=== PATIENT | female | born 1955 | race Two or more races ===

== ENCOUNTER → 2020-08-09 13:15 | Outpatient (BNVA) | payer OTHER, SELFPAY | PROVIDERS: PCP Internal Medicine; Visit Provider Urology | DX: Z76.89 Persons encountering health services in other specified circumstances (principal) | CPT/HCPCS: 99212 ==

== ENCOUNTER 2020-09-13 13:45 | Outpatient (REF) | payer OTHER, SELFPAY | END 2020-09-13 13:46 | disposition home or self-care (01) | LOC: HO.LAB 13:45 | PROVIDERS: PCP Internal Medicine; Visit Provider Internal Medicine | DX: Z20.828 Contact with and (suspected) exposure to other viral communicable diseases (principal) | CPT/HCPCS: C9803; U0003 ==

== ENCOUNTER 2020-09-14 12:38 | Outpatient (REF) | payer MEDICARE, SELFPAY ==
[2020-09-14 14:41] LABS: MANUAL DIFF FLAG NO
[2020-09-14 14:47] LABS: Basophils Percent Auto 0.2 % (0-2); Eosinophils Absolute Auto 0.2 X10*3/uL (0.0-0.4); Eosinophils Percent Auto 2.8 % (0-4); Hematocrit 44.5 % (37-47); Hemoglobin 15.4 g/dl (12.0-16.0); Imm Gran Abs Auto 0.06 X10*3/uL (0.00-0.03); Lymphocytes Absolute Auto 1.7 X10*3/uL (1.2-4.9); Lymphocytes Percent Auto 27.9 % (20-40); Mean Corpuscular HGB Conc 34.6 g/dl (31.0-35.0); Mean Corpuscular Hemoglobin 30.6 pg (27.0-33.0); Mean Corpuscular Volume 88.3 fL (80-98); Mean Platelet Volume 9.4 fL (9.4-12.3); Monocytes Absolute Auto 0.4 X10*3/uL (0.1-1.2); Monocytes Percent Auto 7.3 % (2-11); Neutrophils Absolute Auto 3.7 X10*3/uL (2.0-8.3); Neutrophils Percent Auto 60.8 % (45-73); Platelet Count 177 X10*3/uL (160-400); Red Blood Count 5.04 X10*6/uL (4.20-5.50); Red Cell Distribution Width 12.7 % (11.0-16.0); White Blood Count 6.1 X10*3/uL (4.8-10.8)
[2020-09-14 14:53] LABS: Glucose Urine UA >=1000 MG/DL (NEG); Leukocyte Esterase Urine NEG (NEG); Nitrite Urine NEG (NEG); PH 5.5 (5.0-8.0); Urine Blood TRACE (NEG); Urine Ketones NEG (NEG); Urine Protein NEG (NEG-TRACE)
[2020-09-14 14:54] LABS: Appearance Urine CLEAR; Color Urine YELLOW
[2020-09-14 15:01] LABS: RBC Urine 0-2 /HPF (0); Squamous Epithelial Cell Urine 1+ /LPF; WBC Urine 0 /HPF (0-4)
[2020-09-14 15:14] LABS: Alanine Aminotransferase 44 U/L (0-31); Albumin Level 4.5 g/dL (3.5-5.0); Alkaline Phosphatase 70 U/L (39-117); Anion Gap 13 (12-20); Aspartate Amino Transferase 29 U/L (5-31); Bilirubin Total 0.5 mg/dL (0.0-1.0); Blood Urea Nitrogen 17 mg/dL (9-16); Calcium 9.5 mg/dL (8.4-10.2); Carbon Dioxide 26 mmol/L (22-29); Chloride 105 mmol/L (96-108); Cholesterol 189 mg/dL; Estimated Glomerular Filt Rate > 60; Glucose Fasting 177 mg/dL (60-99); HDL Cholesterol 34 mg/dL; LDL Cholesterol Calculated 93 mg/dl; Potassium 4.8 mmol/l (3.3-5.1); Sodium 139 mmol/L (135-145); Total Protein 7.7 g/dL (6.5-8.0); Triglycerides 312 mg/dL
[2020-09-14 15:27] LABS: Creatinine Urine 64.24 mg/dL; Microalbum/Creatinine Ratio Ur 12.4 ug/mg cr
[2020-09-14 15:35] LABS: TSH reflex Free T4 0.58 mIU/mL (0.32-4.0)
== END 2020-09-14 12:39 | disposition home or self-care (01) ==
LOC: HO.LAB 12:38
PROVIDERS: PCP Internal Medicine; Visit Provider Internal Medicine
DX: E78.2 Mixed hyperlipidemia (principal); E11.9 Type 2 diabetes mellitus without complications; R79.89 Other specified abnormal findings of blood chemistry; I10 Essential (primary) hypertension; J30.9 Allergic rhinitis, unspecified; E66.3 Overweight
CPT/HCPCS: 36415; 80053; 80061; 81001; 82043; 84443; 85025

== ENCOUNTER 2020-09-14 14:02 | Outpatient (REF) | payer MEDICARE, SELFPAY | END 2020-09-14 14:03 | disposition home or self-care (01) | LOC: HO.LAB 14:02 | PROVIDERS: Visit Provider Internal Medicine | DX: Z20.828 Contact with and (suspected) exposure to other viral communicable diseases (principal) | CPT/HCPCS: C9803; U0003 ==

== ENCOUNTER 2020-09-15 16:30 | Outpatient (REF) | payer MEDICARE, SELFPAY ==
--- NOTE | 2020-09-15 16:45 | XR_ITS ---
EXAMINATION: XR SHOULDER, RIGHT CLINICAL INFORMATION: Pain in right shoulder COMPARISON: Chest x-ray 01/22/2020 TECHNIQUE: AP external rotation, Grashey, scapular Y, and axillary views of the right shoulder. FINDINGS: Mild right acromioclavicular joint arthrosis. The right clavicle is intact. There is mild sclerosis and osteophytosis of the right glenoid. No fracture seen. Visualized right lung and ribs are normal. XR/XR shoulder RT min 2V IMPRESSION: There are degenerative changes of the right acromioclavicular and glenohumeral joints.
== END 2020-09-15 16:31 | disposition home or self-care (01) ==
LOC: HO.XRAY 16:30
PROVIDERS: PCP Internal Medicine; Visit Provider Internal Medicine
DX: M25.511 Pain in right shoulder (principal)
CPT/HCPCS: 73030

== ENCOUNTER → 2020-11-09 13:46 | Outpatient (BNVA) | payer MEDICARE, SELFPAY | PROVIDERS: Visit Provider Orthopaedic Surgery | DX: M75.51 Bursitis of right shoulder (principal) | CPT/HCPCS: 20610; 99202; J1100 ==

== ENCOUNTER 2020-11-12 18:14 | Emergency (ER) | payer MEDICARE, SELFPAY ==
[2020-11-12 18:23] VITALS: BP 149/67; PULSE 87; RESP 16; TEMP 36.8; O2SAT 99; BMI 27.4
== END 2020-11-12 21:00 | disposition left against medical advice (07) ==
PROVIDERS: Emergency Provider Emergency Medicine; PCP Internal Medicine
DX: R07.9 Chest pain, unspecified (principal)
CPT/HCPCS: 99281; 99282

== ENCOUNTER 2020-12-28 14:00 | Outpatient (RCR) | payer MEDICARE, SELFPAY ==
--- NOTE | 2020-11-23 14:01 | MHC.PT.EP ---
[facility] [place] Office [place] Office [place] Office [address] Marquita Reid [address] [phone] F: [phone] F: [phone] F: [phone] F: [phone] Physical Therapy Plan of Care Date of Evaluation: 11/23/20 Date of Surgery: N/A Diagnosis: bursitis of right shoulder Assessment: pt presents to physical therapy with pain, decreased range of motion, decreased strength, impaired functional mobility, impaired postural awareness, and gait deviations. pt is a good candidate for skilled PT due to age, potential remediation of impairments, typical disease/condition progression and prognosis, comorbidities, and motivation. pt would benefit from tailored strengthening and stretching exercise program, functional training, gait training, postural re-training, neuromuscular re-education, modalities as needed for pain, equipment safety demonstration. Frequency and Duration: The patient will be seen 2x/wk for 5 wks Short Term Goals: pt will be I w/ HEP to promote self-management of condition. pt will improve R shoulder flexion strength by 1 MMT grade to facilitate ease in lowering arm from reaching higher shelves. Residential Goals: pt will report <1/10 R shoulder pain w/ laying on R side for >30 min to promote improved tolerance for sleeping. pt will report statistically significant improvement in self-reported outcome measure, SPADI, to facilitate return to PLOF. Treatment Plan: Modalities to reduce pain, spasms and effusion. Manual therapy to restore motion and function. Therapeutic exercise to improve strength and flexibility. Neuromuscular re-education for posture and balance. Therapeutic activities to return to functional activities of daily living. Electronically signed by: Nikki Nettles PT, DPT Please sign and return to therapist. Thank you for your referral.
--- NOTE | 2021-01-08 17:18 | MHC.PT.DC ---
[facility] [place] Office [place] Office [place] Office [address] Reid 140 [facility] [phone] F: [phone] F: [phone] F: [phone] F: [phone] Physical Therapy Discharge Report Diagnosis: bursitis of right shoulder Date of Surgery: N/A Date of Evaluation: 11/23/20 Date of Discharge: 01/08/21 Treatments to Date: 5 Cancellations to Date: 4 No Shows to Date: 3 Discharge Status: Improved Function Visit Non-compliance Discharge Summary: The patient was reporting an improvement in her pain. She was still having pain with sleeping so she was educated regarding sleeping posture and strategies to reduce and prevent pain with sleeping positions. Due to poor attendance she is being discharged from this physical therapy plan of care. Electronically signed by: Nikki Nettles PT, DPT Please sign and return to therapist. Thank you for your referral.
== END 2021-01-08 17:19 | disposition other institution (70) ==
LOC: HO.PT 14:00
PROVIDERS: PCP Internal Medicine; Visit Provider Orthopaedic Surgery
DX: M75.51 Bursitis of right shoulder (principal)
CPT/HCPCS: 97110; 97140; 97161

== ENCOUNTER 2021-01-15 09:31 | Outpatient (REF) | payer MEDICARE, SELFPAY ==
[2021-01-15 10:20] LABS: MANUAL DIFF FLAG NO
[2021-01-15 10:24] LABS: Basophils Percent Auto 0.5 % (0-2); Eosinophils Absolute Auto 0.2 X10*3/uL (0.0-0.4); Eosinophils Percent Auto 3.4 % (0-4); Hematocrit 42.5 % (37-47); Hemoglobin 14.5 g/dl (12.0-16.0); Imm Gran Abs Auto 0.06 X10*3/uL (0.00-0.03); Lymphocytes Absolute Auto 2.1 X10*3/uL (1.2-4.9); Lymphocytes Percent Auto 35.2 % (20-40); Mean Corpuscular HGB Conc 34.1 g/dl (31.0-35.0); Mean Corpuscular Hemoglobin 30.5 pg (27.0-33.0); Mean Corpuscular Volume 89.3 fL (80-98); Mean Platelet Volume 9.6 fL (9.4-12.3); Monocytes Absolute Auto 0.5 X10*3/uL (0.1-1.2); Neutrophils Percent Auto 50.9 % (45-73); Platelet Count 179 X10*3/uL (160-400); Red Blood Count 4.76 X10*6/uL (4.20-5.50); Red Cell Distribution Width 12.3 % (11.0-16.0)
[2021-01-15 10:49] LABS: Glucose Urine UA >=1000 MG/DL (NEG); Leukocyte Esterase Urine NEG (NEG); Nitrite Urine NEG (NEG); PH 5.5 (5.0-8.0); Urine Blood TRACE (NEG); Urine Ketones NEG (NEG); Urine Protein NEG (NEG-TRACE)
[2021-01-15 10:51] LABS: Alanine Aminotransferase 53 U/L (0-31); Albumin Level 4.2 g/dL (3.5-5.0); Alkaline Phosphatase 69 U/L (39-117); Anion Gap 12 (12-20); Aspartate Amino Transferase 25 U/L (5-31); Bilirubin Total 0.3 mg/dL (0.0-1.0); Blood Urea Nitrogen 19 mg/dL (9-16); Calcium 9.3 mg/dL (8.4-10.2); Carbon Dioxide 27 mmol/L (22-29); Chloride 104 mmol/L (96-108); Cholesterol 150 mg/dL; Estimated Glomerular Filt Rate > 60; Glucose Fasting 297 mg/dL (60-99); HDL Cholesterol 32 mg/dL; LDL Cholesterol Calculated 70 mg/dl; Potassium 4.5 mmol/L (3.3-5.1); Sodium 138 mmol/L (135-145); Triglycerides 242 mg/dL
[2021-01-15 10:59] LABS: Appearance Urine CLEAR; Color Urine YELLOW
[2021-01-15 11:04] LABS: Creatinine Urine 46.85 mg/dL; Microalbumin Urine < 5.0 mg/L
[2021-01-15 11:14] LABS: TSH reflex Free T4 1.35 uIU/mL (0.32-4.0)
[2021-01-15 11:18] LABS: RBC Urine 0-2 /HPF (0); Squamous Epithelial Cell Urine 1+ /LPF; WBC Urine 0-2 /HPF (0-4)
== END 2021-01-15 09:32 | disposition home or self-care (01) ==
LOC: HO.LAB 09:31
PROVIDERS: PCP Internal Medicine; Visit Provider Internal Medicine
DX: I10 Essential (primary) hypertension (principal); J30.9 Allergic rhinitis, unspecified; E78.2 Mixed hyperlipidemia; E11.9 Type 2 diabetes mellitus without complications; E66.3 Overweight
CPT/HCPCS: 36415; 80053; 80061; 81001; 82043; 84443; 85025

== ENCOUNTER → 2021-02-08 14:24 | Outpatient (BNVA) | payer MEDICARE, SELFPAY | PROVIDERS: PCP Internal Medicine; Visit Provider Physician Assistant | DX: M75.21 Bicipital tendinitis, right shoulder (principal) | CPT/HCPCS: 99212 ==

== ENCOUNTER 2021-03-02 11:28 | Outpatient (REF) | payer MEDICARE, SELFPAY ==
[2021-03-06 20:57] LABS: HPV mRNA E6/E7 rflx Not Detected (Not Detected)
== END 2021-03-02 11:29 | disposition home or self-care (01) ==
LOC: HO.LAB 11:28
PROVIDERS: Obstetrics & Gynecology; PCP Internal Medicine; Visit Provider Internal Medicine
DX: Z01.419 Encounter for gynecological examination (general) (routine) without abnormal findings (principal); M75.21 Bicipital tendinitis, right shoulder; G89.29 Other chronic pain; Z78.0 Asymptomatic menopausal state; R32 Unspecified urinary incontinence; N95.8 Other specified menopausal and perimenopausal disorders
CPT/HCPCS: 87624; 88141; 88142; 99202

== ENCOUNTER 2021-03-14 09:26 | Outpatient (REF) | payer MEDICARE, SELFPAY ==
[2021-03-14 11:38] LABS: Folate 14.8 ng/mL (> or = 4.0); Vitamin B12 517 pg/mL (200-900)
== END 2021-03-14 09:27 | disposition home or self-care (01) ==
LOC: HO.LAB 09:26
PROVIDERS: PCP Internal Medicine; Visit Provider Psychiatry & Neurology Neurology
DX: F06.8 Other specified mental disorders due to known physiological condition (principal)
CPT/HCPCS: 36415; 82607; 82746

== ENCOUNTER → 2021-06-07 13:13 | Outpatient (BNVA) | payer MEDICARE, SELFPAY | PROVIDERS: PCP Internal Medicine | DX: R39.81 Functional urinary incontinence (principal) | CPT/HCPCS: 99212 ==

== ENCOUNTER 2021-07-06 02:42 | Emergency (ER) | payer MEDICARE, SELFPAY ==
--- NOTE | ~2021-07-06 | CT_ITS ---
EXAMINATION: CT HEAD WITHOUT CONTRAST CT CERVICAL SPINE WITHOUT CONTRAST CLINICAL INFORMATION: Fall. COMPARISON: CT head 07/03/2020 TECHNIQUE: Imaging was performed from the skull base to vertex without intravenous administration of contrast. In addition, helical noncontrast CT imaging was acquired through the cervical spine and source images were reviewed along with axial reconstructions and sagittal and coronal MPRs. [This CT examination was performed using dose optimization techniques as appropriate, variously including the following: *Automated exposure control *Adjustment of mA and/or kV according to patient size (this includes techniques or standardized protocols for targeted exams where dose is matched to indication/reason for exam; i.e. extremities or head) *Use of iterative reconstruction technique] DLP: 1202 mGy-cm FINDINGS: HEAD: No intracranial mass, hemorrhage, or midline shift is visualized. The ventricles and sulci are proportional. Normal variant of cisterna magna. No extra-axial collections are identified. The paranasal sinuses and mastoid air cells are well aerated. CERVICAL SPINE: There is no evidence of acute cervical spine fracture. Vertebral bodies remain normal in height. Cervical vertebrae have normal alignment. There is mild degenerative spondylosis of the cervical spine with disc height narrowing and endplate spurs and facet joint arthrosis at C5-C6 and C6-C7. No pre- or paravertebral soft tissue abnormality is identified. Limited assessment of the lung apices is unremarkable. CT/CT cervical spine wo con IMPRESSION: 1. No acute intracranial pathology. 2. No CT evidence of acute cervical spine fracture or traumatic subluxation
--- NOTE | ~2021-07-06 | CT_ITS ---
EXAMINATION: CT HEAD WITHOUT CONTRAST CT CERVICAL SPINE WITHOUT CONTRAST CLINICAL INFORMATION: Fall. COMPARISON: CT head 07/03/2020 TECHNIQUE: Imaging was performed from the skull base to vertex without intravenous administration of contrast. In addition, helical noncontrast CT imaging was acquired through the cervical spine and source images were reviewed along with axial reconstructions and sagittal and coronal MPRs. [This CT examination was performed using dose optimization techniques as appropriate, variously including the following: *Automated exposure control *Adjustment of mA and/or kV according to patient size (this includes techniques or standardized protocols for targeted exams where dose is matched to indication/reason for exam; i.e. extremities or head) *Use of iterative reconstruction technique] DLP: 1202 mGy-cm FINDINGS: HEAD: No intracranial mass, hemorrhage, or midline shift is visualized. The ventricles and sulci are proportional. Normal variant of cisterna magna. No extra-axial collections are identified. The paranasal sinuses and mastoid air cells are well aerated. CERVICAL SPINE: There is no evidence of acute cervical spine fracture. Vertebral bodies remain normal in height. Cervical vertebrae have normal alignment. There is mild degenerative spondylosis of the cervical spine with disc height narrowing and endplate spurs and facet joint arthrosis at C5-C6 and C6-C7. No pre- or paravertebral soft tissue abnormality is identified. Limited assessment of the lung apices is unremarkable. CT/CT head/brain wo con IMPRESSION: 1. No acute intracranial pathology. 2. No CT evidence of acute cervical spine fracture or traumatic subluxation
[2021-07-06 02:53] VITALS: BP 142/93; PULSE 77; PULSE 87; RESP 16; TEMP 36.8; O2SAT 100; O2SAT 99; BMI 26.6
[2021-07-06 02:55] LABS: Glucose, Whole Blood 159 mg/dL (60-115)
--- NOTE | 2021-07-06 03:13 | PC.NURSE ---
PT'S DAUGHTER CALLED, SHEREEFREDO [phone]
--- NOTE | 2021-07-06 03:18 | ED.GENADULT ---
HPI - General Adult General Chief complaint: Fall Stated complaint: etoh Time Seen by Provider: 07/06/21 03:05 Source: patient, EMS and certified court interpreter Mode of arrival: EMS Limitations: no limitations History of Present Illness HPI narrative: Female came in by EMS for evaluation of alcohol intoxication and possible fall hitting her head. This is a 65-year-old female admitted to drinking alcohol last night family called ambulance to bring her to the hospital after becoming drunk and fell on the floor. EMS witnessed the patient on the floor face down. Patient was GCS of 15. Patient's significant other came to the emergency room also intoxicated. Related Data Home Medications Medication Instructions Recorded Confirmed clonazepam 0.5 mg tablet 0.5 mg PO BEDTIME PRN 08/09/20 06/07/21 cyclobenzaprine 10 mg tablet 10 mg PO Q8H PRN 08/09/20 06/07/21 omeprazole 20 mg capsule,delayed 20 mg PO DAILY 08/09/20 06/07/21 release ibuprofen 800 mg tablet 800 mg PO Q8H PRN tab 11/09/20 06/07/21 Previous Rx's Medication Instructions Recorded pen needle, diabetic 32 gauge x #50 ea 11/07/20 insulin glargine 100 unit/mL (3 20 unit SUBCUT BEDTIME #15 ml 11/10/20 mL) subcutaneous pen (Lantus Solostar U-100 Insulin) loratadine 10 mg tablet 10 mg PO DAILY PRN #90 tab 11/23/20 empagliflozin 10 mg tablet 10 mg PO DAILY #90 tab 12/29/20 (Jardiance) losartan 100 mg tablet 100 mg PO DAILY #90 tab 02/08/21 estradiol 10 mcg vaginal insert, See Rx Instructions VAGINAL 03/02/21 in a starter dose pack .COMPLEX #18 ea tramadol 50 mg tablet 50 mg PO BEDTIME PRN 15 Days #15 03/26/21 tab linagliptin 5 mg tablet (Tradjenta) 5 mg PO DAILY #90 tab 04/19/21 atorvastatin 80 mg tablet 80 mg PO BEDTIME #90 tab 04/27/21 citalopram 40 mg tablet 40 mg PO DAILY #90 tab 05/08/21 oxybutynin chloride 10 mg 10 mg PO DAILY 30 Days #30 tab 06/07/21 tablet,extended release 24 hr pen needle, diabetic 31 gauge x #50 ea 06/22/2101/16 lancets 28 gauge (FreeStyle #100 ea 06/29/21 Lancets) blood sugar diagnostic (FreeStyle 1 strip MISCELLANEOUS TID #300 07/01/21 Lite Strips) strip Allergies Allergy/AdvReac Type Severity Reaction Status Date / Time acetaminophen [From TYLENOL] Allergy Intermediate HIVES Verified 07/06/21 02:52 amoxicillin [AMOXICILLIN] Allergy Unknown ITCHY Verified 07/06/21 02:52 gabapentin Allergy Unknown dizziness Verified 07/06/21 02:52 glipizide Allergy Unknown unknown Verified 07/06/21 02:52 latex [LATEX] Allergy Unknown UNKNOWN Verified 07/06/21 02:52 levofloxacin Allergy Unknown Unknown Verified 07/06/21 02:52 liraglutide [From VICTOZA] Allergy Unknown UNKNOWN, Verified 07/06/21 02:52 itching metformin [METFORMIN] Allergy Unknown DIARRHEA Verified 07/06/21 02:52 morphine [MORPHINE] Allergy Unknown ITCHING, Verified 07/06/21 02:52 rash Review of Systems Review of Systems: All other systems are reviewed and are negative Constitutional: Reports as per HPI and Reports no additional constitutional complaints Eyes: Reports as per HPI and Reports no additional eye complaints Reports system reviewed and no additional complaints, except as documented Cardiovascular: Reports as per HPI and Reports no additional cardiovascular complaints Respiratory: Reports as per HPI and Reports no additional respiratory complaints Gastrointestinal: Reports as per HPI and Reports no additional gastrointestinal complaints Genitourinary: Reports no additional female genitourinary complaints Musculoskeletal: Reports no additional musculoskeletal complaints Skin/Breast: Reports system reviewed and no additional complaints, except as docu Psychiatric: Reports no additional psychiatric complaints Endocrine: Reports no additional endocrine complaints Hematologic/Lymphatic: Reports no additional hematologic/lymphatic complaints Allergic/Immunologic: Reports no additional allergic/immunologic complaints Reports system reviewed and no additional complaints, except as documented and Reports Abnormal speech present [facility] Past Medical History Medical History Allergic rhinitis Anxiety Benign essential hypertension Bursitis of left shoulder Bursitis of right shoulder Ear drainage Ear pain Elevated LFTs Lumbar degenerative disc disease Memory loss or impairment Mixed hyperlipidemia Overweight (BMI 25.0-29.9) Primary osteoarthritis of left shoulder Primary osteoarthritis, right shoulder Right shoulder pain Type 2 diabetes mellitus without complications Varicose veins of both lower extremities Surgical History History of appendectomy History of cholecystectomy History of cystoscopy History of tubal ligation Family History Family History Father Cancer Mother Diabetes Maternal Uncle Cancer Maternal Grandfather Cancer Social History Social History Alcohol intake: current Alcohol intake frequency: holidays/special occasions only Alcohol type: beer Advance Directives: No Current occupational status: unemployed Current occupation: right handed Physical Exam Vital Signs: Vital Signs: Last Vital Signs Temp 98.3 F 07/06/21 02:53 Pulse 77 07/06/21 02:53 Resp 16 07/06/21 02:53 BP 142/93 H 07/06/21 02:53 Pulse Ox 100 07/06/21 02:53 Body Mass Index 26.6 Vital signs have been reviewed as appeared to be correct. Blood pressure normal. Heart rate normal. Respiration rate normal. Temperature normal. Oxygen saturation normal. Appearance: Alert. No acute distress. Alcohol on breath, GCS of 15, patient is coherent. Head: Normal external exam. Normocephalic. Atraumatic. No Lambert signs noted. No raccoon eyes noted Eyes: PERRLA. EOMI. Conjunctiva and sclera normal. Eyelids normal. ENT: TM's Normal. Pharynx normal. Uvula midline. Moist mucous membranes. No trismus noted. No drooling noted. No muffled voice noted. Neck: Normal inspection. Neck supple. FROM. No adenopathy. Thyroid Normal. No meningeal signs. No neck mass noted. CVS: Normal heart rate and rhythm. Heart sound normal. No murmurs noted. Pulses normal throughout. Respiratory: No respiratory distress. Painless inspiration. Breath sounds normal. No wheezes/rales/rhonchi noted. Chest nontender. No accessory muscle usage noted or decreased air movement noted. Abdomen: Soft and nontender. Bowel sounds normal in all 4 quadrants. No distention noted. No organomegaly noted. No visible injury noted. Back: No CVA tenderness. Full range of motion noted. Skin: Skin warm and dry. Normal skin color. Normal skin turgor. No rashes/lesions/lacerations noted. Extremities: No lower extremity edema. Extremities exhibit normal range of motion. Extremities nontender. Neuro: Cranial nerve exam: II-XII are grossly intact No motor deficit. No sensory deficit. Reflexes normal. Course Course Course Narrative: Assessment and plan. 65-year-old female came in by ambulance after fall while intoxicated. Patient after taking a nap in the emergency department patient is more sober able to give more history. Medical Decision Making Lab Data Labs: Lab Results 07/06/21 07/06/21 Range/Units 02:48 03:28 POC Glucose 159 H (60-115) mg/dL Ethyl Alcohol 264 mg/dL Imaging Data Head/C-spine CT: Radiologist's impression: IMPRESSION: 1. No acute intracranial pathology. 2. No CT evidence of acute cervical spine fracture or traumatic subluxation ? Discharge Plan Discharge Clinical Impression: Alcohol intoxication, Closed head injury Patient Disposition: Home, Self-Care Instructions: Abuse of Alcohol (ED) Prescriptions: No Action (DME) pen needle, diabetic 32 gauge x 5/32 needle See Rx Instructions ea subcut DAILY Qty: 50 RF: 5 insulin glargine [Lantus Solostar U-100 Insulin] 100 unit/mL (3 mL) insulin pen 20 unit subcut BEDTIME Qty: 15 RF: 3 loratadine 10 mg tablet 10 mg PO DAILY PRN (Reason: allergy symptoms) Qty: 90 RF: 1 empagliflozin [Jardiance] 10 mg tablet 10 mg PO DAILY Qty: 90 RF: 2 losartan 100 mg tablet 100 mg PO DAILY Qty: 90 RF: 3 linagliptin [Tradjenta] 5 mg tablet 5 mg PO DAILY Qty: 90 RF: 3 atorvastatin 80 mg tablet 80 mg PO BEDTIME Qty: 90 RF: 1 citalopram 40 mg tablet 40 mg PO DAILY Qty: 90 RF: 1 (DME) pen needle, diabetic 31 gauge x 3/16 needle See Rx Instructions ea subcut .MEDSUPPLY Qty: 50 RF: 6 (DME) lancets [FreeStyle Lancets] 28 gauge misc See Rx Instructions .Route Qty: 100 RF: 0 FreeStyle Lite Strips Strip 1 strip miscellaneous TID Qty: 300 RF: 4 tramadol 50 mg tablet 50 mg PO BEDTIME PRN (Reason: pain) 15 Days Qty: 15 RF: 1 estradiol 10 mcg insert, dose pack See Rx Instructions vaginal .COMPLEX Qty: 18 RF: 11 ibuprofen 800 mg tablet 800 mg PO Q8H PRN (Reason: pain) RF: 0 omeprazole 20 mg capsule,delayed release(DR/EC) 20 mg PO DAILY RF: 0 clonazepam 0.5 mg tablet 0.5 mg PO BEDTIME PRNRF: 0 cyclobenzaprine 10 mg tablet 10 mg PO Q8H PRN (Reason: muscle spasm) RF: 0 oxybutynin chloride 10 mg tablet extended release 24hr 10 mg PO DAILY 30 Days Qty: 30 RF: 3 Referrals: Physician,Unknown [Primary Care Provider] - 2 days
--- NOTE | 2021-07-06 03:20 | PC.NURSE ---
C-COLLAR PLACED ON PATIENT A PRECAUTION. PT CHANGED INTO HOSPITAL CLOTHING. PT KEEPS ASKING WHAT HAPPENED TO ME PT REMOVED C-COLLAR AND THREW IT ON THE FLOOR. VERY STRONG ODOR OF ETOH. PT WILL NOT ALLOW ME TO PLACE COLLAR BACK IN PLACE.
[2021-07-06 03:50] LABS: Ethanol 264 mg/dL
--- NOTE | 2021-07-06 04:41 | PC.NURSE ---
PT COOPERATIVE, ASKING FOR HER DAUGHTER. IS IN ANOTHER ER BED. ASSISTED PT WITH BEDPAN, MISSED BEDPAN AND VOIDED ON LINED. LINEN CHANGED, PT STOOD NEXT TO BED STEADILY WHILE LINEN CHANGED.
[2021-07-06 06:26] VITALS: BP 100/61; PULSE 79; RESP 16; O2SAT 98
--- NOTE | 2021-07-06 06:28 | PC.NURSE ---
PT AMBULATORY TO BATHROOM 5-6 STEPS. ASSIST OF 1 FOR SAFETY. PT HAD SANDWICH AND SODA. DAUGHTER WILL NIGHT WAREHOUSE SELECTOR PT BY 7AM.
== END 2021-07-06 07:19 | disposition home or self-care (01) ==
PROVIDERS: Emergency Provider Emergency Medicine
DX: F10.920 Alcohol use, unspecified with intoxication, uncomplicated (principal); Y90.8 Blood alcohol level of 240 mg/100 ml or more; S09.90XA Unspecified injury of head, initial encounter; W18.30XA Fall on same level, unspecified, initial encounter; E11.9 Type 2 diabetes mellitus without complications; E78.2 Mixed hyperlipidemia; I10 Essential (primary) hypertension; Y93.9 Activity, unspecified; Y92.9 Unspecified place or not applicable; Y99.9 Unspecified external cause status; Z79.4 Long term (current) use of insulin; Z79.02 Long term (current) use of antithrombotics/antiplatelets; Z79.899 Other long term (current) drug therapy
CPT/HCPCS: 36415; 70450; 72125; 82077; 82947; 99284

== ENCOUNTER → 2021-08-10 13:16 | Outpatient (BNVA) | payer MEDICARE, SELFPAY | PROVIDERS: PCP Internal Medicine | DX: R39.81 Functional urinary incontinence (principal) | CPT/HCPCS: 51798; 99212 ==

== ENCOUNTER 2021-10-05 13:52 | Outpatient (REF) | payer MEDICARE, SELFPAY ==
[2021-10-06 11:19] LABS: BV Int Neg Control Negative (Negative); BV Int Pos Control Positive (Positive)
[2021-10-06 16:57] LABS: CT PCR NOT DETECTED (Not Detect.); NG PCR NOT DETECTED (Not Detect.)
== END 2021-10-05 13:53 | disposition home or self-care (01) ==
LOC: HO.LAB 13:52
PROVIDERS: Visit Provider Advanced Practice Midwife
DX: N89.8 Other specified noninflammatory disorders of vagina (principal); R10.2 Pelvic and perineal pain; R32 Unspecified urinary incontinence; R15.9 Full incontinence of feces; M51.36 Other intervertebral disc degeneration, lumbar region; Z20.2 Contact with and (suspected) exposure to infections with a predominantly sexual mode of transmission
CPT/HCPCS: 87480; 87491; 87510; 87591; 87660; 99212

== ENCOUNTER 2021-10-26 19:44 | Emergency (ER) | payer MEDICARE, SELFPAY ==
[2021-10-26 20:01] VITALS: BP 136/72; PULSE 89; RESP 14; TEMP 37.4; O2SAT 97; BMI 26.9
[2021-10-26 20:21] LABS: COVID-19 Test Positive (Negative); IDNOW Serial# 9DD0AD1C
--- NOTE | 2021-10-26 20:24 | ED_ITS ---
HPI - URI/Sore Throat General Chief Complaint: Dizziness Stated Complaint: coughing, dizziness Source: patient Mode of arrival: ambulatory Limitations: no limitations History of Present Illness HPI Narrative: 66-year-old female presents with upper respiratory symptoms, cough, congestion and dizziness for 2 days. Is requesting COVID-19 testing. MD elicited complaint: cough and nasal congestion Onset (ago): day(s) (2) Consistency: constant Severity: mild Description of mucous: clear and watery Able to tolerate fluids by mouth: Yes Exacerbating factors: exertion Relieving factors: rest Context: sick contacts Associated symptoms: myalgias, nasal congestion, sore throat and cough Treatments prior to arrival: none Related Data Home Medications Medication Instructions Recorded Confirmed cyclobenzaprine 10 mg tablet 10 mg PO Q8H PRN 08/09/20 08/10/21 ibuprofen 800 mg tablet 800 mg PO Q8H PRN tab 11/09/20 08/10/21 estradiol 10 mcg vaginal tablet 0 mcg VAGINAL 10/05/21 (Yuvafem) Previous Rx's Medication Instructions Recorded pen needle, diabetic 32 gauge x #50 ea 11/07/20 insulin glargine 100 unit/mL (3 20 unit (0.2 mL) SUBCUT BEDTIME 11/10/20 mL) subcutaneous pen (Lantus #15 ml Solostar U-100 Insulin) empagliflozin 10 mg tablet 10 mg PO DAILY #90 tab 12/29/20 (Jardiance) losartan 100 mg tablet 100 mg PO DAILY #90 tab 02/08/21 tramadol 50 mg tablet 50 mg PO BEDTIME PRN 15 Days #15 03/26/21 tab linagliptin 5 mg tablet (Tradjenta) 5 mg PO DAILY #90 tab 04/19/21 atorvastatin 80 mg tablet 80 mg PO BEDTIME #90 tab 04/27/21 citalopram 40 mg tablet 40 mg PO DAILY #90 tab 05/08/21 pen needle, diabetic 31 gauge x #50 ea 06/22/2101/16 lancets 28 gauge (FreeStyle #100 ea 06/29/21 Lancets) blood sugar diagnostic (FreeStyle 1 strip MISCELLANEOUS TID #300 07/01/21 Lite Strips) strip oxybutynin chloride 10 mg 10 mg PO DAILY 30 Days #30 tab 08/10/21 tablet,extended release 24 hr estradiol (Estrace) See Rx Instructions .ROUTE DAILY 09/20/21 30 Days #42.5 g oxybutynin chloride 10 mg 10 mg PO DAILY 30 Days #30 tab 09/20/21 tablet,extended release 24 hr metronidazole 500 mg tablet 500 mg PO BID 7 Days #14 tab 10/09/21 Allergies Allergy/AdvReac Type Severity Reaction Status Date / Time acetaminophen [From TYLENOL] Allergy Intermediate HIVES Verified 10/05/21 14:11 amoxicillin [AMOXICILLIN] Allergy Unknown ITCHY Verified 10/05/21 14:11 gabapentin Allergy Unknown dizziness Verified 10/05/21 14:11 glipizide Allergy Unknown unknown Verified 10/05/21 14:11 latex [LATEX] Allergy Unknown UNKNOWN Verified 10/05/21 14:11 levofloxacin Allergy Unknown Unknown Verified 10/05/21 14:11 liraglutide [From VICTOZA] Allergy Unknown UNKNOWN, Verified 10/05/21 14:11 itching metformin [METFORMIN] Allergy Unknown DIARRHEA Verified 10/05/21 14:11 morphine [MORPHINE] Allergy Unknown ITCHING, Verified 10/05/21 14:11 rash Review of Systems Review of Systems: Constitutional: No Fever, positive Chills, positive fatigue, positive Malaise ENT/Mouth: positive sore throat, positive runny nose Eyes: No Discharge Cardiovascular: No Chest Pain, No SOB Respiratory: Positive Cough, No Sputum, No Wheezing, No Smoke Exposure, No Dyspnea Gastrointestinal: No Nausea, No Vomiting, No Diarrhea Genitourinary: no irregular bleeding, No Dysuria, No Urinary Frequency, No Hematuria, No Urinary Incontinence, No Urgency, No Flank Pain, Musculoskeletal: positive Myalgia Skin: No rash Neuro: Positive Headache Yes all other systems are reviewed and are negative [facility] Past Medical History Attestation statement: The following information was validated with the patient. Source: old records reviewed Medical History Allergic rhinitis Anxiety Benign essential hypertension Bursitis of left shoulder Bursitis of right shoulder Ear drainage Ear pain Elevated LFTs Lumbar degenerative disc disease Memory loss or impairment Mixed hyperlipidemia Overweight (BMI 25.0-29.9) Primary osteoarthritis of left shoulder Primary osteoarthritis, right shoulder Right shoulder pain Type 2 diabetes mellitus without complications Varicose veins of both lower extremities Surgical History History of appendectomy History of cholecystectomy History of cystoscopy History of tubal ligation Family History Family History Father Cancer Mother Diabetes Maternal Uncle Cancer Maternal Grandfather Cancer Social History Social History Alcohol intake: current Alcohol intake frequency: holidays/special occasions only Alcohol type: beer Patient Tobacco Use Status: Never used Tobacco Advance Directives: No Advance Directives Information Provided: Yes Current occupational status: unemployed Current occupation: right handed Physical Exam Vital Signs: Vital Signs: Last Vital Signs Temp 99.3 F 10/26/21 20:01 Pulse 89 10/26/21 20:01 Resp 14 10/26/21 20:01 BP 136/72 10/26/21 20:01 Pulse Ox 97 10/26/21 20:01 BMI result Body Mass Index 26.9 Appearance: Alert. Oriented X3. No acute distress. Eyes: Pupils equal, round and reactive to light. Sclera nonicteric. ENT: Pharynx normal. Moist mucous membranes. Neck: Normal inspection. Neck supple. CVS: Normal heart rate and rhythm. Pulses normal. Respiratory: No respiratory distress. Breath sounds normal. Abdomen: Soft and nontender. Skin: Skin warm and dry. Normal skin color. Normal skin turgor. Extremities: No lower extremity edema. Gait well-balanced well coordinated. Neuro: No motor deficit. No sensory deficit. Cranial nerves 2-12 intact. Course Course Course Narrative: 66-year-old female presents with upper respiratory symptoms and dizziness. Has been exposed to COVID 19 positive contacts. Patient is afebrile, vital signs are stable and within normal limits. Speaking in complete sentences. Even unlabored respirations. Patient is COVID positive. Will refer for monoclonal antibodies. Patient verbalized understanding of and agrees plan of care discharge home. MDM - URI/Sore Throat Differential Diagnosis Differential diagnosis: Likely upper respiratory infection, sinusitis, viral infection, bronchitis and influenza Medical Records Attestation: I reviewed the patient's medical records. Lab Data Attestation: I reviewed the patient's lab results. Labs: Lab Results 10/26/21 Range/Units 20:08 COVID-19 ([facility]) Positive A (Negative) COVID-19 Clin Com See Note Discharge Plan Discharge Clinical Impression: COVID-19 Patient Disposition: Home, Self-Care Instructions: Covid-19 Viral Syndrome and Novel Coronavirus (ED) Hey/Ath, COVID-19 (Coronavirus Disease 2019) (ED) Additional Instructions: You were evaluated for upper respiratory symptoms. Please follow-up monoclonal antibody treatment. Your COVID 19 test was positive. Please maintain social isolation per State Federal guidelines. Thank you for choosing this emergency department for evaluation. Please follow-up with primary care physician as needed. Return to the emergency department for any new, concerning, or worsening symptoms. Prescriptions: No Action (DME) pen needle, diabetic 32 gauge x 5/32 needle See Rx Instructions ea subcut DAILY Qty: 50 RF: 5 insulin glargine [Lantus Solostar U-100 Insulin] 100 unit/mL (3 mL) insulin pen 20 unit subcut BEDTIME Qty: 15 RF: 3 empagliflozin [Jardiance] 10 mg tablet 10 mg PO DAILY Qty: 90 RF: 2 losartan 100 mg tablet 100 mg PO DAILY Qty: 90 RF: 3 linagliptin [Tradjenta] 5 mg tablet 5 mg PO DAILY Qty: 90 RF: 3 atorvastatin 80 mg tablet 80 mg PO BEDTIME Qty: 90 RF: 1 citalopram 40 mg tablet 40 mg PO DAILY Qty: 90 RF: 1 (DME) pen needle, diabetic 31 gauge x 3/16 needle See Rx Instructions ea subcut .MEDSUPPLY Qty: 50 RF: 6 (DME) lancets [FreeStyle Lancets] 28 gauge misc See Rx Instructions .Route Qty: 100 RF: 0 FreeStyle Lite Strips Strip 1 strip miscellaneous TID Qty: 300 RF: 4 oxybutynin chloride 10 mg tablet extended release 24hr 10 mg PO DAILY 30 Days Qty: 30 RF: 1 estradiol [Estrace] 0.01 % (0.1 mg/gram) cream See Rx Instructions .Route DAILY 30 Days Qty: 42.5 RF: 1 metronidazole 500 mg tablet 500 mg PO BID 7 Days Qty: 14 RF: 0 tramadol 50 mg tablet 50 mg PO BEDTIME PRN (Reason: pain) 15 Days Qty: 15 RF: 1 ibuprofen 800 mg tablet 800 mg PO Q8H PRN (Reason: pain) RF: 0 cyclobenzaprine 10 mg tablet 10 mg PO Q8H PRN (Reason: muscle spasm) RF: 0 oxybutynin chloride 10 mg tablet extended release 24hr 10 mg PO DAILY 30 Days Qty: 30 RF: 0 estradiol [Yuvafem] 10 mcg tablet 0 mcg vaginal RF: 0 Interventions: ED Discharge Assessment Last Done: 10/26/21 21:01 Discharge Date/Time: 10/26/21 21:02
== END 2021-10-26 21:02 | disposition home or self-care (01) ==
PROVIDERS: Emergency Provider Emergency Medicine; PCP Internal Medicine
DX: U07.1 COVID-19 (principal); R42 Dizziness and giddiness; I10 Essential (primary) hypertension; E78.2 Mixed hyperlipidemia; E11.9 Type 2 diabetes mellitus without complications; Z79.4 Long term (current) use of insulin; Z79.02 Long term (current) use of antithrombotics/antiplatelets; Z79.899 Other long term (current) drug therapy
CPT/HCPCS: 36415; 87635; 99283

== ENCOUNTER → 2021-11-09 15:24 | Outpatient (BNVA) | payer MEDICARE, SELFPAY | PROVIDERS: PCP Internal Medicine | DX: R39.81 Functional urinary incontinence (principal) | CPT/HCPCS: Q3014 ==

== ENCOUNTER 2021-11-19 14:37 | Outpatient (REF) | payer MEDICARE, SELFPAY ==
--- NOTE | ~2021-11-19 | US_ITS ---
EXAMINATION: US PELVIS CLINICAL INFORMATION: R10.2 - Pelvic and perineal pain. Age 66. COMPARISON: Pelvic ultrasound 02/15/2019 TECHNIQUE: Ultrasound of the pelvis is performed using both transabdominal and transvaginal transducers along with Doppler. Transvaginal imaging is performed due to inadequate visualization transabdominally. FINDINGS: Uterus: The uterus is anteverted and measures 7.7 x 3.6 x 5.4 cm. Volume 78 mL. Prior measurements 8.7 x 4.2 x 5.0 cm. The double wall endometrial thickness is 4 mm. There is subtle intramural fibroid posterior uterine body measuring 2.2 x 1.5 x 1.8 cm. Prior measurements 3.0 x 2.4 x 2.7 cm. There are some incidental punctate echogenic foci in the cervical canal likely benign microcalcification. No mass. Adnexa: Both ovaries are visualized. There is normal color flow to the adnexa. There is no ovarian torsion. There is no pelvic ascites or fluid collection. Right ovary measures 1.5 x 0.9 x 1.3 cm. Left ovary measures 1.2 x 0.8 x 1.2 cm. US/US pelvic and transvaginal IMPRESSION: 1. Intramural posterior uterine fibroid slightly decreased, 2.2 cm. 2. No adnexal mass or pelvic ascites.
== END 2021-11-19 14:38 | disposition home or self-care (01) ==
LOC: HO.US 14:37
PROVIDERS: Visit Provider Advanced Practice Midwife
DX: R10.2 Pelvic and perineal pain (principal)
CPT/HCPCS: 76830; 76856

== ENCOUNTER → 2021-11-27 10:33 | Outpatient (BNVA) | payer MEDICARE, SELFPAY | PROVIDERS: Visit Provider Advanced Practice Midwife | DX: Z71.2 Person consulting for explanation of examination or test findings (principal) | CPT/HCPCS: Q3014 ==

== ENCOUNTER 2021-12-03 10:39 | Outpatient (REF) | payer MEDICARE, SELFPAY ==
--- NOTE | ~2021-12-03 | MM_ITS ---
EXAMINATION: MM SCREENING DIGITAL BREAST TOMOSYNTHESIS, BILATERAL CLINICAL INFORMATION: Screening. Asymptomatic. The lifetime risk of breast cancer based on the Tyrer-Cuzick Model is 5%. COMPARISON: Mammography: 06/27/2020, 02/02/2019, 01/22/2018 TECHNIQUE: Digital breast tomosynthesis is performed in both the craniocaudal and mediolateral oblique views along with computer-aided detection (CAD). Synthesized 2D images are generated from the tomosynthesis. FINDINGS: There are scattered areas of fibroglandular density (ACR BI-RADS breast composition Category b). There are no significant masses, abnormal calcifications, or other abnormalities. Numerous random scattered bilateral ductal secretory calcifications and some punctate and rim calcifications are again seen, slightly greater in number on the right. The axilla and skin contours are unremarkable. There are no significant changes from prior studies. MM/MM tomosynthesis screening BI IMPRESSION: No mammographic evidence of malignancy. ASSESSMENT: BI-RADS 2: Benign RECOMMENDATION: Routine annual mammography screening. This patient's information was entered into a reminder system with a target due date for their next mammogram.
== END 2021-12-03 10:40 | disposition home or self-care (01) ==
LOC: HO.MAMMO 10:39
PROVIDERS: Visit Provider Internal Medicine
DX: Z12.31 Encounter for screening mammogram for malignant neoplasm of breast (principal)
CPT/HCPCS: 77063; 77067

== ENCOUNTER 2021-12-19 17:24 | Emergency (ER) | payer MEDICARE, SELFPAY ==
--- NOTE | ~2021-12-19 | CT_ITS ---
EXAMINATION: CT HEAD WITHOUT CONTRAST CLINICAL INFORMATION: Memory difficulty COMPARISON: 07.06.2021 TECHNIQUE: Contiguous axial imaging was performed from the skull base to vertex without intravenous administration of contrast. This CT examination was performed using dose optimization techniques as appropriate, variously including the following: *Automated exposure control *Adjustment of mA and/or kV according to patient size (this includes techniques or standardized protocols for targeted exams where dose is matched to indication/reason for exam; i.e. extremities or head) *Use of iterative reconstruction technique DLP: 620 mGy-cm FINDINGS: There is no evidence of acute intracranial hemorrhage or territorial infarction. No abnormal mass effect or midline shift is seen. Jean to white matter differentiation is well preserved. No extra-axial fluid collections are identified. The ventricles are normal in size. Stable appearance of a megacisterna magna, a normal variant. Stable mild patchy subcortical and periventricular white matter low-attenuation changes, nonspecific but statistically reflective of chronic white matter small vessel ischemic disease. The osseous structures and soft tissues are normal. Mild mucosal thickening within the right ethmoid air cells and left maxillary sinus. Mastoid air cells are clear. CT/CT head/brain wo con IMPRESSION: No acute intracranial pathology.
[2021-12-19 17:47] VITALS: BP 128/64; PULSE 88; RESP 20; TEMP 36.7; O2SAT 99; BMI 25.9
--- NOTE | 2021-12-19 21:35 | ED.GENADULT ---
HPI - General Adult General Chief complaint: General Medical Stated complaint: memory loss Time Seen by Provider: 12/19/21 21:11 Source: patient, family (Sister) and coroner Mode of arrival: ambulatory History of Present Illness HPI narrative: 66-year-old female with history of depression, diabetes who presents with complaints of persistent difficulties with memory that have been ongoing since 2019. Patient states that at that time she felt like it was clonazepam and she stop the medication and states her symptoms at that time improved. However, patient notes that last month she was started on a medication by Urology,Catherinebetriq, to control her urinary frequency and says that she began experiencing the symptoms again, and stopped the medication. Patient states that although she drinks on the weekend she denies any recent alcohol use. She states that last night she was at her brother's and then called her boyfriend asking him ?where do I live?. Patient then is noted to begin crying. Otherwise, she denies any fever, chills, GI or symptoms, abdominal pain and states she is continue to take her medications as prescribed other than the medications for bladder control. Related Data Home Medications Medication Instructions Recorded Confirmed cyclobenzaprine 10 mg tablet 10 mg PO Q8H PRN 08/09/20 11/09/21 ibuprofen 800 mg tablet 800 mg PO Q8H PRN tab 11/09/20 11/09/21 estradiol 10 mcg vaginal tablet 0 mcg VAGINAL 10/05/21 11/09/21 (Yuvafem) Previous Rx's Medication Instructions Recorded pen needle, diabetic 32 gauge x #50 ea 11/07/20 insulin glargine 100 unit/mL (3 20 unit (0.2 mL) SUBCUT BEDTIME 11/10/20 mL) subcutaneous pen (Lantus #15 ml Solostar U-100 Insulin) empagliflozin 10 mg tablet 10 mg PO DAILY #90 tab 12/29/20 (Jardiance) losartan 100 mg tablet 100 mg PO DAILY #90 tab 02/08/21 linagliptin 5 mg tablet (Tradjenta) 5 mg PO DAILY #90 tab 04/19/21 pen needle, diabetic 31 gauge x #50 ea 06/22/2101/16 lancets 28 gauge (FreeStyle #100 ea 06/29/21 Lancets) blood sugar diagnostic (FreeStyle 1 strip MISCELLANEOUS TID #300 08/29/21 Lite Strips) strip oxybutynin chloride 10 mg 10 mg PO DAILY 30 Days #30 tab 08/10/21 tablet,extended release 24 hr estradiol (Estrace) See Rx Instructions .ROUTE DAILY 09/20/21 30 Days #42.5 g metronidazole 500 mg tablet 500 mg PO BID 7 Days #14 tab 10/09/21 atorvastatin 80 mg tablet 80 mg PO BEDTIME #90 tab 11/02/21 citalopram 40 mg tablet 40 mg PO DAILY #90 tab 11/04/21 mirabegron 25 mg tablet,extended 25 mg PO DAILY 30 Days #30 tab 11/09/21 release 24 hr (Myrbetriq) Allergies Allergy/AdvReac Type Severity Reaction Status Date / Time acetaminophen [From TYLENOL] Allergy Intermediate HIVES Verified 12/19/21 17:47 amoxicillin [AMOXICILLIN] Allergy Unknown ITCHY Verified 11/09/21 15:27 gabapentin Allergy Unknown dizziness Verified 11/27/21 10:34 glipizide Allergy Unknown unknown Verified 11/27/21 10:34 latex [LATEX] Allergy Unknown UNKNOWN Verified 11/27/21 10:34 levofloxacin Allergy Unknown Unknown Verified 11/27/21 10:34 liraglutide [From VICTOZA] Allergy Unknown UNKNOWN, Verified 11/27/21 10:34 itching metformin [METFORMIN] Allergy Unknown DIARRHEA Verified 11/27/21 10:34 morphine [MORPHINE] Allergy Unknown ITCHING, Verified 11/27/21 10:34 rash Review of Systems Review of Systems: Pertinent positives and negatives as stated in HPI 10 point review of systems is otherwise negative. [facility] Past Medical History Source: nursing notes reviewed Medical History Allergic rhinitis Anxiety Benign essential hypertension Bursitis of left shoulder Bursitis of right shoulder Ear drainage Ear pain Elevated LFTs Lumbar degenerative disc disease Memory loss or impairment Mixed hyperlipidemia Overweight (BMI 25.0-29.9) Primary osteoarthritis of left shoulder Primary osteoarthritis, right shoulder Right shoulder pain Type 2 diabetes mellitus without complications Varicose veins of both lower extremities Surgical History History of appendectomy History of cholecystectomy History of cystoscopy History of tubal ligation Family History Family History Father Cancer Mother Diabetes Maternal Uncle Cancer Maternal Grandfather Cancer Social History Social History Alcohol intake: current Alcohol intake frequency: holidays/special occasions only Alcohol type: beer Patient Tobacco Use Status: Never used Tobacco Advance Directives: No Current occupational status: unemployed Current occupation: right handed Physical Exam ED Vital Signs: Vital Signs - 24 hr 12/19/21 17:47 12/19/21 23:06 Temperature 98.0 F 98.9 F Pulse Rate 88 80 Respiratory Rate 20 18 Blood Pressure 128/64 170/84 H Pulse Oximetry 99 97 BMI result Body Mass Index 25.9 VITAL SIGNS: Reviewed. GENERAL: Well developed, well nourished, in no acute distress. HEAD: Normocephalic/atraumatic EYES: PERRLA, EOMI OROPHARYNX: no oral lesions noted, posterior pharynx clear LUNGS: Normal breath sounds. No adventitious sounds or accessory muscle use. SpO2<99> CARDIOVASCULAR: Regular rate and rhythm without noted murmurs, no JVD or lower extremity edema. ABDOMEN: Soft, non-tender, non-distended with bowel sounds. MUSCULOSKELETAL: No tenderness, deformities, or effusions noted on gross inspection. EXTREMITIES: No cyanosis, clubbing or edema. SKIN: Inspection of the skin reveals no rashes NEUROLOGIC: Alert and oriented x 4. Strength and sensation to light touch were grossly intact x 4, cranial nerves 2-12 are grossly intact. PSYCH: Tearful, depressed affect Course Course Course Narrative: 66-year-old female with history and clinical presentation most consistent with symptoms secondary to depression with increased sleeping, tearful during interview, stating that she feels like she has a lot going on. Will evaluate for metabolic etiologies, however feel this is less likely. Patient denies being suicidal homicidal at this time. Review of all investigations without acute findings, and patient otherwise becoming tearful once again as well as anxious and when asked about being evaluated by a behavioral therapist she states that she would like to be seen. She is otherwise medically cleared for further evaluation by the behavioral team and is not suicidal/homicidal. Reevaluation(s) Reevaluation #1: Patient placed in physician observation because the patient needed more time for evaluation by the behavioral team. At the time observation was started the patient's vital signs were stable, patient is alert and oriented but slightly anxious, neuro: Nonfocal, CV RRR, lungs clear Time: 23:00 Medical Decision Making Lab Data Result diagrams: 12/19/21 21:42 12/19/21 21:42 Labs: Lab Results 12/19/21 12/19/21 12/19/21 Range/Units 21:42 21:42 21:42 WBC 6.0 (4.8-10.8) X10*3/uL RBC 4.82 (4.20-5.50) X10*6/uL Hgb 14.8 (12.0-16.0) g/dl Hct 42.2 (37.0-47.0) % MCV 87.6 (80.0-98.0) fL MCH 30.7 (27.0-33.0) pg MCHC 35.1 H (31.0-35.0) g/dl RDW 12.2 (11.0-16.0) % Plt Count 177 (160-400) X10*3/uL MPV 9.0 L (9.4-12.3) fL Immature Gran % (Auto) 1.0 H (0.0-0.4) % Neut % (Auto) 57.0 (45-73) % Lymph % (Auto) 31.4 (20-40) % [place] % (Auto) 9.6 (2-11) % Eos % (Auto) 0.8 (0-4) % Baso % (Auto) 0.2 (0-2) % Lymph # (Auto) 1.9 (1.2-4.9) X10*3/uL [place] # (Auto) 0.6 (0.1-1.2) X10*3/uL Eos # (Auto) 0.1 (0.0-0.4) X10*3/uL Baso # (Auto) 0.0 (0.0-0.2) X10*3/uL Abs Immat Gran (auto) 0.06 H (0.00-0.03) X10*3/uL Absolute Neuts (auto) 3.4 (2.0-8.3) x10*3/uL Absolute Nucleated RBC 0.000 (0.0-0.012) X10*3/uL Nucleated RBC % (auto) 0.0 (0.0-0.2) /100WBC Sodium 136 (135-145) mmol/L Potassium 4.1 (3.3-5.1) mmol/L Chloride 100 (96-108) mmol/L Carbon Dioxide 27 (22-29) mmol/L Anion Gap 13 (12-20) BUN 16 (9-16) mg/dL Creatinine 0.91 (0.5-1.4) mg/dL Estim Creat Clear Calc 52.8 Estimated GFR > 60 Random Glucose 207 H (60-115) mg/dL Calcium 10.1 D (8.4-10.2) mg/dL Magnesium 2.0 (1.6-2.6) mg/dL Total Bilirubin 0.4 (0.0-1.0) mg/dL AST 47 H D (5-31) U/L ALT 96 H (0-31) U/L Alkaline Phosphatase 71 (39-117) U/L Total Protein 8.1 H (6.5-8.0) g/dL Albumin 4.4 (3.5-5.0) g/dL Lipase 65 (8-78) U/L TSH 1.51 (0.32-4.0) uIU/mL Urine Color Urine Appearance Urine pH (5.0-8.0) Ur Specific [place] (1.005-1.025) Urine Protein (NEG-TRACE) MG/DL Urine Glucose (UA) (NEG) MG/DL Urine Ketones (NEG) MG/DL Urine Blood (NEG) Urine Nitrite (NEG) Ur Leukocyte Esterase (NEG) Urine RBC (0) /HPF Urine WBC (0-4) /HPF Ur Squamous Epith Cells /LPF Urine Bacteria /LPF Urine Mucus /LPF Urine Opiates Screen (Not Detect) Urine Fentanyl Screen (Not Detect) Ur Barbiturates Screen (Not Detect) Ur Phencyclidine Scrn (Not Detect) Ur Amphetamines Screen (Not Detect) U Benzodiazepines Scrn (Not Detect) Urine Cocaine Screen (Not Detect) U Marijuana (THC) Screen (Not Detect) Ethyl Alcohol < 10 mg/dL 12/19/21 12/19/21 Range/Units 21:47 21:47 WBC (4.8-10.8) X10*3/uL RBC (4.20-5.50) X10*6/uL Hgb (12.0-16.0) g/dl Hct (37.0-47.0) % MCV (80.0-98.0) fL MCH (27.0-33.0) pg MCHC (31.0-35.0) g/dl RDW (11.0-16.0) % Plt Count (160-400) X10*3/uL MPV (9.4-12.3) fL Immature Gran % (Auto) (0.0-0.4) % Neut % (Auto) (45-73) % Lymph % (Auto) (20-40) % [place] % (Auto) (2-11) % Eos % (Auto) (0-4) % Baso % (Auto) (0-2) % Lymph # (Auto) (1.2-4.9) X10*3/uL [place] # (Auto) (0.1-1.2) X10*3/uL Eos # (Auto) (0.0-0.4) X10*3/uL Baso # (Auto) (0.0-0.2) X10*3/uL Abs Immat Gran (auto) (0.00-0.03) X10*3/uL Absolute Neuts (auto) (2.0-8.3) x10*3/uL Absolute Nucleated RBC (0.0-0.012) X10*3/uL Nucleated RBC % (auto) (0.0-0.2) /100WBC Sodium (135-145) mmol/L Potassium (3.3-5.1) mmol/L Chloride (96-108) mmol/L Carbon Dioxide (22-29) mmol/L Anion Gap (12-20) BUN (9-16) mg/dL Creatinine (0.5-1.4) mg/dL Estim Creat Clear Calc Estimated GFR Random Glucose (60-115) mg/dL Calcium (8.4-10.2) mg/dL Magnesium (1.6-2.6) mg/dL Total Bilirubin (0.0-1.0) mg/dL AST (5-31) U/L ALT (0-31) U/L Alkaline Phosphatase (39-117) U/L Total Protein (6.5-8.0) g/dL Albumin (3.5-5.0) g/dL Lipase (8-78) U/L TSH (0.32-4.0) uIU/mL Urine Color YELLOW Urine Appearance CLEAR Urine pH 5.5 (5.0-8.0) Ur Specific [place] 1.010 (1.005-1.025) Urine Protein NEG (NEG-TRACE) MG/DL Urine Glucose (UA) >=1000 H (NEG) MG/DL Urine Ketones NEG (NEG) MG/DL Urine Blood TRACE (NEG) Urine Nitrite NEG (NEG) Ur Leukocyte Esterase NEG (NEG) Urine RBC 0-2 (0) /HPF Urine WBC 0 (0-4) /HPF Ur Squamous Epith Cells TRACE /LPF Urine Bacteria NONE /LPF Urine Mucus TRACE /LPF Urine Opiates Screen Not Detected (Not Detect) Urine Fentanyl Screen Not Detected (Not Detect) Ur Barbiturates Screen Not Detected (Not Detect) Ur Phencyclidine Scrn Not Detected (Not Detect) Ur Amphetamines Screen Not Detected (Not Detect) U Benzodiazepines Scrn Not Detected (Not Detect) Urine Cocaine Screen Not Detected (Not Detect) U Marijuana (THC) Screen Not Detected (Not Detect) Ethyl Alcohol mg/dL Discharge Plan Discharge Clinical Impression: Anxiety, Depression, Diabetes Patient Disposition: Still a Patient Prescriptions: No Action (DME) pen needle, diabetic 32 gauge x needle See Rx Instructions ea subcut DAILY Qty: 50 5RF Rx Instructions: As directed insulin glargine [Lantus Solostar U-100 Insulin] 100 unit/mL (3 mL) insulin pen 20 unit subcut BEDTIME Qty: 15 3RF empagliflozin [Jardiance] 10 mg tablet 10 mg PO DAILY Qty: 90 2RF losartan 100 mg tablet 100 mg PO DAILY Qty: 90 3RF linagliptin [Tradjenta] 5 mg tablet 5 mg PO DAILY Qty: 90 3RF (DME) pen needle, diabetic 31 gauge x 3/16 needle See Rx Instructions ea subcut .MEDSUPPLY Qty: 50 6RF Rx Instructions: As directed daily (DME) lancets [FreeStyle Lancets] 28 gauge misc See Rx Instructions .Route Qty: 100 0RF Rx Instructions: As directed-to test sugars Three times a day FreeStyle Lite Strips Strip 1 strip miscellaneous TID Qty: 300 4RF estradiol [Estrace] 0.01 % (0.1 mg/gram) cream See Rx Instructions .Route DAILY 30 Days Qty: 42.5 1RF Rx Instructions: pea sized amount per urethra daily; metronidazole 500 mg tablet 500 mg PO BID 7 Days Qty: 14 0RF Rx Instructions: Take with food, Avoid alcohol and vinegar products atorvastatin 80 mg tablet 80 mg PO BEDTIME Qty: 90 1RF citalopram 40 mg tablet 40 mg PO DAILY Qty: 90 1RF ibuprofen 800 mg tablet 800 mg PO Q8H PRN (Reason: pain) 0RF cyclobenzaprine 10 mg tablet 10 mg PO Q8H PRN (Reason: muscle spasm) 0RF oxybutynin chloride 10 mg tablet extended release 24hr 10 mg PO DAILY 30 Days Qty: 30 0RF Myrbetriq 25 mg tablet extended release 24 hr 25 mg PO DAILY 30 Days Qty: 30 1RF estradiol [Yuvafem] 10 mcg tablet 0 mcg vaginal 0RF
[2021-12-19 21:46] LABS: MANUAL DIFF FLAG NO
[2021-12-19 21:52] LABS: Basophils Percent Auto 0.2 % (0-2); Eosinophils Absolute Auto 0.1 X10*3/uL (0.0-0.4); Eosinophils Percent Auto 0.8 % (0-4); Hematocrit 42.2 % (37.0-47.0); Hemoglobin 14.8 g/dl (12.0-16.0); Imm Gran Abs Auto 0.06 X10*3/uL (0.00-0.03); Lymphocytes Absolute Auto 1.9 X10*3/uL (1.2-4.9); Lymphocytes Percent Auto 31.4 % (20-40); Mean Corpuscular HGB Conc 35.1 g/dl (31.0-35.0); Mean Corpuscular Hemoglobin 30.7 pg (27.0-33.0); Mean Corpuscular Volume 87.6 fL (80.0-98.0); Monocytes Absolute Auto 0.6 X10*3/uL (0.1-1.2); Monocytes Percent Auto 9.6 % (2-11); Neutrophils Absolute Auto 3.4 x10*3/uL (2.0-8.3); Platelet Count 177 X10*3/uL (160-400); Red Blood Count 4.82 X10*6/uL (4.20-5.50); Red Cell Distribution Width 12.2 % (11.0-16.0)
[2021-12-19 21:56] LABS: Appearance Urine CLEAR; Color Urine YELLOW; Glucose Urine UA >=1000 MG/DL (NEG); Leukocyte Esterase Urine NEG (NEG); Nitrite Urine NEG (NEG); PH 5.5 (5.0-8.0); UACC Culture Trigger NO; Urine Blood TRACE (NEG); Urine Ketones NEG (NEG); Urine Protein NEG (NEG-TRACE)
[2021-12-19 22:07] LABS: Amphetamine Screen Urine Not Detected (Not Detect); Barbiturates, Urine Not Detected (Not Detect); Benzodiazepines Screen Urine Not Detected (Not Detect); Cannabinoid Screen Urine Not Detected (Not Detect); Cocaine Screen Urine Not Detected (Not Detect); Fentanyl, urine Not Detected (Not Detect); Opiate Screen Urine Not Detected (Not Detect); Phencyclidine Screen Urine Not Detected (Not Detect)
[2021-12-19 22:09] LABS: Alanine Aminotransferase 96 U/L (0-31); Albumin Level 4.4 g/dL (3.5-5.0); Alkaline Phosphatase 71 U/L (39-117); Anion Gap 13 (12-20); Aspartate Amino Transferase 47 U/L (5-31); Bilirubin Total 0.4 mg/dL (0.0-1.0); Blood Urea Nitrogen 16 mg/dL (9-16); Calcium 10.1 mg/dL (8.4-10.2); Carbon Dioxide 27 mmol/L (22-29); Chloride 100 mmol/L (96-108); Creatinine Clr Calc Pharmacy 52.8; Estimated Glomerular Filt Rate > 60; Glucose Random 207 mg/dL (60-115); Lipase 65 U/L (8-78); Potassium 4.1 mmol/L (3.3-5.1); Sodium 136 mmol/L (135-145); Total Protein 8.1 g/dL (6.5-8.0)
[2021-12-19 22:17] LABS: Mucus Urine TRACE /LPF; RBC Urine 0-2 /HPF (0); Squamous Epithelial Cell Urine TRACE /LPF; WBC Urine 0 /HPF (0-4)
[2021-12-19 22:33] LABS: TSH reflex Free T4 1.51 uIU/mL (0.32-4.0)
[2021-12-19 22:53] LABS: Ethanol < 10 mg/dL
[2021-12-19 23:06] VITALS: BP 170/84; PULSE 80; RESP 18; TEMP 37.2; O2SAT 97
[2021-12-19 23:26] LABS: COVID-19 Test Negative (Negative)
--- NOTE | 2021-12-19 23:31 | PC.NURSE ---
Family contacts, [place], or [phone].
[2021-12-20 02:12] LABS: Glucose, Whole Blood 165 mg/dL (60-115)
[2021-12-20 02:14] VITALS: BP 144/81; PULSE 72; RESP 16; TEMP 37.1; O2SAT 97
[2021-12-20] MEDS: Ibuprofen 400 MG TABLET PO (02:28)
[2021-12-20 02:46] VITALS: BP 168/93; PULSE 79; RESP 20; TEMP 36.8; O2SAT 98
[2021-12-20 06:20] LABS: Glucose, Whole Blood 183 mg/dL (60-115)
--- NOTE | 2021-12-20 06:28 | PC.NURSE ---
Patient slept though the night, no distress observed/reported, behavior calm and quiet, non concerning, medication compliant, POC at 0611 was 183, [facility] referral completed/confirmed, pending ETA, VSS, will continue to monitor
--- NOTE | 2021-12-20 08:21 | PC.NURSE ---
Pt has been awake, ate full breakfast. Self reports periods of confusion. States she feels ok . Denies SI, Is coherent, axox3
--- NOTE | 2021-12-20 10:18 | PC.NURSE ---
TATIANA levin at this time
[2021-12-20] MEDS: Escitalopram Oxalate 20 MG TABLET PO (10:24)
[2021-12-20] MEDS: Mirabegron 25 MG TAB.ER.24H PO (10:24)
[2021-12-20] MEDS: Losartan Potassium 50 MG TABLET 100 MG PO (10:24)
== END 2021-12-20 11:27 | disposition home or self-care (01) ==
PROVIDERS: Emergency Provider Student in an Organized Health Care Education/Training Program
DX: F32.A Depression, unspecified (principal); F41.9 Anxiety disorder, unspecified; E11.9 Type 2 diabetes mellitus without complications; Z20.822 Contact with and (suspected) exposure to COVID-19; Z79.4 Long term (current) use of insulin
CPT/HCPCS: 36415; 70450; 80053; 80307; 81001; 81003; 82077; 82947; 83690; 83735; 84443; 85025; 87635; 99285

== ENCOUNTER 2022-02-18 09:19 | Outpatient (REF) | payer OTHER, SELFPAY ==
[2022-02-18 09:34] LABS: MANUAL DIFF FLAG NO
[2022-02-18 10:06] LABS: Appearance Urine HAZY; Color Urine YELLOW; Glucose Urine UA >=1000 MG/DL (NEG); Leukocyte Esterase Urine NEG (NEG); Nitrite Urine NEG (NEG); Urine Blood NEG (NEG); Urine Ketones NEG (NEG); Urine Protein NEG (NEG-TRACE)
[2022-02-18 10:11] LABS: Basophils Percent Auto 0.5 % (0-2); Eosinophils Absolute Auto 0.3 X10*3/uL (0.0-0.4); Hematocrit 42.1 % (37.0-47.0); Hemoglobin 14.4 g/dl (12.0-16.0); Imm Gran Abs Auto 0.09 X10*3/uL (0.00-0.03); Imm Gran Pct Auto 1.4 % (0.0-0.4); Lymphocytes Absolute Auto 2.9 X10*3/uL (1.2-4.9); Lymphocytes Percent Auto 45.2 % (20-40); Mean Corpuscular HGB Conc 34.2 g/dl (31.0-35.0); Mean Corpuscular Hemoglobin 30.5 pg (27.0-33.0); Mean Corpuscular Volume 89.2 fL (80.0-98.0); Mean Platelet Volume 9.3 fL (9.4-12.3); Monocytes Absolute Auto 0.5 X10*3/uL (0.1-1.2); Monocytes Percent Auto 8.2 % (2-11); Neutrophils Absolute Auto 2.6 x10*3/uL (2.0-8.3); Neutrophils Percent Auto 40.7 % (45-73); Platelet Count 176 X10*3/uL (160-400); Red Blood Count 4.72 X10*6/uL (4.20-5.50); White Blood Count 6.5 X10*3/uL (4.8-10.8)
[2022-02-18 10:15] LABS: Squamous Epithelial Cell Urine 2+ /LPF
[2022-02-18 10:16] LABS: RBC Urine 0-2 /HPF (0); Urine Talc Crystals 1+ /LPF; WBC Urine 0 /HPF (0-4)
[2022-02-18 10:27] LABS: Estimated Average Glucose 194 mg/dL; Hemoglobin A1c % 8.4 %
[2022-02-18 10:31] LABS: Creatinine Urine 64.18 mg/dL; Microalbumin Urine < 5.0 mg/L
[2022-02-18 10:37] LABS: Alanine Aminotransferase 56 U/L (0-31); Albumin Level 4.3 g/dL (3.5-5.0); Alkaline Phosphatase 58 U/L (39-117); Anion Gap 12 (12-20); Aspartate Amino Transferase 32 U/L (5-31); Bilirubin Total 0.6 mg/dL (0.0-1.0); Blood Urea Nitrogen 14 mg/dL (9-16); Calcium 9.9 mg/dL (8.4-10.2); Carbon Dioxide 26 mmol/L (22-29); Chloride 104 mmol/L (96-108); Cholesterol 185 mg/dL; Estimated Glomerular Filt Rate > 60; Glucose Fasting 201 mg/dL (60-99); HDL Cholesterol 38 mg/dL; LDL Cholesterol Calculated 90 mg/dl; Potassium 4.6 mmol/L (3.3-5.1); Sodium 137 mmol/L (135-145); Total Protein 7.9 g/dL (6.5-8.0); Triglycerides 289 mg/dL
[2022-02-18 10:59] LABS: TSH reflex Free T4 1.36 uIU/mL (0.32-4.0); Vitamin D 25-OH Total 17.4 ng/mL (>30)
[2022-02-18 11:06] LABS: Vitamin B12 518 pg/mL (200-900)
== END 2022-02-18 09:20 | disposition home or self-care (01) ==
LOC: HO.LAB 09:19
PROVIDERS: PCP Internal Medicine; Visit Provider Internal Medicine
DX: E78.00 Pure hypercholesterolemia, unspecified (principal); R41.3 Other amnesia; E55.9 Vitamin D deficiency, unspecified; I10 Essential (primary) hypertension; E11.9 Type 2 diabetes mellitus without complications
CPT/HCPCS: 36415; 80053; 80061; 81001; 82043; 82306; 82607; 82746; 83036; 84443; 85025

== ENCOUNTER → 2022-03-21 15:00 | Outpatient (BNVA) | payer OTHER, SELFPAY | PROVIDERS: PCP Internal Medicine | DX: R32 Unspecified urinary incontinence (principal) | CPT/HCPCS: Q3014 ==

== ENCOUNTER 2022-04-26 20:15 | Emergency (ER) | payer OTHER, SELFPAY ==
--- NOTE | ~2022-04-26 | CT_ITS ---
EXAMINATION: CT HEAD WITHOUT CONTRAST CLINICAL INFORMATION: Dizziness COMPARISON: CT head 12/19/2021. TECHNIQUE: Contiguous axial imaging was performed from the skull base to vertex without intravenous administration of contrast. This CT examination was performed using dose optimization techniques as appropriate, variously including the following: *Automated exposure control *Adjustment of mA and/or kV according to patient size (this includes techniques or standardized protocols for targeted exams where dose is matched to indication/reason for exam; i.e. extremities or head) *Use of iterative reconstruction technique DLP: 620 mGy-cm FINDINGS: A negative cisterna magna is noted. Elsewhere, the ventricles and sulci are normal in size and configuration. No intrarenal hemorrhage, tumors or acute infarcts are visualized. The orbits and globes are normal in appearance. Hyperostosis frontalis interna noted. No significant opacification of the visualized paranasal sinuses, mastoid air cells and middle ear cavities. Incidental bilateral basal ganglia senescent calcifications. CT/CT head/brain wo con IMPRESSION: *No acute intracranial abnormalities.
[2022-04-26 21:27] VITALS: BP 146/69; PULSE 78; RESP 18; TEMP 37.6; O2SAT 99; BMI 25.4
[2022-04-26 21:43] LABS: MANUAL DIFF FLAG NO
[2022-04-26 21:46] LABS: Basophils Percent Auto 0.2 % (0-2); Eosinophils Absolute Auto 0.1 X10*3/uL (0.0-0.4); Eosinophils Percent Auto 1.7 % (0-4); Hematocrit 43.6 % (37.0-47.0); Hemoglobin 15.2 g/dl (12.0-16.0); Imm Gran Abs Auto 0.06 X10*3/uL (0.00-0.03); Lymphocytes Absolute Auto 1.4 X10*3/uL (1.2-4.9); Mean Corpuscular HGB Conc 34.9 g/dl (31.0-35.0); Mean Corpuscular Hemoglobin 30.2 pg (27.0-33.0); Mean Corpuscular Volume 86.5 fL (80.0-98.0); Mean Platelet Volume 8.9 fL (9.4-12.3); Monocytes Absolute Auto 0.6 X10*3/uL (0.1-1.2); Monocytes Percent Auto 9.7 % (2-11); Neutrophils Absolute Auto 3.8 x10*3/uL (2.0-8.3); Neutrophils Percent Auto 64.4 % (45-73); Platelet Count 165 X10*3/uL (160-400); Red Blood Count 5.04 X10*6/uL (4.20-5.50); Red Cell Distribution Width 12.2 % (11.0-16.0)
[2022-04-26 22:00] LABS: COVID-19 Test Negative (Negative); IDNOW Serial# 16C4AD1C; Influenza A Negative (Negative); Influenza B2 Negative (Negative)
[2022-04-26 22:04] LABS: Alanine Aminotransferase 75 U/L (0-31); Albumin Level 4.5 g/dL (3.5-5.0); Alkaline Phosphatase 82 U/L (39-117); Anion Gap 13 (12-20); Aspartate Amino Transferase 51 U/L (5-31); Bilirubin Total 0.9 mg/dL (0.0-1.0); Blood Urea Nitrogen 16 mg/dL (9-16); Calcium 10.1 mg/dL (8.4-10.2); Carbon Dioxide 26 mmol/L (22-29); Chloride 101 mmol/L (96-108); Estimated Glomerular Filt Rate 51; Glucose Random 254 mg/dL (60-115); Sodium 136 mmol/L (135-145); Total Protein 8.3 g/dL (6.5-8.0)
[2022-04-26 23:36] VITALS: BP 148/82; PULSE 75; RESP 18; O2SAT 99
--- NOTE | 2022-04-26 23:39 | ED.DIZZY ---
HPI - Dizziness General Chief Complaint: General Medical Stated Complaint: Dizziness Time Seen by Provider: 04/26/22 23:20 Source: patient Mode of arrival: ambulatory Limitations: no limitations History of Present Illness MD elicited complaint: dizziness (ear fullness, sinus congestion) Onset (ago): week(s) (2) Timing: gradual onset and intermittent Severity: mild Description: lightheadedness Context: change in body position and anxiety History of similar symptoms: Yes Exacerbating factors: movement/ambulation and change in body position Relieving factors: remaining still Associated symptoms: ear discomfort and ear fullness Related Data Home Medications Medication Instructions Recorded Confirmed ibuprofen 800 mg tablet 800 mg PO Q8H PRN pain 11/09/20 02/20/22 estradiol 10 mcg vaginal tablet 10 mcg vaginal USEASDIRECTD 10/05/21 02/20/22 (Yuvafem) fluticasone propionate 50 2 spray intranasal DAILY 12/19/21 02/20/22 mcg/actuation nasal spray,suspension Previous Rx's Medication Instructions Recorded linagliptin 5 mg tablet (Tradjenta) 5 mg PO DAILY #90 tabs 04/19/21 pen needle, diabetic 31 gauge x #50 ea 06/22/2101/16 lancets 28 gauge (FreeStyle #100 ea 06/29/21 Lancets) blood sugar diagnostic (FreeStyle 1 strip miscellaneous TID #300 07/01/21 Lite Strips) strips atorvastatin 80 mg tablet 80 mg PO BEDTIME #90 tabs 11/02/21 estradiol (Estrace) See Rx Instructions vaginal DAILY 01/02/22 complicated uti 30 days #42.5 grams empagliflozin 10 mg tablet 10 mg PO DAILY #90 tabs 01/03/22 (Jardiance) insulin glargine 100 unit/mL (3 20 unit (0.2 mL) subcut QPM #15 mL 01/03/22 mL) subcutaneous pen (Lantus Solostar U-100 Insulin) losartan 100 mg tablet 100 mg PO DAILY #90 tabs 02/06/22 pen needle, diabetic 32 gauge x #50 ea 02/14/22 hydroxyzine HCl 10 mg tablet 10 mg PO TID PRN anxiety 30 days 02/21/22 #90 tabs solifenacin 10 mg tablet (Vesicare) 10 mg PO DAILY #30 tabs 03/21/22 citalopram 40 mg tablet 40 mg PO DAILY #90 tabs 04/15/22 cetirizine 10 mg tablet 10 mg PO DAILY PRN allergy 04/27/22 symptoms #30 tabs meclizine 25 mg tablet 25 mg PO TID PRN dizziness #30 tabs 04/27/22 Allergies Allergy/AdvReac Type Severity Reaction Status Date / Time acetaminophen [From TYLENOL] Allergy Intermediate HIVES Verified 03/21/22 15:02 amoxicillin [AMOXICILLIN] Allergy Unknown ITCHY Verified 03/21/22 15:02 gabapentin Allergy Unknown dizziness Verified 03/21/22 15:02 glipizide Allergy Unknown unknown Verified 03/21/22 15:02 latex [LATEX] Allergy Unknown UNKNOWN Verified 03/21/22 15:02 levofloxacin Allergy Unknown Unknown Verified 03/21/22 15:02 liraglutide [From VICTOZA] Allergy Unknown UNKNOWN, Verified 03/21/22 15:02 itching metformin [METFORMIN] Allergy Unknown DIARRHEA Verified 03/21/22 15:02 morphine [MORPHINE] Allergy Unknown ITCHING, Verified 03/21/22 15:02 rash Review of Systems Review of Systems: Constitutional : No Fever, No Chills, No Fatigue ENT/Mouth : No sore throat, No Rhinorrhea Eyes: No Eye Pain, No Swelling, No Redness, pos ear pain, pos sinus congestion Cardiovascular : No Chest Pain, No SOB, No Dyspnea on Exertion Respiratory : No Cough, No Sputum Gastrointestinal : No Nausea, No Vomiting, No Diarrhea, No abdominal Pain Genitourinary : No Dysuria, No Urinary Frequency, No Hematuria, Musculoskeletal : No joint pain, No Myalgias, No Joint Swelling Skin : No Skin Lesions, No rash Neuro : No Weakness, No Numbness, pos Dizziness, positive Headache Psych : No Anxiety/Panic, No Depression Heme/Lymph: No Bruising, No Bleeding,No Lymphadenopathy Endocrine : No Polyuria, No Polydipsia All other systems reviewed and are negative PMFSH Past Medical History Attestation statement: The following information was validated with the patient. Medical History Anxiety Benign essential hypertension Elevated LFTs Mixed hyperlipidemia Primary osteoarthritis of shoulder Type 2 diabetes mellitus without complications Surgical History History of appendectomy History of cholecystectomy History of cystoscopy History of tubal ligation Family History Family History Father Cancer Mother Diabetes Maternal Uncle Cancer Maternal Grandfather Cancer Social History Social History Housing: Apartment Alcohol intake: former Patient Tobacco Use Status: Never used Tobacco Second Hand Smoke Exposure: Yes Use of substances other than those prescribed or required for medical reasons: No Advance Directives: No Current occupational status: unemployed Cognitive needs: No Hearing needs: No Vision needs: No Physical Exam Vital Signs: Vital Signs: Last Vital Signs Temp 99.7 F 04/26/22 21:27 Pulse 75 04/26/22 23:36 Resp 18 04/26/22 23:36 BP 148/82 H 04/26/22 23:36 Pulse Ox 99 04/26/22 23:36 O2 Del Method 04/26/22 23:36 BMI result Body Mass Index 25.4 Appearance: Alert. Oriented X3. No acute distress. Eyes: Pupils equal, round and reactive to light. ENT: Pharynx normal. Bilateral clear effusions in both ears no purulence no perforation Neck: Normal inspection. Neck supple. CVS: Normal heart rate and rhythm. Pulses normal. Respiratory: No respiratory distress. Breath sounds normal. Abdomen: Soft and nontender. Skin: Skin warm and dry. Normal skin color. Normal skin turgor. Extremities: No lower extremity edema. No calf ttp Neuro: Oriented X 3. No motor deficit. No sensory deficit. Course Course Course Narrative: will start on antivert and cetirizine refer to [facility] MDM - Dizziness MDM Narrative Medical decision making narrative: 66 yo female with hx of HTN, HLD, anxiety here with 2 weeks of feeling sinus issues and ear fullness along with dizziness - at this time will need labs, CT head for mass - PO antivert suspect sinus issues as cause of her dizziness Lab Data Result diagrams: 04/26/22 21:33 04/26/22 21:33 Labs: Lab Results 04/26/22 04/26/22 04/26/22 Range/Units 21:33 21:33 21:33 WBC 6.0 (4.8-10.8) X10*3/uL RBC 5.04 (4.20-5.50) X10*6/uL Hgb 15.2 (12.0-16.0) g/dl Hct 43.6 (37.0-47.0) % MCV 86.5 (80.0-98.0) fL MCH 30.2 (27.0-33.0) pg MCHC 34.9 (31.0-35.0) g/dl RDW 12.2 (11.0-16.0) % Plt Count 165 (160-400) X10*3/uL MPV 8.9 L (9.4-12.3) fL Immature Gran % (Auto) 1.0 H (0.0-0.4) % Neut % (Auto) 64.4 (45-73) % Lymph % (Auto) 23.0 (20-40) % [place] % (Auto) 9.7 (2-11) % Eos % (Auto) 1.7 (0-4) % Baso % (Auto) 0.2 (0-2) % Lymph # (Auto) 1.4 (1.2-4.9) X10*3/uL [place] # (Auto) 0.6 (0.1-1.2) X10*3/uL Eos # (Auto) 0.1 (0.0-0.4) X10*3/uL Baso # (Auto) 0.0 (0.0-0.2) X10*3/uL Abs Immat Gran (auto) 0.06 H (0.00-0.03) X10*3/uL Absolute Neuts (auto) 3.8 (2.0-8.3) x10*3/uL Absolute Nucleated RBC 0.000 (0.0-0.012) X10*3/uL Nucleated RBC % (auto) 0.0 (0.0-0.2) /100WBC Sodium 136 (135-145) mmol/L Potassium 4.0 (3.3-5.1) mmol/L Chloride 101 (96-108) mmol/L Carbon Dioxide 26 (22-29) mmol/L Anion Gap 13 (12-20) BUN 16 (9-16) mg/dL Creatinine 1.08 (0.5-1.4) mg/dL Estim Creat Clear Calc 44.0 Estimated GFR 51 Random Glucose 254 H (60-115) mg/dL Calcium 10.1 (8.4-10.2) mg/dL Total Bilirubin 0.9 (0.0-1.0) mg/dL AST 51 H (5-31) U/L ALT 75 H (0-31) U/L Alkaline Phosphatase 82 D (39-117) U/L Total Protein 8.3 H (6.5-8.0) g/dL Albumin 4.5 (3.5-5.0) g/dL COVID-19 (KARMEN) (Negative) COVID-19 Clin Com Influenza Type A (JAS) Negative (Negative) Influenza Type B (JAS) Negative (Negative) Influenza A & B Note See Note 04/26/22 Range/Units 21:33 WBC (4.8-10.8) X10*3/uL RBC (4.20-5.50) X10*6/uL Hgb (12.0-16.0) g/dl Hct (37.0-47.0) % MCV (80.0-98.0) fL MCH (27.0-33.0) pg MCHC (31.0-35.0) g/dl RDW (11.0-16.0) % Plt Count (160-400) X10*3/uL MPV (9.4-12.3) fL Immature Gran % (Auto) (0.0-0.4) % Neut % (Auto) (45-73) % Lymph % (Auto) (20-40) % [place] % (Auto) (2-11) % Eos % (Auto) (0-4) % Baso % (Auto) (0-2) % Lymph # (Auto) (1.2-4.9) X10*3/uL [place] # (Auto) (0.1-1.2) X10*3/uL Eos # (Auto) (0.0-0.4) X10*3/uL Baso # (Auto) (0.0-0.2) X10*3/uL Abs Immat Gran (auto) (0.00-0.03) X10*3/uL Absolute Neuts (auto) (2.0-8.3) x10*3/uL Absolute Nucleated RBC (0.0-0.012) X10*3/uL Nucleated RBC % (auto) (0.0-0.2) /100WBC Sodium (135-145) mmol/L Potassium (3.3-5.1) mmol/L Chloride (96-108) mmol/L Carbon Dioxide (22-29) mmol/L Anion Gap (12-20) BUN (9-16) mg/dL Creatinine (0.5-1.4) mg/dL Estim Creat Clear Calc Estimated GFR Random Glucose (60-115) mg/dL Calcium (8.4-10.2) mg/dL Total Bilirubin (0.0-1.0) mg/dL AST (5-31) U/L ALT (0-31) U/L Alkaline Phosphatase (39-117) U/L Total Protein (6.5-8.0) g/dL Albumin (3.5-5.0) g/dL COVID-19 (KARMEN) Negative (Negative) COVID-19 Clin Com See Note Influenza Type A (JAS) (Negative) Influenza Type B (JAS) (Negative) Influenza A & B Note Discharge Plan Discharge Clinical Impression: Dizziness, Allergic rhinitis Patient Disposition: Home, Self-Care Instructions: Allergic Rhinitis (ED), Dizziness (ED) Additional Instructions: return to ED for any worsening symptoms or concerns CT scan normal please follow up with [facility] [address] [place] [phone] Prescriptions: New meclizine 25 mg tablet 25 mg PO TID PRN (Reason: dizziness) Qty: 30 0RF cetirizine 10 mg tablet 10 mg PO DAILY PRN (Reason: allergy symptoms) Qty: 30 1RF No Action linagliptin [Tradjenta] 5 mg tablet 5 mg PO DAILY Qty: 90 3RF (DME) pen needle, diabetic 31 gauge x 3/16 needle See Rx Instructions subcut .MEDSUPPLY Qty: 50 6RF Rx Instructions: As directed daily (DME) lancets [FreeStyle Lancets] 28 gauge misc See Rx Instructions .Route Qty: 100 0RF Rx Instructions: As directed-to test sugars Three times a day FreeStyle Lite Strips Strip 1 strip miscellaneous TID Qty: 300 4RF atorvastatin 80 mg tablet 80 mg PO BEDTIME Qty: 90 1RF estradiol [Estrace] 0.01 % (0.1 mg/gram) cream See Rx Instructions vaginal DAILY 30 Days Qty: 42.5 1RF Rx Instructions: pea sized amount per urethra vaginal daily; Jardiance 10 mg tablet 10 mg PO DAILY Qty: 90 1RF Lantus Solostar U-100 Insulin 100 unit/mL (3 mL) insulin pen 20 unit subcut QPM Qty: 15 3RF losartan 100 mg tablet 100 mg PO DAILY Qty: 90 3RF (DME) pen needle, diabetic 32 gauge x 5/32 needle See Rx Instructions subcut DAILY Qty: 50 5RF Rx Instructions: As directed hydroxyzine HCl 10 mg tablet 10 mg PO TID PRN (Reason: anxiety) 30 Days Qty: 90 1RF citalopram 40 mg tablet 40 mg PO DAILY Qty: 90 1RF fluticasone propionate 50 mcg/actuation spray,suspension 2 spray intranasal DAILY ibuprofen 800 mg tablet 800 mg PO Q8H PRN (Reason: pain) estradiol [Yuvafem] 10 mcg tablet 10 mcg vaginal USEASDIRECTD solifenacin [Vesicare] 10 mg tablet 10 mg PO DAILY Qty: 30 3RF Referrals: George Jha MD [Primary Care Provider] - 5 days (if not better)
[2022-04-26] MEDS: Meclizine HCl 25 MG TABLET PO (23:43)
[2022-04-27 01:00] VITALS: BP 145/88; PULSE 77; RESP 14; TEMP 36.8; O2SAT 99
== END 2022-04-27 01:12 | disposition home or self-care (01) ==
PROVIDERS: Emergency Provider Emergency Medicine; PCP Internal Medicine
DX: R42 Dizziness and giddiness (principal); J30.9 Allergic rhinitis, unspecified; Z20.822 Contact with and (suspected) exposure to COVID-19; Z79.899 Other long term (current) drug therapy
CPT/HCPCS: 70450; 80053; 85025; 87502; 87635; 99284

== ENCOUNTER → 2022-05-03 14:41 | Outpatient (BNVA) | payer OTHER, SELFPAY | PROVIDERS: PCP Internal Medicine | DX: R32 Unspecified urinary incontinence (principal) | CPT/HCPCS: 99212 ==

== ENCOUNTER 2022-05-16 21:29 | Emergency (ER) | payer OTHER, SELFPAY ==
--- NOTE | 2022-05-16 | ECG_ITS ---
Test Reason : dizziness Blood Pressure : / mmHG Vent. Rate : 080 BPM Atrial Rate : 080 BPM P-R Int : 154 ms QRS Dur : 084 ms QT Int : 368 ms P-R-T Axes : 060 010 038 degrees QTc Int : 424 ms Normal sinus rhythm Normal ECG When compared to the previous EKG of No significant changes seen Referred By: Generic ED Physician Electronically Signed By:GUME BHATTI MD
[2022-05-16 21:49] VITALS: BP 131/74; PULSE 83; RESP 15; TEMP 36.7; O2SAT 98; BMI 25.9
[2022-05-16 22:05] LABS: MANUAL DIFF FLAG NO
[2022-05-16 22:08] LABS: Basophils Percent Auto 0.3 % (0-2); Eosinophils Absolute Auto 0.2 X10*3/uL (0.0-0.4); Hematocrit 39.7 % (37.0-47.0); Hemoglobin 14.1 g/dl (12.0-16.0); Imm Gran Abs Auto 0.06 X10*3/uL (0.00-0.03); Imm Gran Pct Auto 0.9 % (0.0-0.4); Lymphocytes Absolute Auto 2.1 X10*3/uL (1.2-4.9); Lymphocytes Percent Auto 31.6 % (20-40); Mean Corpuscular HGB Conc 35.5 g/dl (31.0-35.0); Mean Corpuscular Volume 87.3 fL (80.0-98.0); Mean Platelet Volume 8.7 fL (9.4-12.3); Monocytes Absolute Auto 0.6 X10*3/uL (0.1-1.2); Monocytes Percent Auto 9.5 % (2-11); Neutrophils Absolute Auto 3.6 x10*3/uL (2.0-8.3); Neutrophils Percent Auto 54.7 % (45-73); Platelet Count 189 X10*3/uL (160-400); Red Blood Count 4.55 X10*6/uL (4.20-5.50); Red Cell Distribution Width 12.5 % (11.0-16.0); White Blood Count 6.6 X10*3/uL (4.8-10.8)
[2022-05-16 22:28] LABS: Troponin-I High Sensitivity < 3.5 ng/L (<3.5-17.0)
[2022-05-16 22:30] LABS: Alanine Aminotransferase 105 U/L (0-31); Albumin Level 4.4 g/dL (3.5-5.0); Alkaline Phosphatase 89 U/L (39-117); Anion Gap 14 (12-20); Aspartate Amino Transferase 55 U/L (5-31); Bilirubin Total 0.6 mg/dL (0.0-1.0); Blood Urea Nitrogen 20 mg/dL (9-16); Calcium 9.5 mg/dL (8.4-10.2); Carbon Dioxide 25 mmol/L (22-29); Chloride 100 mmol/L (96-108); Creatinine Clr Calc Pharmacy 46.2; Estimated Glomerular Filt Rate 53; Glucose Random 193 mg/dL (60-115); Potassium 4.8 mmol/L (3.3-5.1); Sodium 134 mmol/L (135-145); Total Protein 8.1 g/dL (6.5-8.0)
--- NOTE | 2022-05-17 02:44 | ED_ITS ---
HPI - Dizziness General Chief Complaint: Dizziness Stated Complaint: dizziness Time Seen by Provider: 05/17/22 02:44 Source: patient Mode of arrival: ambulatory Limitations: no limitations History of Present Illness HPI Narrative: Patient dizziness started about 2 weeks ago was seen here on 04/26 CT scan of the head was negative prescribed meclizine comes here for persistent dizziness patient also diabetic taking Lantus insulin in the evening complaining of blood sugar fluctuating all day from 100-300 very anxious Related Data Home Medications Medication Instructions Recorded Confirmed ibuprofen 800 mg tablet 800 mg PO Q8H PRN pain 11/09/20 02/20/22 estradiol 10 mcg vaginal tablet 10 mcg vaginal USEASDIRECTD 10/05/21 02/20/22 (Yuvafem) fluticasone propionate 50 2 spray intranasal DAILY 12/19/21 02/20/22 mcg/actuation nasal spray,suspension Previous Rx's Medication Instructions Recorded linagliptin 5 mg tablet (Tradjenta) 5 mg PO DAILY #90 tabs 04/19/21 pen needle, diabetic 31 gauge x #50 ea 06/22/2101/16 lancets 28 gauge (FreeStyle #100 ea 06/29/21 Lancets) blood sugar diagnostic (FreeStyle 1 strip miscellaneous TID #300 07/01/21 Lite Strips) strips estradiol (Estrace) See Rx Instructions vaginal DAILY 01/02/22 complicated uti 30 days #42.5 grams empagliflozin 10 mg tablet 10 mg PO DAILY #90 tabs 01/03/22 (Jardiance) insulin glargine 100 unit/mL (3 20 unit (0.2 mL) subcut QPM #15 mL 01/03/22 mL) subcutaneous pen (Lantus Solostar U-100 Insulin) losartan 100 mg tablet 100 mg PO DAILY #90 tabs 02/06/22 pen needle, diabetic 32 gauge x #50 ea 02/14/22 hydroxyzine HCl 10 mg tablet 10 mg PO TID PRN anxiety 30 days 02/21/22 #90 tabs solifenacin 10 mg tablet (Vesicare) 10 mg PO DAILY #30 tabs 03/21/22 citalopram 40 mg tablet 40 mg PO DAILY #90 tabs 04/15/22 cetirizine 10 mg tablet 10 mg PO DAILY PRN allergy 06/25/22 symptoms #30 tabs meclizine 25 mg tablet 25 mg PO TID PRN dizziness #30 tabs 04/27/22 atorvastatin 80 mg tablet 80 mg PO BEDTIME #90 tabs 05/07/22 Allergies Allergy/AdvReac Type Severity Reaction Status Date / Time acetaminophen [From TYLENOL] Allergy Intermediate HIVES Verified 05/03/22 14:44 amoxicillin [AMOXICILLIN] Allergy Unknown ITCHY Verified 05/03/22 14:44 gabapentin Allergy Unknown dizziness Verified 05/03/22 14:44 glipizide Allergy Unknown unknown Verified 05/03/22 14:44 latex [LATEX] Allergy Unknown UNKNOWN Verified 05/03/22 14:44 levofloxacin Allergy Unknown Unknown Verified 05/03/22 14:44 liraglutide [From VICTOZA] Allergy Unknown UNKNOWN, Verified 05/03/22 14:44 itching metformin [METFORMIN] Allergy Unknown DIARRHEA Verified 05/03/22 14:44 morphine [MORPHINE] Allergy Unknown ITCHING, Verified 05/03/22 14:44 rash PMFSH Past Medical History Medical History (Updated 05/17/22 @ 03:00 by Brad Willis MD) Allergic rhinitis Anxiety Benign essential hypertension Bursitis of left shoulder Bursitis of right shoulder Diabetes Ear drainage Ear pain Elevated LFTs Lumbar degenerative disc disease Memory loss or impairment Mixed hyperlipidemia Overweight (BMI 25.0-29.9) Primary osteoarthritis of left shoulder Primary osteoarthritis of shoulder Primary osteoarthritis, right shoulder Right shoulder pain Type 2 diabetes mellitus without complications Varicose veins of both lower extremities Surgical History History of appendectomy History of cholecystectomy History of cystoscopy History of tubal ligation Family History Family History Father Cancer Mother Diabetes Maternal Uncle Cancer Maternal Grandfather Cancer Social History Social History Housing: Apartment Alcohol intake: former Patient Tobacco Use Status: Never used Tobacco Second Hand Smoke Exposure: Yes Advance Directives: No Current occupational status: unemployed Cognitive needs: No Hearing needs: No Vision needs: No Physical Exam Vital Signs: Vital Signs: Last Vital Signs Temp 98.1 F 05/16/22 21:49 Pulse 83 05/16/22 21:49 Resp 15 05/16/22 21:49 BP 131/74 05/16/22 21:49 Pulse Ox 98 05/16/22 21:49 O2 Del Method 05/16/22 21:49 BMI result Body Mass Index 25.9 Appearance: Alert. Oriented X3. No acute distress. Anxious no dizziness at this time Eyes: PERRLA, No Nystagmus ENT: Pharynx normal. Oral Mucosa moist Neck: Normal inspection. Neck supple. CVS: Normal heart rate and rhythm. Pulses normal. Respiratory: No respiratory distress. Equal air entry bilateral, no wheezing/rales/rhonchi Abdomen: Soft and nontender. Bowel sounds are present, no mass palpable, no CVA tenderness Skin: Skin warm and dry. Normal skin color. Normal skin turgor. Extremities: No lower extremity edema. No calf tenderness Neuro: Oriented X 3. No motor deficit. No sensory deficit.No cerebellar signs , cranial nerves II-XII intact MDM - Dizziness MDM Narrative Medical decision making narrative: Patient advised to increase the dose of Lantus insulin to 30 units in the nighttime and check a blood sugar twice daily and follow with PCP advised to continue her meclizine in the ER patient was ambulatory without significant dizziness walking a straight line without balance problem Lab Data Attestation: I reviewed the patient's lab results. Result diagrams: 05/16/22 21:59 05/16/22 21:59 Labs: Lab Results 05/16/22 05/16/22 05/16/22 Range/Units 21:59 21:59 21:59 WBC 6.6 (4.8-10.8) X10*3/uL RBC 4.55 (4.20-5.50) X10*6/uL Hgb 14.1 (12.0-16.0) g/dl Hct 39.7 (37.0-47.0) % MCV 87.3 (80.0-98.0) fL MCH 31.0 (27.0-33.0) pg MCHC 35.5 H (31.0-35.0) g/dl RDW 12.5 (11.0-16.0) % Plt Count 189 (160-400) X10*3/uL MPV 8.7 L (9.4-12.3) fL Immature Gran % (Auto) 0.9 H (0.0-0.4) % Neut % (Auto) 54.7 (45-73) % Lymph % (Auto) 31.6 (20-40) % [place] % (Auto) 9.5 (2-11) % Eos % (Auto) 3.0 (0-4) % Baso % (Auto) 0.3 (0-2) % Lymph # (Auto) 2.1 (1.2-4.9) X10*3/uL [place] # (Auto) 0.6 (0.1-1.2) X10*3/uL Eos # (Auto) 0.2 (0.0-0.4) X10*3/uL Baso # (Auto) 0.0 (0.0-0.2) X10*3/uL Abs Immat Gran (auto) 0.06 H (0.00-0.03) X10*3/uL Absolute Neuts (auto) 3.6 (2.0-8.3) x10*3/uL Absolute Nucleated RBC 0.000 (0.0-0.012) X10*3/uL Nucleated RBC % (auto) 0.0 (0.0-0.2) /100WBC Sodium 134 L (135-145) mmol/L Potassium 4.8 (3.3-5.1) mmol/L Chloride 100 (96-108) mmol/L Carbon Dioxide 25 (22-29) mmol/L Anion Gap 14 (12-20) BUN 20 H (9-16) mg/dL Creatinine 1.04 (0.5-1.4) mg/dL Estim Creat Clear Calc 46.2 Estimated GFR 53 POC Glucose (60-115) mg/dL Random Glucose 193 H (60-115) mg/dL Calcium 9.5 (8.4-10.2) mg/dL Total Bilirubin 0.6 (0.0-1.0) mg/dL AST 55 H (5-31) U/L ALT 105 H (0-31) U/L Alkaline Phosphatase 89 (39-117) U/L Troponin I High Sens < 3.5 (<3.5-17.0) ng/L Total Protein 8.1 H (6.5-8.0) g/dL Albumin 4.4 (3.5-5.0) g/dL 05/17/22 Range/Units 02:57 WBC (4.8-10.8) X10*3/uL RBC (4.20-5.50) X10*6/uL Hgb (12.0-16.0) g/dl Hct (37.0-47.0) % MCV (80.0-98.0) fL MCH (27.0-33.0) pg MCHC (31.0-35.0) g/dl RDW (11.0-16.0) % Plt Count (160-400) X10*3/uL MPV (9.4-12.3) fL Immature Gran % (Auto) (0.0-0.4) % Neut % (Auto) (45-73) % Lymph % (Auto) (20-40) % [place] % (Auto) (2-11) % Eos % (Auto) (0-4) % Baso % (Auto) (0-2) % Lymph # (Auto) (1.2-4.9) X10*3/uL [place] # (Auto) (0.1-1.2) X10*3/uL Eos # (Auto) (0.0-0.4) X10*3/uL Baso # (Auto) (0.0-0.2) X10*3/uL Abs Immat Gran (auto) (0.00-0.03) X10*3/uL Absolute Neuts (auto) (2.0-8.3) x10*3/uL Absolute Nucleated RBC (0.0-0.012) X10*3/uL Nucleated RBC % (auto) (0.0-0.2) /100WBC Sodium (135-145) mmol/L Potassium (3.3-5.1) mmol/L Chloride (96-108) mmol/L Carbon Dioxide (22-29) mmol/L Anion Gap (12-20) BUN (9-16) mg/dL Creatinine (0.5-1.4) mg/dL Estim Creat Clear Calc Estimated GFR POC Glucose 121 H (60-115) mg/dL Random Glucose (60-115) mg/dL Calcium (8.4-10.2) mg/dL Total Bilirubin (0.0-1.0) mg/dL AST (5-31) U/L ALT (0-31) U/L Alkaline Phosphatase (39-117) U/L Troponin I High Sens (<3.5-17.0) ng/L Total Protein (6.5-8.0) g/dL Albumin (3.5-5.0) g/dL Discharge Plan Discharge Clinical Impression: Benign paroxysmal positional vertigo, Diabetes mellitus Patient Disposition: Home, Self-Care Instructions: Benign Paroxysmal Positional Vertigo (ED), Type 2 Diabetes in the Older Adult (ED) Additional Instructions: Drink plenty of fluids Increase the dose of Lantus to 30 units every night Check blood sugar at least 2 times a day Follow-up with your PCP Continue meclizine Prescriptions: No Action linagliptin [Tradjenta] 5 mg tablet 5 mg PO DAILY Qty: 90 3RF (DME) pen needle, diabetic 31 gauge x 3/16 needle See Rx Instructions subcut .MEDSUPPLY Qty: 50 6RF Rx Instructions: As directed daily (DME) lancets [FreeStyle Lancets] 28 gauge misc See Rx Instructions .Route Qty: 100 0RF Rx Instructions: As directed-to test sugars Three times a day FreeStyle Lite Strips Strip 1 strip miscellaneous TID Qty: 300 4RF estradiol [Estrace] 0.01 % (0.1 mg/gram) cream See Rx Instructions vaginal DAILY 30 Days Qty: 42.5 1RF Rx Instructions: pea sized amount per urethra vaginal daily; Jardiance 10 mg tablet 10 mg PO DAILY Qty: 90 1RF Lantus Solostar U-100 Insulin 100 unit/mL (3 mL) insulin pen 20 unit subcut QPM Qty: 15 3RF losartan 100 mg tablet 100 mg PO DAILY Qty: 90 3RF (DME) pen needle, diabetic 32 gauge x 5/32 needle See Rx Instructions subcut DAILY Qty: 50 5RF Rx Instructions: As directed hydroxyzine HCl 10 mg tablet 10 mg PO TID PRN (Reason: anxiety) 30 Days Qty: 90 1RF citalopram 40 mg tablet 40 mg PO DAILY Qty: 90 1RF atorvastatin 80 mg tablet 80 mg PO BEDTIME Qty: 90 1RF fluticasone propionate 50 mcg/actuation spray,suspension 2 spray intranasal DAILY meclizine 25 mg tablet 25 mg PO TID PRN (Reason: dizziness) Qty: 30 0RF cetirizine 10 mg tablet 10 mg PO DAILY PRN (Reason: allergy symptoms) Qty: 30 1RF ibuprofen 800 mg tablet 800 mg PO Q8H PRN (Reason: pain) estradiol [Yuvafem] 10 mcg tablet 10 mcg vaginal USEASDIRECTD solifenacin [Vesicare] 10 mg tablet 10 mg PO DAILY Qty: 30 3RF Interventions: ED Discharge Assessment Last Done: 05/17/22 03:33 Discharge Date/Time: 05/17/22 03:34
[2022-05-17 03:00] LABS: Glucose, Whole Blood 121 mg/dL (60-115)
[2022-05-17] MEDS: Insulin Glargine,Hum.rec.anlog 100 UNIT/ML 10 ML VIAL 20 UNIT SUBCUT (03:19)
--- NOTE | 2022-05-17 03:35 | PC.NURSE ---
I assumed nursing care of Cara upon her arrival to [facility] from waiting room. She states she presented for dizziness, on and off x 2 weeks . Pt was able to ambulate from waiting room into main ED to 13[facility] independently and with steady gait. Family at bedside. No nausea. No vomiting. Speech clear and appropriate.
== END 2022-05-17 03:34 | disposition home or self-care (01) ==
PROVIDERS: Emergency Provider Internal Medicine; PCP Internal Medicine
DX: H81.10 Benign paroxysmal vertigo, unspecified ear (principal); E11.9 Type 2 diabetes mellitus without complications; I10 Essential (primary) hypertension; F41.9 Anxiety disorder, unspecified; E78.2 Mixed hyperlipidemia; E66.3 Overweight; Z68.25 Body mass index [BMI] 25.0-25.9, adult; Z79.4 Long term (current) use of insulin; Z79.02 Long term (current) use of antithrombotics/antiplatelets; Z79.899 Other long term (current) drug therapy
CPT/HCPCS: 36415; 80053; 82947; 84484; 85025; 93005; 99283

== ENCOUNTER 2022-06-24 13:20 | Outpatient (REF) | payer OTHER, SELFPAY ==
[2022-06-24 13:36] LABS: MANUAL DIFF FLAG NO
[2022-06-24 14:00] LABS: Appearance Urine Clear; Color Urine Yellow; Glucose Urine UA >=1000 mg/dL (Negative); Leukocyte Esterase Urine Negative (Negative); Nitrite Urine Negative (Negative); PH 5.5 (5.0-8.0); Specific Gravity - Urine >= 1.030 (1.005-1.025); Urine Blood Negative (Negative); Urine Ketones Negative (Negative); Urine Protein Negative (Neg-Trace)
[2022-06-24 14:01] LABS: Basophils Percent Auto 0.3 % (0-2); Eosinophils Absolute Auto 0.2 X10*3/uL (0.0-0.4); Eosinophils Percent Auto 3.3 % (0-4); Hematocrit 45.9 % (37.0-47.0); Hemoglobin 15.6 g/dl (12.0-16.0); Imm Gran Abs Auto 0.06 X10*3/uL (0.00-0.03); Imm Gran Pct Auto 0.9 % (0.0-0.4); Lymphocytes Absolute Auto 1.8 X10*3/uL (1.2-4.9); Lymphocytes Percent Auto 26.5 % (20-40); Mean Corpuscular Hemoglobin 30.5 pg (27.0-33.0); Mean Corpuscular Volume 89.6 fL (80.0-98.0); Mean Platelet Volume 9.2 fL (9.4-12.3); Monocytes Absolute Auto 0.6 X10*3/uL (0.1-1.2); Monocytes Percent Auto 9.5 % (2-11); Neutrophils Percent Auto 59.5 % (45-73); Platelet Count 175 X10*3/uL (160-400); Red Blood Count 5.12 X10*6/uL (4.20-5.50); Red Cell Distribution Width 13.1 % (11.0-16.0); White Blood Count 6.7 X10*3/uL (4.8-10.8)
[2022-06-24 14:09] LABS: Bacteria Urine None Seen (None Seen); Hyaline Casts Urine 0-2 /LPF (0-2); RBC Urine 0-2 /HPF (0-2); Squamous Epithelial Cell Urine 0-2 /HPF (0-2); WBC Urine 0-5 /HPF (0-5)
[2022-06-24 14:12] LABS: Estimated Average Glucose 169 mg/dL; Hemoglobin A1c % 7.5 %
[2022-06-24 14:14] LABS: Creatinine Urine 85.28 mg/dL; Microalbumin Urine < 5.0 mg/L
[2022-06-24 14:46] LABS: Alanine Aminotransferase 39 U/L (0-31); Albumin Level 4.6 g/dL (3.5-5.0); Alkaline Phosphatase 75 U/L (39-117); Anion Gap 16 (12-20); Aspartate Amino Transferase 31 U/L (5-31); Bilirubin Total 0.8 mg/dL (0.0-1.0); Blood Urea Nitrogen 18 mg/dL (9-16); Carbon Dioxide 26 mmol/L (22-29); Chloride 104 mmol/L (96-108); Cholesterol 136 mg/dL; Estimated Glomerular Filt Rate 55; Glucose Fasting 200 mg/dL (60-99); HDL Cholesterol 36 mg/dL; LDL Cholesterol Calculated 57 mg/dl; Potassium 5.2 mmol/L (3.3-5.1); Sodium 141 mmol/L (135-145); Total Protein 8.5 g/dL (6.5-8.0); Triglycerides 218 mg/dL
[2022-06-24 14:56] LABS: TSH reflex Free T4 1.09 uIU/mL (0.32-4.0); Vitamin D 25-OH Total 26.6 ng/mL (>30)
== END 2022-06-24 13:21 | disposition home or self-care (01) ==
LOC: HO.LAB 13:20
PROVIDERS: PCP Internal Medicine; Visit Provider Internal Medicine
DX: E78.00 Pure hypercholesterolemia, unspecified (principal); E11.9 Type 2 diabetes mellitus without complications; E55.9 Vitamin D deficiency, unspecified; I10 Essential (primary) hypertension
CPT/HCPCS: 36415; 80053; 80061; 81001; 81003; 82043; 82306; 83036; 84443; 85025

== ENCOUNTER → 2022-07-23 10:00 | Outpatient (BNVA) | payer OTHER, SELFPAY | PROVIDERS: PCP Internal Medicine; Visit Provider Dietitian, Registered | DX: E11.65 Type 2 diabetes mellitus with hyperglycemia (principal); Z71.3 Dietary counseling and surveillance | CPT/HCPCS: 97802 ==

== ENCOUNTER 2022-11-07 09:07 | Outpatient (REF) | payer OTHER, SELFPAY ==
--- NOTE | ~2022-11-07 | US_ITS ---
EXAMINATION: US COMPLETE ABDOMEN WITH LIVER ELASTOGRAPHY CLINICAL INFORMATION: Elevated liver enzymes. Fatty liver COMPARISON: None. TECHNIQUE: Real-time imaging of the abdominal viscera. Noninvasive ultrasound liver fibrosis assessment is performed using Aaliyah ElastPQ point quantification shear wave elastography (2D-SWE) with a C5-2 MHz transducer. Multiple elastography samples are obtained. FINDINGS: PANCREAS: The visualized pancreatic head and body are normal in appearance. The tail of the pancreas is obscured from visualization by the overlying bowel gas. ABDOMINAL AORTA: The proximal aortic segments are normal in caliber. The mid and distal segment is not well visualized INFERIOR VENA CAVA: Visualized portions are normal. LIVER: The liver demonstrates normal size, contour and slight increased echogenicity. No focal lesion or intrahepatic biliary duct dilatation. The right lobe measures 15.0 cm in length. The left lobe measures 14.1 cm in length. Portal flow is hepatopedal. Shear wave liver elastography median stiffness is 1.32 m/s (reference: normal median stiffness is 1.3 m/s or less). IQR/median stiffness to assess sampling precision is 0.16 (reference: good quality data set is IQR/median stiffness of 0.15 or less). GALLBLADDER: Normal. The gallbladder is physiologically distended without evidence of stones, sludge, polyps, wall thickening or pericholecystic fluid. COMMON BILE DUCT: Normal in caliber measuring 0.5 cm in diameter. RIGHT KIDNEY: Normal. No hydronephrosis. No renal calculi or focal parenchymal lesions. The kidney measures 11.0 cm in maximum dimension. LEFT KIDNEY: Normal. No hydronephrosis. No renal calculi or focal parenchymal lesions. The kidney measures 9.6 cm in maximum dimension. SPLEEN: Normal. The spleen measures 8.9 cm in maximum dimension. FREE FLUID: None. US/US abdomen comp w elastography IMPRESSION: 1. Mild hepatic steatosis without focal lesion. 2. The rest of the abdominal ultrasound is unremarkable. 2. Liver elastography: Median liver stiffness measures 1.32 m/s corresponding to high probability normal. REFERENCE: Society of Radiologists in Ultrasound Liver Stiffness Thresholds (2019): LIVER STIFFNESS THRESHOLDS: *Liver Stiffness equal or less than 1.3 m/s: High probability of being normal. *Liver Stiffness less than 1.7 m/s: In the absence of other known clinical signs, rules out compensated advanced chronic liver disease. *Liver Stiffness 1.7-2.1 m/s: Suggestive of compensated advanced chronic liver disease but need further test for confirmation. *Liver Stiffness over 2.1 m/s: Rules in compensated advanced chronic liver disease. *Liver Stiffness over 2.4 m/s: Suggestive of clinically significant portal hypertension. QUALITY OF DATA SET: *IQR/Median value equal or less than 0.15 implies a quality data set. *IQR/Median value over 0.15 implies a poor quality data set. SIGNIFICANT CHANGE FROM PRIOR EXAM: Significant change if liver stiffness measurement is 10% or greater from prior exam. OTHER CONSIDERATIONS: The stage of liver fibrosis may be overestimated in the setting of acute hepatitis, liver inflammation, elevated liver function tests, hepatic vascular congestion, obstructive cholestasis, non-fasting state, and infiltrative diseases such as amyloidosis and lymphoma. In some patients with NAFLD, the liver stiffness thresholds for compensated advanced chronic liver disease may be lower. In causes other than viral hepatitis and NAFLD, liver stiffness thresholds are not well established.
== END 2022-11-07 09:08 | disposition home or self-care (01) ==
LOC: HO.US 09:07
PROVIDERS: PCP Internal Medicine; Visit Provider Internal Medicine
DX: R74.8 Abnormal levels of other serum enzymes (principal); K76.0 Fatty (change of) liver, not elsewhere classified
CPT/HCPCS: 76705; 76981

== ENCOUNTER 2022-11-20 14:21 | Outpatient (REF) | payer OTHER, SELFPAY ==
--- NOTE | ~2022-11-20 | XR_ITS ---
EXAMINATION: XR ABDOMEN COMPLETE CLINICAL INDICATION: Reason for Exam R10.13 - Epigastric pain COMPARISON: None TECHNIQUE: AP view of the abdomen. FINDINGS: Lines or devices: Surgical sutures in the right lower quadrant. Overall paucity of bowel gas limits evaluation. Few scattered prominent loops of small bowel with air-fluid levels in a nonspecific bowel gas pattern. Gas is present throughout the colon and rectum. No significant colonic stool burden. Calcifications overlying the left upper quadrant favored to be vascular in nature. Dextroconvex curvature of the lumbar spine. XR/XR abdomen min 2V IMPRESSION: * Overall paucity of bowel gas limits evaluation. Few scattered prominent loops of small bowel with air-fluid levels in a nonspecific bowel gas pattern, however gas is present throughout the colon and rectum. CT abdomen pelvis could be considered for further evaluation if any clinical concern for obstruction. * No significant colonic stool burden.
[2022-11-20 14:55] LABS: Basophils Percent Auto 0.3 % (0-2); Eosinophils Percent Auto 0.3 % (0-4); Hemoglobin 16.1 g/dl (12.0-16.0); Imm Gran Abs Auto 0.12 X10*3/uL (0.00-0.03); Imm Gran Pct Auto 1.1 % (0.0-0.4); Lymphocytes Absolute Auto 0.6 X10*3/uL (1.2-4.9); Lymphocytes Percent Auto 5.4 % (20-40); MANUAL DIFF FLAG SCAN; Mean Corpuscular HGB Conc 34.3 g/dl (31.0-35.0); Mean Corpuscular Hemoglobin 30.6 pg (27.0-33.0); Mean Corpuscular Volume 89.4 fL (80.0-98.0); Mean Platelet Volume 9.2 fL (9.4-12.3); Monocytes Absolute Auto 0.3 X10*3/uL (0.1-1.2); Monocytes Percent Auto 2.7 % (2-11); Neutrophils Absolute Auto 9.4 x10*3/uL (2.0-8.3); Neutrophils Percent Auto 90.2 % (45-73); Red Blood Count 5.26 X10*6/uL (4.20-5.50); Red Cell Distribution Width 13.1 % (11.0-16.0); SCAN SMEAR FLAG 1; White Blood Count 10.4 X10*3/uL (4.8-10.8)
[2022-11-20 15:23] LABS: Alanine Aminotransferase 55 U/L (0-31); Albumin Level 4.8 g/dL (3.5-5.0); Alkaline Phosphatase 94 U/L (39-117); Anion Gap 17 (12-20); Aspartate Amino Transferase 38 U/L (5-31); Blood Urea Nitrogen 26 mg/dL (9-16); Calcium 10.2 mg/dL (8.4-10.2); Carbon Dioxide 21 mmol/L (22-29); Chloride 103 mmol/L (96-108); Estimated Glomerular Filt Rate 48; Glucose Random 232 mg/dL (60-115); Potassium 4.7 mmol/L (3.3-5.1); SLIDE REVIEW VERIFIED; Sodium 136 mmol/L (135-145); Total Protein 9.1 g/dL (6.5-8.0)
== END 2022-11-20 14:22 | disposition home or self-care (01) ==
LOC: HO.XRAY 14:21
PROVIDERS: PCP Internal Medicine; Visit Provider Internal Medicine
DX: R10.13 Epigastric pain (principal); R19.7 Diarrhea, unspecified; R42 Dizziness and giddiness
CPT/HCPCS: 36415; 74019; 80053; 85025

== ENCOUNTER 2022-11-27 07:27 | Day surgery (SDC) | payer OTHER, SELFPAY ==
--- NOTE | 2022-11-26 11:41 | HO.ANESPROP2 ---
Documented by User: Lida Szymanski NP 11/26/22 11:43 HPI - Anesthesia Eval Consult details Narrative: 67yo F for Colonoscopy PMFSH Active Problems Active Problems: All Active Problems (Updated 11/25/22 @ 22:47 by George Jha MD) Upper abdominal pain (Acute) Dizziness (Acute) Vertigo (Acute) Epigastric pain (Acute) Generalized anxiety disorder (Acute) Benign essential hypertension (Acute) Mixed hyperlipidemia (Acute) Type 2 diabetes mellitus with hyperglycemia (Acute) Type 2 diabetes mellitus without complications (Acute) Diabetes (Acute) Colon cancer screening (Acute) Annual physical exam (Acute) Chest pain (Acute) Urinary incontinence (Acute) Memory loss (Acute) Encounter to discuss test results (Acute) COVID-19 (Acute) Functional urinary incontinence (Acute) Biceps tendonitis on right (Acute) Right shoulder pain (Acute) Memory loss or impairment (Acute) Bursitis of right shoulder (Acute) Bursitis of left shoulder (Acute) Ear drainage (Acute) Ear pain (Acute) Primary osteoarthritis, right shoulder (Acute) Overweight (BMI 25.0-29.9) (Acute) Varicose veins of both lower extremities (Acute) Allergic rhinitis (Acute) Primary osteoarthritis of left shoulder (Acute) Lumbar degenerative disc disease (Acute) Recurrent UTI (Acute) Past Medical History Medical History Allergic rhinitis Anxiety Benign essential hypertension Bursitis of left shoulder Bursitis of right shoulder Diabetes Ear drainage Ear pain Elevated LFTs Lumbar degenerative disc disease Memory loss or impairment Mixed hyperlipidemia Overweight (BMI 25.0-29.9) Primary osteoarthritis of left shoulder Primary osteoarthritis of shoulder Primary osteoarthritis, right shoulder Right shoulder pain Type 2 diabetes mellitus without complications Varicose veins of both lower extremities Family History Family History Father Cancer Mother Diabetes Maternal Uncle Cancer Maternal Grandfather Cancer Surgical History Surgical History History of appendectomy History of cholecystectomy History of cystoscopy History of tubal ligation Social History Social History Housing: Apartment Alcohol intake: former Patient Tobacco Use Status: Never used Tobacco Second Hand Smoke Exposure: Yes Advance Directives: No Advance Directives Information Provided: Yes Current occupational status: unemployed Cognitive needs: No Hearing needs: No Vision needs: No Meds Allergies Allergy/AdvReac Type Severity Reaction Status Date / Time acetaminophen [From TYLENOL] Allergy Intermediate HIVES Verified 11/25/22 22:03 amoxicillin [AMOXICILLIN] Allergy Unknown ITCHY Verified 11/25/22 22:03 gabapentin Allergy Unknown dizziness Verified 11/25/22 22:03 glipizide Allergy Unknown unknown Verified 11/25/22 22:03 latex [LATEX] Allergy Unknown UNKNOWN Verified 11/25/22 22:03 levofloxacin Allergy Unknown Unknown Verified 11/25/22 22:03 liraglutide [From VICTOZA] Allergy Unknown UNKNOWN, Verified 11/25/22 22:03 itching metformin [METFORMIN] Allergy Unknown DIARRHEA Verified 11/25/22 22:03 morphine [MORPHINE] Allergy Unknown ITCHING, Verified 11/25/22 22:03 rash Home Medications Medication Instructions Recorded Confirmed Last Taken Type ibuprofen 800 mg tablet 800 mg PO Q8H PRN pain 11/09/20 11/25/22 Unknown History estradiol 10 mcg vaginal tablet 10 mcg vaginal USEASDIRECTD 10/05/21 11/25/22 Unknown History (Yuvafem) fluticasone propionate 50 2 spray intranasal DAILY 12/19/21 11/25/22 Unknown History mcg/actuation nasal spray,suspension mirtazapine 15 mg tablet 15 mg PO BEDTIME 09/20/22 11/25/22 Unknown History Exam Exam Date and Time: November 26, 2022 1141 Pertinent Lab Results Pertinent Lab Results: Laboratory Tests 11/20/22 11/20/22 14:35 14:35 WBC 10.4 Hgb 16.1 H Hct 47.0 Plt Count TNP Sodium 136 Potassium 4.7 Chloride 103 Carbon Dioxide 21 L BUN 26 H Creatinine 1.13 Narrative Narrative: EKG 05/2022 Vent. Rate : 080 BPM ? ? Atrial Rate : 080 BPM ?? P-R Int : 154 ms? QRS Dur : 084 ms ? ? QT Int : 368 ms ? ? ? P-R-T Axes : 060 010 038 degrees ?? QTc Int : 424 ms ? Normal sinus rhythm Normal ECG When compared to the previous EKG of No significant changes seen Assessment and Plan Assessment Anesthesia Assessment: Chart Reviewed Documented by User: Chuckie Salinas MD 11/27/22 07:44 PMFSH Past Medical History Medical History Allergic rhinitis Anxiety Benign essential hypertension Bursitis of left shoulder Bursitis of right shoulder Diabetes Ear drainage Ear pain Elevated LFTs Lumbar degenerative disc disease Memory loss or impairment Mixed hyperlipidemia Overweight (BMI 25.0-29.9) Primary osteoarthritis of left shoulder Primary osteoarthritis of shoulder Primary osteoarthritis, right shoulder Right shoulder pain Type 2 diabetes mellitus without complications Varicose veins of both lower extremities Family History Family History Father Cancer Mother Diabetes Maternal Uncle Cancer Maternal Grandfather Cancer Family history of problems with anesthesia: No Surgical History Surgical History History of appendectomy History of cholecystectomy History of cystoscopy History of tubal ligation History of Problems with Anesthesia: No Social History Social History Housing: Apartment Alcohol intake: former Patient Tobacco Use Status: Never used Tobacco Second Hand Smoke Exposure: Yes Advance Directives: No Advance Directives Information Provided: Yes Current occupational status: unemployed Cognitive needs: No Hearing needs: No Vision needs: No Meds Allergies Allergy/AdvReac Type Severity Reaction Status Date / Time acetaminophen [From TYLENOL] Allergy Intermediate HIVES Verified 11/25/22 22:03 amoxicillin [AMOXICILLIN] Allergy Unknown ITCHY Verified 11/25/22 22:03 gabapentin Allergy Unknown dizziness Verified 11/25/22 22:03 glipizide Allergy Unknown unknown Verified 11/25/22 22:03 latex [LATEX] Allergy Unknown UNKNOWN Verified 11/25/22 22:03 levofloxacin Allergy Unknown Unknown Verified 11/25/22 22:03 liraglutide [From VICTOZA] Allergy Unknown UNKNOWN, Verified 11/25/22 22:03 itching metformin [METFORMIN] Allergy Unknown DIARRHEA Verified 11/25/22 22:03 morphine [MORPHINE] Allergy Unknown ITCHING, Verified 11/25/22 22:03 rash Home Medications Medication Instructions Recorded Confirmed Last Taken Type ibuprofen 800 mg tablet 800 mg PO Q8H PRN pain 11/09/20 11/25/22 Unknown History estradiol 10 mcg vaginal tablet 10 mcg vaginal USEASDIRECTD 10/05/21 11/25/22 Unknown History (Yuvafem) fluticasone propionate 50 2 spray intranasal DAILY 12/19/21 11/25/22 Unknown History mcg/actuation nasal spray,suspension mirtazapine 15 mg tablet 15 mg PO BEDTIME 09/20/22 11/25/22 Unknown History Exam Airway Mallampati Class: II TM Dist: >3cm Neck ROM: Full Loose/Missing/Broken Teeth: No Heart: rrr Lungs: cta Assessment and Plan Assessment Anesthesia Assessment: Anesthesia Plan Discussed Final Anesthetic Review Family History of Problems with Anesthesia: No History of Problems with Anesthesia: No NPO: Yes ASA Class: II Final Preanesthetic Review: No Changes in Pt Med Stat, Meds/Allgs Chart Reviewed, Consent Obtained/Reviewed and Anes Risks/Benef Reviewed Patient Risk: Intermediate Procedure Risk: Low Anesthetic Plan Anesthetic Plan: MAC: Disposition: Standard PACU
[2022-11-27 07:37] VITALS: BMI 25.7
[2022-11-27 08:00] VITALS: BP 133/66; PULSE 60; RESP 16; TEMP 36.2; O2SAT 100; BMI 25.7
[2022-11-27 08:16] LABS: Glucose, Whole Blood 131 mg/dL (60-115)
[2022-11-27 09:52] VITALS: BP 100/57; PULSE 57; RESP 16; TEMP 36.2; O2SAT 96
--- NOTE | 2022-11-27 09:54 | P.BOP_ITS ---
Brief Operative Note Date of Service: 11/27/22 Pre-op diagnosis: Screening Post-op diagnosis: other (Colon polyps) Procedure: Colonoscopy to the cecum with hot snare polypectomy x 2 Surgeon: Juanito Viramontes Anesthesia: MAC Was an Fund Development Manager used for this Procedure?: No Estimated blood loss (mL): 0 Pathology: other (A. Ascending colon polyp B. Distal rectal polyp) Condition: stable Disposition: PACU
[2022-11-27 10:07] VITALS: BP 129/60; PULSE 63; RESP 18; TEMP 36.3; O2SAT 99
--- NOTE | 2022-11-27 12:16 | OP_ITS ---
SURGEON: Juanito Viramontes MD INDICATIONS: The patient presents for followup of personal history of colon polyps and colorectal cancer screening. Full consent was obtained from her for this procedure, including risks of bleeding and perforation. PREOPERATIVE DIAGNOSIS: POSTOPERATIVE DIAGNOSIS: PROCEDURE PERFORMED: Colonoscopy to the cecum with hot snare polypectomy x 2. ESTIMATED BLOOD LOSS: COMPLICATIONS: ANESTHESIA: Monitored anesthesia care. ASSISTANTS: SPECIMENS: PREOPERATIVE DIAGNOSES: Colorectal cancer screening and personal history of tubular adenomas of the colon. POSTOPERATIVE DIAGNOSES: Colorectal cancer screening and personal history of tubular adenomas of the colon, colon polyps, diverticulosis and internal hemorrhoids. DESCRIPTION OF PROCEDURE: The patient was placed in the left lateral decubitus position. The digital rectal exam revealed no abnormalities. The Olympus videopediatric colonoscope was entered into the rectum and advanced easily to the cecum. Once in the cecum, I did identify normal-appearing cecal pouch with appendiceal orifice and a normal-appearing ileocecal valve. The entire cecum and ileocecal valve appeared normal. The scope was slowly withdrawn assessing all mucosal surfaces carefully. Preparation was excellent. In the proximal ascending colon was an approximately 10 mm polyp which was removed by hot snare polypectomy and recovered by suction. The polypectomy site appeared clean, without any sign of residual polyp nor bleeding. There was a mild amount of sigmoid diverticulosis. I did not visualize any sign of colitis or angiodysplasia. The only other polyp visualized within the distal rectum seen both in the retroflexed and forward viewing position. This was removed in the forward viewing position with hot snare polypectomy. It was approximately 5 to 6 mm and recovered by suction. The polypectomy site appeared clean, without any sign of residual polyp nor bleeding. Internal hemorrhoids were noted as well. Scope was removed from the patient. She tolerated the procedure well and she was returned to the recovery area in stable condition. IMPRESSION: 1. Colon polyps. 2. Diverticulosis. 3. Internal hemorrhoids. PLAN: The results of the pathology will be checked. Given today's findings and her previous history, I would recommend a repeat colonoscopy in 5 years for further screening. She will otherwise see me on a p.r.n. basis. She was advised not to use any aspirin or NSAIDs for 1 week. MD AGUEDA Rose/DENISSE / [phone] [facility]BLE HOSPITALNasra
== END 2022-11-27 10:46 | disposition home or self-care (01) ==
PROVIDERS: PCP Internal Medicine; Visit Provider Internal Medicine
PROC: 0DJD8ZZ Inspection of Lower Intestinal Tract, Via Natural or Artificial Opening Endoscopic (ICD-10-PCS; CPT 45378; principal; 2022-11-27 08:30)
DX: Z12.11 Encounter for screening for malignant neoplasm of colon (principal); Z86.010 Personal history of colon polyps; K51.40 Inflammatory polyps of colon without complications; K62.1 Rectal polyp; K57.30 Diverticulosis of large intestine without perforation or abscess without bleeding; K64.8 Other hemorrhoids; R74.8 Abnormal levels of other serum enzymes; K76.0 Fatty (change of) liver, not elsewhere classified; I10 Essential (primary) hypertension; E78.5 Hyperlipidemia, unspecified; J45.909 Unspecified asthma, uncomplicated; E66.9 Obesity, unspecified; E11.9 Type 2 diabetes mellitus without complications; Z79.4 Long term (current) use of insulin; Z79.899 Other long term (current) drug therapy; Z88.8 Allergy status to other drugs, medicaments and biological substances; Z91.040 Latex allergy status
CPT/HCPCS: 45385; 82947; 88305

== ENCOUNTER 2022-12-04 14:20 | Outpatient (REF) | payer OTHER, SELFPAY ==
--- NOTE | ~2022-12-04 | MM_ITS ---
EXAMINATION: MM SCREENING DIGITAL BREAST TOMOSYNTHESIS, BILATERAL CLINICAL INFORMATION: Screening. Asymptomatic. The lifetime risk of breast cancer based on the Tyrer-Cuzick Model is 6%. COMPARISON: Mammography: 12/03/2021, 06/27/2020, 02/02/2019 TECHNIQUE: Digital breast tomosynthesis is performed in both the craniocaudal and mediolateral oblique views along with computer-aided detection (CAD). Synthesized 2D images are generated from the tomosynthesis. Additional right MLO view is provided. FINDINGS: There are scattered areas of fibroglandular density (ACR BI-RADS breast composition Category b). There are no significant masses, abnormal calcifications, or other abnormalities. No developing density or architectural abnormality. There are again numerous bilateral ductal secretory and some round and rim calcifications. The axilla and skin contours are unremarkable. MM/MM tomosynthesis screening BI IMPRESSION: No mammographic evidence of malignancy. ASSESSMENT: BI-RADS 2: Benign RECOMMENDATION: Routine annual mammography screening. This patient's information was entered into a reminder system with a target due date for their next mammogram.
== END 2022-12-04 14:21 | disposition home or self-care (01) ==
LOC: HO.MAMMO 14:20
PROVIDERS: PCP Internal Medicine; Visit Provider Internal Medicine
DX: Z12.31 Encounter for screening mammogram for malignant neoplasm of breast (principal)
CPT/HCPCS: 77063; 77067

== ENCOUNTER 2022-12-04 16:56 | Emergency (ER) | payer OTHER, SELFPAY ==
[2022-12-04 17:09] VITALS: BP 128/79; PULSE 78; RESP 16; TEMP 36.7; O2SAT 98; BMI 21.6
--- NOTE | 2022-12-04 17:09 | ED.GENADULT ---
HPI - General Adult General Chief complaint: Anxiety Stated complaint: DIZZY,LETHARGIC,-STROKE SCALE PER EMS Source: patient and EMS Mode of arrival: EMS Limitations: no limitations History of Present Illness HPI narrative: Patient comes to the emergency room via EMS from urgent care. Patient went to urgent care complaining of intermittent dizziness and abdominal pain. Patient describes dizziness as not feeling well. Denies blacking out, no syncopal episodes. Patient denies chest pain or shortness of breath. Of note, reviewing patient's medical record, patient was seen by her primary care physician on November 20, patient had the same complaints. Patient states that she feels very anxious and requesting Related Data Home Medications Medication Instructions Recorded Confirmed ibuprofen 800 mg tablet 800 mg PO Q8H PRN pain 11/09/20 11/25/22 estradiol 10 mcg vaginal tablet 10 mcg vaginal USEASDIRECTD 10/05/21 11/25/22 (Yuvafem) fluticasone propionate 50 2 spray intranasal DAILY 12/19/21 11/25/22 mcg/actuation nasal spray,suspension mirtazapine 15 mg tablet 15 mg PO BEDTIME 09/20/22 11/25/22 Previous Rx's Medication Instructions Recorded lancets 28 gauge (FreeStyle #100 ea 06/29/21 Lancets) estradiol 0.01% (0.1 mg/gram) See Rx Instructions vaginal DAILY 01/02/22 vaginal cream (Estrace) complicated uti 30 days #42.5 grams insulin glargine 100 unit/mL (3 20 unit (0.2 mL) subcut QPM #15 mL 01/03/22 mL) subcutaneous pen (Lantus Solostar U-100 Insulin) losartan 100 mg tablet 100 mg PO DAILY #90 tabs 02/06/22 pen needle, diabetic 32 gauge x #50 ea 02/14/22 cetirizine 10 mg tablet 10 mg PO DAILY PRN allergy 04/27/22 symptoms #30 tabs hydroxyzine HCl 10 mg tablet 10 mg PO TID PRN anxiety 30 days 05/20/22 #90 tabs pen needle, diabetic 31 gauge x #4 boxes 05/28/2201/16 empagliflozin 10 mg tablet 10 mg PO DAILY #90 tabs 05/30/22 (Jardiance) linagliptin 5 mg tablet (Tradjenta) 5 mg PO DAILY #90 tabs 05/30/22 insulin lispro 100 unit/mL 5 unit (0.05 mL) subcut TID #15 mL 07/15/22 subcutaneous pen (Humalog KwikPen (U-100) Insulin) meclizine 25 mg tablet 25 mg PO TID PRN dizziness #30 tabs 07/15/22 blood-glucose meter (FreeStyle #1 ea 07/23/22 Lite Meter kit) blood sugar diagnostic (FreeStyle 1 strip miscellaneous TID #300 08/17/22 Lite Strips) strips glimepiride 2 mg tablet 2 mg PO QAM 30 days #30 tabs 09/20/22 atorvastatin 80 mg tablet 80 mg PO BEDTIME #90 tabs 11/13/22 acetazolamide 125 mg tablet 125 mg PO BID PRN vertigo 10 days 11/20/22 #20 tabs citalopram 40 mg tablet 40 mg PO DAILY #90 tabs 12/02/22 Allergies Allergy/AdvReac Type Severity Reaction Status Date / Time acetaminophen [From TYLENOL] Allergy Intermediate HIVES Verified 11/25/22 22:03 amoxicillin [AMOXICILLIN] Allergy Unknown ITCHY Verified 11/25/22 22:03 gabapentin Allergy Unknown dizziness Verified 11/25/22 22:03 glipizide Allergy Unknown unknown Verified 11/25/22 22:03 latex [LATEX] Allergy Unknown UNKNOWN Verified 11/25/22 22:03 levofloxacin Allergy Unknown Unknown Verified 11/25/22 22:03 liraglutide [From VICTOZA] Allergy Unknown UNKNOWN, Verified 11/25/22 22:03 itching metformin [METFORMIN] Allergy Unknown DIARRHEA Verified 11/25/22 22:03 morphine [MORPHINE] Allergy Unknown ITCHING, Verified 11/25/22 22:03 rash Review of Systems Review of Systems: Constitutional : No Weight loss, No Fever, No Chills, No Night Sweats, No Fatigue, No Malaise ENT/Mouth : No Hearing loss, No Ear Pain, No Nasal Congestion, No Sinus Pain, No Hoarseness, No sore throat, No Rhinorrhea, No Swallowing Difficulty Eyes: No Eye Pain, No Swelling, No Redness, No Foreign Body, No Discharge, No Vision Changes Cardiovascular : No Chest Pain, No SOB, No Dyspnea on Exertion, No Orthopnea, No Edema, No Palpitations Respiratory : No Cough, No Sputum, No Wheezing, No Smoke Exposure, No Dyspnea Gastrointestinal : No Nausea, No Vomiting, No Diarrhea, No Constipation, No abdominal Pain, No Hematochezia, No Melena Genitourinary : no irregular bleeding, No Dysuria, No Urinary Frequency, No Hematuria, No Urinary Incontinence, No Urgency, No Flank Pain, No Urinary Flow Changes, No Hesitancy Musculoskeletal : No joint pain, No Myalgias, No Joint Swelling Skin : No Skin Lesions, No rash Neuro : No Weakness, No Numbness, No Paresthesias, No Loss of Consciousness, complaining of dizziness, no headache Psych : No Anxiety/Panic, No Depression, No SI/HI/AH/VH, No Social Issues, Heme/Lymph: No Bruising, No Bleeding,No Lymphadenopathy Endocrine : No Polyuria, No Polydipsia, No Temperature Intolerance [facility] Past Medical History Medical History Allergic rhinitis Anxiety Benign essential hypertension Bursitis of left shoulder Bursitis of right shoulder Diabetes Ear drainage Ear pain Elevated LFTs Lumbar degenerative disc disease Memory loss or impairment Mixed hyperlipidemia Overweight (BMI 25.0-29.9) Primary osteoarthritis of left shoulder Primary osteoarthritis of shoulder Primary osteoarthritis, right shoulder Right shoulder pain Type 2 diabetes mellitus without complications Varicose veins of both lower extremities Surgical History History of appendectomy History of cholecystectomy History of cystoscopy History of tubal ligation Family History Family History Father Cancer Mother Diabetes Maternal Uncle Cancer Maternal Grandfather Cancer Social History Social History Housing: Apartment Alcohol intake: former Patient Tobacco Use Status: Never used Tobacco Second Hand Smoke Exposure: Yes Advance Directives: No Advance Directives Information Provided: Yes Current occupational status: unemployed Cognitive needs: No Hearing needs: No Vision needs: No Physical Exam ED Vital Signs: Vital Signs - 24 hr 12/04/22 17:09 12/04/22 19:33 12/04/22 19:50 Temperature 98.1 F 98.5 F Pulse Rate 78 72 74 Respiratory Rate 16 20 Blood Pressure 128/79 142/73 H 150/77 H Pulse Oximetry 98 95 Oxygen Delivery Method Room Air Room Air 12/04/22 19:34 12/04/22 19:35 Temperature Pulse Rate 76 77 Respiratory Rate Blood Pressure 134/74 124/65 Pulse Oximetry Oxygen Delivery Method BMI result Body Mass Index 21.6 Const Other: Appearance: Alert. Oriented X3. No acute distress. Well-appearing Eyes: Pupils equal, round and reactive to light. ENT: Pharynx normal. Neck: Normal inspection. Neck supple. No lymph nodes noted. No crepitus CVS: Normal heart rate and rhythm. Pulses normal. Normal S1 and S2 Respiratory: No respiratory distress. Breath sounds normal. No Wheezing. No rales Abdomen: Soft and nontender. No rigidity. No distention. Skin: Skin warm and dry. Normal skin color. Normal skin turgor. Extremities: No lower extremity edema. No Lacerations. No Rash Neuro: Oriented X 3. No motor deficit. No sensory deficit. Moving all extremities. No slurred speech. CN 2 through 12 grossly intact Psych: calm, cooperative, seems anxious Course Course Course Narrative: -EKG negative, troponin negative, all labs are unremarkable, orthostatics negative -I reviewed patient's medical records from her PCP, patient has had very similar complaints in the past which have been addressed by her PCP -it is likely that her symptoms are attributed greatly to anxiety Medical Decision Making Differential Diagnosis Differential Diagnoses: The differential diagnosis associated with the presentation includes (Vertigo, orthostatic hypotension, anxiety) Lab Data MDM Lab Attestation statement: I reviewed the patient's lab results. 12/04/22 19:40 12/04/22 19:40 Labs: Lab Results 12/04/22 12/04/22 12/04/22 Range/Units 19:40 19:40 19:40 WBC 7.0 (4.8-10.8) X10*3/uL RBC 4.74 (4.20-5.50) X10*6/uL Hgb 14.3 (12.0-16.0) g/dl Hct 41.6 (37.0-47.0) % MCV 87.8 (80.0-98.0) fL MCH 30.2 (27.0-33.0) pg MCHC 34.4 (31.0-35.0) g/dl RDW 12.5 (11.0-16.0) % Plt Count 186 (160-400) X10*3/uL MPV 9.3 L (9.4-12.3) fL Immature Gran % (Auto) 1.0 H (0.0-0.4) % Neut % (Auto) 74.2 H (45-73) % Lymph % (Auto) 21.0 (20-40) % [place] % (Auto) 3.4 (2-11) % Eos % (Auto) 0.3 (0-4) % Baso % (Auto) 0.1 (0-2) % Lymph # (Auto) 1.5 (1.2-4.9) X10*3/uL [place] # (Auto) 0.2 (0.1-1.2) X10*3/uL Eos # (Auto) 0.0 (0.0-0.4) X10*3/uL Baso # (Auto) 0.0 (0.0-0.2) X10*3/uL Abs Immat Gran (auto) 0.07 H (0.00-0.03) X10*3/uL Absolute Neuts (auto) 5.2 (2.0-8.3) x10*3/uL Absolute Nucleated RBC 0.000 (0.0-0.012) X10*3/uL Nucleated RBC % (auto) 0.0 (0.0-0.2) /100WBC Sodium 140 (135-145) mmol/L Potassium 4.2 (3.3-5.1) mmol/L Chloride 105 (96-108) mmol/L Carbon Dioxide 26 (22-29) mmol/L Anion Gap 13 (12-20) BUN 13 (9-16) mg/dL Creatinine 0.80 (0.5-1.4) mg/dL Estim Creat Clear Calc 60.5 Estimated GFR > 60 Random Glucose 122 H (60-115) mg/dL Calcium 9.7 (8.4-10.2) mg/dL Total Bilirubin 0.6 (0.0-1.0) mg/dL Direct Bilirubin 0.2 (0.0-0.5) mg/dL AST 30 (5-31) U/L ALT 44 H (0-31) U/L Alkaline Phosphatase 80 (39-117) U/L Troponin I High Sens < 3.5 (<3.5-17.0) ng/L Total Protein 7.9 (6.5-8.0) g/dL Albumin 4.3 (3.5-5.0) g/dL Urine Color Urine Appearance Urine pH (5.0-9.0) Ur Specific [place] (1.005-1.025) Urine Protein (Neg-Trace) mg/dL Urine Glucose (UA) (Negative) mg/dL Urine Ketones (Negative) mg/dL Urine Blood (Negative) Urine Nitrite (Negative) Ur Leukocyte Esterase (Negative) Urine RBC (0-2) /HPF Urine WBC (0-5) /HPF Ur Squamous Epith Cells (0-2) /HPF Urine Bacteria (None Seen) Hyaline Casts (0-2) /LPF Urine Opiates Screen (Not Detect) Urine Fentanyl Screen (Not Detect) Ur Barbiturates Screen (Not Detect) Ur Phencyclidine Scrn (Not Detect) Ur Amphetamines Screen (Not Detect) U Benzodiazepines Scrn (Not Detect) Urine Cocaine Screen (Not Detect) U Marijuana (THC) Screen (Not Detect) Ethyl Alcohol mg/dL COVID-19 (KARMEN) (Negative) COVID-19 Clin Com 12/04/22 12/04/22 12/04/22 Range/Units 19:40 19:40 19:40 WBC (4.8-10.8) X10*3/uL RBC (4.20-5.50) X10*6/uL Hgb (12.0-16.0) g/dl Hct (37.0-47.0) % MCV (80.0-98.0) fL MCH (27.0-33.0) pg MCHC (31.0-35.0) g/dl RDW (11.0-16.0) % Plt Count (160-400) X10*3/uL MPV (9.4-12.3) fL Immature Gran % (Auto) (0.0-0.4) % Neut % (Auto) (45-73) % Lymph % (Auto) (20-40) % [place] % (Auto) (2-11) % Eos % (Auto) (0-4) % Baso % (Auto) (0-2) % Lymph # (Auto) (1.2-4.9) X10*3/uL [place] # (Auto) (0.1-1.2) X10*3/uL Eos # (Auto) (0.0-0.4) X10*3/uL Baso # (Auto) (0.0-0.2) X10*3/uL Abs Immat Gran (auto) (0.00-0.03) X10*3/uL Absolute Neuts (auto) (2.0-8.3) x10*3/uL Absolute Nucleated RBC (0.0-0.012) X10*3/uL Nucleated RBC % (auto) (0.0-0.2) /100WBC Sodium (135-145) mmol/L Potassium (3.3-5.1) mmol/L Chloride (96-108) mmol/L Carbon Dioxide (22-29) mmol/L Anion Gap (12-20) BUN (9-16) mg/dL Creatinine (0.5-1.4) mg/dL Estim Creat Clear Calc Estimated GFR Random Glucose (60-115) mg/dL Calcium (8.4-10.2) mg/dL Total Bilirubin (0.0-1.0) mg/dL Direct Bilirubin (0.0-0.5) mg/dL AST (5-31) U/L ALT (0-31) U/L Alkaline Phosphatase (39-117) U/L Troponin I High Sens (<3.5-17.0) ng/L Total Protein (6.5-8.0) g/dL Albumin (3.5-5.0) g/dL Urine Color Yellow Urine Appearance Clear Urine pH 6.5 (5.0-9.0) Ur Specific [place] 1.015 (1.005-1.025) Urine Protein Negative (Neg-Trace) mg/dL Urine Glucose (UA) >=1000 H (Negative) mg/dL Urine Ketones Negative (Negative) mg/dL Urine Blood Negative (Negative) Urine Nitrite Negative (Negative) Ur Leukocyte Esterase Negative (Negative) Urine RBC 0-2 (0-2) /HPF Urine WBC 0-5 (0-5) /HPF Ur Squamous Epith Cells 0-2 (0-2) /HPF Urine Bacteria None Seen (None Seen) Hyaline Casts 0-2 (0-2) /LPF Urine Opiates Screen (Not Detect) Urine Fentanyl Screen (Not Detect) Ur Barbiturates Screen (Not Detect) Ur Phencyclidine Scrn (Not Detect) Ur Amphetamines Screen (Not Detect) U Benzodiazepines Scrn (Not Detect) Urine Cocaine Screen (Not Detect) U Marijuana (THC) Screen (Not Detect) Ethyl Alcohol < 10 mg/dL COVID-19 (KARMEN) Negative (Negative) COVID-19 Clin Com See Note 12/04/22 Range/Units 19:41 WBC (4.8-10.8) X10*3/uL RBC (4.20-5.50) X10*6/uL Hgb (12.0-16.0) g/dl Hct (37.0-47.0) % MCV (80.0-98.0) fL MCH (27.0-33.0) pg MCHC (31.0-35.0) g/dl RDW (11.0-16.0) % Plt Count (160-400) X10*3/uL MPV (9.4-12.3) fL Immature Gran % (Auto) (0.0-0.4) % Neut % (Auto) (45-73) % Lymph % (Auto) (20-40) % [place] % (Auto) (2-11) % Eos % (Auto) (0-4) % Baso % (Auto) (0-2) % Lymph # (Auto) (1.2-4.9) X10*3/uL [place] # (Auto) (0.1-1.2) X10*3/uL Eos # (Auto) (0.0-0.4) X10*3/uL Baso # (Auto) (0.0-0.2) X10*3/uL Abs Immat Gran (auto) (0.00-0.03) X10*3/uL Absolute Neuts (auto) (2.0-8.3) x10*3/uL Absolute Nucleated RBC (0.0-0.012) X10*3/uL Nucleated RBC % (auto) (0.0-0.2) /100WBC Sodium (135-145) mmol/L Potassium (3.3-5.1) mmol/L Chloride (96-108) mmol/L Carbon Dioxide (22-29) mmol/L Anion Gap (12-20) BUN (9-16) mg/dL Creatinine (0.5-1.4) mg/dL Estim Creat Clear Calc Estimated GFR Random Glucose (60-115) mg/dL Calcium (8.4-10.2) mg/dL Total Bilirubin (0.0-1.0) mg/dL Direct Bilirubin (0.0-0.5) mg/dL AST (5-31) U/L ALT (0-31) U/L Alkaline Phosphatase (39-117) U/L Troponin I High Sens (<3.5-17.0) ng/L Total Protein (6.5-8.0) g/dL Albumin (3.5-5.0) g/dL Urine Color Urine Appearance Urine pH (5.0-9.0) Ur Specific [place] (1.005-1.025) Urine Protein (Neg-Trace) mg/dL Urine Glucose (UA) (Negative) mg/dL Urine Ketones (Negative) mg/dL Urine Blood (Negative) Urine Nitrite (Negative) Ur Leukocyte Esterase (Negative) Urine RBC (0-2) /HPF Urine WBC (0-5) /HPF Ur Squamous Epith Cells (0-2) /HPF Urine Bacteria (None Seen) Hyaline Casts (0-2) /LPF Urine Opiates Screen Not Detected (Not Detect) Urine Fentanyl Screen Not Detected (Not Detect) Ur Barbiturates Screen Not Detected (Not Detect) Ur Phencyclidine Scrn Not Detected (Not Detect) Ur Amphetamines Screen Not Detected (Not Detect) U Benzodiazepines Scrn Not Detected (Not Detect) Urine Cocaine Screen Not Detected (Not Detect) U Marijuana (THC) Screen Not Detected (Not Detect) Ethyl Alcohol mg/dL COVID-19 (KARMEN) (Negative) COVID-19 Clin Com Independent Interpretation I performed an independent interpretation of an: EKG (My interpretation EKG: Normal sinus rhythm, heart rate 74, no ST segment depression or elevation, nonspecific T-wave inversion in lead 3, QTC 463) Discharge Plan Discharge Clinical Impression: Dizziness, Anxiety Patient Disposition: Home, Self-Care Instructions: Dizziness (ED) Additional Instructions: Please follow-up with your primary care physician tomorrow. If you have any worsening or new symptoms, please return to the emergency room or call 911 Prescriptions: No Action (DME) lancets [FreeStyle Lancets] 28 gauge misc See Rx Instructions .Route Qty: 100 0RF Rx Instructions: As directed-to test sugars Three times a day estradiol [Estrace] 0.01 % (0.1 mg/gram) cream See Rx Instructions vaginal DAILY 30 Days Qty: 42.5 1RF Rx Instructions: pea sized amount per urethra vaginal daily; Lantus Solostar U-100 Insulin 100 unit/mL (3 mL) insulin pen 20 unit subcut QPM Qty: 15 3RF losartan 100 mg tablet 100 mg PO DAILY Qty: 90 3RF (DME) pen needle, diabetic 32 gauge x / needle See Rx Instructions subcut DAILY Qty: 50 5RF Rx Instructions: As directed hydroxyzine HCl 10 mg tablet 10 mg PO TID PRN (Reason: anxiety) 30 Days Qty: 90 1RF Jardiance 10 mg tablet 10 mg PO DAILY Qty: 90 1RF Tradjenta 5 mg tablet 5 mg PO DAILY Qty: 90 3RF insulin lispro [Humalog KwikPen Insulin] 100 unit/mL insulin pen 5 unit subcut TID Qty: 15 2RF Rx Instructions: sliding scale 0-60 eat, 61-150 no insulin , 151- 230 2 units, 231- 280 4 units, 281-330 6 units 331-380 8 units 380 or higher 10 units meclizine 25 mg tablet 25 mg PO TID PRN (Reason: dizziness) Qty: 30 1RF (DME) blood-glucose meter [FreeStyle Lite Meter] Kit See Rx Instructions .ROUTE .MEDSUPPLY Qty: 1 0RF Rx Instructions: As directed FreeStyle Lite Strips Strip 1 strip miscellaneous TID Qty: 300 4RF atorvastatin 80 mg tablet 80 mg PO BEDTIME Qty: 90 1RF citalopram 40 mg tablet 40 mg PO DAILY Qty: 90 1RF fluticasone propionate 50 mcg/actuation spray,suspension 2 spray intranasal DAILY cetirizine 10 mg tablet 10 mg PO DAILY PRN (Reason: allergy symptoms) Qty: 30 1RF (DME) pen needle, diabetic 31 gauge x 3/16 needle See Rx Instructions subcut .MEDSUPPLY Qty: 4 6RF Rx Instructions: As directed daily inject 4 x a day mirtazapine 15 mg tablet 15 mg PO BEDTIME glimepiride 2 mg tablet 2 mg PO QAM 30 Days Qty: 30 3RF Rx Instructions: administer with breakfast acetazolamide 125 mg tablet 125 mg PO BID PRN (Reason: vertigo) 10 Days Qty: 20 0RF ibuprofen 800 mg tablet 800 mg PO Q8H PRN (Reason: pain) estradiol [Yuvafem] 10 mcg tablet 10 mcg vaginal USEASDIRECTD
--- NOTE | 2022-12-04 17:13 | ECG_ITS ---
Test Reason : AMS Blood Pressure : / mmHG Vent. Rate : 074 BPM Atrial Rate : 074 BPM P-R Int : 162 ms QRS Dur : 084 ms QT Int : 418 ms P-R-T Axes : 068 -02 009 degrees QTc Int : 463 ms Normal sinus rhythm Possible Inferior infarct , age undetermined Abnormal ECG When compared with ECG of 16-MAY-2022 21:37, No significant change was found Referred By: Skylar Green Electronically Signed By:Bhavin Canas
--- NOTE | 2022-12-04 17:16 | PC.NURSE ---
67 y/o F BIBA from UC with multiple complaints, however patient repeatedly mentioning anxiety. VSS, pt aox3, calm and cooperative. plan for labs
[2022-12-04 19:33] VITALS: BP 142/73; PULSE 72
[2022-12-04 19:34] VITALS: BP 134/74; PULSE 76
[2022-12-04 19:35] VITALS: BP 124/65; PULSE 77
[2022-12-04 19:50] VITALS: BP 150/77; PULSE 74; RESP 20; TEMP 36.9; O2SAT 95
[2022-12-04 19:57] LABS: MANUAL DIFF FLAG NO
[2022-12-04 19:58] LABS: Basophils Percent Auto 0.1 % (0-2); Eosinophils Percent Auto 0.3 % (0-4); Hematocrit 41.6 % (37.0-47.0); Hemoglobin 14.3 g/dl (12.0-16.0); Imm Gran Abs Auto 0.07 X10*3/uL (0.00-0.03); Lymphocytes Absolute Auto 1.5 X10*3/uL (1.2-4.9); Mean Corpuscular HGB Conc 34.4 g/dl (31.0-35.0); Mean Corpuscular Hemoglobin 30.2 pg (27.0-33.0); Mean Corpuscular Volume 87.8 fL (80.0-98.0); Mean Platelet Volume 9.3 fL (9.4-12.3); Monocytes Absolute Auto 0.2 X10*3/uL (0.1-1.2); Monocytes Percent Auto 3.4 % (2-11); Neutrophils Absolute Auto 5.2 x10*3/uL (2.0-8.3); Neutrophils Percent Auto 74.2 % (45-73); Platelet Count 186 X10*3/uL (160-400); Red Blood Count 4.74 X10*6/uL (4.20-5.50); Red Cell Distribution Width 12.5 % (11.0-16.0)
[2022-12-04 20:00] LABS: Appearance Urine Clear; Color Urine Yellow; Glucose Urine UA >=1000 mg/dL (Negative); Leukocyte Esterase Urine Negative (Negative); Nitrite Urine Negative (Negative); PH 6.5 (5.0-9.0); Specific Gravity - Urine 1.015 (1.005-1.025); UMIC TRIGGER UACC YES; Urine Blood Negative (Negative); Urine Ketones Negative (Negative); Urine Protein Negative (Neg-Trace)
[2022-12-04 20:10] LABS: Amphetamine Screen Urine Not Detected (Not Detect); Barbiturates, Urine Not Detected (Not Detect); Benzodiazepines Screen Urine Not Detected (Not Detect); Cannabinoid Screen Urine Not Detected (Not Detect); Cocaine Screen Urine Not Detected (Not Detect); Fentanyl, urine Not Detected (Not Detect); Opiate Screen Urine Not Detected (Not Detect); Phencyclidine Screen Urine Not Detected (Not Detect)
[2022-12-04 20:13] LABS: Bacteria Urine None Seen (None Seen); Hyaline Casts Urine 0-2 /LPF (0-2); RBC Urine 0-2 /HPF (0-2); Squamous Epithelial Cell Urine 0-2 /HPF (0-2); WBC Urine 0-5 /HPF (0-5)
[2022-12-04 20:14] LABS: COVID-19 Test Negative (Negative); IDNOW Serial# 55D5AD1C
[2022-12-04 20:17] LABS: Alanine Aminotransferase 44 U/L (0-31); Albumin Level 4.3 g/dL (3.5-5.0); Alkaline Phosphatase 80 U/L (39-117); Anion Gap 13 (12-20); Aspartate Amino Transferase 30 U/L (5-31); Bilirubin Direct 0.2 mg/dL (0.0-0.5); Bilirubin Total 0.6 mg/dL (0.0-1.0); Blood Urea Nitrogen 13 mg/dL (9-16); Calcium 9.7 mg/dL (8.4-10.2); Carbon Dioxide 26 mmol/L (22-29); Chloride 105 mmol/L (96-108); Creatinine Clr Calc Pharmacy 60.5; Estimated Glomerular Filt Rate > 60; Glucose Random 122 mg/dL (60-115); Potassium 4.2 mmol/L (3.3-5.1); Sodium 140 mmol/L (135-145); Total Protein 7.9 g/dL (6.5-8.0)
[2022-12-04 20:22] LABS: Ethanol < 10 mg/dL
[2022-12-04 20:28] LABS: Troponin-I High Sensitivity < 3.5 ng/L (<3.5-17.0)
== END 2022-12-04 21:00 | disposition home or self-care (01) ==
PROVIDERS: Emergency Provider Emergency Medicine
DX: R42 Dizziness and giddiness (principal); F41.1 Generalized anxiety disorder; F43.0 Acute stress reaction; R41.82 Altered mental status, unspecified; Z20.822 Contact with and (suspected) exposure to COVID-19; Z20.828 Contact with and (suspected) exposure to other viral communicable diseases; Z79.899 Other long term (current) drug therapy
CPT/HCPCS: 36415; 80048; 80076; 80307; 81001; 81003; 82077; 84484; 85025; 87635; 93005; 99283; 99284

== ENCOUNTER 2022-12-27 10:56 | Outpatient (REF) | payer OTHER, SELFPAY ==
[2022-12-27 11:17] LABS: MANUAL DIFF FLAG NO
[2022-12-27 12:30] LABS: Appearance Urine Clear; Color Urine Yellow; Glucose Urine UA >=1000 mg/dL (Negative); Leukocyte Esterase Urine Negative (Negative); Nitrite Urine Negative (Negative); PH 5.5 (5.0-9.0); Specific Gravity - Urine 1.025 (1.005-1.025); UMIC TRIGGER UACC YES; Urine Blood Negative (Negative); Urine Ketones Negative (Negative); Urine Protein Negative (Neg-Trace)
[2022-12-27 12:32] LABS: Basophils Percent Auto 0.4 % (0-2); Eosinophils Absolute Auto 0.2 X10*3/uL (0.0-0.4); Eosinophils Percent Auto 4.4 % (0-4); Hematocrit 41.2 % (37.0-47.0); Hemoglobin 14.3 g/dl (12.0-16.0); Imm Gran Abs Auto 0.04 X10*3/uL (0.00-0.03); Imm Gran Pct Auto 0.8 % (0.0-0.4); Lymphocytes Absolute Auto 1.8 X10*3/uL (1.2-4.9); Lymphocytes Percent Auto 34.2 % (20-40); Mean Corpuscular HGB Conc 34.7 g/dl (31.0-35.0); Mean Corpuscular Hemoglobin 29.6 pg (27.0-33.0); Mean Corpuscular Volume 85.3 fL (80.0-98.0); Mean Platelet Volume 9.1 fL (9.4-12.3); Monocytes Absolute Auto 0.5 X10*3/uL (0.1-1.2); Monocytes Percent Auto 10.2 % (2-11); Neutrophils Absolute Auto 2.6 x10*3/uL (2.0-8.3); Platelet Count 149 X10*3/uL (160-400); Red Blood Count 4.83 X10*6/uL (4.20-5.50); Red Cell Distribution Width 12.9 % (11.0-16.0); White Blood Count 5.3 X10*3/uL (4.8-10.8)
[2022-12-27 12:39] LABS: Bacteria Urine None Seen (None Seen); Hyaline Casts Urine 0-2 /LPF (0-2); RBC Urine 0-2 /HPF (0-2); Squamous Epithelial Cell Urine 0-2 /HPF (0-2); WBC Urine 0-5 /HPF (0-5)
[2022-12-27 12:40] LABS: Estimated Average Glucose 186 mg/dL; Hemoglobin A1c % 8.1 %
[2022-12-27 13:20] LABS: Alanine Aminotransferase 61 U/L (0-31); Albumin Level 4.2 g/dL (3.5-5.0); Alkaline Phosphatase 69 U/L (39-117); Anion Gap 13 (12-20); Aspartate Amino Transferase 48 U/L (5-31); Bilirubin Total 0.6 mg/dL (0.0-1.0); Blood Urea Nitrogen 13 mg/dL (9-16); Calcium 9.5 mg/dL (8.4-10.2); Carbon Dioxide 26 mmol/L (22-29); Chloride 108 mmol/L (96-108); Cholesterol 143 mg/dL; Estimated Glomerular Filt Rate > 60; Glucose Fasting 162 mg/dL (60-99); HDL Cholesterol 32 mg/dL; LDL Cholesterol Calculated 72 mg/dl; Potassium 4.3 mmol/L (3.3-5.1); Sodium 143 mmol/L (135-145); Total Protein 7.5 g/dL (6.5-8.0); Triglycerides 198 mg/dL
[2022-12-27 13:24] LABS: Creatinine Urine 54.44 mg/dL; Microalbumin Urine < 5.0 mg/L
[2022-12-27 13:37] LABS: TSH reflex Free T4 2.19 uIU/mL (0.32-4.0); Vitamin D 25-OH Total 14.9 ng/mL (>30)
== END 2022-12-27 10:57 | disposition home or self-care (01) ==
LOC: HO.LAB 10:56
PROVIDERS: PCP Internal Medicine; Visit Provider Internal Medicine
DX: E78.00 Pure hypercholesterolemia, unspecified (principal); E55.9 Vitamin D deficiency, unspecified; E11.9 Type 2 diabetes mellitus without complications; I10 Essential (primary) hypertension
CPT/HCPCS: 36415; 80053; 80061; 81001; 82043; 82306; 83036; 84443; 85025

== ENCOUNTER 2023-01-16 13:12 | Outpatient (REF) | payer OTHER, SELFPAY ==
[2023-01-16 13:27] LABS: MANUAL DIFF FLAG NO
[2023-01-16 14:09] LABS: Basophils Percent Auto 0.3 % (0-2); Eosinophils Absolute Auto 0.2 X10*3/uL (0.0-0.4); Eosinophils Percent Auto 2.7 % (0-4); Hematocrit 42.6 % (37.0-47.0); Hemoglobin 14.6 g/dl (12.0-16.0); Imm Gran Abs Auto 0.04 X10*3/uL (0.00-0.03); Imm Gran Pct Auto 0.7 % (0.0-0.4); Lymphocytes Absolute Auto 1.6 X10*3/uL (1.2-4.9); Mean Corpuscular HGB Conc 34.3 g/dl (31.0-35.0); Mean Corpuscular Hemoglobin 30.2 pg (27.0-33.0); Mean Platelet Volume 9.1 fL (9.4-12.3); Monocytes Absolute Auto 0.6 X10*3/uL (0.1-1.2); Monocytes Percent Auto 9.5 % (2-11); Neutrophils Absolute Auto 3.6 x10*3/uL (2.0-8.3); Neutrophils Percent Auto 60.8 % (45-73); Platelet Count 191 X10*3/uL (160-400); Red Blood Count 4.84 X10*6/uL (4.20-5.50); Red Cell Distribution Width 12.5 % (11.0-16.0)
[2023-01-16 14:20] LABS: Prothrombin Time 11.1 SEC (10.0-13.1)
[2023-01-16 14:32] LABS: Alanine Aminotransferase 225 U/L (0-31); Albumin Level 4.4 g/dL (3.5-5.0); Alkaline Phosphatase 109 U/L (39-117); Aspartate Amino Transferase 162 U/L (5-31); Bilirubin Direct 0.3 mg/dL (0.0-0.5); Bilirubin Total 0.8 mg/dL (0.0-1.0); Iron 118 mcg/dL (30-160); Percent Iron Saturation 40 % (15-50); Total Iron Binding Capacity 293 mcg/dL (228-428); Total Protein 8.3 g/dL (6.5-8.0); Unsaturated Iron Binding 175 ug/dL
[2023-01-16 14:48] LABS: Ferritin 421 ng/mL (10-250)
[2023-01-17 08:06] LABS: HBsAGNum1 0.28 S/CO (0.00-0.99); Hepatitis B Core Antibody Nonreactive (Nonreactive); Hepatitis B Surface Antigen Negative (Negative); ~HepC Num1 0.19 S/CO (0.00-0.79); ~Hepatitis B Surface Antibody REACTIVE (Nonreactive); ~Hepatitis C Antibody Nonreactive (Nonreactive)
[2023-01-21 11:32] LABS: Mitochondrial Antibodies NEGATIVE (NEGATIVE)
[2023-01-21 13:23] LABS: Smooth Muscle Antibody 101 U (<20)
[2023-01-22 14:03] LABS: Alpha 1 Anti-trypsin 177 mg/dL (83-199)
[2023-01-23 13:37] LABS: Anti Nuclear Antibody Pattern Nuclear, Homogeneous; Anti Nuclear Antibody Screen POSITIVE (NEGATIVE)
[2023-01-24 00:23] LABS: FIB-ALT 182 U/L (6-29); FIB-Alpha-2-Macroglobulin 352 mg/dL (106-279); FIB-Apolipoprotein A1 129 mg/dL (101-198); FIB-GGT 188 U/L (3-65); FIB-Haptoglobin 54 mg/dL (43-212); FIB-Total Bilirubin 0.6 mg/dL (0.2-1.2); Liver Fibrosis Score 0.85; Liver Fibrosis Stage F4; Nec Inflam Act Grade A3; Nec Inflam Act Score 0.89
== END 2023-01-16 13:13 | disposition home or self-care (01) ==
LOC: HO.LAB 13:12
PROVIDERS: PCP Internal Medicine; Visit Provider Internal Medicine
DX: R74.8 Abnormal levels of other serum enzymes (principal); K76.0 Fatty (change of) liver, not elsewhere classified
CPT/HCPCS: 36415; 80076; 81596; 82103; 82728; 83540; 85025; 85610; 86015; 86038; 86039; 86255; 86256; 86704; 86706; 86803; 87340

== ENCOUNTER 2023-02-07 11:13 | Outpatient (REF) | payer OTHER, SELFPAY ==
[2023-02-07 11:30] LABS: MANUAL DIFF FLAG NO
[2023-02-07 12:11] LABS: Basophils Percent Auto 0.4 % (0-2); Eosinophils Absolute Auto 0.2 X10*3/uL (0.0-0.4); Eosinophils Percent Auto 3.8 % (0-4); Hematocrit 42.7 % (37.0-47.0); Hemoglobin 14.6 g/dl (12.0-16.0); Imm Gran Abs Auto 0.05 X10*3/uL (0.00-0.03); Imm Gran Pct Auto 0.9 % (0.0-0.4); Lymphocytes Absolute Auto 1.8 X10*3/uL (1.2-4.9); Lymphocytes Percent Auto 34.3 % (20-40); Mean Corpuscular HGB Conc 34.2 g/dl (31.0-35.0); Mean Corpuscular Hemoglobin 29.7 pg (27.0-33.0); Mean Corpuscular Volume 86.8 fL (80.0-98.0); Mean Platelet Volume 9.2 fL (9.4-12.3); Monocytes Absolute Auto 0.5 X10*3/uL (0.1-1.2); Monocytes Percent Auto 9.2 % (2-11); Neutrophils Absolute Auto 2.7 x10*3/uL (2.0-8.3); Neutrophils Percent Auto 51.4 % (45-73); Platelet Count 166 X10*3/uL (160-400); Red Blood Count 4.92 X10*6/uL (4.20-5.50); Red Cell Distribution Width 12.5 % (11.0-16.0); White Blood Count 5.3 X10*3/uL (4.8-10.8)
[2023-02-07 12:16] LABS: Prothrombin Time 11.2 SEC (10.0-13.1)
[2023-02-07 12:19] LABS: Partial Thromboplastin Time 30.9 SEC (26.0-36.4)
[2023-02-07 12:42] LABS: Alanine Aminotransferase 126 U/L (0-31); Alkaline Phosphatase 90 U/L (39-117); Aspartate Amino Transferase 69 U/L (5-31); Bilirubin Direct 0.2 mg/dL (0.0-0.5); Bilirubin Total 0.7 mg/dL (0.0-1.0); Total Protein 7.5 g/dL (6.5-8.0)
== END 2023-02-07 11:14 | disposition home or self-care (01) ==
LOC: HO.LAB 11:13
PROVIDERS: PCP Internal Medicine; Visit Provider Internal Medicine
DX: K75.4 Autoimmune hepatitis (principal); R79.89 Other specified abnormal findings of blood chemistry
CPT/HCPCS: 36415; 80076; 85025; 85610; 85730

== ENCOUNTER → 2023-02-14 11:06 | Day surgery (SDC) | payer OTHER, SELFPAY ==
[2023-02-14 11:46] LABS: MANUAL DIFF FLAG NO
[2023-02-14 11:52] LABS: Basophils Percent Auto 0.2 % (0-2); Eosinophils Absolute Auto 0.2 X10*3/uL (0.0-0.4); Eosinophils Percent Auto 3.3 % (0-4); Hematocrit 43.4 % (37.0-47.0); Hemoglobin 15.2 g/dl (12.0-16.0); Imm Gran Abs Auto 0.04 X10*3/uL (0.00-0.03); Imm Gran Pct Auto 0.7 % (0.0-0.4); Lymphocytes Absolute Auto 1.7 X10*3/uL (1.2-4.9); Lymphocytes Percent Auto 29.6 % (20-40); Mean Corpuscular Hemoglobin 29.6 pg (27.0-33.0); Mean Corpuscular Volume 84.6 fL (80.0-98.0); Mean Platelet Volume 8.8 fL (9.4-12.3); Monocytes Absolute Auto 0.5 X10*3/uL (0.1-1.2); Monocytes Percent Auto 8.8 % (2-11); Neutrophils Absolute Auto 3.3 x10*3/uL (2.0-8.3); Neutrophils Percent Auto 57.4 % (45-73); Platelet Count 159 X10*3/uL (160-400); Red Blood Count 5.13 X10*6/uL (4.20-5.50); Red Cell Distribution Width 12.5 % (11.0-16.0); White Blood Count 5.8 X10*3/uL (4.8-10.8)
[2023-02-14 11:53] VITALS: BMI 25.6
[2023-02-14 11:57] LABS: Prothrombin Time 10.9 SEC (10.0-13.1)
[2023-02-14 12:00] LABS: Partial Thromboplastin Time 31.1 SEC (26.0-36.4)
[2023-02-14 12:07] VITALS: BP 131/74; PULSE 80; RESP 18; TEMP 36.6; O2SAT 98
[2023-02-14 12:14] LABS: Glucose, Whole Blood 171 mg/dL (60-115)
--- NOTE | 2023-02-14 12:34 | PC.NURSE ---
Patient did not stop her motrin products. Dr. Horton updated. Patient educated that she needs to be off of all aspirin and motrin products for three full days and that she needs to call the office to reschedule. Patient will leave with all of her belongings. No IV was placed. Dr. Horton made decision to cancel procedure.
== END ==
PROVIDERS: Radiology Diagnostic Radiology; PCP Internal Medicine; Visit Provider Internal Medicine
DX: K75.4 Autoimmune hepatitis (principal); R79.89 Other specified abnormal findings of blood chemistry; Z53.09 Procedure and treatment not carried out because of other contraindication; Z79.1 Long term (current) use of non-steroidal anti-inflammatories (NSAID)
CPT/HCPCS: 36415; 82947; 85025; 85610; 85730

== ENCOUNTER 2023-02-28 11:59 | Day surgery (SDC) | payer OTHER, SELFPAY ==
[2023-02-28] VITALS (8 sets, daily range): BP systolic 101–148; BP diastolic 49–71; PULSE 70–78; RESP 16–18; TEMP 36.9; O2SAT 94–97; BMI 25.6
--- NOTE | ~2023-02-28 | US_ITS ---
EXAMINATION: ULTRASOUND-GUIDED LIVER BIOPSY CLINICAL INFORMATION: Hepatitis. COMPARISON: Previous ultrasound 11/07/2022. TECHNIQUE: Procedure and risks and benefits including bleeding, and infection were discussed with the patient and informed consent was obtained. The right upper quadrant was prepped and draped in the usual sterile fashion. The skin and soft tissues were anesthetized with 1% lidocaine plain. Using ultrasound guidance and a coaxial system, access to the right lobe of the liver was obtained. Four 20-gauge core biopsies were obtained. Conscious sedation was provided by a registered nurse under my direct supervision with continuous hemodynamic monitoring. Total sedation time/[id number] contact time was 17 minutes. Patient received Versed 1 mg and fentanyl 50 mcg intravenously during the procedure. Conscious sedation was provided by registered nurse under my direct supervision with continuous hemodynamic monitoring. FINDINGS: Liver echotexture is normal. No significant hematoma or ascites seen post liver biopsy. US/US biopsy liver IMPRESSION: Ultrasound-guided liver biopsy.
[2023-02-28 12:16] LABS: MANUAL DIFF FLAG NO
[2023-02-28 12:23] LABS: Prothrombin Time 11.3 SEC (10.0-13.1)
[2023-02-28 12:25] LABS: Basophils Percent Auto 0.4 % (0-2); Eosinophils Absolute Auto 0.2 X10*3/uL (0.0-0.4); Eosinophils Percent Auto 3.1 % (0-4); Hematocrit 45.6 % (37.0-47.0); Hemoglobin 15.7 g/dl (12.0-16.0); Imm Gran Abs Auto 0.05 X10*3/uL (0.00-0.03); Imm Gran Pct Auto 0.7 % (0.0-0.4); Lymphocytes Absolute Auto 2.3 X10*3/uL (1.2-4.9); Lymphocytes Percent Auto 31.5 % (20-40); Mean Corpuscular HGB Conc 34.4 g/dl (31.0-35.0); Mean Corpuscular Hemoglobin 30.1 pg (27.0-33.0); Mean Corpuscular Volume 87.5 fL (80.0-98.0); Mean Platelet Volume 8.9 fL (9.4-12.3); Monocytes Absolute Auto 0.7 X10*3/uL (0.1-1.2); Monocytes Percent Auto 10.3 % (2-11); Neutrophils Absolute Auto 3.9 x10*3/uL (2.0-8.3); Platelet Count 199 X10*3/uL (160-400); Red Blood Count 5.21 X10*6/uL (4.20-5.50); Red Cell Distribution Width 12.7 % (11.0-16.0); White Blood Count 7.2 X10*3/uL (4.8-10.8)
[2023-02-28 12:26] LABS: Partial Thromboplastin Time 31.9 SEC (26.0-36.4)
[2023-02-28 12:37] LABS: Glucose, Whole Blood 211 mg/dL (60-115)
[2023-02-28] MEDS: Lidocaine HCl 1 % MPF 5 ML VIAL SUBCUT (13:45)
[2023-02-28] MEDS: oxyCODONE HCl Immed Release 5 MG TABLET PO (14:25)
== END 2023-02-28 15:34 | disposition home or self-care (01) ==
PROVIDERS: Radiology Diagnostic Radiology; PCP Internal Medicine; Visit Provider Internal Medicine
DX: R79.89 Other specified abnormal findings of blood chemistry (principal); K75.4 Autoimmune hepatitis
CPT/HCPCS: 36415; 47000; 76942; 82947; 85025; 85610; 85730; 88307; 88313; 88342; 99152; J2250; J3010

== ENCOUNTER 2023-03-24 10:53 | Outpatient (REF) | payer OTHER, SELFPAY ==
[2023-03-24 11:03] LABS: MANUAL DIFF FLAG NO
[2023-03-24 12:14] LABS: Basophils Percent Auto 0.5 % (0-2); Eosinophils Absolute Auto 0.3 X10*3/uL (0.0-0.4); Eosinophils Percent Auto 4.4 % (0-4); Hemoglobin 14.4 g/dl (12.0-16.0); Imm Gran Abs Auto 0.03 X10*3/uL (0.00-0.03); Imm Gran Pct Auto 0.5 % (0.0-0.4); Lymphocytes Absolute Auto 2.4 X10*3/uL (1.2-4.9); Lymphocytes Percent Auto 41.9 % (20-40); Mean Corpuscular HGB Conc 34.3 g/dl (31.0-35.0); Mean Corpuscular Hemoglobin 30.1 pg (27.0-33.0); Mean Corpuscular Volume 87.9 fL (80.0-98.0); Mean Platelet Volume 9.4 fL (9.4-12.3); Monocytes Absolute Auto 0.5 X10*3/uL (0.1-1.2); Monocytes Percent Auto 8.8 % (2-11); Neutrophils Absolute Auto 2.5 x10*3/uL (2.0-8.3); Neutrophils Percent Auto 43.9 % (45-73); Platelet Count 179 X10*3/uL (160-400); Red Blood Count 4.78 X10*6/uL (4.20-5.50); Red Cell Distribution Width 12.8 % (11.0-16.0); White Blood Count 5.7 X10*3/uL (4.8-10.8)
[2023-03-24 12:30] LABS: Estimated Average Glucose 183 mg/dL
[2023-03-24 12:43] LABS: Appearance Urine Clear; Color Urine Yellow; Glucose Urine UA >=1000 mg/dL (Negative); Leukocyte Esterase Urine Negative (Negative); Nitrite Urine Negative (Negative); PH 5.5 (5.0-9.0); Specific Gravity - Urine >= 1.030 (1.005-1.025); UMIC TRIGGER UACC YES; Urine Blood Negative (Negative); Urine Ketones Negative (Negative); Urine Protein Negative (Neg-Trace)
[2023-03-24 12:47] LABS: Bacteria Urine None Seen (None Seen); Hyaline Casts Urine 0-2 /LPF (0-2); RBC Urine 0-2 /HPF (0-2); WBC Urine 0-5 /HPF (0-5)
[2023-03-24 12:50] LABS: Creatinine Urine 57.81 mg/dL; Microalbumin Urine < 5.0 mg/L
[2023-03-24 12:50] LABS: Alanine Aminotransferase 35 U/L (0-31); Albumin Level 4.3 g/dL (3.5-5.0); Alkaline Phosphatase 82 U/L (39-117); Anion Gap 13 (12-20); Aspartate Amino Transferase 25 U/L (5-31); Bilirubin Total 0.5 mg/dL (0.0-1.0); Blood Urea Nitrogen 12 mg/dL (9-16); Calcium 9.7 mg/dL (8.4-10.2); Carbon Dioxide 26 mmol/L (22-29); Chloride 108 mmol/L (96-108); Cholesterol 162 mg/dL; Estimated Glomerular Filt Rate > 60; Glucose Fasting 216 mg/dL (60-99); HDL Cholesterol 30 mg/dL; LDL Cholesterol Calculated 86 mg/dl; Potassium 4.7 mmol/L (3.3-5.1); Sodium 142 mmol/L (135-145); Total Protein 8.2 g/dL (6.5-8.0); Triglycerides 233 mg/dL
[2023-03-24 13:09] LABS: TSH reflex Free T4 1.25 uIU/mL (0.32-4.0); Vitamin D 25-OH Total 20.4 ng/mL (>30)
== END 2023-03-24 10:54 | disposition home or self-care (01) ==
LOC: HO.LAB 10:53
PROVIDERS: PCP Internal Medicine; Visit Provider Internal Medicine
DX: I10 Essential (primary) hypertension (principal); E78.00 Pure hypercholesterolemia, unspecified; E55.9 Vitamin D deficiency, unspecified; E11.9 Type 2 diabetes mellitus without complications
CPT/HCPCS: 36415; 80053; 80061; 81001; 82043; 82306; 83036; 84443; 85025

== ENCOUNTER 2023-04-04 11:18 | Outpatient (REF) | payer OTHER, SELFPAY ==
[2023-04-04 13:34] LABS: Alanine Aminotransferase 25 U/L (0-31); Albumin Level 4.1 g/dL (3.5-5.0); Alkaline Phosphatase 69 U/L (39-117); Aspartate Amino Transferase 18 U/L (5-31); Bilirubin Direct 0.1 mg/dL (0.0-0.5); Bilirubin Total 0.5 mg/dL (0.0-1.0)
== END 2023-04-04 11:19 | disposition home or self-care (01) ==
LOC: HO.LAB 11:18
PROVIDERS: PCP Internal Medicine; Visit Provider Internal Medicine
DX: K75.4 Autoimmune hepatitis (principal); R79.89 Other specified abnormal findings of blood chemistry
CPT/HCPCS: 36415; 80076

== ENCOUNTER 2023-06-17 12:53 | Emergency (ER) | payer OTHER, SELFPAY ==
--- NOTE | ~2023-06-17 | XR_ITS ---
EXAMINATION: XR SACRUM AND COCCYX CLINICAL INFORMATION: Pain. COMPARISON: None available. TECHNIQUE: 2 views of the sacrum and 2 views of the coccyx were obtained. FINDINGS: There are no fractures. No bone, joint or soft tissue abnormality is demonstrated. XR/XR sacrum coccyx min 2V IMPRESSION: No significant abnormality identified.
--- NOTE | ~2023-06-17 | XR_ITS ---
EXAMINATION: XR LUMBOSACRAL SPINE CLINICAL INFORMATION: Pain. COMPARISON: 03/19/2017. TECHNIQUE: Three views of the lumbosacral spine. FINDINGS: There is mild curvature of the lumbar spine convex to the right. There is mild right lateral listhesis L3 over L4. There is also mild retrolisthesis L3 over L4. There is diffuse [id number] lumbar disc degenerative change with loss of disc space, endplate change and osteophyte formation. There is also mild L4-L5 and L5-S1 facet degenerative change. The vertebral body heights are maintained. XR/XR lumbar spine 2-3V IMPRESSION: Diffuse mild to moderate lumbar disc and lower lumbar facet degenerative change with mild right lateral listhesis L3 over L4, mild retrolisthesis L3 over L4 with mild curvature of the lumbar spine convex to the right. No fracture.
[2023-06-17 13:25] VITALS: BP 141/74; PULSE 78; RESP 18; TEMP 36.7; O2SAT 100; BMI 26.3
--- NOTE | 2023-06-17 13:40 | ED_ITS ---
HPI - General Adult General Chief complaint: Back Pain/Injury Stated complaint: sciatic pain Time Seen by Provider: 06/17/23 16:20 Source: patient, family and RN notes reviewed Mode of arrival: ambulatory Limitations: no limitations History of Present Illness HPI narrative: This is a [id number]-female, with a hx of diabetes, presenting to the emergency department, accompanied by daughter, with complaints of low back pain x 2 months. Pt denies any recent trauma, injury, heavy lifting or falls. She states that the pain is constant and radiates down into her right buttocks. Pain worsens with movement No fevers, chills, chest pain, shortness of breath, abdominal pain, nausea, vomiting, or diarrhea. Denies any urinary or bowel incontinence. No urinary retention. No urinary frequency, dysuria, hematuria, or urgency. No constipation. No saddle anesthesias. No other complaints or concerns at this time. MD complaint: Back pain Onset (ago): month(s) Location: back Radiation: distal Severity: moderate Quality: aching Pain Consistency: constant Relieving factors: medication Exacerbating factors: movement Associated symptoms: denies other symptoms Treatments prior to arrival: none Related Data Home Medications Medication Instructions Recorded Confirmed ibuprofen 800 mg tablet 800 mg PO Q8H PRN pain 11/09/20 04/11/23 fluticasone propionate 50 2 spray intranasal DAILY 12/19/21 04/11/23 mcg/actuation nasal spray,suspension lamotrigine 25 mg tablet 25 mg PO BID 02/28/23 04/11/23 Previous Rx's Medication Instructions Recorded lancets 28 gauge (FreeStyle #100 ea 06/29/21 Lancets) pen needle, diabetic 32 gauge x #50 ea 02/14/22 pen needle, diabetic 31 gauge x #4 boxes 05/28/2201/16 blood-glucose meter (FreeStyle #1 ea 07/23/22 Lite Meter kit) blood sugar diagnostic (FreeStyle 1 strip miscellaneous TID #300 08/17/22 Lite Strips) strips incontinence liners #150 ea 01/02/23 incontinence wipes #2 packets 01/02/23 insulin glargine 100 unit/mL (3 20 unit (0.2 mL) subcut QPM #15 mL 02/20/23 mL) subcutaneous pen (Lantus Solostar U-100 Insulin) Tresiba FlexTouch U-100 100 20 unit (0.2 mL) subcut BEDTIME 02/28/23 unit/mL (3 mL) subcutaneous pen #15 mL (insulin degludec) losartan 100 mg tablet 100 mg PO DAILY #90 tabs 03/20/23 empagliflozin 10 mg tablet 10 mg PO DAILY #90 tabs 05/21/23 (Jardiance) linagliptin 5 mg tablet (Tradjenta) 5 mg PO DAILY #90 tabs 06/13/23 cyclobenzaprine 5 mg tablet 5 mg PO BID PRN muscle spasm #10 06/17/23 tabs ibuprofen 600 mg tablet 600 mg PO Q6H PRN pain #45 tabs 06/17/23 lidocaine 5 % topical patch 1 patch topical DAILY #30 ea 06/17/23 (Lidoderm) glimepiride 2 mg tablet 2 mg PO QAM #90 tabs 06/18/23 Allergies Allergy/AdvReac Type Severity Reaction Status Date / Time amoxicillin Allergy Unknown Rash Verified 06/17/23 16:13 glipizide Allergy Unknown unknown Verified 04/11/23 12:45 latex [LATEX] Allergy Unknown UNKNOWN Verified 06/17/23 16:12 levofloxacin Allergy Unknown Unknown Verified 06/17/23 16:12 liraglutide [From VICTOZA] Allergy Unknown UNKNOWN, Verified 06/17/23 16:12 itching metformin [METFORMIN] Allergy Unknown DIARRHEA Verified 06/17/23 16:12 morphine [MORPHINE] Allergy Unknown ITCHING, Verified 06/17/23 16:12 rash Review of Systems Review of Systems: Yes all other systems are reviewed and are negative Constitutional: Constitutional: Reports as per [facility] Past Medical History Attestation statement: The following information was validated with the patient. Medical History Allergic rhinitis Anxiety Benign essential hypertension Bursitis of left shoulder Bursitis of right shoulder Diabetes Ear drainage Ear pain Elevated LFTs Lumbar degenerative disc disease Memory loss or impairment Mixed hyperlipidemia Overweight (BMI 25.0-29.9) Primary osteoarthritis of left shoulder Primary osteoarthritis of shoulder Primary osteoarthritis, right shoulder Right shoulder pain Type 2 diabetes mellitus without complications Varicose veins of both lower extremities Surgical History History of appendectomy History of cholecystectomy History of cystoscopy History of tubal ligation Family History Family History Father Cancer Mother Diabetes Maternal Uncle Cancer Maternal Grandfather Cancer Social History Social History Housing: Apartment Alcohol intake: former Patient Tobacco Use Status: Never used Tobacco e-Cigarette/Vaping Use: Never Used Second Hand Smoke Exposure: Yes Advance Directives: No Advance Directives Information Provided: Yes Current occupational status: unemployed Cognitive needs: No Hearing needs: No Vision needs: No Physical Exam ED Vital Signs: Vital Signs - 24 hr 06/17/23 13:25 Temperature 98.1 F Pulse Rate 78 Respiratory Rate 18 Blood Pressure 141/74 H Pulse Oximetry 100 Oxygen Delivery Method Room Air BMI result Body Mass Index 26.3 Const General: cooperative, comfortable and no acute distress Orientation/consciousness: patient oriented x3 Limitations: no limitations HENMT Head: Yes normal to inspection, Yes normocephalic and Yes atraumatic Ears: hearing grossly normal bilaterally General nose exam: Normal external nose present Face and sinus: Yes normal facial exam Mouth: Normal oral and palatal mucosa present, oropharynx normal and moist mucous membranes Throat: Yes posterior oropharynx normal Eyes General: appearance normal, both eyes and all related structures Eyelids: Yes eyelids normal Conjunctivae: conjunctivae normal Sclerae: sclerae normal Pupils: Equal, round and reactive pupils present EOM: EOMs intact bilaterally Neck Neck: Yes normal visual inspection, Yes full ROM and Yes no lymphadenopathy Lymphatic: no lymphadenopathy noted Chest Chest palpation & inspection: normal inspection of the chest Resp Effort & Inspection: normal respiratory effort and able to speak in complete sentences Auscultation: clear to auscultation bilaterally, no crackles, no rales, no rhonchi and no wheezes Cardio Rate: regular rate Rhythm: regular rhythm Heart sounds: S1 normal heart sound present and S2 normal heart sound present GI Other: Abdomen is soft, nontender, nondistended. Normoactive bowel sounds present. Inspection: Yes normal to inspection General: Yes no CVA tenderness Back/Spine/Pelvis Other: TTP over the lumbar paraspinous muscles with spasm. Negative straight leg raise. DTR 2+. Distal sensation circulation intact. Back: no CVA tenderness Skin General skin exam: no rashes or lesions noted Trauma: no lacerations or abrasions Wounds: no wounds Neuro General: patient oriented x3 and moves all extremities Cranial nerves: Yes Equal, round and reactive pupils present Extrem General: Yes normal to inspection Right upper extremity: normal to inspection Left upper extremity: normal to inspection Right lower extremity: normal to inspection Left lower extremity: normal to inspection Course Course Course Narrative: This is an RME: Additional HPI, ROS, PE not included below will be deferred to primary provider. Patient is a 67 year odl female presenting with pain in the R lower back and down the right leg. Pain is worse with movement. Had some relief with advil last evening. Plan: [facility] [place]evaluation(s) Reevaluation #1: Xrays revealing degenerative changes and lithesis. Discussed results with patient and daughter. Discharged on ibuprofen, lidocaine patches and muscle relaxants. Discussed with patient the importance of following up with PCP as physical therapy may help with sxs. Given strict return precautions. Pt understands and agrees with plan. She is stable for discharge. Medications Administered Discontinued Medications Generic Name Dose Route Start Last Admin Trade Name Freq PRN Reason Stop Dose Admin Ketorolac Tromethamine 30 mg 06/17/23 17:36 06/17/23 17:44 Ketorolac Tromethamine 30 Mg/Ml Vial IM 06/17/23 17:37 30 mg ONCE ONE Administration Medical Decision Making Medical Decision Making [facility] Narrative: 67 y/o F, hx of diabetes, here with back pain. On arrival, BP mildly elevated likely due to pain. This patient presents with back pain most consistent with lumbar spasm/strain. Differential diagnoses includes lumbago versus musculoskeletal spasm / strain versus sciatica.No back pain red flags on history or physical. Presentation not consistent with malignancy (lack of history of malignancy, lack of B symptoms), fracture (no trauma, no bony tenderness to palpation), cauda equina (no bowel or urinary incontinence/retention, no saddle anesthesia, no distal weakness), pyelonephritis (afebrile, no CVAT, no urinary symptoms). Plan: xrays Differential Diagnosis Differential Diagnoses: The differential diagnosis associated with the presentation includes See above Radiology Impression Discussion of test interpretation with radiology: I have reviewed the radiologist's reading. Radiologist Impression: EXAMINATION: XR LUMBOSACRAL SPINE CLINICAL INFORMATION: Pain. COMPARISON: 03/19/2017. TECHNIQUE: Three views of the lumbosacral spine. FINDINGS: There is mild curvature of the lumbar spine convex to the right. There is mild? right lateral listhesis L3 over L4. There is also mild retrolisthesis L3 over L4. There is diffuse [id number] lumbar disc degenerative change with loss of disc space, endplate change and osteophyte formation. There is also mild L4-L5 and L5-S1 facet degenerative change. The vertebral body heights are maintained. XR/XR lumbar spine 2-3V IMPRESSION: Diffuse mild to moderate lumbar disc and lower lumbar facet degenerative change with mild right lateral listhesis L3 over L4, mild retrolisthesis L3 over L4 with mild curvature of the lumbar spine convex to the right. ? No fracture. Dictated By: Juanito Brown External Record Review External record reviewed: Inpatient record, Office record, Outpatient record, Prior outpatient labs, Prior outpatient radiology, Primary care record and Outside ED record Discharge Plan Discharge Clinical Impression: Back pain Patient Disposition: Home, Self-Care Instructions: Back Pain (ED) Additional Instructions: Your x-ray today showed degenerative changes as well as some slipped discs over L3-L4. Please follow-up with your primary care physician regarding this visit. Gentle stretching, massage, heat or ice can also help with your symptoms. Take ibuprofen and muscle relaxants as directed. If any new or worsening symptoms occur, including but not limited to worsening back pain, loss of bladder or bowel control, or numbness and tingling anterior groin, please return for re-evaluation. Prescriptions: New ibuprofen 600 mg tablet 600 mg PO Q6H PRN (Reason: pain) Qty: 45 0RF cyclobenzaprine 5 mg tablet 5 mg PO BID PRN (Reason: muscle spasm) Qty: 10 0RF lidocaine [Lidoderm] 5 % adhesive patch,medicated 1 patch topical DAILY Qty: 30 0RF Rx Instructions: leave on most painful area for up to 12 hrs No Action (DME) lancets [FreeStyle Lancets] 28 gauge misc See Rx Instructions .Route Qty: 100 0RF Rx Instructions: As directed-to test sugars Three times a day (DME) pen needle, diabetic 32 gauge x /32 needle See Rx Instructions subcut DAILY Qty: 50 5RF Rx Instructions: As directed (DME) blood-glucose meter [FreeStyle Lite Meter] Kit See Rx Instructions .ROUTE .MEDSUPPLY Qty: 1 0RF Rx Instructions: As directed FreeStyle Lite Strips Strip 1 strip miscellaneous TID Qty: 300 4RF (DME) incontinence liners See Rx Instructions .Route .MEDSUPPLY Qty: 150 0RF Rx Instructions: 4 times per day (DME) incontinence wipes See Rx Instructions .Route .MEDSUPPLY Qty: 2 0RF Rx Instructions: As directed Lantus Solostar U-100 Insulin 100 unit/mL (3 mL) insulin pen 20 unit subcut QPM Qty: 15 3RF insulin degludec [Tresiba FlexTouch U-100] 100 unit/mL (3 mL) insulin pen 20 unit subcut BEDTIME Qty: 15 3RF losartan 100 mg tablet 100 mg PO DAILY Qty: 90 3RF Jardiance 10 mg tablet 10 mg PO DAILY Qty: 90 0RF Tradjenta 5 mg tablet 5 mg PO DAILY Qty: 90 3RF glimepiride 2 mg tablet 2 mg PO QAM Qty: 90 1RF fluticasone propionate 50 mcg/actuation spray,suspension 2 spray intranasal DAILY lamotrigine 25 mg tablet 25 mg PO BID (DME) pen needle, diabetic 31 gauge x 3/16 needle See Rx Instructions subcut .MEDSUPPLY Qty: 4 6RF Rx Instructions: As directed daily inject 4 x a day ibuprofen 800 mg tablet 800 mg PO Q8H PRN (Reason: pain) Interventions: ED Discharge Assessment Last Done: 06/17/23 19:15 Discharge Date/Time: 06/17/23 19:15
[2023-06-17] MEDS: Ketorolac Tromethamine 30 MG/ML VIAL IM (17:44)
== END 2023-06-17 19:15 | disposition home or self-care (01) ==
PROVIDERS: Emergency Provider Emergency Medicine; PCP Internal Medicine
DX: M54.50 Low back pain, unspecified (principal); E11.9 Type 2 diabetes mellitus without complications; I10 Essential (primary) hypertension; E78.2 Mixed hyperlipidemia; Z79.4 Long term (current) use of insulin; Z79.899 Other long term (current) drug therapy
CPT/HCPCS: 72100; 72220; 96372; 99283; 99284; J1885

== ENCOUNTER 2023-07-08 11:42 | Outpatient (REF) | payer OTHER, SELFPAY ==
[2023-07-08 11:58] LABS: MANUAL DIFF FLAG NO
[2023-07-08 12:17] LABS: Basophils Percent Auto 0.4 % (0-2); Eosinophils Absolute Auto 0.2 X10*3/uL (0.0-0.4); Eosinophils Percent Auto 2.9 % (0-4); Hematocrit 44.9 % (37.0-47.0); Hemoglobin 15.6 g/dl (12.0-16.0); Imm Gran Abs Auto 0.07 X10*3/uL (0.00-0.03); Lymphocytes Absolute Auto 2.5 X10*3/uL (1.2-4.9); Lymphocytes Percent Auto 35.6 % (20-40); Mean Corpuscular HGB Conc 34.7 g/dl (31.0-35.0); Mean Corpuscular Hemoglobin 29.5 pg (27.0-33.0); Mean Corpuscular Volume 84.9 fL (80.0-98.0); Mean Platelet Volume 8.8 fL (9.4-12.3); Monocytes Absolute Auto 0.6 X10*3/uL (0.1-1.2); Monocytes Percent Auto 8.5 % (2-11); Neutrophils Absolute Auto 3.6 x10*3/uL (2.0-8.3); Neutrophils Percent Auto 51.6 % (45-73); Platelet Count 170 X10*3/uL (160-400); Red Blood Count 5.29 X10*6/uL (4.20-5.50); Red Cell Distribution Width 12.8 % (11.0-16.0); White Blood Count 6.9 X10*3/uL (4.8-10.8)
[2023-07-08 12:40] LABS: Estimated Average Glucose 160 mg/dL; Hemoglobin A1c % 7.2 % (<6.0)
[2023-07-08 14:17] LABS: Appearance Urine Clear; Color Urine Yellow; Glucose Urine UA >=1000 mg/dL (Negative); Leukocyte Esterase Urine Moderate (2+) (Negative); Nitrite Urine Negative (Negative); PH 5.5 (5.0-9.0); Specific Gravity - Urine 1.025 (1.005-1.025); UMIC TRIGGER UACC YES; Urine Blood Negative (Negative); Urine Ketones Negative (Negative); Urine Protein Negative (Neg-Trace)
[2023-07-08 14:22] LABS: Bacteria Urine Trace (None Seen); Hyaline Casts Urine 0-2 /LPF (0-2); RBC Urine 0-2 /HPF (0-2); UACC Culture Trigger YES
[2023-07-08 14:59] LABS: Creatinine Urine 84.69 mg/dL; Microalbum/Creatinine Ratio Ur 15.3 ug/mg cr (<30)
[2023-07-08 15:04] LABS: Alanine Aminotransferase 18 U/L (0-31); Albumin Level 4.4 g/dL (3.5-5.0); Alkaline Phosphatase 63 U/L (39-117); Anion Gap 13 (12-20); Aspartate Amino Transferase 16 U/L (5-31); Bilirubin Total 0.5 mg/dL (0.0-1.0); Blood Urea Nitrogen 15 mg/dL (9-16); Calcium 10.4 mg/dL (8.4-10.2); Carbon Dioxide 24 mmol/L (22-29); Chloride 110 mmol/L (96-108); Cholesterol 232 mg/dL (<200); Estimated Glomerular Filt Rate > 60; Glucose Fasting 158 mg/dL (60-99); HDL Cholesterol 32 mg/dL (>40); LDL Cholesterol Calculated 121 mg/dL (<100); Potassium 4.6 mmol/L (3.3-5.1); Sodium 142 mmol/L (135-145); Total Protein 8.1 g/dL (6.5-8.0); Triglycerides 395 mg/dL (<150)
[2023-07-08 15:08] LABS: Vitamin D 25-OH Total 21.9 ng/mL (>30)
[2023-07-08 15:37] LABS: Folate 13.3 ng/mL (> or = 4.0); Vitamin B12 537 pg/mL (200-900)
== END 2023-07-08 11:43 | disposition home or self-care (01) ==
LOC: HO.LAB 11:42
PROVIDERS: PCP Internal Medicine; Visit Provider Internal Medicine
DX: E53.8 Deficiency of other specified B group vitamins (principal); E11.9 Type 2 diabetes mellitus without complications; I10 Essential (primary) hypertension; E55.9 Vitamin D deficiency, unspecified; E78.00 Pure hypercholesterolemia, unspecified; R30.0 Dysuria
CPT/HCPCS: 36415; 80053; 80061; 81001; 82043; 82306; 82570; 82607; 82746; 83036; 84443; 85025; 87086

== ENCOUNTER 2023-07-14 14:34 | Outpatient (AMB) | payer OTHER, SELFPAY ==
[2023-07-14 14:41] VITALS: BP 108/62; PULSE 67; O2SAT 98; BMI 25.8
--- NOTE | 2023-07-14 14:41 | A.OFFPC_ITS ---
Vital Signs 07/14/23 14:41 Height 5 ft 2 in Weight 141 lb BMI 25.8 BP 108/62 Blood Pressure Location Lt brachial Position Sitting Pulse 67 Pulse Source Pulse Oximeter Temp Source Skin Pulse Oximetry (%) 98 Oxygen Delivery Method Room Air Intake Visit Reasons: Surendra cataract surg 08/07 & 08/25 Intake Note: Patient is here for a Pre-op for Bilateral Cataract Surgery scheduled with [facility] on 08/07 and 08/25 Chief Deputy Coroner Required: No Allergies amoxicillin Allergy (Unknown, Verified 07/14/23 15:29) Rash glipizide Allergy (Unknown, Verified 07/14/23 15:29) unknown latex [LATEX] Allergy (Unknown, Verified 07/14/23 15:29) UNKNOWN levofloxacin Allergy (Unknown, Verified 07/14/23 15:29) Unknown liraglutide [From VICTOZA] Allergy (Unknown, Verified 07/14/23 15:29) UNKNOWN, itching metformin [METFORMIN] Allergy (Unknown, Verified 07/14/23 15:29) DIARRHEA morphine [MORPHINE] Allergy (Unknown, Verified 07/14/23 15:29) ITCHING, rash Medication List - Last Reconciled 07/14/23 by George Jha MD blood sugar diagnostic (FreeStyle Lite Strips) 1 strip miscellaneous TID blood-glucose meter (FreeStyle Lite Meter kit) As directed cyclobenzaprine 5 mg PO BID PRN empagliflozin (Jardiance) 10 mg PO DAILY fluticasone propionate 50 mcg/actuation 2 sprays intranasal DAILY glimepiride 2 mg PO QAM ibuprofen 600 mg PO Q6H PRN ibuprofen 800 mg PO Q8H PRN [incontinence liners 4 times per day] [incontinence wipes As directed] insulin glargine (Lantus Solostar U-100 Insulin) 20 units (0.2 mL) subcut QPM lamotrigine 25 mg PO BID lancets (FreeStyle Lancets) As directed-to test sugars Three times a day lidocaine 5% (Lidoderm) 1 patch topical DAILY linagliptin (Tradjenta) 5 mg PO DAILY losartan 100 mg PO DAILY pen needle, diabetic As directed pen needle, diabetic As directed daily inject 4 x a day Tresiba FlexTouch U-100 (insulin degludec) 20 units (0.2 mL) subcut BEDTIME NS Tobacco use date assessed: 07/14/23 Fall risk assessment: No Falls in past year Last assessed Fall Risk: 07/14/23 Dental Screening Dental Screen Date: 07/14/23 Did you have a dental visit in the last 12 months?: Yes Did you have a dental problem in the last 6 months where you did not have access to dental care?: No Was dental information given to patient?: Patient has dentist HPI Surendra cataract surg 08/07 & 08/25 HPI Details Patient comes in today for her follow up visit; is also in today at the request of Dr. Claudia Garrido for a preoperative medical examination for clearance for surgery She is scheduled for cataract extraction/phacoemusification with IOL under MAC of the left eye on 08/07/2023, followed by the same procedure on the right eye a couple of weeks later on 08/25/2023 Patient states that she feels okay She denies any headaches; still has on and off dizziness - thinks that it is her vertigo acting up Denies any chest pains, no shortness of breath No nausea / vomiting, no abdominal pain No change in bowel habits noted She had some follow-up labs done last week - to discuss her results [facility] Medical History Diabetes Primary osteoarthritis of shoulder Right shoulder pain Memory loss or impairment Bursitis of right shoulder Bursitis of left shoulder Ear drainage Ear pain Primary osteoarthritis, right shoulder Overweight (BMI 25.0-29.9) Anxiety Varicose veins of both lower extremities Allergic rhinitis Elevated LFTs Primary osteoarthritis of left shoulder Lumbar degenerative disc disease Benign essential hypertension Type 2 diabetes mellitus without complications Mixed hyperlipidemia Surgical History History of appendectomy History of cholecystectomy History of cystoscopy History of tubal ligation Family History Father Cancer Mother Diabetes Maternal Uncle Cancer Maternal Grandfather Cancer Social History Housing: Apartment Alcohol intake: former Patient Tobacco Use Status: Never used Tobacco e-Cigarette/Vaping Use: Never Used Second Hand Smoke Exposure: Yes Current occupational status: unemployed Cognitive needs: No Hearing needs: No Vision needs: No Questionnaire Thrive Questionnaire Date Thrive assessed: 04/11/23 AUDIT C Alcohol Use Questionnaire (AUDIT-C) 1. How often do you have a drink containing alcohol?: Never 3. How often do you have six or more drinks on one occasion?: Never Total Score: 0 Score Reviewed/Action Taken: Yes NIEVES-7 AMB Questionnaire NIEVES-7 Date NIEVES - 7 assessed: 04/11/23 Source: Developed by Drs. Juanito Moscoso, Shea Michel, Russell Ott and colleagues, with an educational peace from [employer]. Review of Systems Const Denies fatigue, Denies fever(s) and Denies headache(s) Eyes Reports blurry vision (increasing in both eyes) ENT Denies dysphagia, Reports dizziness (on and off), Denies otalgia, Denies headache(s), Denies odynophagia, Denies tinnitus and Denies sore throat Card Denies chest pain, Denies palpitations and Denies dyspnea Resp Denies cough and Denies dyspnea GI Denies abdominal pain, Denies constipation, Denies dysphagia, Denies heartburn, Denies diarrhea, Denies nausea, Denies odynophagia and Denies vomiting Denies difficulty voiding, Denies nocturia, Denies dysuria and Reports urinary incontinence Neuro Reports dizziness (on and off), Denies headache(s) and Reports memory loss (has tendency to do things lately and not remember them) Psych Reports anxiety (increasing), Reports depression and Reports memory loss (has tendency to do things lately and not remember them) Endo Denies fatigue and Denies palpitations Physical exam (Primary Care) Vital Signs: Last Vital Signs Pulse 67 07/14/23 14:41 BP 108/62 07/14/23 14:41 Pulse Ox 98 07/14/23 14:41 Oxygen Delivery Method Room Air 07/14/23 14:41 BMI result Body Mass Index 25.8 Tobacco/Smoking Status: Tobacco use Status Tobacco use date assessed 07/14/23 07/14/23 14:43 Patient Tobacco Use Status Never used Tobacco 07/14/23 14:43 e-Cigarette/Vaping Use Never Used 07/14/23 14:43 Thrive Assessment: Date of Thrive Assessment Date Thrive assessed 04/11/23 07/14/23 14:43 Const General: no acute distress and alert HENMT Ears: TM's normal bilaterally and EAC's normal Throat: Yes posterior oropharynx normal and Yes tonsils normal (no TP congestion) Neck Neck: Yes no lymphadenopathy and Yes supple Resp Auscultation: clear to auscultation bilaterally, no rales and no wheezes Cardio Rate: regular rate Rhythm: regular rhythm Heart sounds: no murmurs GI Palpation (GI): Soft to palpation and nontender Auscultation: normal bowel sounds Back/Spine/Pelvis Thoracic/Lumbar Spine: lumbar spinal tenderness Skin Rashes: no rashes Extrem General: Yes no clubbing, cyanosis or edema Results Reviewed Results Reviewed: Laboratory Tests 07/08/23 07/08/23 07/08/23 11:52 11:56 11:56 WBC 6.9 Hgb 15.6 Hct 44.9 Plt Count 170 Sodium 142 Potassium 4.6 Creatinine 0.87 Estimated GFR > 60 Fasting Glucose 158 H Hemoglobin A1c % 7.2 H Calcium 10.4 H D AST 16 ALT 18 Triglycerides 395 H Cholesterol 232 H LDL Cholesterol, Calc 121 H HDL Cholesterol 32 L Vitamin B12 537 25-OH Vitamin D Total 21.9 TSH 1.00 Ur Specific [place] 1.025 Urine Protein Negative Urine Glucose (UA) >=1000 H Urine Blood Negative Microalb/Creat Ratio 15.3 Assessment and Plan Assessment & Plan (1) Preoperative examination: Code(s): Z01.818 - Encounter for other preprocedural examination Plan: Patient presents with acceptable risks for planned low cardiac risk procedure Results of her labs done last week reviewed and discussed with patient (2) Cataracts, bilateral: Code(s): H26.9 - Unspecified cataract Qualifiers: Age-related cataract type: unspecified Cataract type: age-related Qualified Code(s): H25.9 - Unspecified age-related cataract Plan: She is scheduled for cataract extraction/phacoemusification with IOL under MAC with Dr. Claudia Garrido Will first have surgery of the left eye done on 08/07/2023, followed by the same procedure on the right eye a couple of weeks later on 08/25/2023 (3) Mixed hyperlipidemia: Code(s): E78.2 - Mixed hyperlipidemia Plan: Patient is advised that her cholesterol levels have increased significantly from previous as she was asked to stop taking her cholesterol Rx recently Reinforced low cholesterol diet Patient was previously on Atorvastatin 80 mg QD but was taken off the medication due to elevated LFTs Will start for now on a trial of Rosuvastatin 20 mg QD Will recheck her labs in 3 months for follow up - advised that if her cholesterol numbers go up again significantly over the next few months (now that she is off her Atorvastatin), we may need to consider starting her on one of the newer injectable PCSK9 inhibitors (4) Type 2 diabetes mellitus without complications: Code(s): E11.9 - Type 2 diabetes mellitus without complications Qualifiers: Diabetes mellitus long term care pharmacist insulin use: without long term care pharmacist use Qualified Code(s): E11.9 - Type 2 diabetes mellitus without complications Plan: HgbA1c was at 7.2% on her labs done last week (was at 8.0% a few months ago) - goal is <7.0% Reinforced diabetic diet Continue Jardiance 10 mg QD, Tradjenta 5 mg QD, Lantus 20 units Q HS and Glimepiride 2 mg QD Will again consider referring her to endocrinology for further evaluation and management if her diabetes control falters again (5) Benign essential hypertension: Code(s): I10 - Essential (primary) hypertension Plan: Reinforced low sodium diet - goal is systolic BP of at least 130 mm or less Continue Losartan 50 mg QD (6) Elevated LFTs: Code(s): R79.89 - Other specified abnormal findings of blood chemistry Plan: Patient had an abdominal ultrasound with liver elastography done a few months ago for further evaluation - ultrasound came back mostly unremarkable except for mild hepatic steatosis Will continue to monitor her LFTs regularly - LFTs were normal on her most recent labs (7) Anxiety: Code(s): F41.9 - Anxiety disorder, unspecified Plan: Continue Citalopram 40 mg QD and Hydroxyzine 10 mg TID PRN for anxiety She has been advised to try to contact her psychiatrist and speak with them about making some Rx changes for her increasing anxiety lately as she feels that they are severe enough and may be affecting or aggravating her recurrent dizziness lately (8) Overweight (BMI 25.0-29.9): Code(s): E66.3 - Overweight Plan: Reinforced diet/exercise as tolerated/lose weight Plan Patient currently appears medically optimized and has no contraindications to undergo her bilateral cataract surgeries as planned - is presently MEDICALLY CLEARED FOR SURGERY Follow up in 3 months Orders: Orders Complete Blood Count Auto Diff 3 Months I10 - Essential (primary) hypertension Comprehensive [place]. Panel Fast 3 Months E78.00 - Pure hypercholesterolemia, unspecified UA CC w/rflx Micro + Cult 3 Months R30.0 - Dysuria TSH reflex Free T4 3 Months E78.00 - Pure hypercholesterolemia, unspecified Microalbumin, Random (w Creat) 3 Months E11.9 - Type 2 diabetes mellitus without complications Lipid Panel 3 Months E78.00 - Pure hypercholesterolemia, unspecified Hemoglobin A1c 3 Months E11.9 - Type 2 diabetes mellitus without complications Vitamin D 25-OH Total 3 Months E55.9 - Vitamin D deficiency, unspecified Medications: New rosuvastatin 20 mg PO DAILY 30 tabs 3RF 30 days Coding Level of Care Code Est Pt Level 4 (26471) Diagnoses Preoperative examination Z01.818 Age-related cataract of both eyes, unspecified age-related cataract type H25.9 Age-related cataract type: unspecified Cataract type: age-related Mixed hyperlipidemia E78.2 Type 2 diabetes mellitus without complication, without long-term current use of insulin E11.9 Diabetes mellitus long term care pharmacist insulin use: without prison use Benign essential hypertension I10 Elevated LFTs R79.89 Anxiety F41.9 Overweight (BMI 25.0-29.9) E66.3
== END 2023-07-14 15:39 | disposition home or self-care (01) ==
PROVIDERS: PCP Internal Medicine; Visit Provider Internal Medicine
DX: Z01.818 Encounter for other preprocedural examination (principal); H25.9 Unspecified age-related cataract; E78.2 Mixed hyperlipidemia; E11.9 Type 2 diabetes mellitus without complications; I10 Essential (primary) hypertension; R79.89 Other specified abnormal findings of blood chemistry; F41.9 Anxiety disorder, unspecified; E66.3 Overweight
CPT/HCPCS: 99214

== ENCOUNTER 2023-08-27 00:38 | Emergency (ER) | payer OTHER, SELFPAY ==
--- NOTE | 2023-08-27 | ECG_ITS ---
Test Reason : SOB Blood Pressure : / mmHG Vent. Rate : 058 BPM Atrial Rate : 058 BPM P-R Int : 182 ms QRS Dur : 086 ms QT Int : 408 ms P-R-T Axes : 076 000 023 degrees QTc Int : 400 ms Sinus bradycardia Low voltage QRS Borderline ECG When compared with ECG of 04-DEC-2022 18:58, No significant changes seen Referred By: Generic ED Physician Electronically Signed By:MARIO SHARMA MD
--- NOTE | ~2023-08-27 | XR_ITS ---
EXAMINATION: XR CHEST CLINICAL INFORMATION: Shortness of breath, orthopnea. COMPARISON: 04/10/2020 TECHNIQUE: 2 views of the chest were obtained. FINDINGS: Lungs are well-inflated and clear. Trachea is midline in position. No evidence of interstitial disease, consolidation or mass. Multiple EKG leads overlie the chest. No pleural effusion or pneumothorax. Cardiac silhouette and pulmonary vessels are normal in size. The mediastinum and fifi have normal contour. The visualized bones and upper abdomen are unremarkable. XR/XR chest 2V IMPRESSION: No acute cardiopulmonary abnormality.
[2023-08-27 00:50] VITALS: BP 188/92; PULSE 68; RESP 18; TEMP 36.7; O2SAT 100; BMI 26.5
[2023-08-27 01:22] LABS: Hematocrit 41.6 % (37.0-47.0); Hemoglobin 14.6 g/dl (12.0-16.0); Mean Corpuscular HGB Conc 35.1 g/dl (31.0-35.0); Mean Corpuscular Volume 85.4 fL (80.0-98.0); Mean Platelet Volume 9.2 fL (9.4-12.3); Platelet Count 145 X10*3/uL (160-400); Red Blood Count 4.87 X10*6/uL (4.20-5.50); Red Cell Distribution Width 12.5 % (11.0-16.0); White Blood Count 7.8 X10*3/uL (4.8-10.8)
[2023-08-27 01:35] LABS: Alanine Aminotransferase 16 U/L (0-31); Albumin Level 4.5 g/dL (3.5-5.0); Alkaline Phosphatase 54 U/L (39-117); Anion Gap 14 (12-20); Aspartate Amino Transferase 14 U/L (5-31); Bilirubin Total 0.3 mg/dL (0.0-1.0); Blood Urea Nitrogen 19 mg/dL (9-16); Carbon Dioxide 23 mmol/L (22-29); Chloride 106 mmol/L (96-108); Creatinine Clr Calc Pharmacy 54.2; Estimated Glomerular Filt Rate > 60; Glucose Random 207 mg/dL (60-115); Potassium 4.3 mmol/L (3.3-5.1); Sodium 139 mmol/L (135-145); Total Protein 7.9 g/dL (6.5-8.0)
[2023-08-27 01:43] LABS: Troponin-I High Sensitivity < 2.7 ng/L (<3.5-17.0)
[2023-08-27 04:39] VITALS: BP 152/82; PULSE 59; RESP 10; TEMP 36.8; O2SAT 100
--- NOTE | 2023-08-27 04:48 | PC.NURSE ---
PT alert and oriented brought in from the waiting room ambulating independently with a steady gait. PT reports chest pain that has been going on for a while . PT reports she had an eye surgery yesterday and since she has been experiencing chest pain, she wanted to be careful so she came in to be seen at the ED. She notes a history of seizures and states she experienced a seizure about 30 minutes prior to being brought into her room while waiting in the waiting room. PT did not notify staff and had a difficulty explaining what she experiences when having a seizure. VSS, PT placed on monitor technician, seizure pads in place, bed locked in lowest positions
[2023-08-27 05:39] VITALS: BP 143/65; PULSE 55; RESP 13; O2SAT 100
[2023-08-27 05:46] LABS: Appearance Urine Clear; Color Urine Yellow; Glucose Urine UA >=1000 mg/dL (Negative); Leukocyte Esterase Urine Negative (Negative); Nitrite Urine Negative (Negative); PH 5.5 (5.0-9.0); Specific Gravity - Urine 1.015 (1.005-1.025); UMIC TRIGGER UACC YES; Urine Blood Negative (Negative); Urine Ketones Negative (Negative); Urine Protein Negative (Neg-Trace)
[2023-08-27 05:55] LABS: Bacteria Urine None Seen (None Seen); Hyaline Casts Urine 0-2 /LPF (0-2); RBC Urine 0-2 /HPF (0-2); Squamous Epithelial Cell Urine 0-2 /HPF (0-2); WBC Urine 0-5 /HPF (0-5)
--- NOTE | 2023-08-27 06:41 | ED.GENADULT ---
HPI - General Adult General Chief complaint: Dyspnea Stated complaint: Sob Time Seen by Provider: 08/27/23 06:21 Source: patient Mode of arrival: ambulatory Limitations: no limitations History of Present Illness HPI narrative: Patient is 68-year-old female presenting to the emergency department with 1 month of orthopnea and palpitations. Reports that she began taking lamotrigine in June for seizures and feels symptoms began around one month after that. States symptoms primarily occur at night. States when she lays down she feels as though she has to take a deep breath and swallow her saliva for symptoms to resolve. Reports sensation of chest pressure during these episodes. Denies chest pain. Denies recent fevers or cough. Denies abdominal pain, nausea, vomiting, diarrhea or constipation. Denies any lower extremity edema. Denies any calf pain or swelling. States she reported symptoms to her PCP but was told not to make any medication changes. MD complaint: orthopnea Onset (ago): month(s) Location: chest Radiation: non-radiation Severity: moderate Quality: other (pressure) Pain Consistency: intermittent Relieving factors: other (deep inspiration) Exacerbating factors: other (laying supine) Associated symptoms: other (palpitations) Treatments prior to arrival: none Related Data Home Medications Medication Instructions Recorded Confirmed ibuprofen 800 mg tablet 800 mg PO Q8H PRN pain 11/09/20 07/14/23 fluticasone propionate 50 2 spray intranasal DAILY 12/19/21 07/14/23 mcg/actuation nasal spray,suspension lamotrigine 25 mg tablet 25 mg PO BID 02/28/23 07/14/23 Previous Rx's Medication Instructions Recorded lancets 28 gauge (FreeStyle #100 ea 06/29/21 Lancets) pen needle, diabetic 32 gauge x #50 ea 02/14/22 pen needle, diabetic 31 gauge x #4 boxes 05/28/2201/16 blood-glucose meter (FreeStyle #1 ea 07/23/22 Lite Meter kit) blood sugar diagnostic (FreeStyle 1 strip miscellaneous TID #300 08/17/22 Lite Strips) strips incontinence liners #150 ea 01/02/23 incontinence wipes #2 packets 01/02/23 insulin glargine 100 unit/mL (3 20 unit (0.2 mL) subcut QPM #15 mL 04/20/23 mL) subcutaneous pen (Lantus Solostar U-100 Insulin) losartan 100 mg tablet 100 mg PO DAILY #90 tabs 03/20/23 linagliptin 5 mg tablet (Tradjenta) 5 mg PO DAILY #90 tabs 06/13/23 cyclobenzaprine 5 mg tablet 5 mg PO BID PRN muscle spasm #10 06/17/23 tabs ibuprofen 600 mg tablet 600 mg PO Q6H PRN pain #45 tabs 06/17/23 lidocaine 5 % topical patch 1 patch topical DAILY #30 ea 06/17/23 (Lidoderm) glimepiride 2 mg tablet 2 mg PO QAM #90 tabs 06/18/23 empagliflozin 10 mg tablet 10 mg PO DAILY #90 tabs 08/16/23 (Jardiance) Tresiba FlexTouch U-100 100 20 unit (0.2 mL) subcut BEDTIME 08/20/23 unit/mL (3 mL) subcutaneous pen #15 mL (insulin degludec) rosuvastatin 20 mg tablet 20 mg PO DAILY 90 days #90 tabs 08/20/23 Allergies Allergy/AdvReac Type Severity Reaction Status Date / Time amoxicillin Allergy Unknown Rash Verified 07/14/23 15:29 glipizide Allergy Unknown unknown Verified 07/14/23 15:29 latex [LATEX] Allergy Unknown UNKNOWN Verified 07/14/23 15:29 levofloxacin Allergy Unknown Unknown Verified 07/14/23 15:29 liraglutide [From VICTOZA] Allergy Unknown UNKNOWN, Verified 07/14/23 15:29 itching metformin [METFORMIN] Allergy Unknown DIARRHEA Verified 07/14/23 15:29 morphine [MORPHINE] Allergy Unknown ITCHING, Verified 07/14/23 15:29 rash Review of Systems Review of Systems: As per HPI. Yes all other systems are reviewed and are negative Constitutional: Constitutional: Reports as per HPI [facility] Past Medical History Medical History Diabetes Primary osteoarthritis of shoulder Right shoulder pain Memory loss or impairment Bursitis of right shoulder Bursitis of left shoulder Ear drainage Ear pain Primary osteoarthritis, right shoulder Overweight (BMI 25.0-29.9) Anxiety Varicose veins of both lower extremities Allergic rhinitis Elevated LFTs Primary osteoarthritis of left shoulder Lumbar degenerative disc disease Benign essential hypertension Type 2 diabetes mellitus without complications Mixed hyperlipidemia Surgical History History of appendectomy History of cholecystectomy History of cystoscopy History of tubal ligation Family History Family History Father Cancer Mother Diabetes Maternal Uncle Cancer Maternal Grandfather Cancer Social History Social History Housing: Apartment Alcohol intake: former Patient Tobacco Use Status: Never used Tobacco Smoked in Last 30 Days: No e-Cigarette/Vaping Use: Never Used Second Hand Smoke Exposure: Yes Use of substances other than those prescribed or required for medical reasons: No Advance Directives: No Advance Directives Information Provided: No Current occupational status: unemployed Cognitive needs: No Hearing needs: No Vision needs: No Physical Exam ED Vital Signs: Vital Signs - 24 hr 08/27/23 00:50 08/27/23 04:39 08/27/23 05:39 Temperature 98.0 F 98.2 F Pulse Rate 68 59 55 Respiratory Rate 18 10 L 13 Blood Pressure 188/92 H 152/82 H 143/65 H Pulse Oximetry 100 100 100 Oxygen Delivery Method Room Air Room Air Room Air 08/27/23 07:00 08/27/23 09:06 Temperature 98.2 F 98.6 F Pulse Rate 55 57 Respiratory Rate 8 L 19 Blood Pressure 133/69 133/66 Pulse Oximetry 100 99 Oxygen Delivery Method Room Air Room Air BMI result Body Mass Index 26.5 Vital signs have been reviewed and appear to be correct. Blood pressure elevated but improved while in the ED. Heart rate normal/bradycardic while asleep. Respiratory rate normal. Temperature normal. Oxygen saturation normal. Const General: cooperative, healthy appearing and no acute distress Orientation/consciousness: oriented to person, oriented to place, oriented to time and patient oriented x3 Limitations: no limitations HENMT Head: Yes normocephalic and Yes atraumatic Ears: external ears normal General nose exam: Normal external nose present Face and sinus: Yes face symmetric Mouth: oropharynx normal and moist mucous membranes Throat: Yes uvula midline Eyes Pupils: Equal, round and reactive pupils present Neck Neck: Yes normal visual inspection and Yes supple Resp Effort & Inspection: normal respiratory effort and able to speak in complete sentences Auscultation: clear to auscultation bilaterally Cardio Rate: regular rate Rhythm: regular rhythm Heart sounds: S1 normal heart sound present and S2 normal heart sound present GI Palpation (GI): Soft to palpation and nontender Auscultation: normoactive bowel sounds General: Yes no CVA tenderness Back/Spine/Pelvis Back: no CVA tenderness Skin General skin exam: elasticity normal and turgor normal Neuro General: oriented to person, oriented to place, oriented to time, patient oriented x3, moves all extremities, no focal motor deficits and CN's II-XI intact bilaterally Cranial nerves: Yes Equal, round and reactive pupils present Cognition (Neuro): normal cognition Extrem General: Yes full ROM, Yes no pedal edema and Yes no calf tenderness Psych Mental Status: mental status grossly normal Affect: normal affect Thought process: Normal thought process present Medical Decision Making Medical Decision Making MDM Narrative: Patient is 68-year-old female presenting to the emergency department with 1 month of orthopnea and palpitations. On exam patient is awake, A+Ox3, BP elevated, VS otherwise WNL, afebrile, normal neurological exam without focal deficits, physical exam findings as above. Given reported symptoms and physical exam findings, initial differential includes heart failure, medication reaction, electrolyte abnormality, anemia, anxiety. Unlikely ACS but troponin and EKG obtained in triage. Low risk Wells score, do not suspect PE. Labs notable for no leukocytosis, no anemia, no significant electrolyte abnormalities, negative troponin. X-ray chest notable for no acute abnormalities, no evidence of CHF. My interpretation is in agreement with the radiologist's interpretation. EKG shows sinus bradycardia, rate 58 bpm, normal [place] interval, no evidence of STEMI. No evidence of heart failure on physical exam. HEART score 4. Given ongoing nature of symptoms, very low concern for ACS. Results discussed with patient and all questions answered. Feel patient is stable for discharge home at this time. Instructed patient to follow-up with primary care provider to discuss symptoms. Return precautions discussed at bedside. Patient verbalized understanding of and agreement with plan. Differential Diagnosis Differential Diagnoses: The differential diagnosis associated with the presentation includes As per MDM. Lab Data [facility] Lab Attestation statement: I reviewed the patient's lab results. As per MDM. 08/27/23 01:14 08/27/23 01:14 Labs: Lab Results 08/27/23 08/27/23 Range/Units 01:14 05:39 WBC 7.8 (4.8-10.8) X10*3/uL RBC 4.87 (4.20-5.50) X10*6/uL Hgb 14.6 (12.0-16.0) g/dl Hct 41.6 (37.0-47.0) % MCV 85.4 (80.0-98.0) fL MCH 30.0 (27.0-33.0) pg MCHC 35.1 H (31.0-35.0) g/dl RDW 12.5 (11.0-16.0) % Plt Count 145 L (160-400) X10*3/uL MPV 9.2 L (9.4-12.3) fL Absolute Nucleated RBC 0.000 (0.0-0.012) X10*3/uL Nucleated RBC % (auto) 0.0 (0.0-0.2) /100WBC Sodium 139 (135-145) mmol/L Potassium 4.3 (3.3-5.1) mmol/L Chloride 106 (96-108) mmol/L Carbon Dioxide 23 (22-29) mmol/L Anion Gap 14 (12-20) BUN 19 H (9-16) mg/dL Creatinine 0.87 (0.5-1.4) mg/dL Estim Creat Clear Calc 54.2 Estimated GFR > 60 Random Glucose 207 H (60-115) mg/dL Calcium 11.0 H (8.4-10.2) mg/dL Total Bilirubin 0.3 (0.0-1.0) mg/dL AST 14 (5-31) U/L ALT 16 (0-31) U/L Alkaline Phosphatase 54 (39-117) U/L Troponin I High Sens < 2.7 (<3.5-17.0) ng/L Total Protein 7.9 (6.5-8.0) g/dL Albumin 4.5 (3.5-5.0) g/dL Urine Color Yellow Urine Appearance Clear Urine pH 5.5 (5.0-9.0) Ur Specific H[place]gins 1.015 (1.005-1.025) Urine Protein Negative (Neg-Trace) mg/dL Urine Glucose (UA) >=1000 H (Negative) mg/dL Urine Ketones Negative (Negative) mg/dL Urine Blood Negative (Negative) Urine Nitrite Negative (Negative) Ur Leukocyte Esterase Negative (Negative) Urine RBC 0-2 (0-2) /HPF Urine WBC 0-5 (0-5) /HPF Ur Squamous Epith Cells 0-2 (0-2) /HPF Urine Bacteria None Seen (None Seen) Hyaline Casts 0-2 (0-2) /LPF Independent Interpretation I performed an independent interpretation of an: EKG and Plain X-Ray Interpretation: Sinus bradycardia, 50 beats per minute, normal [place] interval, no evidence of STEMI No evidence of heart failure. Radiology Impression Discussion of test interpretation with radiology: I have reviewed the radiologist's reading. Radiologist Impression: XR/XR chest 2V IMPRESSION: No acute cardiopulmonary abnormality. External Record Review External record reviewed: Inpatient record, Office record and Outpatient record Scores Heart Score History: -0- slightly suspicious ECG: -0- normal Age: -2- > or = 65 Risk factory: -2- 3 or more risk factors or treated atherosclerosis Troponin: -0- < or = normal limit Score: 4 Risk: 16.6% Discharge Plan Discharge Clinical Impression: Mild shortness of breath Patient Disposition: Home, Self-Care Instructions: Shortness of Breath (ED) Additional Instructions: You were evaluated in the emergency department today for shortness of breath. Your evaluation did not reveal any conditions requiring emergent medical treatment at this time. Please follow-up with your primary care provider for further evaluation and management of your symptoms. Return to the emergency department if you develop chest pain, worsening shortness of breath, fever 100.4? F or greater, or any other concerning symptoms. Prescriptions: No Action (DME) lancets [FreeStyle Lancets] 28 gauge misc See Rx Instructions .Route Qty: 100 0RF Rx Instructions: As directed-to test sugars Three times a day (DME) pen needle, diabetic 32 gauge x /32 needle See Rx Instructions subcut DAILY Qty: 50 5RF Rx Instructions: As directed (DME) blood-glucose meter [FreeStyle Lite Meter] Kit See Rx Instructions .ROUTE .MEDSUPPLY Qty: 1 0RF Rx Instructions: As directed FreeStyle Lite Strips Strip 1 strip miscellaneous TID Qty: 300 4RF (DME) incontinence liners See Rx Instructions .Route .MEDSUPPLY Qty: 150 0RF Rx Instructions: 4 times per day (DME) incontinence wipes See Rx Instructions .Route .MEDSUPPLY Qty: 2 0RF Rx Instructions: As directed Lantus Solostar U-100 Insulin 100 unit/mL (3 mL) insulin pen 20 unit subcut QPM Qty: 15 3RF losartan 100 mg tablet 100 mg PO DAILY Qty: 90 3RF Tradjenta 5 mg tablet 5 mg PO DAILY Qty: 90 3RF glimepiride 2 mg tablet 2 mg PO QAM Qty: 90 1RF Jardiance 10 mg tablet 10 mg PO DAILY Qty: 90 0RF insulin degludec [Tresiba FlexTouch U-100] 100 unit/mL (3 mL) insulin pen 20 unit subcut BEDTIME Qty: 15 3RF rosuvastatin 20 mg tablet 20 mg PO DAILY 90 Days Qty: 90 1RF fluticasone propionate 50 mcg/actuation spray,suspension 2 spray intranasal DAILY lamotrigine 25 mg tablet 25 mg PO BID ibuprofen 600 mg tablet 600 mg PO Q6H PRN (Reason: pain) Qty: 45 0RF cyclobenzaprine 5 mg tablet 5 mg PO BID PRN (Reason: muscle spasm) Qty: 10 0RF lidocaine [Lidoderm] 5 % adhesive patch,medicated 1 patch topical DAILY Qty: 30 0RF Rx Instructions: leave on most painful area for up to 12 hrs (DME) pen needle, diabetic 31 gauge x 3/16 needle See Rx Instructions subcut .MEDSUPPLY Qty: 4 6RF Rx Instructions: As directed daily inject 4 x a day ibuprofen 800 mg tablet 800 mg PO Q8H PRN (Reason: pain)
[2023-08-27 07:00] VITALS: BP 133/69; PULSE 55; RESP 8; TEMP 36.8; O2SAT 100
[2023-08-27 09:06] VITALS: BP 133/66; PULSE 57; RESP 19; TEMP 37; O2SAT 99
== END 2023-08-27 10:29 | disposition home or self-care (01) ==
PROVIDERS: Student in an Organized Health Care Education/Training Program; Emergency Provider Emergency Medicine
DX: R06.02 Shortness of breath (principal); E11.9 Type 2 diabetes mellitus without complications; I10 Essential (primary) hypertension; E78.2 Mixed hyperlipidemia; Z79.4 Long term (current) use of insulin; Z79.899 Other long term (current) drug therapy
CPT/HCPCS: 36415; 71046; 80053; 81001; 84484; 85027; 93005; 99283; 99285

== ENCOUNTER 2023-10-08 10:34 | Outpatient (REF) | payer OTHER, SELFPAY ==
[2023-10-08 12:30] LABS: Alanine Aminotransferase 18 U/L (0-31); Albumin Level 4.3 g/dL (3.5-5.0); Alkaline Phosphatase 54 U/L (39-117); Aspartate Amino Transferase 17 U/L (5-31); Bilirubin Direct 0.1 mg/dL (0.0-0.5); Bilirubin Total 0.4 mg/dL (0.0-1.0); Total Protein 7.6 g/dL (6.5-8.0)
== END 2023-10-08 10:35 | disposition home or self-care (01) ==
LOC: HO.LAB 10:34
PROVIDERS: Absent Provider Internal Medicine; PCP Internal Medicine; Visit Provider Internal Medicine
DX: K75.4 Autoimmune hepatitis (principal); R74.8 Abnormal levels of other serum enzymes
CPT/HCPCS: 36415; 80076

== ENCOUNTER 2023-10-13 12:27 | Outpatient (AMB) | payer OTHER, SELFPAY ==
--- NOTE | 2023-10-13 12:31 | MHC.PC.OV ---
Vital Signs 10/13/23 12:32 Height 5 ft 2 in Weight 144 lb 2 oz BMI 26.4 BP 110/80 Blood Pressure Location Lt brachial Position Sitting Pulse 76 Pulse Source Pulse Oximeter Pulse Oximetry (%) 98 Oxygen Delivery Method Room Air Intake Visit Reasons: DM, hyperlipidemia Scalloper Required: No Accompanied by: Self / Same As Patient Allergies amoxicillin Allergy (Unknown, Verified 10/13/23 12:45) Rash glipizide Allergy (Unknown, Verified 10/13/23 12:45) unknown latex [LATEX] Allergy (Unknown, Verified 10/13/23 12:45) UNKNOWN levofloxacin Allergy (Unknown, Verified 10/13/23 12:45) Unknown liraglutide [From VICTOZA] Allergy (Unknown, Verified 10/13/23 12:45) UNKNOWN, itching metformin [METFORMIN] Allergy (Unknown, Verified 10/13/23 12:45) DIARRHEA morphine [MORPHINE] Allergy (Unknown, Verified 10/13/23 12:45) ITCHING, rash Medication List - Last Reconciled 10/13/23 by George Jha MD blood sugar diagnostic (FreeStyle Lite Strips) 1 strip miscellaneous TID blood-glucose meter (FreeStyle Lite Meter kit) As directed cyclobenzaprine 5 mg PO BID PRN empagliflozin (Jardiance) 10 mg PO DAILY fluticasone propionate 50 mcg/actuation 2 sprays intranasal DAILY glimepiride 2 mg PO QAM ibuprofen 600 mg PO Q6H PRN ibuprofen 800 mg PO Q8H PRN [incontinence liners 4 times per day] [incontinence wipes As directed] insulin glargine (Lantus Solostar U-100 Insulin) 20 units (0.2 mL) subcut QPM lamotrigine 25 mg PO BID lancets (FreeStyle Lancets) As directed-to test sugars Three times a day lidocaine 5% (Lidoderm) 1 patch topical DAILY linagliptin (Tradjenta) 5 mg PO DAILY losartan 100 mg PO DAILY pen needle, diabetic As directed pen needle, diabetic As directed daily inject 4 x a day rosuvastatin 20 mg PO DAILY 90 days Tresiba FlexTouch U-100 (insulin degludec) 20 units (0.2 mL) subcut BEDTIME NS Tobacco use date assessed: 10/13/23 Fall risk assessment: No Falls in past year Last assessed Fall Risk: 10/13/23 Dental Screening Dental Screen Date: 10/13/23 Did you have a dental visit in the last 12 months?: Yes Did you have a dental problem in the last 6 months where you did not have access to dental care?: No Was dental information given to patient?: Patient has dentist HPI DM, hyperlipidemia HPI Details Patient comes in today for her follow up visit States that she continues to experience frequent/recurrent dizziness - is scheduled to see neurology (Dr. White) in a couple of days on 10/15/2023 for further evaluation She denies any headaches Denies any chest pains, no SOB No nausea/vomiting, no abdominal pain No change in bowel habits noted Reports that she has been experiencing increased pain over her right lower back lately, with the pain often going into her right hip and down her thigh Relates that she went to the ER a few weeks ago on 08/27/23 for increasing SOB but she was also experiencing increased right lower back pain at the time although she does not think they did anything at the ER for her low back pain Was advised that her work ups done in the ER all came back negative/normal and no changes or additional recommendations were provided other than reassurance that her tests (EKG, CXR and labs) all came back normal She did have lumbar spine and sacral / coccygeal x-rays done back in June 2023 - sacral and coccygeal x-rays came out normal but her lumbar spine x-rays revealed (+) diffuse mild to moderate lumbar disc and lower lumbar facet degenerative change with mild right lateral listhesis L3 over L4, mild retrolisthesis L3 over L4 with mild curvature of the lumbar spine convex to the right She was not able to get her follow up labs done prior to her visit today - states that she went to the lab late last week to get some labs done for Dr. Viramontes (has appt with him next week) and recalls telling the person at the registration desk that she would like to get my labs done as well but for unclear reasons, these were never included and only a basic liver panel was done for Dr. Viramontes [facility] Medical History Diabetes Primary osteoarthritis of shoulder Right shoulder pain Memory loss or impairment Bursitis of right shoulder Bursitis of left shoulder Ear drainage Ear pain Primary osteoarthritis, right shoulder Overweight (BMI 25.0-29.9) Anxiety Varicose veins of both lower extremities Allergic rhinitis Elevated LFTs Primary osteoarthritis of left shoulder Lumbar degenerative disc disease Benign essential hypertension Type 2 diabetes mellitus without complications Mixed hyperlipidemia Surgical History History of appendectomy History of cholecystectomy History of cystoscopy History of tubal ligation Family History Father Cancer Mother Diabetes Maternal Uncle Cancer Maternal Grandfather Cancer Social History Housing: Apartment Alcohol intake: former Patient Tobacco Use Status: Never used Tobacco e-Cigarette/Vaping Use: Never Used Second Hand Smoke Exposure: Yes service: No Current occupational status: unemployed Cognitive needs: No Hearing needs: No Vision needs: No Questionnaire PHQ-9 Over the last 2 weeks, how often have you been bothered by any of the following problems? 1. Little interest or pleasure in doing things: nearly every day 2. Feeling down, depressed, or hopeless: nearly every day 3. Trouble falling or staying asleep, or sleeping too much: nearly every day 4. Feeling tired or having little energy: nearly every day 5. Poor appetite or overeating: nearly every day 6. Feeling bad about yourself - or that you are a failure or have let yourself or your family down: more than half the days 7. Trouble concentrating on things, such as reading the newspaper or watching television: more than half the days 8. Moving or speaking so slowly that other people could have noticed. Or the opposite - being so fidgety or restless that you have been moving around a lot more than usual: more than half the days 9. Thoughts that you would be better off or of hurting yourself in some way: not at all Total score: 21 Depression Screening Interpretation: Positive Depression Screening Follow-up: Existing condition and In treatment Depression Screening Done: Yes 59416 - PHQ-9 Billing: Yes Source: Developed by Drs. Juanito Moscoso, Seha Michel, Russlel Ott and colleagues, with an educational peace from [employer]. Thrive Questionnaire Date Thrive assessed: 10/13/23 I am a: Patient What is your living situation today?: I have a steady place to live Within the past 12 months, did the food you bought not last and you didn't have the money to get more?: Never true Within the past 12 months, did you worry whether your food would run out before you got money to buy more?: Never true Do you have trouble paying for medicines?: No Do you have trouble getting transportation to medical appointments?: No Do you have trouble paying your heating and electricity bill?: No Do you have trouble taking care of your child, family member or friend?: No Do you have trouble with day-to-day activities such as bathing, preparing meals, shopping, managing finances, etc.?: No Are you currently unemployed and looking for a job?: No Are you interested in more education?: No Please select the resources that you would like help with: None Currently or been in a relationship where the following occur: no concerns reported AUDIT C Alcohol Use Questionnaire (AUDIT-C) 1. How often do you have a drink containing alcohol?: Never 3. How often do you have six or more drinks on one occasion?: Never Total Score: 0 Score Reviewed/Action Taken: Yes NIEVES-7 AMB Questionnaire NIEVES-7 Date NIEVES - 7 assessed: 10/13/23 Feeling nervous, anxious, or on edge: 0 = Not at all Not being able to stop or control worryin = Not at all Worrying too much about different things: 0 = Not at all Trouble relaxin = Not at all Being so restless that it is hard to sit still: 0 = Not at all Becoming easily annoyed or irritable: 0 = Not at all Feeling afraid as if something awful might happen: 0 = Not at all Total NIEVES-7 score (0-4 normal; 5-9 mild; 10-14 moderate; 15-21 severe): 0 Source: Developed by Drs. Juanito Moscoso, Shea Michel, Russell Ott and colleagues, with an educational peace from [employer]. Review of Systems Const Denies chills, Denies fatigue, Denies fever(s) and Denies headache(s) Eyes Denies blurry vision ENT Denies dysphagia, Reports dizziness (recurrent), Denies otalgia, Denies headache(s), Denies neck pain, Denies odynophagia, Denies tinnitus and Denies sore throat Card Denies chest pain, Denies palpitations and Denies dyspnea Resp Denies cough and Denies dyspnea GI Denies abdominal pain, Denies constipation, Denies dysphagia, Denies heartburn, Denies diarrhea, Denies nausea, Denies odynophagia and Denies vomiting Denies difficulty voiding, Denies nocturia, Denies dysuria and Reports urinary incontinence Musc Reports back pain (increased, especially over the right lower back), Denies neck pain and Reports radiating pain into limb (into the right hip and right thigh) Skin/Breast Denies rash Neuro Reports dizziness (recurrent), Denies headache(s) and Reports memory loss (has tendency to do things lately and not remember them) Psych Reports anxiety (increasing), Reports depression and Reports memory loss (has tendency to do things lately and not remember them) Endo Denies fatigue and Denies palpitations Physical exam (Primary Care) Vital Signs: Last Vital Signs Pulse 76 10/13/23 12:32 BP 110/80 10/13/23 12:32 Pulse Ox 98 10/13/23 12:32 Oxygen Delivery Method Room Air 10/13/23 12:32 BMI result Body Mass Index 26.4 Tobacco/Smoking Status: Tobacco use Status Tobacco use date assessed 10/13/23 10/13/23 12:34 Patient Tobacco Use Status Never used Tobacco 10/13/23 12:34 e-Cigarette/Vaping Use Never Used 10/13/23 12:34 PHQ-9: PHQ-9 Score PHQ-9: Total score 21 10/13/23 12:48 Depression Screening Interpretation: Positive Depression Screening Follow-up: Existing condition and In treatment Thrive Assessment: Date of Thrive Assessment Date Thrive assessed 10/13/23 10/13/23 12:34 Currently or been in a relationship where the following occur: no concerns reported Const General: no acute distress and alert HENMT Ears: TM's normal bilaterally and EAC's normal Throat: Yes posterior oropharynx normal and Yes tonsils normal (no TP congestion) Neck Neck: Yes no lymphadenopathy and Yes supple Resp Auscultation: clear to auscultation bilaterally, no rales and no wheezes Cardio Rate: regular rate Rhythm: regular rhythm Heart sounds: no murmurs GI Palpation (GI): Soft to palpation and nontender Auscultation: normal bowel sounds Back/Spine/Pelvis Thoracic/Lumbar Spine: lumbar spinal tenderness Sacroiliac joints: on the right tender to palpation Skin Rashes: no rashes Extrem General: Yes no clubbing, cyanosis or edema Right lower extremity: hip/thigh Details: tenderness Location: of the hip Location: anterolaterally Results AMB Hemoglobin A1c AMB Hemoglobin A1c 9.0 % Last Edit by Cinthia Vargas on 10/13/23 12:54 Assessment and Plan Assessment & Plan (1) Right hip pain: Code(s): M25.551 - Pain in right hip Plan: Will send patient for x-rays of the right hip [facility]IA LUISA for further evaluation (2) Right low back pain: Code(s): M54.50 - Low back pain, unspecified Qualifiers: Chronicity: chronic Sciatica presence: unspecified whether sciatica present Qualified Code(s): M54.50 - Low back pain, unspecified; G89.29 - Other chronic pain Plan: Will also send patient for right SI joint x-rays for further evaluation Lumbar spine x-rays done back in June 2023 revealed (+) diffuse mild to moderate lumbar disc and lower lumbar facet degenerative change with mild right lateral listhesis L3 over L4, mild retrolisthesis L3 over L4 with mild curvature of the lumbar spine convex to the right Will start her for now on some Tramadol 50 mg TID PRN for pain Advised that if her pain persists and if Tramadol does not help much, will need to consider referring her to pain management (3) Mixed hyperlipidemia: Code(s): E78.2 - Mixed hyperlipidemia Plan: She was not able to get her previously ordered follow up labs done prior to today's visit She is reminded that her cholesterol levels have increased significantly from previous a few months ago as she was asked to stop taking her cholesterol Rx (Atorvastatin)due to elevated LFTs She was started on a trial of Rosuvastatin 20 mg QD and appears to be tolerating this LFTs done for Dr. Viramontes a few days ago came out normal Reinforced low cholesterol diet Will have patient go and get her fasting lipids and labs done [facility] LUISA for follow up Will recheck her labs and fasting lipids again in 3 months for follow up (4) Type 2 diabetes mellitus without complications: Code(s): E11.9 - Type 2 diabetes mellitus without complications Qualifiers: Diabetes mellitus [facility] insulin use: without [facility] use Qualified Code(s): E11.9 - Type 2 diabetes mellitus without complications Plan: In-office HgbA1c done today is at 9.0% (HgbA1c was at 7.2% a few months ago) - goal is <7.0% Reinforced diabetic diet Continue Jardiance 10 mg QD, Tradjenta 5 mg QD, Tresiba 20 units Q HS and Glimepiride 2 mg QD Will now refer her to endocrinology for further evaluation and management as her diabetes control seems to be getting worse lately despite her current Rx (5) Benign essential hypertension: Code(s): I10 - Essential (primary) hypertension Plan: Reinforced low sodium diet - goal is systolic BP of at least 130 mm or less Continue Losartan 100 mg QD (6) Elevated LFTs: Code(s): R79.89 - Other specified abnormal findings of blood chemistry Plan: Patient had an abdominal ultrasound with liver elastography done a few months ago for further evaluation - ultrasound came back mostly unremarkable except for mild hepatic steatosis Will continue to monitor her LFTs regularly - LFTs were normal on her most recent labs She is also scheduled to see GI (Dr. Viramontes) next week for follow up (7) Dizziness: Code(s): R42 - Dizziness and giddiness Plan: Unclear etiology She is scheduled to see neurology for further evaluation and management of this and her recent memory impairment Will start her for now on Meclizine 25 mg TID PRN (8) Anxiety: Code(s): F41.9 - Anxiety disorder, unspecified Plan: Was on Citalopram 40 mg QD and Hydroxyzine 10 mg TID PRN for anxiety previously but it appears that patient is no longer taking these Is currently on Lamictal 25 mg BID Follow up with psychiatry as scheduled (9) Overweight (BMI 25.0-29.9): Code(s): E66.3 - Overweight Plan: Reinforced diet/exercise as tolerated/lose weight Plan Follow up in 3 months Orders: Orders Lipid Panel 3 Months E78.00 - Pure hypercholesterolemia, unspecified TSH reflex Free T4 3 Months E78.00 - Pure hypercholesterolemia, unspecified UA CC w/rflx Micro + Cult 3 Months R30.0 - Dysuria Vitamin B12 and Folate 3 Months E53.8 - Deficiency of other specified B group vitamins AMB Hemoglobin A1c Today Z13.9 - Encounter for screening, unspecified XR hip RT min 2V Today M25.551 - Pain in right hip XR sacroiliac joint min 3V Today M54.50 - Low back pain, unspecified [facility] [place]. Panel Fast 3 Months E78.00 - Pure hypercholesterolemia, unspecified Hemoglobin A1c 3 Months E11.9 - Type 2 diabetes mellitus without complications Complete Blood Count Auto Diff 3 Months I10 - Essential (primary) hypertension Microalbumin, Random (w Creat) 3 Months E11.9 - Type 2 diabetes mellitus without complications Vitamin D 25-OH Total 3 Months E55.9 - Vitamin D deficiency, unspecified Referrals Endocrinology Referral E11.65 - Type 2 diabetes mellitus with hyperglycemia Medications: New tramadol 50 mg PO TID PRN 30 tabs 0RF pain meclizine 25 mg PO TID PRN 30 tabs 1RF dizziness Coding Level of Care Code Est Pt Level 4 (13967) Diagnoses Right hip pain M25.551 Chronic right-sided low back pain, unspecified whether sciatica present M54.50; G89.29 Chronicity: chronic Sciatica presence: unspecified whether sciatica present Mixed hyperlipidemia E78.2 Type 2 diabetes mellitus without complication, without long-term current use of insulin E11.9 Diabetes mellitus long term care social worker insulin use: without long term care social worker use Benign essential hypertension I10 Elevated LFTs R79.89 Dizziness R42 Anxiety F41.9 Overweight (BMI 25.0-29.9) E66.3
[2023-10-13 12:32] VITALS: BP 110/80; PULSE 76; O2SAT 98; BMI 26.4
== END 2023-10-13 13:16 | disposition home or self-care (01) ==
PROVIDERS: PCP Internal Medicine; Visit Provider Internal Medicine
DX: E11.9 Type 2 diabetes mellitus without complications (principal); M25.551 Pain in right hip; M54.50 Low back pain, unspecified; E78.2 Mixed hyperlipidemia; I10 Essential (primary) hypertension; R79.89 Other specified abnormal findings of blood chemistry; R42 Dizziness and giddiness; F41.9 Anxiety disorder, unspecified; E66.3 Overweight
CPT/HCPCS: 83036; 99214

== ENCOUNTER 2023-10-14 08:59 | Outpatient (REF) | payer OTHER, SELFPAY ==
--- NOTE | ~2023-10-14 | XR_ITS ---
EXAMINATION: XR hip RT min 2V, XR sacroiliac joint min 3V CLINICAL INFORMATION: Reason for Exam M25.551 - Pain in right hip COMPARISON: Hip radiographs 03/24/2020 TECHNIQUE: Two views of the hip and 3 views of the sacroiliac joints. FINDINGS: No acute fracture or dislocation. Mild osteoarthritis of the pubic symphysis with borderline loss of joint space. Hip joint spaces are maintained. Sclerosis along the left greater than right sacroiliac joints with some loss of the left sacroiliac joint space suggesting of osteoarthritis or sacroiliitis.. Few calcifications in the pelvis may reflect phleboliths. XR/XR sacroiliac joint min 3V IMPRESSION: 1. Mild osteoarthritis of the pubic symphysis with borderline loss of joint space. 2. Sclerosis along the left greater than right sacroiliac joints with some loss of the left sacroiliac joint space suggesting osteoarthritis or sacroiliitis.
--- NOTE | ~2023-10-14 | XR_ITS ---
EXAMINATION: XR hip RT min 2V, XR sacroiliac joint min 3V CLINICAL INFORMATION: Reason for Exam M25.551 - Pain in right hip COMPARISON: Hip radiographs 03/24/2020 TECHNIQUE: Two views of the hip and 3 views of the sacroiliac joints. FINDINGS: No acute fracture or dislocation. Mild osteoarthritis of the pubic symphysis with borderline loss of joint space. Hip joint spaces are maintained. Sclerosis along the left greater than right sacroiliac joints with some loss of the left sacroiliac joint space suggesting of osteoarthritis or sacroiliitis.. Few calcifications in the pelvis may reflect phleboliths. XR/XR hip RT min 2V IMPRESSION: 1. Mild osteoarthritis of the pubic symphysis with borderline loss of joint space. 2. Sclerosis along the left greater than right sacroiliac joints with some loss of the left sacroiliac joint space suggesting osteoarthritis or sacroiliitis.
[2023-10-14 09:22] LABS: MANUAL DIFF FLAG NO
[2023-10-14 09:42] LABS: Basophils Percent Auto 0.3 % (0-2); Eosinophils Absolute Auto 0.1 X10*3/uL (0.0-0.4); Eosinophils Percent Auto 1.9 % (0-4); Hematocrit 44.8 % (37.0-47.0); Hemoglobin 15.5 g/dl (12.0-16.0); Imm Gran Abs Auto 0.07 X10*3/uL (0.00-0.03); Lymphocytes Absolute Auto 2.4 X10*3/uL (1.2-4.9); Mean Corpuscular HGB Conc 34.6 g/dl (31.0-35.0); Mean Corpuscular Hemoglobin 29.9 pg (27.0-33.0); Mean Corpuscular Volume 86.5 fL (80.0-98.0); Mean Platelet Volume 9.2 fL (9.4-12.3); Monocytes Absolute Auto 0.4 X10*3/uL (0.1-1.2); Neutrophils Absolute Auto 4.2 x10*3/uL (2.0-8.3); Neutrophils Percent Auto 57.8 % (45-73); Platelet Count 176 X10*3/uL (160-400); Red Blood Count 5.18 X10*6/uL (4.20-5.50); Red Cell Distribution Width 12.5 % (11.0-16.0); White Blood Count 7.3 X10*3/uL (4.8-10.8)
[2023-10-14 09:50] LABS: Estimated Average Glucose 180 mg/dL; Hemoglobin A1c % 7.9 % (<6.0)
[2023-10-14 10:14] LABS: Alanine Aminotransferase 19 U/L (0-31); Albumin Level 4.6 g/dL (3.5-5.0); Alkaline Phosphatase 61 U/L (39-117); Anion Gap 12 (12-20); Aspartate Amino Transferase 15 U/L (5-31); Bilirubin Total 0.8 mg/dL (0.0-1.0); Blood Urea Nitrogen 23 mg/dL (9-16); Calcium 10.2 mg/dL (8.4-10.2); Carbon Dioxide 25 mmol/L (22-29); Chloride 106 mmol/L (96-108); Cholesterol 168 mg/dL (<200); Estimated Glomerular Filt Rate > 60; Glucose Fasting 199 mg/dL (60-99); HDL Cholesterol 34 mg/dL (>40); Potassium 4.5 mmol/L (3.3-5.1); Sodium 138 mmol/L (135-145); Total Protein 8.2 g/dL (6.5-8.0); Triglycerides 423 mg/dL (<150)
[2023-10-14 10:33] LABS: TSH reflex Free T4 1.17 uIU/mL (0.32-4.0); Vitamin D 25-OH Total 22.2 ng/mL (>30)
[2023-10-17 09:08] LABS: TS Negative Control Passed; TS Panel A 0; TS Panel B 0; TS Positive Control Passed; TSpotTB Negative (Negative)
== END 2023-10-14 09:00 | disposition home or self-care (01) ==
LOC: HO.XRAY 08:59
PROVIDERS: PCP Internal Medicine; Visit Provider Internal Medicine
DX: Z11.1 Encounter for screening for respiratory tuberculosis (principal); M25.551 Pain in right hip; M54.50 Low back pain, unspecified; E55.9 Vitamin D deficiency, unspecified; I10 Essential (primary) hypertension; E11.9 Type 2 diabetes mellitus without complications; E78.00 Pure hypercholesterolemia, unspecified
CPT/HCPCS: 36415; 72202; 73502; 80053; 80061; 82306; 83036; 84443; 85025; 86481

== ENCOUNTER 2024-01-08 11:35 | Outpatient (REF) | payer OTHER, SELFPAY ==
[2024-01-08 11:51] LABS: Basophils Percent Auto 0.3 % (0-2); Eosinophils Absolute Auto 0.3 X10*3/uL (0.0-0.4); Eosinophils Percent Auto 3.8 % (0-4); Hematocrit 41.1 % (37.0-47.0); Hemoglobin 14.4 g/dl (12.0-16.0); Imm Gran Abs Auto 0.04 X10*3/uL (0.00-0.03); Imm Gran Pct Auto 0.5 % (0.0-0.4); Lymphocytes Absolute Auto 3.1 X10*3/uL (1.2-4.9); Lymphocytes Percent Auto 39.8 % (20-40); MANUAL DIFF FLAG NO; Mean Corpuscular Hemoglobin 29.4 pg (27.0-33.0); Mean Platelet Volume 8.8 fL (9.4-12.3); Monocytes Absolute Auto 0.5 X10*3/uL (0.1-1.2); Monocytes Percent Auto 6.4 % (2-11); Neutrophils Absolute Auto 3.8 x10*3/uL (2.0-8.3); Neutrophils Percent Auto 49.2 % (45-73); Platelet Count 165 X10*3/uL (160-400); Red Blood Count 4.89 X10*6/uL (4.20-5.50); Red Cell Distribution Width 12.7 % (11.0-16.0); White Blood Count 7.7 X10*3/uL (4.8-10.8)
[2024-01-08 12:12] LABS: Estimated Average Glucose 192 mg/dL; Hemoglobin A1c % 8.3 % (<6.0)
[2024-01-08 12:33] LABS: Appearance Urine Clear; Color Urine Yellow; Glucose Urine UA Negative (Negative); Leukocyte Esterase Urine Trace (Negative); Nitrite Urine Negative (Negative); PH 5.5 (5.0-9.0); Specific Gravity - Urine 1.015 (1.005-1.025); UMIC TRIGGER UACC YES; Urine Blood Negative (Negative); Urine Ketones Negative (Negative); Urine Protein Negative (Neg-Trace)
[2024-01-08 12:36] LABS: Bacteria Urine 1+ (None Seen); Hyaline Casts Urine 0-2 /LPF (0-2); RBC Urine 0-2 /HPF (0-2); WBC Urine 0-5 /HPF (0-5)
[2024-01-08 12:42] LABS: Alanine Aminotransferase 21 U/L (0-31); Albumin Level 4.5 g/dL (3.5-5.0); Alkaline Phosphatase 64 U/L (39-117); Anion Gap 12 (12-20); Aspartate Amino Transferase 17 U/L (5-31); Bilirubin Total 0.4 mg/dL (0.0-1.0); Blood Urea Nitrogen 13 mg/dL (9-16); Calcium 10.2 mg/dL (8.4-10.2); Carbon Dioxide 29 mmol/L (22-29); Chloride 104 mmol/L (96-108); Cholesterol 132 mg/dL (<200); Estimated Glomerular Filt Rate > 60; Glucose Fasting 231 mg/dL (60-99); HDL Cholesterol 30 mg/dL (>40); LDL Cholesterol Calculated 45 mg/dL (<100); Potassium 4.3 mmol/L (3.3-5.1); Sodium 141 mmol/L (135-145); Total Protein 7.9 g/dL (6.5-8.0); Triglycerides 289 mg/dL (<150)
[2024-01-08 12:44] LABS: TSH reflex Free T4 2.04 uIU/mL (0.32-4.0); Vitamin D 25-OH Total 28.2 ng/mL (>30)
[2024-01-08 12:55] LABS: Folate 12.8 ng/mL (> or = 4.0); Vitamin B12 763 pg/mL (200-900)
[2024-01-08 13:17] LABS: Creatinine Urine 74.53 mg/dL; Microalbum/Creatinine Ratio Ur 14.7 ug/mg cr (<30)
== END 2024-01-08 11:36 | disposition home or self-care (01) ==
LOC: HO.LAB 11:35
PROVIDERS: PCP Internal Medicine; Visit Provider Internal Medicine
DX: I10 Essential (primary) hypertension (principal); E11.9 Type 2 diabetes mellitus without complications; E53.8 Deficiency of other specified B group vitamins; E55.9 Vitamin D deficiency, unspecified; E78.00 Pure hypercholesterolemia, unspecified
CPT/HCPCS: 36415; 80053; 80061; 81001; 82043; 82306; 82570; 82607; 82746; 83036; 84443; 85025

== ENCOUNTER 2024-01-12 12:40 | Outpatient (AMB) | payer OTHER, SELFPAY ==
[2024-01-12 12:43] VITALS: BP 144/100; PULSE 81; O2SAT 98; BMI 26.6
--- NOTE | 2024-01-12 12:43 | A.OFFPC_ITS ---
Vital Signs 01/12/24 12:43 Height 5 ft 2 in Weight 145 lb 4 oz BMI 26.6 BP 144/100 H Blood Pressure Location Lt brachial Position Sitting Pulse 81 Pulse Source Pulse Oximeter Pulse Oximetry (%) 98 Oxygen Delivery Method Room Air Intake Visit Reasons: 3 Month F/U Account Development Associate Required: No Accompanied by: Self / Same As Patient Allergies amoxicillin Allergy (Unknown, Verified 01/12/24 13:30) Rash glipizide Allergy (Unknown, Verified 01/12/24 13:30) unknown latex [LATEX] Allergy (Unknown, Verified 01/12/24 13:30) UNKNOWN levofloxacin Allergy (Unknown, Verified 01/12/24 13:30) Unknown liraglutide [From VICTOZA] Allergy (Unknown, Verified 01/12/24 13:30) UNKNOWN, itching metformin [METFORMIN] Allergy (Unknown, Verified 01/12/24 13:30) DIARRHEA morphine [MORPHINE] Allergy (Unknown, Verified 01/12/24 13:30) ITCHING, rash Medication List - Last Reconciled 01/23/24 by George Jha MD blood sugar diagnostic (FreeStyle Lite Strips) 1 strip miscellaneous TID blood-glucose meter (FreeStyle Lite Meter kit) As directed cyclobenzaprine 5 mg PO BID PRN fluticasone propionate 50 mcg/actuation 2 sprays intranasal DAILY glimepiride 2 mg PO QAM ibuprofen 600 mg PO Q6H PRN ibuprofen 800 mg PO Q8H PRN [incontinence liners 4 times per day] [incontinence wipes As directed] insulin glargine (Lantus Solostar U-100 Insulin) 20 units (0.2 mL) subcut QPM lamotrigine 25 mg PO BID lancets (FreeStyle Lancets) As directed-to test sugars Three times a day lidocaine 5% (Lidoderm) 1 patch topical DAILY losartan 100 mg PO DAILY meclizine 25 mg PO TID PRN pen needle, diabetic As directed pen needle, diabetic As directed daily inject 4 x a day rosuvastatin 20 mg PO DAILY 90 days tirzepatide (Mounjaro) 2.5 mg subcut QWEEK tramadol 50 mg PO TID PRN Tresiba FlexTouch U-100 (insulin degludec) 20 units (0.2 mL) subcut BEDTIME NS Tobacco use date assessed: 01/12/24 Fall risk assessment: No Falls in past year Last assessed Fall Risk: 01/12/24 Dental Screening Dental Screen Date: 01/12/24 Did you have a dental visit in the last 12 months?: Yes Did you have a dental problem in the last 6 months where you did not have access to dental care?: No Was dental information given to patient?: Patient has dentist HPI 3 Month F/U HPI Details Patient comes in today for her follow up visit States that she continues to experience recurrent dizziness She did not take her blood pressure medication (Losartan) earlier today because her blood pressure was reportedly low this morning and she was concerned that taking it will make her symptoms of dizziness worse She denies any headaches Denies any chest pains, no SOB No nausea/vomiting, no abdominal pain No change in bowel habits noted Still has recurrent right hip and right lower back pain but states that these have been manageable lately and she is more frustrated with her recurrent dizziness as they are significantly affecting her day-to-day activities Had her follow up labs done a few days ago - to discuss her results [facility] Medical History Diabetes Primary osteoarthritis of shoulder Right shoulder pain Memory loss or impairment Bursitis of right shoulder Bursitis of left shoulder Ear drainage Ear pain Primary osteoarthritis, right shoulder Overweight (BMI 25.0-29.9) Anxiety Varicose veins of both lower extremities Allergic rhinitis Elevated LFTs Primary osteoarthritis of left shoulder Lumbar degenerative disc disease Benign essential hypertension Type 2 diabetes mellitus without complications Mixed hyperlipidemia Surgical History History of appendectomy History of cholecystectomy History of cystoscopy History of tubal ligation Family History Father Cancer Mother Diabetes Maternal Uncle Cancer Maternal Grandfather Cancer Social History Housing: Apartment Alcohol intake: former Patient Tobacco Use Status: Never used Tobacco e-Cigarette/Vaping Use: Never Used Second Hand Smoke Exposure: Yes service: No Current occupational status: unemployed Cognitive needs: No Hearing needs: No Vision needs: No Questionnaire PHQ-9 Over the last 2 weeks, how often have you been bothered by any of the following problems? 1. Little interest or pleasure in doing things: nearly every day 2. Feeling down, depressed, or hopeless: nearly every day 3. Trouble falling or staying asleep, or sleeping too much: nearly every day 4. Feeling tired or having little energy: nearly every day 5. Poor appetite or overeating: nearly every day 6. Feeling bad about yourself - or that you are a failure or have let yourself or your family down: more than half the days 7. Trouble concentrating on things, such as reading the newspaper or watching television: more than half the days 8. Moving or speaking so slowly that other people could have noticed. Or the opposite - being so fidgety or restless that you have been moving around a lot more than usual: more than half the days 9. Thoughts that you would be better off or of hurting yourself in some way: not at all Total score: 21 Depression Screening Interpretation: Positive Depression Screening Follow-up: Existing condition and In treatment Depression Screening Done: Yes 22972 - PHQ-9 Billing: Yes Source: Developed by Drs. Juanito Moscoso, Shea Michel, Russell Ott and colleagues, with an educational peace from [employer]. Thrive Questionnaire Date Thrive assessed: 01/12/24 I am a: Patient What is your living situation today?: I have a steady place to live Within the past 12 months, did the food you bought not last and you didn't have the money to get more?: Never true Within the past 12 months, did you worry whether your food would run out before you got money to buy more?: Never true Do you have trouble paying for medicines?: No Do you have trouble getting transportation to medical appointments?: No Do you have trouble paying your heating and electricity bill?: No Do you have trouble taking care of your child, family member or friend?: No Do you have trouble with day-to-day activities such as bathing, preparing meals, shopping, managing finances, etc.?: No Are you currently unemployed and looking for a job?: No Are you interested in more education?: No Please select the resources that you would like help with: None Currently or been in a relationship where the following occur: no concerns reported THRIVE Score: 0 AUDIT C Alcohol Use Questionnaire (AUDIT-C) 1. How often do you have a drink containing alcohol?: Never 3. How often do you have six or more drinks on one occasion?: Never Total Score: 0 Score Reviewed/Action Taken: Yes NIEVES-7 AMB Questionnaire NIEVES-7 Date NIEVES - 7 assessed: 01/12/24 Feeling nervous, anxious, or on edge: 0 = Not at all Not being able to stop or control worryin = Not at all Worrying too much about different things: 0 = Not at all Trouble relaxin = Not at all Being so restless that it is hard to sit still: 0 = Not at all Becoming easily annoyed or irritable: 0 = Not at all Feeling afraid as if something awful might happen: 0 = Not at all Total NIEVES-7 score (0-4 normal; 5-9 mild; 10-14 moderate; 15-21 severe): 0 Source: Developed by Drs. Juanito Moscoso, Shea Michel, Russell Ott and colleagues, with an educational peace from [employer]. Review of Systems Const Denies chills, Reports fatigue, Denies fever(s) and Denies headache(s) ENT Denies dysphagia, Reports dizziness (recurrent), Denies otalgia, Denies headache(s), Denies neck pain, Denies odynophagia, Denies tinnitus and Denies sore throat Card Denies chest pain, Denies palpitations and Denies dyspnea Resp Denies cough and Denies dyspnea GI Denies abdominal pain, Denies constipation, Denies dysphagia, Denies heartburn, Denies diarrhea, Denies nausea, Denies odynophagia and Denies vomiting Denies difficulty voiding, Denies nocturia, Denies dysuria, Reports urinary incontinence and Denies urinary urgency Musc Reports back pain (increased, especially over the right lower back), Denies neck pain and Reports radiating pain into limb (into the right hip and right thigh) Skin/Breast Denies rash Neuro Reports dizziness (recurrent), Denies headache(s) and Reports memory loss (has tendency to do things lately and not remember them) Psych Reports anxiety (increasing), Reports depression and Reports memory loss (has tendency to do things lately and not remember them) Endo Reports fatigue and Denies palpitations Physical exam (Primary Care) Vital Signs: Last Vital Signs Pulse 81 01/12/24 12:43 BP 144/100 H 01/12/24 12:43 Pulse Ox 98 01/12/24 12:43 Oxygen Delivery Method Room Air 01/12/24 12:43 BMI result Body Mass Index 26.6 Tobacco/Smoking Status: Tobacco use Status Tobacco use date assessed 01/12/24 01/12/24 12:45 Patient Tobacco Use Status Never used Tobacco 01/12/24 12:45 e-Cigarette/Vaping Use Never Used 01/12/24 12:45 PHQ-9: PHQ-9 Score PHQ-9: Total score 21 01/12/24 13:32 Depression Screening Interpretation: Positive Depression Screening Follow-up: Existing condition and In treatment Thrive Assessment: Date of Thrive Assessment Date Thrive assessed 01/12/24 01/12/24 12:45 Currently or been in a relationship where the following occur: no concerns reported Const General: no acute distress and alert HENMT Ears: TM's normal bilaterally and EAC's normal Throat: Yes posterior oropharynx normal and Yes tonsils normal (no TP congestion) Neck Neck: Yes no lymphadenopathy and Yes supple Thyroid: Thyroid normal Resp Auscultation: clear to auscultation bilaterally, no rales and no wheezes Cardio Rate: regular rate Rhythm: regular rhythm Heart sounds: no murmurs GI Palpation (GI): Soft to palpation and nontender Auscultation: normal bowel sounds General: Yes no CVA tenderness Back/Spine/Pelvis Back: no CVA tenderness Thoracic/Lumbar Spine: lumbar spinal tenderness Sacroiliac joints: on the right tender to palpation Skin Rashes: no rashes Extrem General: Yes no clubbing, cyanosis or edema Right lower extremity: hip/thigh Details: tenderness Location: of the hip Location: anterolaterally Results Reviewed Results Reviewed: Laboratory Tests 01/08/24 01/08/24 01/08/24 11:39 11:39 Unknown WBC 7.7 Hgb 14.4 Hct 41.1 Plt Count 165 Sodium 141 Potassium 4.3 Creatinine 0.90 Estimated GFR > 60 Fasting Glucose 231 H Hemoglobin A1c % 8.3 H Calcium 10.2 AST 17 ALT 21 Triglycerides 289 H Cholesterol 132 LDL Cholesterol, Calc 45 HDL Cholesterol 30 L 25-OH Vitamin D Total 28.2 L TSH 2.04 Ur Specific [place] 1.015 Urine Protein Negative Urine Glucose (UA) Negative Urine Blood Negative Urine Nitrite Negative Ur Leukocyte Esterase Trace H Microalb/Creat Ratio 14.7 Assessment and Plan Assessment & Plan (1) Mixed hyperlipidemia: Code(s): E78.2 - Mixed hyperlipidemia Plan: Results of her labs done a few days ago reviewed and discussed with patient - is advised that her serum triglyceride level has improved significantly and is now at 289 mg/dl; her LDL cholesterol has also improved significantly from a year ago and is now at 45 mg/dl She appears to be tolerating Rosuvastatin without any issues - to continue on Rosuvastatin 20 mg QD She was taken off Atorvastatin in the past due to significantly elevated LFTs while on the Rx Reinforced low cholesterol diet Will recheck her labs and fasting lipids in 3 months for follow up (2) Type 2 diabetes mellitus without complications: Code(s): E11.9 - Type 2 diabetes mellitus without complications Qualifiers: Diabetes mellitus detention insulin use: without detention use Qualified Code(s): E11.9 - Type 2 diabetes mellitus without complications Plan: HgbA1c was at 8.3% on her labs done a few days ago (in-office HgbA1c was at 9.0% a few months ago) - goal is <7.0% Reinforced diabetic diet Continue Tresiba 20 units Q HS and Glimepiride 2 mg QD She was also on Jardiance 10 mg QD and Tradjenta 5 mg QD in the past but these were stopped and she was switched over to Mounjaro - to continue on Mounjari 2.5 mg SQ once a week She has been referred to and is now seeing [facility] for further evaluation (3) Benign essential hypertension: Code(s): I10 - Essential (primary) hypertension Plan: Reinforced low sodium diet - goal is systolic BP of at least 130 mm or less Will have patient lower her Losartan from 100 mg to 50 mg QD for now to see if this will help with her recurrent dizziness BUT have advised her that she needs to take her BP med DAILY and not as needed for it to be effective and that she should not hold her BP med just because her blood pressure appears NORMAL when she checks it in the morning (4) Dizziness: Code(s): R42 - Dizziness and giddiness Plan: Unclear etiology She was seen by neurology for this and for her recent memory impairment; her next appointment with neurology is later this week on She also reportedly had an MRI of the brain done in [place] about 2 to 3 months ago - will try to obtain a copy of her MRI results for review Continue Meclizine 25 mg TID PRN Will refer her to ENT for further evaluation and management of her recurrent dizziness and to help look for any potential ENT causes of her frequent dizziness (5) Elevated LFTs: Code(s): R79.89 - Other specified abnormal findings of blood chemistry Plan: Patient had an abdominal ultrasound with liver elastography done a few months ago for further evaluation - ultrasound came back mostly unremarkable except for mild hepatic steatosis Her LFTs were again NORMAL on her recent labs - will continue to monitor her LFTs regularly Follow up with GI (Dr. Viramontes) as scheduled (6) Right hip pain: Code(s): M25.551 - Pain in right hip Plan: X-rays of the right hip done back in October 2023 revealed (+) mild osteoarthritis of the pubic symphysis with borderline loss of joint space and sclerosis along the left greater than right sacroiliac joints with some loss of the left sacroiliac joint space suggesting osteoarthritis or sacroiliitis Have advised patient that she should see orthopedics or try physical therapy or both to help address her hip and lower back issues - patient states that she would like to think about this for now and will call back for referral when she makes up her mind on what she wants to do here (7) Right low back pain: Code(s): M54.50 - Low back pain, unspecified Qualifiers: Chronicity: chronic Sciatica presence: unspecified whether sciatica present Qualified Code(s): M54.50 - Low back pain, unspecified; G89.29 - Other chronic pain Plan: Right SI joint x-rays done back in October 2023 revealed (+) sclerosis along t he left greater than right sacroiliac joints with some loss of the left sacroiliac joint space suggesting osteoarthritis or sacroiliitis Lumbar spine x-rays done back in June 2023 revealed (+) diffuse mild to moderate lumbar disc and lower lumbar facet degenerative change with mild right lateral listhesis L3 over L4, mild retrolisthesis L3 over L4 with mild curvature of the lumbar spine convex to the right Continue Tramadol 50 mg TID PRN for pain Advised that if her pain persists and if Tramadol does not help much, will consider referring her to pain management (8) Anxiety: Code(s): F41.9 - Anxiety disorder, unspecified Plan: Was on Citalopram 40 mg QD and Hydroxyzine 10 mg TID PRN for anxiety previously but it appears that patient is no longer taking these Is currently on Lamictal 25 mg BID Follow up with psychiatry as scheduled (9) Overweight (BMI 25.0-29.9): Code(s): E66.3 - Overweight Plan: Reinforced diet/exercise as tolerated/lose weight Plan Follow up in 3 months Orders: Orders Lipid Panel 3 Months E78.00 - Pure hypercholesterolemia, unspecified Microalbumin, Random (w Creat) 3 Months E11.9 - Type 2 diabetes mellitus without complications TSH reflex Free T4 3 Months E78.00 - Pure hypercholesterolemia, unspecified UA CC w/rflx Micro + Cult 3 Months R30.0 - Dysuria Vitamin B12 and Folate 3 Months E53.8 - Deficiency of other specified B group vitamins Vitamin D 25-OH Total 3 Months E55.9 - Vitamin D deficiency, unspecified Complete Blood Count Auto Diff 3 Months D64.9 - Anemia, unspecified Comprehensive [place]. Panel Fast 3 Months E78.00 - Pure hypercholesterolemia, unspecified Hemoglobin A1c 3 Months E11.9 - Type 2 diabetes mellitus without complications Referrals Ear/Nose/Throat Referral R42 - Dizziness and giddiness Coding Level of Care Code Est Pt Level 4 (10264) Diagnoses Mixed hyperlipidemia E78.2 Type 2 diabetes mellitus without complication, without long-term current use of insulin E11.9 Diabetes mellitus roasterman insulin use: without roasterman use Benign essential hypertension I10 Dizziness R42 Elevated LFTs R79.89 Right hip pain M25.551 Chronic right-sided low back pain, unspecified whether sciatica present M54.50; G89.29 Chronicity: chronic Sciatica presence: unspecified whether sciatica present Anxiety F41.9 Overweight (BMI 25.0-29.9) E66.3
== END 2024-01-12 13:48 | disposition home or self-care (01) ==
PROVIDERS: PCP Internal Medicine; Visit Provider Internal Medicine
DX: E78.2 Mixed hyperlipidemia (principal); E11.9 Type 2 diabetes mellitus without complications; I10 Essential (primary) hypertension; R42 Dizziness and giddiness; R79.89 Other specified abnormal findings of blood chemistry; M25.551 Pain in right hip; M54.50 Low back pain, unspecified; G89.29 Other chronic pain; F41.9 Anxiety disorder, unspecified; E66.3 Overweight
CPT/HCPCS: 99214

== ENCOUNTER 2024-01-21 12:58 | Outpatient (REF) | payer OTHER, SELFPAY ==
--- NOTE | ~2024-01-21 | MM_ITS ---
EXAMINATION: MM SCREENING DIGITAL BREAST TOMOSYNTHESIS, BILATERAL CLINICAL INFORMATION: Screening. Asymptomatic. COMPARISON: Mammography: This study is compared with prior exams dating back to 2019. TECHNIQUE: Digital breast tomosynthesis is performed in both the craniocaudal and mediolateral oblique views along with computer-aided detection (CAD). Synthesized 2D images are generated from the tomosynthesis. FINDINGS: There are scattered areas of fibroglandular density (ACR BI-RADS breast composition Category b). There are no significant masses, abnormal calcifications, or other abnormalities. There are scattered, bilateral, unchanged, benign secretory calcifications. MM/MM tomosynthesis screening BI IMPRESSION: No mammographic evidence of malignancy. ASSESSMENT: BI-RADS BI-RADS 2 - Benign Findings RECOMMENDATION: Routine annual mammography screening. 1 year F/U This examination should not preclude the clinical evaluation of a suspicious palpable abnormality. This patient's information was entered into a reminder system with a target due date for their next mammogram.
== END 2024-01-21 12:59 | disposition home or self-care (01) ==
LOC: HO.MAMMO 12:58
PROVIDERS: PCP Internal Medicine; Visit Provider Internal Medicine
DX: Z12.31 Encounter for screening mammogram for malignant neoplasm of breast (principal)
CPT/HCPCS: 77063; 77067

== ENCOUNTER → 2024-01-21 13:00 | Outpatient (BNV) | payer OTHER, SELFPAY | PROVIDERS: PCP Internal Medicine; Visit Provider Radiology Diagnostic Radiology | DX: Z12.31 Encounter for screening mammogram for malignant neoplasm of breast (principal) | CPT/HCPCS: 77063; 77067 ==

== ENCOUNTER 2024-03-12 05:20 | Emergency (ER) | payer OTHER, SELFPAY ==
--- NOTE | 2024-03-12 05:24 | ECG_ITS ---
Test Reason : cp Blood Pressure : / mmHG Vent. Rate : 075 BPM Atrial Rate : 075 BPM P-R Int : 174 ms QRS Dur : 084 ms QT Int : 404 ms P-R-T Axes : 056 006 034 degrees QTc Int : 451 ms Normal sinus rhythm Normal ECG When compared with ECG of 27-AUG-2023 01:07, QT has lengthened Referred By: Generic ED Physician Electronically Signed By:Bhavin Canas
[2024-03-12 05:28] VITALS: BP 179/88; BP 205/105; PULSE 80; RESP 16; TEMP 37.1; O2SAT 97; O2SAT 98; BMI 26.4
[2024-03-12 05:38] VITALS: PULSE 50
--- NOTE | 2024-03-12 06:04 | PC.NURSE ---
Patient GUADALUPE from home for evaluation of chest pain radiating to left arm, abdominal pain, nausea-onset of symptoms around 10:00 pm. Patient reports she has been under a lot stress lately stating that her close friend is actively dying. BP 205/105 when EMS arrived 205/105, patient was given 1 nitro and Zofran 4 mg IV with improvement in chest pain and nausea. Repeat BP by EMS 160/80. EMS established 20 G IV line in L AC. Patient changed into a hospital gown, EKG completed by Tasha non destructive testing technician, labs drawn and sent to lab, profiler hand leads applied to patient's chest, hr 60-70, normal sinus rhythm. Patient's daughter at bedside, all [place] in patient's reach.
[2024-03-12 06:06] VITALS: BP 157/80; PULSE 71; RESP 12; TEMP 527.7; TEMP 982; O2SAT 98
[2024-03-12 06:06] LABS: MANUAL DIFF FLAG NO
[2024-03-12 06:07] LABS: Basophils Percent Auto 0.3 % (0-2); Eosinophils Absolute Auto 0.2 X10*3/uL (0.0-0.4); Eosinophils Percent Auto 2.4 % (0-4); Hematocrit 33.9 % (37.0-47.0); Hemoglobin 12.5 g/dl (12.0-16.0); Imm Gran Abs Auto 0.04 X10*3/uL (0.00-0.03); Imm Gran Pct Auto 0.6 % (0.0-0.4); Lymphocytes Absolute Auto 2.4 X10*3/uL (1.2-4.9); Lymphocytes Percent Auto 34.2 % (20-40); Mean Corpuscular HGB Conc 36.9 g/dl (31.0-35.0); Mean Corpuscular Hemoglobin 30.3 pg (27.0-33.0); Mean Corpuscular Volume 82.3 fL (80.0-98.0); Mean Platelet Volume 8.8 fL (9.4-12.3); Monocytes Absolute Auto 0.7 X10*3/uL (0.1-1.2); Monocytes Percent Auto 9.2 % (2-11); Neutrophils Absolute Auto 3.8 x10*3/uL (2.0-8.3); Neutrophils Percent Auto 53.3 % (45-73); Platelet Count 128 X10*3/uL (160-400); Red Blood Count 4.12 X10*6/uL (4.20-5.50); Red Cell Distribution Width 11.9 % (11.0-16.0); White Blood Count 7.1 X10*3/uL (4.8-10.8)
[2024-03-12 06:18] LABS: COVID-19 Test Negative (Negative); IDNOW Serial# 152EDE1D
[2024-03-12 06:22] LABS: Alanine Aminotransferase 18 U/L (0-31); Alkaline Phosphatase 54 U/L (39-117); Anion Gap 14 (12-20); Aspartate Amino Transferase 14 U/L (5-31); Bilirubin Total 0.5 mg/dL (0.0-1.0); Blood Urea Nitrogen 10 mg/dL (9-16); Calcium 9.5 mg/dL (8.4-10.2); Carbon Dioxide 21 mmol/L (22-29); Chloride 108 mmol/L (96-108); Creatinine Clr Calc Pharmacy 54.7; Estimated Glomerular Filt Rate > 60; Glucose Random 244 mg/dL (60-115); Potassium 3.5 mmol/L (3.3-5.1); Sodium 139 mmol/L (135-145); Total Protein 6.9 g/dL (6.5-8.0)
[2024-03-12 06:27] LABS: Troponin-I High Sensitivity < 2.7 ng/L (<3.5-17.0)
[2024-03-12 06:28] LABS: IDNOW Serial# 08D9AD1C; Influenza A Negative (Negative); Influenza B2 Negative (Negative)
--- NOTE | 2024-03-12 06:42 | ED_ITS ---
HPI - Chest Pain General Chief Complaint: Chest Pain Stated Complaint: chest pain Time Seen by Provider: 03/12/24 06:39 Source: patient and EMS Mode of arrival: EMS Limitations: no limitations History of Present Illness HPI narrative: Patient is a 68 year old assigned female at with a history of HTN, DM, NIEVES, and HLD presenting to the emergency department today with chest pain. Patient states that she has been under a lot of stress lately and last night, she visited her close friend that is very ill and close to dying. Patient denies any dizziness, lightheadedness, abdominal pain, vomiting, fever, chills, blurry vision, double vision, loss of vision, difficulty breathing, shortness of breath, back pain, night sweats, pain with urination, increased urinary frequency, increased urinary urgency, blood in her urine or stool, syncope or a near syncopal episode, recent trauma or falls, bowel incontinence, bladder incontinence, bowel retention, bladder retention, or any other complaints at this time. MD complaint: chest pain Relieving factors: nothing Exacerbating factors: nothing Associated symptoms: nausea Treatment prior to arrival: nitroglycerin Related Data Home Medications ?Medication ?Instructions ?Recorded ?Confirmed ibuprofen 800 mg tablet 800 mg PO Q8H PRN pain 11/09/20 01/12/24 fluticasone propionate 50 2 spray intranasal DAILY 12/19/21 01/12/24 mcg/actuation nasal spray,suspension lamotrigine 25 mg tablet 25 mg PO BID 02/28/23 01/12/24 tirzepatide 2.5 mg/0.5 mL 2.5 mg subcut QWEEK 01/23/24 01/23/24 subcutaneous pen injector (Kayla) Previous Rx's ?Medication ?Instructions ?Recorded lancets 28 gauge (FreeStyle #100 ea 06/29/21 Lancets) pen needle, diabetic 32 gauge x #50 ea 02/14/22 pen needle, diabetic 31 gauge x #4 boxes 05/28/2201/16 blood-glucose meter (FreeStyle #1 ea 07/23/22 Lite Meter kit) incontinence liners #150 ea 01/02/23 incontinence wipes #2 packets 01/02/23 insulin glargine 100 unit/mL (3 20 unit (0.2 mL) subcut QPM #15 mL 02/20/23 mL) subcutaneous pen (Lantus Solostar U-100 Insulin) cyclobenzaprine 5 mg tablet 5 mg PO BID PRN muscle spasm #10 06/17/23 tabs ibuprofen 600 mg tablet 600 mg PO Q6H PRN pain #45 tabs 06/17/23 lidocaine 5 % topical patch 1 patch topical DAILY #30 ea 06/17/23 (Lidoderm) Tresiba FlexTouch U-100 100 20 unit (0.2 mL) subcut BEDTIME 08/20/23 unit/mL (3 mL) subcutaneous pen #15 mL (insulin degludec) rosuvastatin 20 mg tablet 20 mg PO DAILY 90 days #90 tabs 08/20/23 meclizine 25 mg tablet 25 mg PO TID PRN dizziness #30 tabs 10/13/23 tramadol 50 mg tablet 50 mg PO TID PRN pain #30 tabs 10/13/23 blood sugar diagnostic (FreeStyle 1 strip miscellaneous TID #300 11/13/23 Lite Strips) strips glimepiride 2 mg tablet 2 mg PO QAM #90 tabs 12/28/23 losartan 100 mg tablet 100 mg PO DAILY #90 tabs 03/05/24 Allergies Allergy/AdvReac Type Severity Reaction Status Date / Time amoxicillin Allergy Unknown Rash Verified 03/12/24 05:31 glipizide Allergy Unknown unknown Verified 03/12/24 05:31 latex [LATEX] Allergy Unknown UNKNOWN Verified 03/12/24 05:31 levofloxacin Allergy Unknown Unknown Verified 03/12/24 05:31 liraglutide [From VICTOZA] Allergy Unknown UNKNOWN, Verified 03/12/24 05:31 itching metformin [METFORMIN] Allergy Unknown DIARRHEA Verified 03/12/24 05:31 morphine [MORPHINE] Allergy Unknown ITCHING, Verified 03/12/24 05:31 rash Review of Systems 2 Constitutional: Constitutional: Reports no additional constitutional complaints, Denies chills, Denies fever(s) and Denies night sweats Eyes: Eyes: Reports no additional eye complaints, Denies blurry vision, Denies change in vision, Denies diplopia, Denies eye discharge, Denies loss of vision and Denies eye pain ENT: Denies dizziness Cardiovascular: Cardiovascular: Reports no additional cardiovascular complaints, Reports chest pain, Denies lightheadedness, Denies Loss of Consciousness and Denies dyspnea Respiratory: Respiratory: Reports no additional respiratory complaints and Denies dyspnea Gastrointestinal: Gastrointestinal: Reports no additional gastrointestinal complaints, Denies abdominal pain, Denies melena, Denies hematochezia, Denies change in bowel habits, Denies change in stool character and Reports nausea Genitourinary: Genitourinary: Denies hematuria, Denies urinary frequency, Denies dysuria, Denies urinary incontinence, Denies urinary hesitancy and Denies urinary urgency Musculoskeletal: Musculoskeletal: Reports no additional musculoskeletal complaints, Denies numbness and Denies tingling Neurologic: Denies dizziness, Denies loss of vision, Denies numbness and Denies tingling Psychiatric: Psychiatric: Reports no additional psychiatric complaints Endocrine: Endocrine: Reports no additional endocrine complaints Hematologic/Lymphatic: Hematologic/Lymphatic: Reports no additional hematologic/lymphatic complaints Allergic/Immunologic: Allergic/Immunologic: Reports no additional allergic/immunologic complaints PMF Past Medical History Attestation statement: The following information was validated with the patient. Source: old records reviewed and nursing notes reviewed Medical History Overweight (BMI 25.0-29.9) Ear pain Ear drainage Right shoulder pain Functional urinary incontinence COVID-19 Encounter to discuss test results Memory loss Urinary incontinence Chest pain Colon cancer screening Annual physical exam Diabetes Type 2 diabetes mellitus with hyperglycemia Epigastric pain Dizziness Vertigo Upper abdominal pain Screening for tuberculosis Low back pain Preoperative examination Right hip pain Right low back pain Primary osteoarthritis of shoulder Memory loss or impairment Bursitis of right shoulder Bursitis of left shoulder Primary osteoarthritis, right shoulder Anxiety Varicose veins of both lower extremities Allergic rhinitis Elevated LFTs Primary osteoarthritis of left shoulder Lumbar degenerative disc disease Benign essential hypertension Type 2 diabetes mellitus without complications Mixed hyperlipidemia Surgical History History of appendectomy History of cholecystectomy History of cystoscopy History of tubal ligation Family History Family History Father Cancer Mother Diabetes Maternal Uncle Cancer Maternal Grandfather Cancer Social History Social History Housing: Apartment Alcohol intake: former Patient Tobacco Use Status: Never used Tobacco Smoked in Last 30 Days: No e-Cigarette/Vaping Use: Never Used Second Hand Smoke Exposure: Yes Use of substances other than those prescribed or required for medical reasons: No Advance Directives: Yes Advance Directives Information Provided: Yes Advance Directives on File: No Do you have a plan to hurt others: No Plan service: No Current occupational status: unemployed Cognitive needs: No Hearing needs: No Vision needs: No Physical Exam 2 Vital Signs: Vital Signs: Last Vital Signs Temp 98.2 F 03/12/24 07:16 Pulse 72 03/12/24 07:16 Resp 16 03/12/24 07:16 BP 155/77 H 03/12/24 07:16 Pulse Ox 97 03/12/24 07:16 O2 Del Method Room Air 03/12/24 07:16 BMI result Body Mass Index 26.4 Const: General: cooperative, no acute distress, alert and awake Nutritional Appearance: well nourished Orientation/consciousness: patient oriented x3 Limitations: no limitations HEENT: Head: Yes normal to inspection and Yes atraumatic Ears: hearing grossly normal bilaterally and external ears normal General nose exam: Normal external nose present, no nasal discharge noted and no epistaxis Face and sinus: Yes normal facial exam, No abrasion and No laceration Mouth: Normal oral and palatal mucosa present, no drooling and no muffled voice Eyes: General: appearance normal, both eyes and all related structures P eriorbital: periorbital findings normal Eyelids: Yes eyelids normal C onjunctivae: conjunctivae normal Pupils: Equal, round and reactive pupils present EOM: EOMs intact bilaterally Neck: Neck: Yes normal visual inspection, Yes full ROM and Yes no lymphadenopathy Chest: Chest palpation & inspection: normal inspection of the chest Resp: Effort & Inspection: normal respiratory effort and able to speak in complete sentences GI: Inspection: Yes normal to inspection Neuro: General: patient oriented x3 and moves all extremities Cranial nerves: Yes Equal, round and reactive pupils present Cognition (Neuro): n ormal cognition Motor exam (neuro): 5/5 motor strength present throughout Sensory Exam: Normal double simultaneous stimulation for sensation C oordination: [id number] test normal Extrem: General: Yes normal to inspection, Yes full ROM and Yes capillary refill normal Psych: Appearance: grossly normal Mental Status: mental status grossly normal Affect: normal affect Attitude: cooperative Thought process: N ormal thought process present Thought content: Normal thought content present Insight: Good insight present (Psych) Medical Decision Making Medical Decision Making [facility] Narrative: Patient is a 68 year old assigned female at with a history of HTN, DM, NIEVES, and HLD presenting to the emergency department today with chest pain and nausea while under being extra stress. Patient's physical exam was unremarkable. Patient's blood work was unremarkable. Patient's EKG was unremarkable. I explained my physical exam findings as well as all test results to the patient. I answered all questions asked by the patient. Patient stated that while being in the department, she felt significantly better. I stressed the importance of the patient taking her medication as prescribed. I stressed the importance of the patient following up with her primary care provider. I stressed the importance of the patient returning to the emergency department immediately if her symptoms were to worsen or if she were to develop any dizziness, shortness of breath, difficulty breathing, chest pain, blurry vision, loss of vision, nausea, vomiting, abdominal pain, fever, chills, back pain, or any other complaints. Patient verbalized agreement and understanding with this treatment plan and discharge. Differential Diagnosis Differential Diagnoses: The differential diagnosis associated with the presentation includes Chest pain NSTEMI STEMI Stress reaction Admission/Observation Consideration of admission/observation: Escalation of care including admission/observation considered Patient would have been admitted to the hospital had her work up had any findings where hospital admission was appropriate and her clinical presentation warranted hospital admission. Lab Data [facility] Lab Attestation statement: I reviewed the patient's lab results. My interpretation of these results are in the [facility] Rationale portion of this note. 03/12/24 05:59 03/12/24 05:59 Labs: Lab Results 03/12/24 03/12/24 Range/Units 05:58 05:59 WBC 7.1 (4.8-10.8) X10*3/uL RBC 4.12 L (4.20-5.50) X10*6/uL Hgb 12.5 (12.0-16.0) g/dl Hct 33.9 L (37.0-47.0) % MCV 82.3 (80.0-98.0) fL MCH 30.3 (27.0-33.0) pg MCHC 36.9 H (31.0-35.0) g/dl RDW 11.9 (11.0-16.0) % Plt Count 128 L (160-400) X10*3/uL MPV 8.8 L (9.4-12.3) fL Immature Gran % (Auto) 0.6 H (0.0-0.4) % Neut % (Auto) 53.3 (45-73) % Lymph % (Auto) 34.2 (20-40) % Monroe % (Auto) 9.2 (2-11) % Eos % (Auto) 2.4 (0-4) % Baso % (Auto) 0.3 (0-2) % Lymph # (Auto) 2.4 (1.2-4.9) X10*3/uL Monroe # (Auto) 0.7 (0.1-1.2) X10*3/uL Eos # (Auto) 0.2 (0.0-0.4) X10*3/uL Baso # (Auto) 0.0 (0.0-0.2) X10*3/uL Abs Immat Gran (auto) 0.04 H (0.00-0.03) X10*3/uL Absolute Neuts (auto) 3.8 (2.0-8.3) x10*3/uL Absolute Nucleated RBC 0.000 (0.0-0.012) X10*3/uL Nucleated RBC % (auto) 0.0 (0.0-0.2) /100WBC Sodium 139 (135-145) mmol/L Potassium 3.5 (3.3-5.1) mmol/L Chloride 108 (96-108) mmol/L Carbon Dioxide 21 L (22-29) mmol/L Anion Gap 14 (12-20) BUN 10 (9-16) mg/dL Creatinine 0.86 (0.5-1.4) mg/dL Estim Creat Clear Calc 54.7 Estimated GFR > 60 Random Glucose 244 H (60-115) mg/dL Calcium 9.5 D (8.4-10.2) mg/dL Total Bilirubin 0.5 (0.0-1.0) mg/dL AST 14 (5-31) U/L ALT 18 (0-31) U/L Alkaline Phosphatase 54 (39-117) U/L Troponin I High Sens < 2.7 (<3.5-17.0) ng/L Total Protein 6.9 (6.5-8.0) g/dL Albumin 4.0 (3.5-5.0) g/dL COVID-19 (KARMEN) Negative (Negative) COVID-19 Clin Com See Note Influenza Type A (JAS) Negative (Negative) Influenza Type B (JAS) Negative (Negative) Influenza A & B Note See Note Independent Interpretation I performed an independent interpretation of an: EKG Interpretation: Vent. Rate: 075 BPM Atrial Rate: 075 BPM P-R Int: 174 ms QRS Dur: 084 ms QT Int: 404 ms P-R-T Axes: 056 006 034 degrees QTc Int: 451 ms Normal sinus rhythm Normal ECG When compared with ECG of 27-AUG-2023 01:07, QT has lengthened DD/ 0525 Independent Historian Clinical information obtained from an independent historian. History obtained from or confirmed by: EMS (EMS provided additional history and confirmed the history provided by the patient.) Chronic Conditions Patient?s care impacted by: Diabetes and Hypertension Discharge Plan Discharge Clinical Impression: Chest pain, Stress Patient Disposition: Home, Self-Care Instructions: Chest Pain (DC), Stress (ED) Additional Instructions: Follow up with your primary care provider. Return to the emergency department immediately if your symptoms worsen or if you develop any dizziness, shortness of breath, difficulty breathing, chest pain, blurry vision, loss of vision, nausea, vomiting, abdominal pain, fever, chills, back pain, or any other complaints. Prescriptions: No Action (DME) lancets [FreeStyle Lancets] 28 gauge misc See Rx Instructions .Route Qty: 100 0RF Rx Instructions: As directed-to test sugars Three times a day (DME) pen needle, diabetic 32 gauge x 5/32 needle See Rx Instructions subcut DAILY Qty: 50 5RF Rx Instructions: As directed (DME) blood-glucose meter [FreeStyle Lite Meter] Kit See Rx Instructions .ROUTE .MEDSUPPLY Qty: 1 0RF Rx Instructions: As directed (DME) incontinence liners See Rx Instructions .Route .MEDSUPPLY Qty: 150 0RF Rx Instructions: 4 times per day (DME) incontinence wipes See Rx Instructions .Route .MEDSUPPLY Qty: 2 0RF Rx Instructions: As directed Lantus Solostar U-100 Insulin 100 unit/mL (3 mL) insulin pen 20 unit subcut QPM Qty: 15 3RF insulin degludec [Tresiba FlexTouch U-100] 100 unit/mL (3 mL) insulin pen 20 unit subcut BEDTIME Qty: 15 3RF rosuvastatin 20 mg tablet 20 mg PO DAILY 90 Days Qty: 90 1RF FreeStyle Lite Strips Strip 1 strip miscellaneous TID Qty: 300 4RF glimepiride 2 mg tablet 2 mg PO QAM Qty: 90 1RF losartan 100 mg tablet 100 mg PO DAILY Qty: 90 3RF fluticasone propionate 50 mcg/actuation spray,suspension 2 spray intranasal DAILY lamotrigine 25 mg tablet 25 mg PO BID ibuprofen 600 mg tablet 600 mg PO Q6H PRN (Reason: pain) Qty: 45 0RF cyclobenzaprine 5 mg tablet 5 mg PO BID PRN (Reason: muscle spasm) Qty: 10 0RF lidocaine [Lidoderm] 5 % adhesive patch,medicated 1 patch topical DAILY Qty: 30 0RF Rx Instructions: leave on most painful area for up to 12 hrs tramadol 50 mg tablet 50 mg PO TID PRN (Reason: pain) Qty: 30 0RF meclizine 25 mg tablet 25 mg PO TID PRN (Reason: dizziness) Qty: 30 1RF Mounjaro 2.5 mg/0.5 mL pen injector 2.5 mg subcut QWEEK (DME) pen needle, diabetic 31 gauge x 3/16 needle See Rx Instructions subcut .MEDSUPPLY Qty: 4 6RF Rx Instructions: As directed daily inject 4 x a day ibuprofen 800 mg tablet 800 mg PO Q8H PRN (Reason: pain) Referrals: George Jha MD [Primary Care Provider] - Interventions: ED Discharge Assessment Last Done: 03/12/24 07:16 Discharge Date/Time: 03/12/24 07:37 Print Language: Cook Islander
[2024-03-12 07:16] VITALS: BP 155/77; PULSE 72; RESP 16; TEMP 36.8; O2SAT 97
== END 2024-03-12 07:37 | disposition home or self-care (01) ==
PROVIDERS: Emergency Provider Student in an Organized Health Care Education/Training Program; PCP Internal Medicine
DX: R07.89 Other chest pain (principal); F43.9 Reaction to severe stress, unspecified; I10 Essential (primary) hypertension; Z79.899 Other long term (current) drug therapy; Z11.52 Encounter for screening for COVID-19
CPT/HCPCS: 36415; 80053; 84484; 85025; 87502; 87635; 93005; 99283; 99285

== ENCOUNTER → 2024-03-12 05:24 | Outpatient (BNV) | payer OTHER, SELFPAY | PROVIDERS: Emergency Provider Student in an Organized Health Care Education/Training Program; PCP Internal Medicine; Visit Provider Internal Medicine Cardiovascular Disease | DX: R07.9 Chest pain, unspecified (principal) | CPT/HCPCS: 93010 ==

== ENCOUNTER 2024-03-16 11:16 | Outpatient (AMB) | payer OTHER, SELFPAY ==
[2024-03-16 11:20] VITALS: BP 160/84; PULSE 76; O2SAT 98; BMI 26.0
--- NOTE | 2024-03-16 11:20 | A.OFFPC_ITS ---
Vital Signs 03/16/24 11:20 Height 5 ft 2 in Weight 142 lb BMI 26.0 BP 160/84 H Blood Pressure Location Lt brachial Position Sitting Pulse 76 Pulse Source Pulse Oximeter Pulse Oximetry (%) 98 Oxygen Delivery Method Room Air Intake Visit Reasons: BP check Medical Cash Poster Required: No Electric Meter Reader: Not Required per policy Accompanied by: Self / Same As Patient Allergies propranolol Allergy (Intermediate, Verified 08/19/24 11:46) Anxiety amoxicillin Allergy (Unknown, Verified 08/19/24 11:46) Rash glipizide Allergy (Unknown, Verified 08/19/24 11:46) unknown latex [LATEX] Allergy (Unknown, Verified 08/19/24 11:46) UNKNOWN levofloxacin Allergy (Unknown, Verified 08/19/24 11:46) Unknown liraglutide [From VICTOZA] Allergy (Unknown, Verified 08/19/24 11:46) UNKNOWN, itching metformin [METFORMIN] Allergy (Unknown, Verified 08/19/24 11:46) DIARRHEA morphine [MORPHINE] Allergy (Unknown, Verified 08/19/24 11:46) ITCHING, rash atorvastatin Adverse Reaction (Intermediate, Verified 08/20/24 04:18) elevated LFTs Medication List - Last Reconciled 03/16/24 by George Jha MD blood sugar diagnostic (FreeStyle Lite Strips) 1 strip miscellaneous TID blood-glucose meter (FreeStyle Lite Meter kit) As directed cyclobenzaprine 5 mg PO BID PRN fluticasone propionate 50 mcg/actuation 2 sprays intranasal DAILY glimepiride 2 mg PO QAM ibuprofen 600 mg PO Q6H PRN ibuprofen 800 mg PO Q8H PRN [incontinence liners 4 times per day] [incontinence wipes As directed] insulin glargine (Lantus Solostar U-100 Insulin) 20 units (0.2 mL) subcut QPM lamotrigine 100 mg PO BID lancets (FreeStyle Lancets) As directed-to test sugars Three times a day lidocaine 5% (Lidoderm) 1 patch topical DAILY losartan 100 mg PO DAILY meclizine 25 mg PO TID PRN pen needle, diabetic As directed pen needle, diabetic As directed daily inject 4 x a day propranolol 10 mg PO DAILY rosuvastatin 20 mg PO DAILY 90 days tirzepatide (Mounjaro) 2.5 mg subcut QWEEK tramadol 50 mg PO TID PRN Tresiba FlexTouch U-100 (insulin degludec) 20 units (0.2 mL) subcut BEDTIME NS Tobacco use date assessed: 01/12/24 Fall risk assessment: No Falls in past year Last assessed Fall Risk: 03/16/24 Dental Screening Dental Screen Date: 01/12/24 HPI BP check HPI Details Patient comes in today for follow up of her blood pressure and HDF follow up visit She went to the ER a few days ago for chest pains and increasing anxiety She supposedly just visited a close friend was terminally ill a couple of days prior and this apparently affected her emotionally Cardiac workups done in the ER came out negative and she was discharged home with instructions to follow up with her PCP MARIA LUISA for her anxiety issues States that she still has on and off sharp chest pains but denies any increased shortness of breath She denies any headaches or dizziness No nausea/vomiting, no abdominal pain No change in bowel habits noted Patient adds that she went to physical therapy in [place] about 2 weeks ago on 03/05/2024 for her dizziness She was reportedly advised that she does not have vertigo (negative for BPPV) and that she seems to have a lot of involuntary eye movement (nystagmus) on exam [facility] Medical History (Updated 08/20/24 @ 04:29 by George Jha MD) Dizziness Overweight (BMI 25.0-29.9) Vitamin D deficiency Ear pain Ear drainage Right shoulder pain Functional urinary incontinence COVID-19 Encounter to discuss test results Memory loss Urinary incontinence Chest pain Colon cancer screening Annual physical exam Diabetes Type 2 diabetes mellitus with hyperglycemia Epigastric pain Vertigo Upper abdominal pain Screening for tuberculosis Low back pain Preoperative examination Right hip pain Right low back pain Primary osteoarthritis of shoulder Memory loss or impairment Bursitis of right shoulder Bursitis of left shoulder Primary osteoarthritis, right shoulder Anxiety Varicose veins of both lower extremities Allergic rhinitis Elevated LFTs Primary osteoarthritis of left shoulder Lumbar degenerative disc disease Benign essential hypertension Type 2 diabetes mellitus without complications Mixed hyperlipidemia Surgical History History of appendectomy History of cholecystectomy History of cystoscopy History of tubal ligation Family History Father Cancer Mother Diabetes Maternal Uncle Cancer Maternal Grandfather Cancer Social History Housing: Apartment Alcohol intake: former Patient Tobacco Use Status: Never used Tobacco e-Cigarette/Vaping Use: Never Used Second Hand Smoke Exposure: Yes service: No Current occupational status: unemployed Cognitive needs: No Hearing needs: No Vision needs: No Questionnaire Thrive Questionnaire Date Thrive assessed: 01/12/24 NIEVES-7 AMB Questionnaire NIEVES-7 Date NIEVES - 7 assessed: 01/12/24 Source: Developed by Drs. Juanito Moscoso, Shea Michel, Russell Ott and colleagues, with an educational peace from [employer]. Review of Systems Const Denies chills, Reports fatigue, Denies fever(s) and Denies headache(s) ENT Denies dysphagia, Denies dizziness, Denies otalgia, Denies headache(s), Denies neck pain, Denies odynophagia and Denies sore throat Card Reports chest pain (sharp, on and off), Denies palpitations, Denies dyspnea and Denies dyspnea on exertion Resp Denies cough, Denies dyspnea and Denies dyspnea on exertion GI Denies abdominal pain, Denies constipation, Denies dysphagia, Denies heartburn, Denies diarrhea, Denies nausea, Denies odynophagia and Denies vomiting Denies difficulty voiding, Denies nocturia, Denies dysuria, Reports urinary incontinence and Denies urinary urgency Musc Reports back pain (increased, especially over the right lower back), Denies neck pain and Reports radiating pain into limb (into the right hip and right thigh) Skin/Breast Denies rash Neuro Denies dizziness, Denies headache(s) and Reports memory loss (has tendency to do things lately and not remember them) Psych Reports anxiety (increasing), Reports depression and Reports memory loss (has tendency to do things lately and not remember them) Endo Reports fatigue and Denies palpitations Physical exam (Primary Care) Vital Signs: Last Vital Signs Pulse 76 03/16/24 11:20 BP 160/84 H 03/16/24 11:20 Pulse Ox 98 03/16/24 11:20 Oxygen Delivery Method Room Air 03/16/24 11:20 BMI result Body Mass Index 26.0 Tobacco/Smoking Status: Tobacco use Status Tobacco use date assessed 01/12/24 03/16/24 11:22 Patient Tobacco Use Status Never used Tobacco 03/16/24 11:22 e-Cigarette/Vaping Use Never Used 03/16/24 11:22 Thrive Assessment: Date of Thrive Assessment Date Thrive assessed 01/12/24 03/16/24 11:22 Const General: no acute distress and alert HENMT Ears: TM's normal bilaterally and EAC's normal Throat: Yes posterior oropharynx normal and Yes tonsils normal (no TP congestion) Neck Neck: Yes no lymphadenopathy and Yes supple Thyroid: Thyroid normal Resp Auscultation: clear to auscultation bilaterally, no rales and no wheezes Cardio Rate: regular rate Rhythm: regular rhythm Heart sounds: no murmurs GI Palpation (GI): Soft to palpation and nontender Auscultation: normal bowel sounds General: Yes no CVA tenderness Back/Spine/Pelvis Back: no CVA tenderness Thoracic/Lumbar Spine: paraspinal muscle tenderness on the right in the mid lumbar and in the lower lumbar and lumbar spinal tenderness Sacroiliac joints: on the right tender to palpation Skin Rashes: no rashes Extrem General: Yes no clubbing, cyanosis or edema Right lower extremity: hip/thigh Details: tenderness Location: of the hip Location: anterolaterally Results Reviewed Results Reviewed: Laboratory Tests 01/08/24 03/12/24 Unknown 05:59 WBC 7.1 Hgb 12.5 Hct 33.9 L Plt Count 128 L Sodium 139 Potassium 3.5 Creatinine 0.86 Estimated GFR > 60 Random Glucose 244 H Hemoglobin A1c % 8.3 H Calcium 9.5 D AST 14 ALT 18 Coding Level of Care Code Est Pt Level 4 (06490) Diagnoses Benign essential hypertension I10 Right hip pain M25.551 Chronic right-sided low back pain, unspecified whether sciatica present M54.50; G89.29 Chronicity: chronic Sciatica presence: unspecified whether sciatica present Anxiety F41.9 Overweight (BMI 25.0-29.9) E66.3
== END 2024-03-16 11:53 | disposition home or self-care (01) ==
PROVIDERS: PCP Internal Medicine; Visit Provider Internal Medicine
DX: I10 Essential (primary) hypertension (principal); M25.551 Pain in right hip; M54.50 Low back pain, unspecified; G89.29 Other chronic pain; F41.9 Anxiety disorder, unspecified; E66.3 Overweight
CPT/HCPCS: 99499

== ENCOUNTER 2024-03-17 04:16 | Emergency (ER) | payer OTHER, SELFPAY ==
--- NOTE | 2024-03-17 | ECG_ITS ---
Test Reason : CP Blood Pressure : / mmHG Vent. Rate : 075 BPM Atrial Rate : 075 BPM P-R Int : 164 ms QRS Dur : 090 ms QT Int : 384 ms P-R-T Axes : 057 -02 024 degrees QTc Int : 428 ms Normal sinus rhythm Normal ECG When compared with ECG of 12-MAR-2024 05:25, No significant change was found Referred By: Generic ED Physician Electronically Signed By:GUME BHATTI MD
--- NOTE | ~2024-03-17 | XR_ITS ---
EXAMINATION: XR CHEST CLINICAL INFORMATION: Diffuse chest pain. COMPARISON: 08/27/2023. TECHNIQUE: Frontal view of the chest was obtained. FINDINGS: There is no gross pneumothorax. Heart size is normal. Mild bibasilar streaky opacities may represent atelectasis and/or an infectious/inflammatory process. Low lung volumes. No pleural effusion. XR/XR chest 1V IMPRESSION: Mild bibasilar streaky opacities may represent atelectasis and/or an infectious/inflammatory process. Low lung volumes. This study was presented today, 03/17/2024, for interpretation. Stat results provided at this time as requested by referring provider.
[2024-03-17 04:16] VITALS: BP 182/78; PULSE 73; RESP 18; TEMP 36.7; O2SAT 98; BMI 25.8
[2024-03-17 04:29] LABS: Glucose, Whole Blood 229 mg/dL (60-115)
--- NOTE | 2024-03-17 04:41 | MHC.EDTECH ---
Patient brought into triage area,EKG taken per order and signed by provider,labs,and urine obtained and sent to lab.
[2024-03-17 04:56] LABS: MANUAL DIFF FLAG NO
[2024-03-17 04:57] LABS: Basophils Percent Auto 0.3 % (0-2); Eosinophils Absolute Auto 0.3 X10*3/uL (0.0-0.4); Eosinophils Percent Auto 3.4 % (0-4); Hematocrit 36.9 % (37.0-47.0); Hemoglobin 13.6 g/dl (12.0-16.0); Imm Gran Abs Auto 0.04 X10*3/uL (0.00-0.03); Imm Gran Pct Auto 0.5 % (0.0-0.4); Lymphocytes Absolute Auto 3.5 X10*3/uL (1.2-4.9); Lymphocytes Percent Auto 46.6 % (20-40); Mean Corpuscular HGB Conc 36.9 g/dl (31.0-35.0); Mean Corpuscular Hemoglobin 30.4 pg (27.0-33.0); Mean Corpuscular Volume 82.4 fL (80.0-98.0); Monocytes Absolute Auto 0.6 X10*3/uL (0.1-1.2); Monocytes Percent Auto 8.6 % (2-11); Neutrophils Percent Auto 40.6 % (45-73); Platelet Count 158 X10*3/uL (160-400); Red Blood Count 4.48 X10*6/uL (4.20-5.50); Red Cell Distribution Width 12.3 % (11.0-16.0); White Blood Count 7.4 X10*3/uL (4.8-10.8)
[2024-03-17 04:58] LABS: Appearance Urine Clear; Color Urine Yellow; Glucose Urine UA 100 mg/dL (Negative); Leukocyte Esterase Urine Negative (Negative); Nitrite Urine Negative (Negative); Urine Blood Negative (Negative); Urine Ketones Negative (Negative); Urine Protein Trace mg/dL (Neg-Trace)
[2024-03-17 05:01] LABS: Bacteria Urine None Seen (None Seen); Hyaline Casts Urine 0-2 /LPF (0-2); RBC Urine 0-2 /HPF (0-2); Squamous Epithelial Cell Urine 0-2 /HPF (0-2); WBC Urine 0-5 /HPF (0-5)
[2024-03-17 05:18] LABS: Alanine Aminotransferase 15 U/L (0-31); Albumin Level 4.3 g/dL (3.5-5.0); Alkaline Phosphatase 60 U/L (39-117); Anion Gap 16 (12-20); Aspartate Amino Transferase 14 U/L (5-31); Bilirubin Total 0.3 mg/dL (0.0-1.0); Blood Urea Nitrogen 10 mg/dL (9-16); Calcium 10.3 mg/dL (8.4-10.2); Carbon Dioxide 24 mmol/L (22-29); Chloride 107 mmol/L (96-108); Estimated Glomerular Filt Rate 57; Glucose Random 237 mg/dL (60-115); Lipase 37 U/L (8-78); Sodium 143 mmol/L (135-145); Total Protein 7.5 g/dL (6.5-8.0)
--- NOTE | 2024-03-17 07:13 | ED_ITS ---
HPI - General Adult General Chief complaint: General Medical Stated complaint: high blood sugar, stomach pain Time Seen by Provider: 03/17/24 07:13 Source: patient, RN notes reviewed and old records reviewed Mode of arrival: ambulatory Limitations: no limitations History of Present Illness HPI narrative: 68 year old female with pmhx significant for hypertension, diabetes, general anxiety disorder, HDL presents to the emergency department today for evaluation of chest pain that began while sleeping around 0200 this morning. She admits she had a nightmare which woke her from her sleep and upon waking began to have chest pain, felt anxious, and became concerned that her blood pressure and blood sugar was elevated. She did not check BP or glucose at home. Patient was seen in the ED on 03/12/2024 (5 days ago) for same with unremarkable cardiac workup. She reports all symptoms began after a huge life stressor on (7 days ago) where she found out her neighbor is passing away. She was visiting him at the time her chest pain began. Since being discharged from the ED 5 days ago, she followed up with her PCP yesterday who started her on BuSpar and hydroxyzine. She has only taken one dose of each of these. Admits that after taking these medications yesterday, she felt relaxed and was able to sleep up until she had the nightmare. On my initial examination, patient lying in exam bed comfortably, sleeping. Upon discussing why she was in the ED today, she states she is starting to feel anxious again and is now having chest pain. She believes this is all related to her anxiety however was told at last ED visit to return to the ED if this occurs again. Her chest pain is located across entire chest. No radiation into arm or jaw. Denies fevers, chills, headache, dizziness, vision changes, SOB, dyspnea, wheezing, palpitations, calf pain/ swelling. Denies recent travel or long car rides. Related Data Home Medications ?Medication ?Instructions ?Recorded ?Confirmed ibuprofen 800 mg tablet 800 mg PO Q8H PRN pain 11/09/20 03/16/24 fluticasone propionate 50 2 spray intranasal DAILY 12/19/21 03/16/24 mcg/actuation nasal spray,suspension tirzepatide 2.5 mg/0.5 mL 2.5 mg subcut QWEEK 01/23/24 03/16/24 subcutaneous pen injector (Mounjaro) lamotrigine 100 mg tablet 100 mg PO BID 03/16/24 03/16/24 propranolol 10 mg tablet 10 mg PO DAILY 03/16/24 03/16/24 Previous Rx's ?Medication ?Instructions ?Recorded lancets 28 gauge (FreeStyle #100 ea 06/29/21 Lancets) pen needle, diabetic 32 gauge x #50 ea 02/14/22 pen needle, diabetic 31 gauge x #4 boxes 05/28/2201/16 blood-glucose meter (FreeStyle #1 ea 07/23/22 Lite Meter kit) incontinence liners #150 ea 01/02/23 incontinence wipes #2 packets 01/02/23 insulin glargine 100 unit/mL (3 20 unit (0.2 mL) subcut QPM #15 mL 02/20/23 mL) subcutaneous pen (Lantus Solostar U-100 Insulin) cyclobenzaprine 5 mg tablet 5 mg PO BID PRN muscle spasm #10 06/17/23 tabs ibuprofen 600 mg tablet 600 mg PO Q6H PRN pain #45 tabs 06/17/23 lidocaine 5 % topical patch 1 patch topical DAILY #30 ea 06/17/23 (Lidoderm) Tresiba FlexTouch U-100 100 20 unit (0.2 mL) subcut BEDTIME 08/20/23 unit/mL (3 mL) subcutaneous pen #15 mL (insulin degludec) rosuvastatin 20 mg tablet 20 mg PO DAILY 90 days #90 tabs 08/20/23 meclizine 25 mg tablet 25 mg PO TID PRN dizziness #30 tabs 10/13/23 tramadol 50 mg tablet 50 mg PO TID PRN pain #30 tabs 10/13/23 blood sugar diagnostic (FreeStyle 1 strip miscellaneous TID #300 11/13/23 Lite Strips) strips glimepiride 2 mg tablet 2 mg PO QAM #90 tabs 12/28/23 losartan 100 mg tablet 100 mg PO DAILY #90 tabs 03/05/24 buspirone 5 mg tablet 5 mg PO BID 30 days #60 tabs 03/16/24 hydralazine 10 mg tablet 10 mg PO TID 30 days #90 tabs 03/16/24 doxycycline monohydrate 100 mg 100 mg PO BID 5 days #10 caps 03/17/24 capsule Allergies Allergy/AdvReac Type Severity Reaction Status Date / Time amoxicillin Allergy Unknown Rash Verified 03/17/24 04:21 glipizide Allergy Unknown unknown Verified 03/17/24 04:21 latex [LATEX] Allergy Unknown UNKNOWN Verified 03/17/24 04:21 levofloxacin Allergy Unknown Unknown Verified 03/17/24 04:21 liraglutide [From VICTOZA] Allergy Unknown UNKNOWN, Verified 03/17/24 04:21 itching metformin [METFORMIN] Allergy Unknown DIARRHEA Verified 03/17/24 04:21 morphine [MORPHINE] Allergy Unknown ITCHING, Verified 03/17/24 04:21 rash Review of Systems 2 Review of Systems: Constitutional: No fever, chills, fatigue, night sweats, weight changes ENT/Mouth: No ear pain, hearing loss, nasal congestion, sinus pain, rhinorrhea, sore throat Eyes: No eye pain, swelling, redness, vision changes, discharge Cardio: No palpitations, WELCH, orthopnea, peripheral edema, +chest pain Pulm: No SOB, cough, sputum, wheezing, dyspnea, hemoptysis GI: No nausea, vomiting, hematemesis, abdominal pain, diarrhea, constipation, hematochezia, melena : No irregular bleeding, dysuria, frequency, urgency, hesitancy, hematuria, flank pain, urinary flow changes, urinary incontinence or retention MSK: No back pain, neck pain, joint pain, myalgias Skin: No lesions, rashes Neuro: No weakness, numbness, paresthesias, LOC, dizziness, headache Psych: No depression, SI/HI, AH/VH, +anxiety All other systems reviewed and are negative. FOR[facility]LY [facility], [facility] Past Medical History Attestation statement: The following information was validated with the patient. Source: old records reviewed and nursing notes reviewed Medical History Overweight (BMI 25.0-29.9) Ear pain Ear drainage Right shoulder pain Functional urinary incontinence COVID-19 Encounter to discuss test results Memory loss Urinary incontinence Chest pain Colon cancer screening Annual physical exam Diabetes Type 2 diabetes mellitus with hyperglycemia Epigastric pain Dizziness Vertigo Upper abdominal pain Screening for tuberculosis Low back pain Preoperative examination Right hip pain Right low back pain Primary osteoarthritis of shoulder Memory loss or impairment Bursitis of right shoulder Bursitis of left shoulder Primary osteoarthritis, right shoulder Anxiety Varicose veins of both lower extremities Allergic rhinitis Elevated LFTs Primary osteoarthritis of left shoulder Lumbar degenerative disc disease Benign essential hypertension Type 2 diabetes mellitus without complications Mixed hyperlipidemia Surgical History History of appendectomy History of cholecystectomy History of cystoscopy History of tubal ligation Family History Family History Father Cancer Mother Diabetes Maternal Uncle Cancer Maternal Grandfather Cancer Social History Social History Housing: Apartment Alcohol intake: former Patient Tobacco Use Status: Never used Tobacco e-Cigarette/Vaping Use: Never Used Second Hand Smoke Exposure: Yes Advance Directives: No Advance Directives Information Provided: No Do you have a plan to hurt others: No Plan service: No Current occupational status: unemployed Cognitive needs: No Hearing needs: No Vision needs: No Physical Exam ED Vital Signs: Vital Signs - 24 hr 03/17/24 04:16 03/17/24 08:00 03/17/24 10:00 Temperature 98.0 F 97.3 F 97.0 F Pulse Rate 73 61 70 Respiratory Rate 18 Blood Pressure 182/78 H 178/85 H 192/91 H Pulse Oximetry 98 99 100 Oxygen Delivery Method Room Air Room Air 03/17/24 11:18 Temperature 97.0 F Pulse Rate 70 Respiratory Rate 18 Blood Pressure 192/91 H Pulse Oximetry 100 Oxygen Delivery Method Room Air BMI result Body Mass Index 25.8 Hypertensive to 182/78, vitals otherwise WNL Const Other: + visibly anxious General: cooperative, healthy appearing, comfortable and no acute distress Orientation/consciousness: patient oriented x3 Limitations: no limitations [facility]: Yes normal to inspection, Yes No palpable skull fracture present, Yes normocephalic and Yes atraumatic Eyes General: appearance normal, both eyes and all related structures Conjunctivae: conjunctivae normal Sclerae: sclerae normal Pupils: Equal, round and reactive pupils present Neck Neck: Yes normal visual inspection, Yes full ROM and Yes no lymphadenopathy Chest Chest palpation & inspection: normal inspection of the chest and normal palpation of entire chest wall Resp Effort & Inspection: normal respiratory effort and able to speak in complete sentences Auscultation: clear to auscultation bilaterally and no crackles Cardio Other: No peripheral edema Jugular venous distension: no JVD Rate: regular rate Rhythm: regular rhythm GI Inspection: Yes normal to inspection Palpation (GI): Soft to palpation and nontender Skin General skin exam: no rashes or lesions noted Neuro General: patient oriented x3, gait normal and tone normal Cranial nerves: Yes Equal, round and reactive pupils present Gait exam (Neuro): Normal gait present Motor exam (neuro): 5/5 motor strength present throughout and Pronator motor function not present Extrem General: Yes normal to inspection and Yes no calf tenderness Course Course Course Narrative: 1030-- CBC without leukocytosis or left shift. No anemia. H&H stable. Chemistry without acute electrolyte abnormality requiring intervention. Glucose 237. No gap. Normal renal function. Normal liver function. Troponin undetectable. EKG showing normal sinus rhythm at a rate of 75 beats per minute, QT 384, QTC 428, no acute ischemic changes or ST elevations. No change when compared with EKG from 03/12/24. Urine without infection or blood. Chest x-ray showing mild bibasilar streaky opacities which may represent atelectasis versus infectious/inflammatory process. Given patient does have chest pain, will send doxy to treat for possible pneumonia. this has been discussed with patient who is agreeable. > etiology of symptoms likely secondary to anxiety. Symptom onset appears situational. i offered to provided patient with a dose of ativan in ED for anxiety however she states she will be taking the bus home. I do not feel comfortable medicating patient with sedating agent if she does not have someone to take her home. will give home dose of buspar 5mg. Advised to continue BuSpar and hydroxyzine at home as prescribed by PCP yesterday. I informed patient that it can take anywhere from 2-4 weeks for medication to have full effect. She verbalizes understanding. I informed her to call her PCP to touch base regarding today's visit. Patient has remained stable throughout ED visit today. Discussed worrisome signs and symptoms and when to return to the ED. All questions answered at this time. Patient is agreeable with disposition and stable for discharge. Medications Administered Discontinued Medications Generic Name Dose Route Start Last Admin Trade Name Freq PRN Reason Stop Dose Admin Buspirone HCl 5 mg 03/17/24 08:16 03/17/24 08:43 Buspirone Hcl 5 Mg Tablet PO 03/17/24 08:17 5 mg ONCE ONE Administration Medical Decision Making Medical Decision Making [facility] Narrative: 68 year old female with pmhx significant for hypertension, diabetes, general anxiety disorder, HDL presents to the emergency department today for evaluation of chest pain that began while sleeping around 0200 this morning. Hypertensive to 182/78, vitals otherwise WNL. She is nontoxic-appearing and in no acute distress however visibly anxious. Skin warm, dry, intact. No rashes. RRR. Lungs are CTA b/l. No peripheral edema or JVD. No calf tenderness bilaterally. Differential diagnosis includes ACS, arrhythmia, costochondritis, pleuritis, anxiety, hypertension, diabetes, hyperglycemia, anemia, electrolyte abnormality. Low suspicion for pneumonia, pleural effusion, pulmonary embolism, DKA, hyperosmolar hyperglycemia, hypertensive urgency, hypertensive emergency. Plan for basic labs, troponin, EKG, re-evaluation. Differential Diagnosis Differential Diagnoses: The differential diagnosis associated with the presentation includes as above. Admission/Observation Consideration of admission/observation: Escalation of care including admission/observation considered admission considered on presentation Lab Data [facility] Lab Attestation statement: I reviewed the patient's lab results. as above. 03/17/24 04:44 03/17/24 04:44 Labs: Lab Results 03/17/24 03/17/24 Range/Units 04:25 04:44 WBC 7.4 (4.8-10.8) X10*3/uL RBC 4.48 (4.20-5.50) X10*6/uL Hgb 13.6 (12.0-16.0) g/dl Hct 36.9 L (37.0-47.0) % MCV 82.4 (80.0-98.0) fL MCH 30.4 (27.0-33.0) pg MCHC 36.9 H (31.0-35.0) g/dl RDW 12.3 (11.0-16.0) % Plt Count 158 L (160-400) X10*3/uL MPV 9.0 L (9.4-12.3) fL Immature Gran % (Auto) 0.5 H (0.0-0.4) % Neut % (Auto) 40.6 L (45-73) % Lymph % (Auto) 46.6 H (20-40) % [place] % (Auto) 8.6 (2-11) % Eos % (Auto) 3.4 (0-4) % Baso % (Auto) 0.3 (0-2) % Lymph # (Auto) 3.5 (1.2-4.9) X10*3/uL [place] # (Auto) 0.6 (0.1-1.2) X10*3/uL Eos # (Auto) 0.3 (0.0-0.4) X10*3/uL Baso # (Auto) 0.0 (0.0-0.2) X10*3/uL Abs Immat Gran (auto) 0.04 H (0.00-0.03) X10*3/uL Absolute Neuts (auto) 3.0 (2.0-8.3) x10*3/uL Absolute Nucleated RBC 0.000 (0.0-0.012) X10*3/uL Nucleated RBC % (auto) 0.0 (0.0-0.2) /100WBC Sodium 143 (135-145) mmol/L Potassium 4.0 (3.3-5.1) mmol/L Chloride 107 (96-108) mmol/L Carbon Dioxide 24 (22-29) mmol/L Anion Gap 16 (12-20) BUN 10 (9-16) mg/dL Creatinine 0.97 (0.5-1.4) mg/dL Estim Creat Clear Calc 48.0 Estimated GFR 57 POC Glucose 229 H (60-115) mg/dL Random Glucose 237 H (60-115) mg/dL Calcium 10.3 H D (8.4-10.2) mg/dL Magnesium 1.8 (1.6-2.6) mg/dL Total Bilirubin 0.3 (0.0-1.0) mg/dL AST 14 (5-31) U/L ALT 15 (0-31) U/L Alkaline Phosphatase 60 (39-117) U/L Troponin I High Sens < 2.7 (<3.5-17.0) ng/L Total Protein 7.5 (6.5-8.0) g/dL Albumin 4.3 (3.5-5.0) g/dL Lipase 37 (8-78) U/L Urine Color Yellow Urine Appearance Clear Urine pH 6.0 (5.0-9.0) Ur Specific Hannah 1.010 (1.005-1.025) Urine Protein Trace (Neg-Trace) mg/dL Urine Glucose (UA) 100 H (Negative) mg/dL Urine Ketones Negative (Negative) mg/dL Urine Blood Negative (Negative) Urine Nitrite Negative (Negative) Ur Leukocyte Esterase Negative (Negative) Urine RBC 0-2 (0-2) /HPF Urine WBC 0-5 (0-5) /HPF Ur Squamous Epith Cells 0-2 (0-2) /HPF Urine Bacteria None Seen (None Seen) Hyaline Casts 0-2 (0-2) /LPF Independent Interpretation I performed an independent interpretation of an: EKG and Plain X-Ray Interpretation: EKG showing normal sinus rhythm at a rate of 75 beats per minute, QT 384, QTC 428, no acute ischemic changes or ST elevations. No change when compared with EKG from 03/12/24. CXR showing bibasilar opacities, agree with radiologist's interpretation. Radiology Impression Discussion of test interpretation with radiology: I have reviewed the radiologist's reading. Radiologist Impression: EXAMINATION: XR CHEST CLINICAL INFORMATION: Diffuse chest pain. COMPARISON: 08/27/2023. TECHNIQUE: Frontal view of the chest was obtained. FINDINGS: There is no gross pneumothorax. Heart size is normal. Mild bibasilar streaky opacities may represent atelectasis and/or an infectious/inflammatory process. Low lung volumes. No pleural effusion. XR/XR chest 1V IMPRESSION: Mild bibasilar streaky opacities may represent atelectasis and/or an infectious/inflammatory process. Low lung volumes. This study was presented today, 03/17/2024, for interpretation. Stat results provided at this time as requested by referring provider. External Record Review External record reviewed: Inpatient record, Office record, Outpatient record, Prior outpatient labs, Prior outpatient radiology, Primary care record and Outside ED record Prescription Management I considered prescription management with: Other (Anxiolytic) Chronic Conditions Patient?s care impacted by: Diabetes, Hypertension and Other (Anxiety) Social Determinants Patient?s care significantly limited by Social Determinants of Health including: Other Social Determinant of Health Critical Care Time Critical Care Time Critical Care Time: Yes Total Critical Care Time: 41 Attestation: Critical care time in the amount of 41 minutes has been provided to the patient in terms of direct patient care, frequent reevaluation, review and interpretation of medical data and results, and management of potentially life- threatening conditions. This is all outside of any medical procedures. Discharge Plan Discharge Clinical Impression: Generalized anxiety disorder, Benign essential hypertension, CAP (community acquired pneumonia) Patient Disposition: Home, Self-Care Instructions: How to Use an Incentive Spirometer (ED), Community Acquired Pneumonia (ED), DASH Eating Plan (ED), Anxiety (ED) Additional Instructions: Your lab work today is reassuring. Your EKG is normal. Your chest xray shows possible early signs of pneumonia. Doxycycline is antibiotic that has been sent to your pharmacy for treatment. Take this for the next 5 days. Do not stop this early or skip any doses as this may cause infection to continue or worsen. On doxycycline, do not take pills immediately before going to bed and swallow pills with plenty of water. Avoid direct sunlight, iron, antacids, and Pepto Bismol. Call your provider if you develop new ringing in your ears, new problems hearing, dizziness, difficulty swallowing, rash, abdominal discomfort, nausea, or diarrhea. Continue taking buspar and hydroxyzine as prescribed by your PCP. As discussed, it can take 2-4 weeks for medications to reach full effect. Follow up with PCP this week. Return with new or worsening symptoms. In the case of an emergency call 911. Prescriptions: New doxycycline monohydrate 100 mg capsule 100 mg PO BID 5 Days Qty: 10 0RF No Action (DME) lancets [FreeStyle Lancets] 28 gauge misc See Rx Instructions .Route Qty: 100 0RF Rx Instructions: As directed-to test sugars Three times a day (DME) pen needle, diabetic 32 gauge x /32 needle See Rx Instructions subcut DAILY Qty: 50 5RF Rx Instructions: As directed (DME) blood-glucose meter [FreeStyle Lite Meter] Kit See Rx Instructions .ROUTE .MEDSUPPLY Qty: 1 0RF Rx Instructions: As directed (DME) incontinence liners See Rx Instructions .Route .MEDSUPPLY Qty: 150 0RF Rx Instructions: 4 times per day (DME) incontinence wipes See Rx Instructions .Route .MEDSUPPLY Qty: 2 0RF Rx Instructions: As directed Lantus Solostar U-100 Insulin 100 unit/mL (3 mL) insulin pen 20 unit subcut QPM Qty: 15 3RF insulin degludec [Tresiba FlexTouch U-100] 100 unit/mL (3 mL) insulin pen 20 unit subcut BEDTIME Qty: 15 3RF rosuvastatin 20 mg tablet 20 mg PO DAILY 90 Days Qty: 90 1RF FreeStyle Lite Strips Strip 1 strip miscellaneous TID Qty: 300 4RF glimepiride 2 mg tablet 2 mg PO QAM Qty: 90 1RF losartan 100 mg tablet 100 mg PO DAILY Qty: 90 3RF fluticasone propionate 50 mcg/actuation spray,suspension 2 spray intranasal DAILY ibuprofen 600 mg tablet 600 mg PO Q6H PRN (Reason: pain) Qty: 45 0RF cyclobenzaprine 5 mg tablet 5 mg PO BID PRN (Reason: muscle spasm) Qty: 10 0RF lidocaine [Lidoderm] 5 % adhesive patch,medicated 1 patch topical DAILY Qty: 30 0RF Rx Instructions: leave on most painful area for up to 12 hrs tramadol 50 mg tablet 50 mg PO TID PRN (Reason: pain) Qty: 30 0RF meclizine 25 mg tablet 25 mg PO TID PRN (Reason: dizziness) Qty: 30 1RF Mounjaro 2.5 mg/0.5 mL pen injector 2.5 mg subcut QWEEK (DME) pen needle, diabetic 31 gauge x 3/16 needle See Rx Instructions subcut .MEDSUPPLY Qty: 4 6RF Rx Instructions: As directed daily inject 4 x a day propranolol 10 mg tablet 10 mg PO DAILY lamotrigine 100 mg tablet 100 mg PO BID buspirone 5 mg tablet 5 mg PO BID 30 Days Qty: 60 3RF hydralazine 10 mg tablet 10 mg PO TID 30 Days Qty: 90 1RF ibuprofen 800 mg tablet 800 mg PO Q8H PRN (Reason: pain) Referrals: George Jha MD [Primary Care Provider] - Interventions: ED Discharge Assessment Last Done: 03/17/24 11:18 Discharge Date/Time: 03/17/24 11:19 Print Language: Malay
[2024-03-17 07:45] LABS: Magnesium 1.8 mg/dL (1.6-2.6)
[2024-03-17 07:48] LABS: Troponin-I High Sensitivity < 2.7 ng/L (<3.5-17.0)
[2024-03-17 08:00] VITALS: BP 178/85; PULSE 61; TEMP 36.3; O2SAT 99
[2024-03-17] MEDS: busPIRone HCl 5 MG TABLET PO (08:43)
[2024-03-17 10:00] VITALS: BP 192/91; PULSE 70; TEMP 36.1; O2SAT 100
[2024-03-17 11:18] VITALS: BP 192/91; PULSE 70; RESP 18; TEMP 36.1; O2SAT 100
== END 2024-03-17 11:19 | disposition home or self-care (01) ==
PROVIDERS: Physician Assistant Medical; Emergency Provider Emergency Medicine; PCP Internal Medicine
DX: J18.9 Pneumonia, unspecified organism (principal); F41.1 Generalized anxiety disorder; I10 Essential (primary) hypertension; R07.9 Chest pain, unspecified; R10.9 Unspecified abdominal pain; R73.9 Hyperglycemia, unspecified
CPT/HCPCS: 36415; 71045; 80053; 81001; 82947; 83690; 83735; 84484; 85025; 93005; 94010; 99283; 99284

== ENCOUNTER → 2024-03-17 04:18 | Outpatient (BNV) | payer OTHER, SELFPAY | PROVIDERS: Emergency Provider Emergency Medicine; PCP Internal Medicine; Visit Provider Internal Medicine Cardiovascular Disease | DX: R07.9 Chest pain, unspecified (principal) | CPT/HCPCS: 93010 ==

== ENCOUNTER 2024-04-08 11:24 | Outpatient (REF) | payer OTHER, SELFPAY ==
[2024-04-08 11:55] LABS: MANUAL DIFF FLAG NO
[2024-04-08 12:29] LABS: Appearance Urine Clear; Color Urine Yellow; Glucose Urine UA Negative (Negative); Leukocyte Esterase Urine Negative (Negative); Nitrite Urine Negative (Negative); PH 5.5 (5.0-9.0); Urine Blood Negative (Negative); Urine Ketones Negative (Negative); Urine Protein Negative (Neg-Trace)
[2024-04-08 12:30] LABS: Basophils Percent Auto 0.3 % (0-2); Eosinophils Absolute Auto 0.2 X10*3/uL (0.0-0.4); Eosinophils Percent Auto 2.8 % (0-4); Hematocrit 38.8 % (37.0-47.0); Hemoglobin 13.8 g/dl (12.0-16.0); Imm Gran Abs Auto 0.05 X10*3/uL (0.00-0.03); Imm Gran Pct Auto 0.7 % (0.0-0.4); Lymphocytes Absolute Auto 2.5 X10*3/uL (1.2-4.9); Lymphocytes Percent Auto 35.6 % (20-40); Mean Corpuscular HGB Conc 35.6 g/dl (31.0-35.0); Mean Corpuscular Hemoglobin 30.2 pg (27.0-33.0); Mean Corpuscular Volume 84.9 fL (80.0-98.0); Mean Platelet Volume 9.1 fL (9.4-12.3); Monocytes Absolute Auto 0.6 X10*3/uL (0.1-1.2); Monocytes Percent Auto 8.6 % (2-11); Neutrophils Absolute Auto 3.7 x10*3/uL (2.0-8.3); Platelet Count 183 X10*3/uL (160-400); Red Blood Count 4.57 X10*6/uL (4.20-5.50); Red Cell Distribution Width 12.4 % (11.0-16.0); White Blood Count 7.1 X10*3/uL (4.8-10.8)
[2024-04-08 12:34] LABS: Estimated Average Glucose 177 mg/dL; Hemoglobin A1c % 7.8 % (<6.0)
[2024-04-08 12:49] LABS: Creatinine Urine 62.41 mg/dL
[2024-04-08 12:50] LABS: Alanine Aminotransferase 12 U/L (0-31); Albumin Level 4.4 g/dL (3.5-5.0); Alkaline Phosphatase 60 U/L (39-117); Aspartate Amino Transferase 12 U/L (5-31); Bilirubin Direct 0.1 mg/dL (0.0-0.5); Bilirubin Total 0.3 mg/dL (0.0-1.0); Total Protein 7.4 g/dL (6.5-8.0)
[2024-04-08 13:00] LABS: Alanine Aminotransferase 13 U/L (0-31); Albumin Level 4.4 g/dL (3.5-5.0); Alkaline Phosphatase 59 U/L (39-117); Anion Gap 11 (12-20); Aspartate Amino Transferase 14 U/L (5-31); Bilirubin Total 0.3 mg/dL (0.0-1.0); Blood Urea Nitrogen 12 mg/dL (9-16); Calcium 10.6 mg/dL (8.4-10.2); Carbon Dioxide 29 mmol/L (22-29); Chloride 108 mmol/L (96-108); Cholesterol 120 mg/dL (<200); Estimated Glomerular Filt Rate > 60; Glucose Fasting 218 mg/dL (60-99); HDL Cholesterol 35 mg/dL (>40); LDL Cholesterol Calculated 50 mg/dL (<100); Potassium 4.7 mmol/L (3.3-5.1); Sodium 143 mmol/L (135-145); Total Protein 7.5 g/dL (6.5-8.0); Triglycerides 179 mg/dL (<150)
[2024-04-08 13:11] LABS: TSH reflex Free T4 1.42 uIU/mL (0.32-4.0); Vitamin D 25-OH Total 19.7 ng/mL (>30)
[2024-04-08 13:25] LABS: Folate 10.1 ng/mL (> or = 4.0); Vitamin B12 489 pg/mL (200-900)
== END 2024-04-08 11:25 | disposition home or self-care (01) ==
LOC: HO.LAB 11:24
PROVIDERS: Absent Provider Internal Medicine; PCP Internal Medicine; Visit Provider Internal Medicine
DX: R74.8 Abnormal levels of other serum enzymes (principal); K76.0 Fatty (change of) liver, not elsewhere classified; K75.4 Autoimmune hepatitis; E78.00 Pure hypercholesterolemia, unspecified; R30.0 Dysuria; E53.8 Deficiency of other specified B group vitamins; E55.9 Vitamin D deficiency, unspecified; D64.9 Anemia, unspecified; E11.9 Type 2 diabetes mellitus without complications
CPT/HCPCS: 36415; 80053; 80061; 80076; 81003; 82043; 82248; 82306; 82570; 82607; 82746; 83036; 84443; 85025

== ENCOUNTER 2024-04-19 14:59 | Outpatient (AMB) | payer OTHER, SELFPAY ==
--- NOTE | 2024-04-19 15:05 | A.OFFPC_ITS ---
Vital Signs 04/19/24 15:07 Height 5 ft 2 in Weight 143 lb 6 oz BMI 26.2 BP 128/64 Blood Pressure Location Lt brachial Position Sitting Pulse 74 Pulse Source Pulse Oximeter Pulse Oximetry (%) 99 Oxygen Delivery Method Room Air Intake Visit Reasons: 3mth f/u Intake Note: Patient is here to follow up on DM, HTN, HLD, LDDD. Full Decator Operator Required: No [employer] Rep: Not Required per policy Accompanied by: Self / Same As Patient Allergies propranolol Allergy (Intermediate, Verified 04/19/24 15:45) Anxiety amoxicillin Allergy (Unknown, Verified 04/19/24 15:45) Rash glipizide Allergy (Unknown, Verified 04/19/24 15:45) unknown latex [LATEX] Allergy (Unknown, Verified 04/19/24 15:45) UNKNOWN levofloxacin Allergy (Unknown, Verified 04/19/24 15:45) Unknown liraglutide [From VICTOZA] Allergy (Unknown, Verified 04/19/24 15:45) UNKNOWN, itching metformin [METFORMIN] Allergy (Unknown, Verified 04/19/24 15:45) DIARRHEA morphine [MORPHINE] Allergy (Unknown, Verified 04/19/24 15:45) ITCHING, rash Medication List - Last Reconciled 04/19/24 by George Jha MD blood sugar diagnostic (FreeStyle Lite Strips) 1 strip miscellaneous TID blood-glucose meter (FreeStyle Lite Meter kit) As directed buspirone 5 mg PO BID 30 days cyclobenzaprine 5 mg PO BID PRN fluticasone propionate 50 mcg/actuation 2 sprays intranasal DAILY glimepiride 2 mg PO QAM hydralazine 10 mg PO TID 30 days ibuprofen 600 mg PO Q6H PRN ibuprofen 800 mg PO Q8H PRN [incontinence liners 4 times per day] [incontinence wipes As directed] insulin degludec (Tresiba FlexTouch U-100 insulin) 22 units subcut BEDTIME lamotrigine 100 mg PO BID lancets (FreeStyle Lancets) As directed-to test sugars Three times a day lidocaine 5% (Lidoderm) 1 patch topical DAILY losartan 100 mg PO DAILY meclizine 25 mg PO TID PRN pen needle, diabetic As directed pen needle, diabetic As directed daily inject 4 x a day rosuvastatin 20 mg PO DAILY 90 days tirzepatide (Mounjaro) mg subcut tramadol 50 mg PO TID PRN Tobacco use date assessed: 04/19/24 Fall risk assessment: No Falls in past year Last assessed Fall Risk: 04/19/24 Dental Screening Dental Screen Date: 01/12/24 HPI 3mth f/u HPI Details Patient comes in today for her follow up visit States that she feels okay She denies any headaches or dizziness Denies any chest pains, no SOB No nausea/vomiting, no abdominal pain No change in bowel habits noted Needs her Fluticasone nasal spray and Tramadol Rx refilled Had her follow up labs done a couple of weeks ago - to discuss her results ON LICENSE OF [facility] Medical History (Updated 07/01/24 @ 00:42 by George Jha MD) Vitamin D deficiency Overweight (BMI 25.0-29.9) Ear pain Ear drainage Right shoulder pain Functional urinary incontinence COVID-19 Encounter to discuss test results Memory loss Urinary incontinence Chest pain Colon cancer screening Annual physical exam Diabetes Type 2 diabetes mellitus with hyperglycemia Epigastric pain Dizziness Vertigo Upper abdominal pain Screening for tuberculosis Low back pain Preoperative examination Right hip pain Right low back pain Primary osteoarthritis of shoulder Memory loss or impairment Bursitis of right shoulder Bursitis of left shoulder Primary osteoarthritis, right shoulder Anxiety Varicose veins of both lower extremities Allergic rhinitis Elevated LFTs Primary osteoarthritis of left shoulder Lumbar degenerative disc disease Benign essential hypertension Type 2 diabetes mellitus without complications Mixed hyperlipidemia Surgical History History of appendectomy History of cholecystectomy History of cystoscopy History of tubal ligation Family History Father Cancer Mother Diabetes Maternal Uncle Cancer Maternal Grandfather Cancer Social History Housing: Apartment Alcohol intake: former Patient Tobacco Use Status: Never used Tobacco e-Cigarette/Vaping Use: Never Used Second Hand Smoke Exposure: Yes service: No Current occupational status: unemployed Cognitive needs: No Hearing needs: No Vision needs: No Questionnaire Thrive Questionnaire Date Thrive assessed: 01/12/24 NIEVES-7 AMB Questionnaire NIEVES-7 Date NIEVES - 7 assessed: 01/12/24 Source: Developed by Drs. Juanito Moscoso, Shea Michel, Russell Ott and colleagues, with an educational peace from [employer]. Review of Systems Const Denies chills, Denies fatigue, Denies fever(s) and Denies headache(s) ENT Denies dysphagia, Denies dizziness, Denies otalgia, Denies headache(s), Denies neck pain, Denies odynophagia, Denies tinnitus and Denies sore throat Card Denies chest pain, Denies palpitations and Denies dyspnea Resp Denies cough and Denies dyspnea GI Denies abdominal pain, Denies constipation, Denies dysphagia, Denies heartburn, Denies diarrhea, Denies nausea, Denies odynophagia and Denies vomiting Denies difficulty voiding, Denies nocturia, Denies dysuria, Reports urinary incontinence and Denies urinary urgency Musc Reports back pain (increased, especially over the right lower back), Denies neck pain and Reports radiating pain into limb (into the right hip and right thigh) Skin/Breast Denies rash Neuro Denies dizziness, Denies headache(s) and Reports memory loss (has tendency to do things lately and not remember them) Psych Reports anxiety (increasing), Reports depression and Reports memory loss (has tendency to do things lately and not remember them) Endo Denies fatigue and Denies palpitations Physical exam (Primary Care) Vital Signs: Last Vital Signs Pulse 74 04/19/24 15:07 BP 128/64 04/19/24 15:07 Pulse Ox 99 04/19/24 15:07 Oxygen Delivery Method Room Air 04/19/24 15:07 BMI result Body Mass Index 26.2 Tobacco/Smoking Status: Tobacco use Status Tobacco use date assessed 04/19/24 04/19/24 15:19 Patient Tobacco Use Status Never used Tobacco 04/19/24 15:19 e-Cigarette/Vaping Use Never Used 04/19/24 15:19 Thrive Assessment: Date of Thrive Assessment Date Thrive assessed 01/12/24 04/19/24 15:19 Const General: no acute distress and alert HENMT Ears: TM's normal bilaterally and EAC's normal Throat: Yes posterior oropharynx normal and Yes tonsils normal (no TP congestion) Neck Neck: Yes no lymphadenopathy and Yes supple Thyroid: Thyroid normal Resp Auscultation: clear to auscultation bilaterally, no rales and no wheezes Cardio Rate: regular rate Rhythm: regular rhythm Heart sounds: no murmurs GI Palpation (GI): Soft to palpation and nontender Auscultation: normal bowel sounds General: Yes no CVA tenderness Back/Spine/Pelvis Back: no CVA tenderness Thoracic/Lumbar Spine: lumbar spinal tenderness Sacroiliac joints: on the right tender to palpation Skin Rashes: no rashes Extrem General: Yes no clubbing, cyanosis or edema Right lower extremity: hip/thigh Details: tenderness Location: of the hip Location: anterolaterally Results Reviewed Results Reviewed: Laboratory Tests 04/08/24 04/08/24 11:34 11:54 WBC 7.1 Hgb 13.8 Hct 38.8 Plt Count 183 Sodium 143 Potassium 4.7 Creatinine 0.86 Estimated GFR > 60 Fasting Glucose 218 H Hemoglobin A1c % 7.8 H Calcium 10.6 H AST 14 ALT 13 Triglycerides 179 H Cholesterol 120 LDL Cholesterol, Calc 50 HDL Cholesterol 35 L Vitamin B12 489 25-OH Vitamin D Total 19.7 L TSH 1.42 Ur Specific [place] 1.010 Urine Protein Negative Urine Glucose (UA) Negative Urine Blood Negative Urine Nitrite Negative Ur Leukocyte Esterase Negative Microalb/Creat Ratio 8.0 Assessment and Plan Assessment & Plan (1) Mixed hyperlipidemia: Code(s): E78.2 - Mixed hyperlipidemia Plan: Results of her labs done a couple of weeks ago reviewed and discussed with patient - is advised that her serum triglyceride level has improved further from previous Continue Rosuvastatin 20 mg QD - she was taken off Atorvastatin in the past due to significantly elevated LFTs while on the Rx but appears to be tolerating Rosuvastatin without any issues Reinforced low cholesterol diet Will recheck her labs and fasting lipids in 3 months for follow up (2) Type 2 diabetes mellitus without complications: Code(s): E11.9 - Type 2 diabetes mellitus without complications Qualifiers: Diabetes mellitus technician terminal and repeater insulin use: without half-way use Qualified Code(s): E11.9 - Type 2 diabetes mellitus without complications Plan: Her HgbA1c was at 7.8% on her labs done a couple of weeks ago (was at 8.3% a few months ago) - goal is <7.0% Reinforced diabetic diet Continue Glimepiride 2 mg QD and Mounjaro 2.5 mg SQ once a week; will increase her Tresiba from 20 units to 22 units Q HS She was also on Jardiance 10 mg QD and Tradjenta 5 mg QD in the past but these were stopped and she was switched over to Mounjaro Follow up with [facility] as scheduled (3) Benign essential hypertension: Code(s): I10 - Essential (primary) hypertension Plan: Reinforced low sodium diet - goal is systolic BP of at least 130 mm or less Continue Losartan 100 mg QD Patient is reminded to continue monitoring her blood pressure regularly (4) Dizziness: Code(s): R42 - Dizziness and giddiness Plan: Unclear etiology although this appears to have quieted down lately She was seen by neurology for this and for her recent memory impairment, as well as by ENT She also reportedly had an MRI of the brain done in [place] about 2 to 3 months ago - will try to obtain a copy of her MRI results for review Continue Meclizine 25 mg TID PRN (5) Elevated LFTs: Code(s): R79.89 - Other specified abnormal findings of blood chemistry Plan: Patient had an abdominal ultrasound with liver elastography done a few months ago for further evaluation - ultrasound came back mostly unremarkable except for mild hepatic steatosis Her LFTs have remained NORMAL on her recent labs - will continue to monitor her LFTs regularly Follow up with GI (Dr. Viramontes) as scheduled (6) Vitamin D deficiency: Code(s): E55.9 - Vitamin D deficiency, unspecified Plan: Patient is advised that her Vitamin D level was low on her recent labs Will start her on Vitamin D3 2000 units QD (7) Right hip pain: Code(s): M25.551 - Pain in right hip Plan: X-rays of the right hip done back in October 2023 revealed (+) mild osteoarthritis of the pubic symphysis with borderline loss of joint space and sclerosis along the left greater than right sacroiliac joints with some loss of the left sacroiliac joint space suggesting osteoarthritis or sacroiliitis Have recommended to patient that she should see orthopedics or try physical therapy or both to help address her hip and lower back issues (8) Right low back pain: Code(s): M54.50 - Low back pain, unspecified Qualifiers: Chronicity: chronic Sciatica presence: unspecified whether sciatica present Qualified Code(s): M54.50 - Low back pain, unspecified; G89.29 - Other chronic pain Plan: Right SI joint x-rays done back in October 2023 revealed (+) sclerosis along the left greater than right sacroiliac joints with some loss of the left sacroiliac joint space suggesting osteoarthritis or sacroiliitis Lumbar spine x-rays done back in June 2023 revealed (+) diffuse mild to moderate lumbar disc and lower lumbar facet degenerative change with mild right lateral listhesis L3 over L4, mild retrolisthesis L3 over L4 with mild curvature of the lumbar spine convex to the right Continue Tramadol 50 mg TID PRN for pain As she now feels that her pain is getting worse and Tramadol has not been helping much, will refer her to pain management (9) Anxiety: Code(s): F41.9 - Anxiety disorder, unspecified Plan: She was on Citalopram 40 mg QD and Hydroxyzine 10 mg TID PRN for anxiety previously but it appears that patient is no longer taking these Is currently on Lamictal 25 mg BID Follow up with psychiatry as scheduled (10) Overweight (BMI 25.0-29.9): Code(s): E66.3 - Overweight Plan: Reinforced diet/exercise as tolerated/lose weight Plan Follow up in 3 months Orders: Orders 2 Complete Blood Count Auto Diff 3 Months D64.9 - Anemia, unspecified Comprehensive [place]. Panel Fast 3 Months E78.00 - Pure hypercholesterolemia, u nspecified Hemoglobin A1c 3 Months E11.9 - Type 2 diabetes mellitus without complications UA CC w/rflx Micro + Cult 3 Months R30.0 - Dysuria Lipid Panel 3 Months E78.00 - Pure hypercholesterolemia, unspecified Microalbumin, Random (w Creat) 3 Months E11.9 - Type 2 diabetes mellitus without complications Referrals Pain Management Referral M54.50 - Low back pain, unspecified Medications: New cholecalciferol (vitamin D3) 50 mcg PO DAILY 90 caps 3RF 90 days E55.9 - Vitamin D deficiency, unspecified Changed From Tresiba FlexTouch U-100 20 units (0.2 mL) subcut BEDTIME 15 mL 3RF NS To insulin degludec (Tresiba FlexTouch U-100 insulin) 22 units subcut BEDTIME From fluticasone propionate 50 mcg/actuation 2 sprays intranasal DAILY To fluticasone propionate 50 mcg/actuation 2 sprays intranasal DAILY 16 grams 3RF Refilled tramadol 50 mg PO TID PRN 30 tabs 0RF pain Coding Level of Care Code Est Pt Level 4 (40021) Diagnoses Mixed hyperlipidemia E78.2 Type 2 diabetes mellitus without complication, without long-term current use of insulin E11.9 Diabetes mellitus technician terminal and repeater insulin use: without technician terminal and repeater use Benign essential hypertension I10 Dizziness R42 Elevated LFTs R79.89 Vitamin D deficiency E55.9 Right hip pain M25.551 Chronic right-sided low back pain, unspecified whether sciatica present M54.50; G89.29 Chronicity: chronic Sciatica presence: unspecified whether sciatica present Anxiety F41.9 Overweight (BMI 25.0-29.9) E66.3
[2024-04-19 15:07] VITALS: BP 128/64; PULSE 74; O2SAT 99; BMI 26.2
== END 2024-04-19 15:59 | disposition home or self-care (01) ==
PROVIDERS: PCP Internal Medicine; Visit Provider Internal Medicine
DX: E78.2 Mixed hyperlipidemia (principal); E11.9 Type 2 diabetes mellitus without complications; I10 Essential (primary) hypertension; R42 Dizziness and giddiness; R79.89 Other specified abnormal findings of blood chemistry; E55.9 Vitamin D deficiency, unspecified; M25.551 Pain in right hip; M54.50 Low back pain, unspecified; G89.29 Other chronic pain; F41.9 Anxiety disorder, unspecified; E66.3 Overweight
CPT/HCPCS: 99214

== ENCOUNTER 2024-04-23 08:51 | Outpatient (REF) | payer OTHER, SELFPAY ==
--- NOTE | ~2024-04-23 | US_ITS ---
EXAMINATION: US COMPLETE ABDOMEN WITH LIVER ELASTOGRAPHY CLINICAL INFORMATION: Hepatitis and fatty liver. COMPARISON: None available. TECHNIQUE: Real-time imaging of the abdominal viscera. Noninvasive ultrasound liver fibrosis assessment is performed using Aaliyah ElastPQ point quantification shear wave elastography (2D-SWE) with a C5-2 MHz transducer. Multiple elastography samples are obtained. FINDINGS: PANCREAS: Normal. The visualized pancreatic head and body are normal in appearance. The remainder of the pancreas is obscured from visualization by the overlying bowel gas. ABDOMINAL AORTA: The proximal segment is normal in caliber. The mid and distal segments are poorly visualized due to overlying bowel gas. INFERIOR VENA CAVA: Visualized portions are normal. LIVER: The liver demonstrates normal size, contour and increased echogenicity. No focal lesion or intrahepatic biliary duct dilatation. The right lobe measures 14.7 cm in length. The left lobe measures 12.1 cm in length. Portal flow is towards the liver (hepatopetal). Shear wave liver elastography median stiffness is 1.5 m/s (reference: normal median stiffness is 1.3 m/s or less). IQR/median stiffness to assess sampling precision is 0.07 (reference: good quality data set is IQR/median stiffness of 0.15 or less). GALLBLADDER: Normal. The gallbladder is physiologically distended without evidence of stones, sludge, polyps, wall thickening or pericholecystic fluid. COMMON BILE DUCT: Normal in caliber measuring 0.4 cm in diameter. RIGHT KIDNEY: Normal. No hydronephrosis. No renal calculi or focal parenchymal lesions. The kidney measures 10.6 cm in maximum dimension. LEFT KIDNEY: Normal. No hydronephrosis. No renal calculi or focal parenchymal lesions. The kidney measures 10.0 cm in maximum dimension. SPLEEN: Normal. The spleen measures 9.1 cm in maximum dimension. FREE FLUID: None. US/US abdomen comp w elastography IMPRESSION: 1. There is generalized increase in hepatic echotexture, consistent with fatty infiltration or hepatocellular disease. Please correlate clinically. No focal hepatic mass or intrahepatic biliary dilatation is seen. 2. Liver elastography: In the absence of other known clinical signs, measurements rule out compensated advanced chronic liver disease. If there are known clinical signs, further testing may be needed for confirmation. 3. Technically limited ultrasound examination of the pancreas and abdominal great vessels. REFERENCE: Society of Radiologists in Ultrasound Liver Stiffness Thresholds (2020): LIVER STIFFNESS THRESHOLDS: *Liver Stiffness equal or less than 1.3 m/s: High probability of being normal. *Liver Stiffness less than 1.7 m/s: In the absence of other known clinical signs, rules out compensated advanced chronic liver disease. *Liver Stiffness 1.7-2.1 m/s: Suggestive of compensated advanced chronic liver disease but need further test for confirmation. *Liver Stiffness over 2.1 m/s: Rules in compensated advanced chronic liver disease. *Liver Stiffness over 2.4 m/s: Suggestive of clinically significant portal hypertension. QUALITY OF DATA SET: *IQR/Median value equal or less than 0.15 implies a quality data set. *IQR/Median value over 0.15 implies a poor quality data set. SIGNIFICANT CHANGE FROM PRIOR EXAM: Significant change if liver stiffness measurement is 10% or greater from prior exam. OTHER CONSIDERATIONS: The stage of liver fibrosis may be overestimated in the setting of acute hepatitis, liver inflammation, elevated liver function tests, hepatic vascular congestion, obstructive cholestasis, non-fasting state, and infiltrative diseases such as amyloidosis and lymphoma. In some patients with NAFLD, the liver stiffness thresholds for compensated advanced chronic liver disease may be lower. In causes other than viral hepatitis and NAFLD, liver stiffness thresholds are not well established.
== END 2024-04-23 08:52 | disposition home or self-care (01) ==
LOC: HO.US 08:51
PROVIDERS: PCP Internal Medicine; Visit Provider Internal Medicine
DX: R74.8 Abnormal levels of other serum enzymes (principal); K76.0 Fatty (change of) liver, not elsewhere classified
CPT/HCPCS: 76700; 76981

== ENCOUNTER 2024-08-13 09:59 | Outpatient (REF) | payer OTHER, SELFPAY ==
[2024-08-13 10:12] LABS: MANUAL DIFF FLAG NO
[2024-08-13 10:23] LABS: Basophils Percent Auto 0.2 % (0-2); Eosinophils Absolute Auto 0.2 X10*3/uL (0.0-0.4); Eosinophils Percent Auto 3.7 % (0-4); Hematocrit 36.2 % (37.0-47.0); Hemoglobin 12.6 g/dl (12.0-16.0); Imm Gran Abs Auto 0.02 X10*3/uL (0.00-0.03); Imm Gran Pct Auto 0.3 % (0.0-0.4); Lymphocytes Absolute Auto 2.3 X10*3/uL (1.2-4.9); Lymphocytes Percent Auto 39.2 % (20-40); Mean Corpuscular HGB Conc 34.8 g/dl (31.0-35.0); Mean Corpuscular Hemoglobin 29.9 pg (27.0-33.0); Mean Corpuscular Volume 85.8 fL (80.0-98.0); Mean Platelet Volume 8.6 fL (9.4-12.3); Monocytes Absolute Auto 0.5 X10*3/uL (0.1-1.2); Monocytes Percent Auto 8.2 % (2-11); Neutrophils Absolute Auto 2.8 x10*3/uL (2.0-8.3); Neutrophils Percent Auto 48.4 % (45-73); Platelet Count 188 X10*3/uL (160-400); Red Blood Count 4.22 X10*6/uL (4.20-5.50); Red Cell Distribution Width 12.3 % (11.0-16.0); White Blood Count 5.7 X10*3/uL (4.8-10.8)
[2024-08-13 10:47] LABS: Appearance Urine Clear; Color Urine Yellow; Glucose Urine UA Negative (Negative); Leukocyte Esterase Urine Negative (Negative); Nitrite Urine Negative (Negative); PH 5.5 (5.0-9.0); Specific Gravity - Urine 1.015 (1.005-1.025); Urine Blood Negative (Negative); Urine Ketones Negative (Negative); Urine Protein Negative (Neg-Trace)
[2024-08-13 10:58] LABS: Estimated Average Glucose 163 mg/dL; Hemoglobin A1C 177.5802 umol/L; Hemoglobin A1c % 7.3 % (<6.0); Total Hemoglobin (HGBA1C) 3183.4875 umol/L
[2024-08-13 11:12] LABS: Alanine Aminotransferase 16 U/L (0-31); Albumin Level 4.3 g/dL (3.5-5.0); Alkaline Phosphatase 52 U/L (39-117); Anion Gap 11 (12-20); Aspartate Amino Transferase 14 U/L (5-31); Bilirubin Total 0.3 mg/dL (0.0-1.0); Blood Urea Nitrogen 15 mg/dL (9-16); Calcium 10.4 mg/dL (8.4-10.2); Carbon Dioxide 28 mmol/L (22-29); Chloride 108 mmol/L (96-108); Cholesterol 117 mg/dL (<200); Estimated Glomerular Filt Rate 52; Glucose Fasting 143 mg/dL (60-99); HDL Cholesterol 34 mg/dL (>40); LDL Cholesterol Calculated 51 mg/dL (<100); Potassium 4.5 mmol/L (3.3-5.1); Sodium 142 mmol/L (135-145); Total Protein 7.1 g/dL (6.5-8.0); Triglycerides 160 mg/dL (<150)
[2024-08-13 12:02] LABS: Creatinine Urine 133.41 mg/dL; Microalbum/Creatinine Ratio Ur 11.9 ug/mg cr (<30)
== END 2024-08-13 10:00 | disposition home or self-care (01) ==
LOC: HO.LAB 09:59
PROVIDERS: PCP Internal Medicine; Visit Provider Internal Medicine
DX: D64.9 Anemia, unspecified (principal); E78.00 Pure hypercholesterolemia, unspecified; E11.9 Type 2 diabetes mellitus without complications; R30.0 Dysuria
CPT/HCPCS: 36415; 80053; 80061; 81003; 82043; 82570; 83036; 85025

== ENCOUNTER 2024-08-19 10:58 | Outpatient (AMB) | payer OTHER, SELFPAY ==
[2024-08-19 11:12] VITALS: BP 110/60; PULSE 70; O2SAT 97; BMI 26.0
--- NOTE | 2024-08-19 11:12 | A.OFFPC_ITS ---
Vital Signs 08/19/24 11:12 Height 5 ft 2 in Weight 142 lb 2 oz BMI 26.0 BP 110/60 Blood Pressure Location Lt brachial Position Sitting Pulse 70 Pulse Source Pulse Oximeter Pulse Oximetry (%) 97 Oxygen Delivery Method Room Air Intake Visit Reasons: 3mth f/u- w/ A1C Mattress Filler Required: No Accompanied by: Self / Same As Patient Allergies propranolol Allergy (Intermediate, Verified 08/19/24 11:46) Anxiety amoxicillin Allergy (Unknown, Verified 08/19/24 11:46) Rash glipizide Allergy (Unknown, Verified 08/19/24 11:46) unknown latex [LATEX] Allergy (Unknown, Verified 08/19/24 11:46) UNKNOWN levofloxacin Allergy (Unknown, Verified 08/19/24 11:46) Unknown liraglutide [From VICTOZA] Allergy (Unknown, Verified 08/19/24 11:46) UNKNOWN, itching metformin [METFORMIN] Allergy (Unknown, Verified 08/19/24 11:46) DIARRHEA morphine [MORPHINE] Allergy (Unknown, Verified 08/19/24 11:46) ITCHING, rash atorvastatin Adverse Reaction (Intermediate, Verified 08/20/24 04:18) elevated LFTs Medication List - Last Reconciled 08/19/24 by George Jha MD blood sugar diagnostic (FreeStyle Lite Strips) 1 strip miscellaneous TID blood-glucose meter (FreeStyle Lite Meter kit) As directed buspirone 5 mg PO BID 30 days cholecalciferol (vitamin D3) 50 mcg PO DAILY 90 days cyclobenzaprine 5 mg PO BID PRN fluticasone propionate 50 mcg/actuation 2 sprays intranasal DAILY glimepiride 2 mg PO QAM hydralazine 10 mg PO TID 30 days ibuprofen 800 mg PO Q8H PRN [incontinence liners 4 times per day] [incontinence wipes As directed] insulin degludec (Tresiba FlexTouch U-100 insulin) 22 units (0.22 mL) subcut BEDTIME lamotrigine 100 mg PO BID lancets (FreeStyle Lancets) As directed-to test sugars Three times a day lidocaine 5% (Lidoderm) 1 patch topical DAILY losartan 100 mg PO DAILY meclizine 25 mg PO TID PRN pen needle, diabetic As directed pen needle, diabetic As directed daily inject 4 x a day rosuvastatin 20 mg PO DAILY 90 days tirzepatide (Mounjaro) 5 mg subcut QWEEK tramadol 50 mg PO TID PRN Tobacco use date assessed: 08/19/24 Fall risk assessment: No Falls in past year Last assessed Fall Risk: 08/19/24 Dental Screening Dental Screen Date: 08/19/24 Did you have a dental visit in the last 12 months?: Yes Did you have a dental problem in the last 6 months where you did not have access to dental care?: No Was dental information given to patient?: Patient has dentist HPI 3mth f/u- w/ A1C HPI Details Patient comes in today for her follow up visit States that she has been experiencing increased pain over her right lower back for the past few weeks, with frequent radiation of the pain down her right leg She denies any recent injury or trauma to her lower back Adds that she is still experiencing increased anxiety despite her current Rx - states that her Buspirone is only helping her slightly Patient states that she has also been experiencing on and off dizziness lately and feels that her blood pressure gets too low at times She denies any headaches Denies any chest pains, no increased shortness of breath No nausea/vomiting, no abdominal pain No change in bowel habits noted She needs her Tresiba Rx refilled today She had her follow-up labs done last week - to discuss her results [facility] Medical History (Updated 08/20/24 @ 04:29 by George Jha MD) Dizziness Overweight (BMI 25.0-29.9) Vitamin D deficiency Ear pain Ear drainage Right shoulder pain Functional urinary incontinence COVID-19 Encounter to discuss test results Memory loss Urinary incontinence Chest pain Colon cancer screening Annual physical exam Diabetes Type 2 diabetes mellitus with hyperglycemia Epigastric pain Vertigo Upper abdominal pain Screening for tuberculosis Low back pain Preoperative examination Right hip pain Right low back pain Primary osteoarthritis of shoulder Memory loss or impairment Bursitis of right shoulder Bursitis of left shoulder Primary osteoarthritis, right shoulder Anxiety Varicose veins of both lower extremities Allergic rhinitis Elevated LFTs Primary osteoarthritis of left shoulder Lumbar degenerative disc disease Benign essential hypertension Type 2 diabetes mellitus without complications Mixed hyperlipidemia Surgical History History of appendectomy History of cholecystectomy History of cystoscopy History of tubal ligation Family History Father Cancer Mother Diabetes Maternal Uncle Cancer Maternal Grandfather Cancer Social History Housing: Apartment Alcohol intake: former Patient Tobacco Use Status: Never used Tobacco e-Cigarette/Vaping Use: Never Used Second Hand Smoke Exposure: Yes service: No Current occupational status: unemployed Cognitive needs: No Hearing needs: No Vision needs: No Questionnaire PHQ-9 Over the last 2 weeks, how often have you been bothered by any of the following problems? 1. Little interest or pleasure in doing things: nearly every day 2. Feeling down, depressed, or hopeless: nearly every day 3. Trouble falling or staying asleep, or sleeping too much: nearly every day 4. Feeling tired or having little energy: nearly every day 5. Poor appetite or overeating: nearly every day 6. Feeling bad about yourself - or that you are a failure or have let yourself or your family down: more than half the days 7. Trouble concentrating on things, such as reading the newspaper or watching television: more than half the days 8. Moving or speaking so slowly that other people could have noticed. Or the opposite - being so fidgety or restless that you have been moving around a lot more than usual: more than half the days 9. Thoughts that you would be better off or of hurting yourself in some way: not at all Total score: 21 Depression Screening Interpretation: Positive Depression Screening Follow-up: Existing condition and In treatment Depression Screening Done: Yes 60299 - PHQ-9 Billing: Yes Source: Developed by Drs. Juanito Moscoso, Shea Michel, Russell Ott and colleagues, with an educational peace from [employer]. Thrive Questionnaire Date Thrive assessed: 08/19/24 I am a: Patient What is your living situation today?: I have a steady place to live Within the past 12 months, did the food you bought not last and you didn't have the money to get more?: Never true Within the past 12 months, did you worry whether your food would run out before you got money to buy more?: Never true Do you have trouble paying for medicines?: No Do you have trouble getting transportation to medical appointments?: No Do you have trouble paying your heating and electricity bill?: No Do you have trouble taking care of your child, family member or friend?: No Do you have trouble with day-to-day activities such as bathing, preparing meals, shopping, managing finances, etc.?: No Are you currently unemployed and looking for a job?: No Are you interested in more education?: No Please select the resources that you would like help with: None Currently or been in a relationship where the following occur: No concerns reported THRIVE Score: 0 AUDIT C Alcohol Use Questionnaire (AUDIT-C) 1. How often do you have a drink containing alcohol?: Never 3. How often do you have six or more drinks on one occasion?: Never Total Score: 0 Score Reviewed/Action Taken: Yes NIEVES-7 AMB Questionnaire NIEVES-7 Date NIEVES - 7 assessed: 08/19/24 Feeling nervous, anxious, or on edge: 0 = Not at all Not being able to stop or control worryin = Not at all Worrying too much about different things: 0 = Not at all Trouble relaxin = Not at all Being so restless that it is hard to sit still: 0 = Not at all Becoming easily annoyed or irritable: 0 = Not at all Feeling afraid as if something awful might happen: 0 = Not at all Total NIEVES-7 score (0-4 normal; 5-9 mild; 10-14 moderate; 15-21 severe): 0 Source: Developed by Drs. Juanito Moscoso, Shea Michel, Russell Ott and colleagues, with an educational peace from [employer]. Review of Systems Const Denies chills, Reports fatigue, Denies fever(s) and Denies headache(s) ENT Denies dysphagia, Reports dizziness (on and off), Denies otalgia, Denies headache(s), Denies neck pain, Denies odynophagia and Denies sore throat Card Denies chest pain, Denies palpitations and Denies dyspnea Resp Denies cough and Denies dyspnea GI Denies abdominal pain, Denies constipation, Denies dysphagia, Denies heartburn, Denies diarrhea, Denies nausea, Denies odynophagia and Denies vomiting Denies difficulty voiding, Denies nocturia, Denies dysuria, Reports urinary incontinence and Denies urinary urgency Musc Reports back pain (increased, especially over the right lower back), Denies neck pain and Reports radiating pain into limb (into the right hip and right thigh) Skin/Breast Denies rash Neuro Reports dizziness (on and off), Denies headache(s) and Reports memory loss (has tendency to do things lately and not remember them) Psych Reports anxiety (increased), Reports depression and Reports memory loss (has tendency to do things lately and not remember them) Endo Reports fatigue and Denies palpitations Physical exam (Primary Care) Vital Signs: Last Vital Signs Pulse 70 08/19/24 11:12 BP 110/60 08/19/24 11:12 Pulse Ox 97 08/19/24 11:12 Oxygen Delivery Method Room Air 08/19/24 11:12 BMI result Body Mass Index 26.0 Tobacco/Smoking Status: Tobacco use Status Tobacco use date assessed 08/19/24 08/19/24 11:18 Patient Tobacco Use Status Never used Tobacco 08/19/24 11:18 e-Cigarette/Vaping Use Never Used 08/19/24 11:18 PHQ-9: PHQ-9 Score PHQ-9: Total score 21 08/19/24 11:54 Depression Screening Interpretation: Positive Depression Screening Follow-up: Existing condition and In treatment Thrive Assessment: Date of Thrive Assessment Date Thrive assessed 08/19/24 08/19/24 11:18 Currently or been in a relationship where the following occur: No concerns reported Const General: no acute distress and alert HENMT Ears: TM's normal bilaterally and EAC's normal Throat: Yes posterior oropharynx normal and Yes tonsils normal (no TP congestion) Neck Neck: Yes no lymphadenopathy and Yes supple Thyroid: Thyroid normal Resp Auscultation: clear to auscultation bilaterally, no rales and no wheezes Cardio Rate: regular rate Rhythm: regular rhythm Heart sounds: no murmurs GI Palpation (GI): Soft to palpation and nontender Auscultation: normal bowel sounds General: Yes no CVA tenderness Back/Spine/Pelvis Back: no CVA tenderness Thoracic/Lumbar Spine: paraspinal muscle tenderness on the right in the mid lumbar and in the lower lumbar and lumbar spinal tenderness Sacroiliac joints: on the right tender to palpation Skin Rashes: no rashes Extrem General: Yes no clubbing, cyanosis or edema Right lower extremity: hip/thigh Details: tenderness Location: of the hip Location: anterolaterally Results Reviewed Results Reviewed: Laboratory Tests 08/13/24 08/13/24 10:10 10:11 WBC 5.7 Hgb 12.6 Hct 36.2 L Plt Count 188 Sodium 142 Potassium 4.5 Creatinine 1.04 Estimated GFR 52 Fasting Glucose 143 H Hemoglobin A1c % 7.3 H Calcium 10.4 H AST 14 ALT 16 Triglycerides 160 H Cholesterol 117 LDL Cholesterol, Calc 51 HDL Cholesterol 34 L Ur Specific [place] 1.015 Urine Protein Negative Urine Glucose (UA) Negative Urine Blood Negative Urine Nitrite Negative Ur Leukocyte Esterase Negative Microalb/Creat Ratio 11.9 Coding Level of Care Code Est Pt Level 4 (35389) Complex EM visit Add On G2211 Diagnoses Type 2 diabetes mellitus without complication, without long-term current use of insulin E11.9 Diabetes mellitus mcfp insulin use: without mcfp use Mixed hyperlipidemia E78.2 Benign essential hypertension I10 Dizziness R42 Elevated LFTs R79.89 Vitamin D deficiency E55.9 Degeneration of intervertebral disc of lumbar region with discogenic back pain and lower extremity pain M51.362 Disc-related pain type: discogenic back pain and lower extremity pain Primary osteoarthritis of right hip M16.11 Osteoarthritis type: primary Anxiety F41.9 Overweight (BMI 25.0-29.9) E66.3 Assessment & Plan Assessment & Plan (1) Type 2 diabetes mellitus without complications: Code(s): E11.9 - Type 2 diabetes mellitus without complications Category: Medical Qualifiers: Diabetes mellitus inside sales representative insulin use: without inside sales representative use Qualified Code(s): E11.9 - Type 2 diabetes mellitus without complications Plan: HgbA1c was at 7.3% on her labs done last week (HgbA1c was at 7.8% a few months ago in April 2024) - goal is <7.0% Reinforced diabetic diet Continue Glimepiride 2 mg QD, Mounjaro 5 mg SQ once a week and Tresiba 22 units Q HS (Rx refilled) Follow up with [facility] as scheduled (2) Mixed hyperlipidemia: Code(s): E78.2 - Mixed hyperlipidemia Category: Medical Plan: Results of her labs done last week reviewed and discussed with patient - she is advised that her serum triglyceride level has improved further from previous Reinforced low cholesterol diet Continue Rosuvastatin 20 mg QD (she had elevated LFTs while on Atorvastatin in the past) Will recheck her labs and fasting lipids in 3 months for follow up (3) Benign essential hypertension: Code(s): I10 - Essential (primary) hypertension Category: Medical Plan: Reinforced low sodium diet - goal is systolic BP of at least 130 mm or less Continue Losartan 100 mg QD; will have her cut back on her Hydralazine 10 mg TID to BID dosing to see if this will help address her issues of dizziness as her BP appears much lower today than previous Patient is reminded to continue monitoring her blood pressure regularly (4) Dizziness: Code(s): R42 - Dizziness and giddiness Category: Medical Plan: Unclear etiology She was seen by neurology for this and for her recent memory impairment, as well as by ENT She also reportedly had an MRI of the brain done in [place] a few months ago - will try to obtain a copy of her MRI results for review Continue Meclizine 25 mg TID PRN We are also cutting back on her Hydralazine 10 mg TID to BID dosing to see if th is will help - her BP today appears much lower than they have been in the past (5) Elevated LFTs: Code(s): R79.89 - Other specified abnormal findings of blood chemistry Category: Medical Plan: Abdominal ultrasound with liver elastography done a few months ago came back mostly unremarkable except for mild hepatic steatosis Her LFTs have remained NORMAL on her recent labs - will continue to monitor her LFTs regularly Follow up with GI (Dr. Viramontes) as scheduled (6) Vitamin D deficiency: Code(s): E55.9 - Vitamin D deficiency, unspecified Category: Medical Plan: Continue Vitamin D3 2000 units QD (7) Lumbar degenerative disc disease: Code(s): M51.36 - Other intervertebral disc degeneration, lumbar region Category: Medical Qualifiers: Disc-related pain type: discogenic back pain and lower extremity pain Qualified Code(s): M51.362 - Other intervertebral disc degeneration, lumbar reg ion with discogenic back pain and lower extremity pain Plan: Lumbar spine x-rays done back in June 2023 revealed (+) diffuse mild to moderate lumbar disc and lower lumbar facet degenerative change with mild right lateral listhesis L3 over L4, mild retrolisthesis L3 over L4 with mild curvature of the lumbar spine convex to the right Right SI joint x-rays done back in October 2023 revealed (+) sclerosis along the left greater than right sacroiliac joints with some loss of the left sacroiliac joint space suggesting osteoarthritis or sacroiliitis She was previously referred to pain management but it did not look like she went for her appt a few months ago Will send her for repeat lumbar spine x-rays for further evaluation Continue Tramadol 50 mg TID PRN for pain for now and if this is not really helping much anymore, will pursue pain management referral again (8) Osteoarthritis of right hip: Code(s): M16.11 - Unilateral primary osteoarthritis, right hip Category: Medical Qualifiers: Osteoarthritis type: primary Qualified Code(s): M16.11 - Unilateral primary osteoarthritis, right hip Plan: Right hip x-rays done back in October 2023 revealed (+) mild osteoarthritis of the pubic symphysis with borderline loss of joint space and sclerosis along the left greater than right sacroiliac joints with some loss of the left sacroiliac joint space suggesting osteoarthritis or sacroiliitis Have recommended to patient that she should see orthopedics or try physical therapy or both to help address her hip and lower back issues (9) Anxiety: Code(s): F41.9 - Anxiety disorder, unspecified Category: Medical Plan: She was on Citalopram 40 mg QD and Hydroxyzine 10 mg TID PRN for anxiety previously but she is no longer taking these - unclear as to why but they could have been discontinued by psychiatry Continue Lamictal 25 mg BID; will increase her Buspirone from 5 mg BID to 10 mg BID Follow up with psychiatry as scheduled (10) Overweight (BMI 25.0-29.9): Code(s): E66.3 - Overweight Category: Medical Plan: Reinforced diet/exercise as tolerated/lose weight Plan Follow up in 3 months Orders: Orders Microalbumin, Random (w Creat) 3 Months E11.9 - Type 2 diabetes mellitus without complications Lipid Panel 3 Months E78.00 - Pure hypercholesterolemia, unspecified XR lumbar spine 2-3V 08/19/24 M54.50 - Low back pain, unspecified Comprehensive Manter. Panel Fast 3 Months E78.00 - Pure hypercholesterolemia, unspecified Complete Blood Count Auto Diff 3 Months D64.9 - Anemia, unspecified Hemoglobin A1c 3 Months E11.9 - Type 2 diabetes mellitus without complications UA CC w/rflx Micro + Cult 3 Months R30.0 - Dysuria Medications: Changed From buspirone 5 mg PO BID 30 days 60 tabs 1RF F41.1 - Generalized anxiety disorder To buspirone 10 mg PO BID 30 days 60 tabs 1RF F41.1 - Generalized anxiety disorder From hydralazine 10 mg PO TID 30 days 90 tabs 1RF To hydralazine 10 mg PO BID 30 days 60 tabs 1RF Refilled insulin degludec (Tresiba FlexTouch U-100 insulin) 22 units (0.22 mL) subcut BEDTIME 15 mL 2RF
== END 2024-08-19 11:58 | disposition home or self-care (01) ==
PROVIDERS: PCP Internal Medicine; Visit Provider Internal Medicine
DX: E11.9 Type 2 diabetes mellitus without complications (principal); E78.2 Mixed hyperlipidemia; I10 Essential (primary) hypertension; R42 Dizziness and giddiness; R79.89 Other specified abnormal findings of blood chemistry; E55.9 Vitamin D deficiency, unspecified; M51.362 Other intervertebral disc degeneration, lumbar region with discogenic back pain and lower extremity pain; M16.11 Unilateral primary osteoarthritis, right hip; F41.9 Anxiety disorder, unspecified; E66.3 Overweight

== ENCOUNTER → 2024-08-19 10:58 | Outpatient (BNVA) | payer OTHER, SELFPAY | PROVIDERS: PCP Internal Medicine; Visit Provider Internal Medicine | DX: E11.9 Type 2 diabetes mellitus without complications (principal); E78.2 Mixed hyperlipidemia; I10 Essential (primary) hypertension; R42 Dizziness and giddiness; R79.89 Other specified abnormal findings of blood chemistry; E55.9 Vitamin D deficiency, unspecified; M51.362 Other intervertebral disc degeneration, lumbar region with discogenic back pain and lower extremity pain; M16.11 Unilateral primary osteoarthritis, right hip; F41.9 Anxiety disorder, unspecified; E66.3 Overweight | CPT/HCPCS: 96127; 99212 ==

== ENCOUNTER 2024-08-20 13:11 | Outpatient (REF) | payer OTHER, SELFPAY ==
--- NOTE | ~2024-08-20 | XR_ITS ---
EXAMINATION: XR LUMBOSACRAL SPINE CLINICAL INFORMATION: Low back pain COMPARISON: Radiographs 06/17/2023 TECHNIQUE: Three views of the lumbosacral spine. FINDINGS: Mild scoliosis with a normal lumbar lordosis. Moderate degenerative disc disease at L3-L4 with slight retrolisthesis, similar to the previous study. Mild degenerative disc disease throughout the remainder of the lumbar spine. No fracture. Mild bilateral sacroiliac osteoarthritis. XR/XR lumbar spine 2-3V IMPRESSION: Moderate L3-L4 degenerative disc disease with slight retrolisthesis, similar to the previous study. No acute abnormality. Mild scoliosis. No significant change Electronically signed by: Marek Espinoza MD 09/15/2024 08:39 AM JUANA
== END 2024-08-20 13:12 | disposition home or self-care (01) ==
LOC: HO.XRAY 13:11
PROVIDERS: PCP Internal Medicine; Visit Provider Internal Medicine
DX: M54.50 Low back pain, unspecified (principal)
CPT/HCPCS: 72100

== ENCOUNTER 2024-10-05 18:19 | Outpatient (REF) | payer OTHER, SELFPAY ==
--- OUTSIDE RECORDS SUMMARY | 2024-10-12 15:58 | XMS_ITS | Continuity of Care Document ---
Author Organization [facility] [address] [place] [address] Phone [phone] Care Team Providers Care Early Childhood Education Coordinator Name Role Phone Abhijeet George Care Team Information Integration Assistant [phone] Problems Active Problems Provider Date Type 2 diabetes mellitus LIA Berg Onse t: 10/22/2023 Anxiety LIA Berg Onset: 2022 Benign essential hypertension LIA Berg Onset: 10/22/2023 Mixed hyperlipidemia LIA Berg Onset: 1 12/23/2022 Social History Type Date Description Comments Sex Unknown Marital Status Has been 1 time Lives With Alone Work Status Disabled Tobacco Use Start: Unknown Never Smoked Cigarettes Smoking Status Reviewed: 10/22/23 Never Smoked Cigaret bertha ETOH Use Rarely consumes alcohol Exercise Type/Frequency Exercises rarely Allergies and adverse reactions Active Allergies Criticality Reaction Severity Comments Date Amoxicillin Unable to assess criticality 10/22/2023 Glipizide Unable to assess criticality 10/22/2023 Levofloxacin Unable to assess criticality 10/22/2023 Liraglutide Unable to assess criticality 10/22/2023 Metformin Unable to assess criticality 10/22/2023 Morphine Unable to assess criticality 10/22/2023 Medications Active Medications SIG Qnty Indications Order ing Provider Date Freestyle Gerardo 2/Union/Flash Glucose Monitoring [id number] Device use as directed with sensors DX e11.9 1carlo Blanca M.D. 2024 Freestyle Gerardo 2/Sensor/Flash Glucose Monitoring [id number] Misc 1 sensor to skin every fourteen days DX E11.9 6unalyssa Blanca M.D. 2024 Dggypchs6jg/0.5ML Solution Pen-Inject Inject 5 MG Subcutaneously Once Weekly. dxE11.9 2ml E11.9 Odilia Blanca M.D. 02/25/2024 E66.3 Z68.27 Meclizine EWK74jr Tablets Take 1 Tablet By Mouth Three Times A Day as Needed For Dizziness Abhijeet, [place] 0 Tramadol QPC55da Tablets Take 1 Tablet B y Mouth Three Times A Day as Needed For Pain Abhijeet, George Rosuvastatin Jjbftfn41zh Tablets Take 1 Tablet Orally Daily For 90 Days Abhijeet, [place] Jhiqnkwxzbh8em Tablets Take 1 Tablet By Mouth Every Day In The Morning Abhijeet, [place] Tresiba [id number]/ML Solution Pen-Inject Inject 20 Unit (0.2 ML) Subcutaneously Bedtime Abhijeet, [place] 000 Freestyle Lite TestStrips Use To Test 3 Times Daily [facility] [id number] Tablets Take 1 Tablet By Mouth Every 6 Hours as Needed For Pain Unknown Fthrpratsjw27wm Tablets Take 2 Tablets B y Mouth Twice A Day For 90 Days Jil Lorenzo MD History Medications Mounjaro2.5mg/0.5ML Solution Pen-Inject inject 2.5 mg subcutaneously once weekly. 2ml Odilia Blanca M.D. 03/18/2024 - 08/30/2024 Freestyle Gerardo 3/Sensor/Glucose Monitoring [id number] [facility] [place] as [place] 3units Odilia Blanca M.D. 03/11/2024 - 2024 Mounjaro2.5mg/0.5ML Solution Pen-Inject Inject 2.5 MG Subcutaneously Once Weekly. 1ml E11. 9 Odilia Blanca M.D. 10/23/2023 - 02/25/2024 Vital Signs Date Vital Result Comment 07/16/2024 3:01pm BP Systolic 128 mmHg BP Diastolic 60 mmHg Heart Rate 98 /min Height 61 inches 5'1 Weight 142.00 lb BMI (Body Mass Index) 26.8 kg/m2 Results Test Acquired Date Facility Test Result H/L [facility] Laboratory test finding 07/16/2024 Inhouse Glucose Fingerstick 164 Hemoglobin A1c 7.6% Laboratory test finding 04/15/2024 Inhouse Glucose Fingerstick 311 Hemoglobin A1c 8.0% Laboratory test finding 02/25/2024 Inhouse Glucose Fingerstick 206 Laboratory test finding 01/14/2024 Inhouse Glucose Fingerstick 213 Hemoglobin A1c 8.7% Laboratory test finding 10/22/2023 Inhouse Glucose Fingerstick 235 Medical Devices Description No Information Available Encounters Type Date Location Provider Dx Diagnosis Office Visit 07/16/2024 3:00p Main Office LIA Berg E11.9 Type 2 diabet es mellitus without complications Z79.4 halfway (current) use of insulin Assessments Date Code Description Provider 07/16/2024 E11.9 Type 2 diabetes mellitus wit hout complications LIA Berg 07/16/2024 Z79.4 halfway (current) use of i nsulin LIA Berg Plan of Treatment Future Appointment(s):* 10/15/2024 2:45 pm - LIA Berg at Main Office 07/16/2024 - LIA Berg* E11.9 Type 2 diabetes mellitus without complications * 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
== END 2024-10-05 18:20 | disposition home or self-care (01) ==
LOC: HO.MRI 18:19
PROVIDERS: PCP Internal Medicine; Visit Provider Registered Nurse
DX: G40.209 Localization-related (focal) (partial) symptomatic epilepsy and epileptic syndromes with complex partial seizures, not intractable, without status epilepticus (principal)
CPT/HCPCS: 70551

== ENCOUNTER 2024-10-15 10:22 | Outpatient (REF) | payer OTHER, SELFPAY ==
[2024-10-15 11:43] LABS: Appearance Urine Clear; Color Urine Yellow; Glucose Urine UA Negative (Negative); Leukocyte Esterase Urine Trace (Negative); Nitrite Urine Negative (Negative); PH 5.5 (5.0-9.0); Specific Gravity - Urine <= 1.005 (1.005-1.025); UMIC TRIGGER UACC YES; Urine Blood Negative (Negative); Urine Ketones Negative (Negative); Urine Protein Negative (Neg-Trace)
[2024-10-15 11:46] LABS: Bacteria Urine None Seen (None Seen); Hyaline Casts Urine 0-2 /LPF (0-2); RBC Urine 0-2 /HPF (0-2); Squamous Epithelial Cell Urine 0-2 /HPF (0-2); WBC Urine 0-5 /HPF (0-5)
== END 2024-10-15 10:23 | disposition home or self-care (01) ==
LOC: HO.LAB 10:22
PROVIDERS: PCP Internal Medicine; Visit Provider Internal Medicine
DX: R30.0 Dysuria (principal)
CPT/HCPCS: 81001

== ENCOUNTER 2024-10-28 13:59 | Outpatient (RCR) | payer OTHER, SELFPAY ==
--- NOTE | 2024-10-15 13:59 | MHC.PT.EP ---
[facility] [place] [facility] [address] Marquita Reid [address] [phone] F: [phone] F: [phone] F: [phone] F: [phone] Physical Therapy Plan of Care Date of Evaluation: 10/15/24 Date of Surgery: N/A Diagnosis: facet arthritis, degenerative, lumbar spine (RL) Assessment: pt is a 69 y/o male presenting to physical therapy w/ referring diagnosis of facet arthritis, degenerative, lumbar spine. Impairments include pain, decreased range of motion, decreased strength, impaired functional mobility, impaired postural awareness, and altered ambulation mechanics. pt is a fair candidate for skilled PT due to age, potential remediation of impairments, typical disease/condition progression and prognosis, comorbidities, and motivation. pt would benefit from skilled PT intervention to provide a tailored strengthening and stretching exercise program, functional training, gait training, postural re-training, neuromuscular re-education, modalities as needed for pain, equipment safety demonstration. Frequency and Duration: The patient will be seen 2x/wk for 4 wks Short Term Goals: pt will be I w/ HEP to promote self-management of condition. pt will demo proper sitting posture w/ lumbar roll to promote neutral spine w/ seated ADLs. Longterm Goals: pt will report a statistically significant improvement in self-reported outcome measure, Destiny, to promote return to PLOF. pt will improve lumbar flexion to 75% to promote ease in lower body ADLs. Treatment Plan: Modalities to reduce pain, spasms and effusion. Manual therapy to restore motion and function. Therapeutic exercise to improve strength and flexibility. Neuromuscular re-education for posture and balance. Therapeutic activities to return to functional activities of daily living. Electronically signed by: Nikki Horan PT, DPT Please sign and return to therapist. Thank you for your referral.
--- NOTE | 2024-11-08 12:59 | MHC.PT.DC ---
[facility] [place] [facility] [place] [facility] [place] Office [address] Marquita Reid [address] [phone] F: [phone] F: [phone] F: [phone] F: [phone] Physical Therapy Discharge Report Diagnosis: facet arthritis, degenerative, lumbar spine (RL) Date of Surgery: N/A Date of Evaluation: 10/15/24 Date of Discharge: 11/08/24 Treatments to Date: 4 Cancellations to Date: 1 No Shows to Date: 2 Discharge Status: Visit Non-compliance Discharge Summary: The patient has no showed two consecutive appointments. Per [facility] Therapy attendance policy she is being discharged for non-compliance. Electronically signed by: Nikki Horan PT, DPT Please sign and return to therapist. Thank you for your referral.
== END 2024-11-08 12:59 | disposition home or self-care (01) ==
LOC: HO.PT 13:59
PROVIDERS: PCP Internal Medicine; Visit Provider Internal Medicine
DX: M47.816 Spondylosis without myelopathy or radiculopathy, lumbar region (principal)
CPT/HCPCS: 97110; 97162

== ENCOUNTER 2025-01-24 14:56 | Outpatient (REF) | payer OTHER, SELFPAY ==
--- OUTSIDE RECORDS SUMMARY | 2025-01-24 17:53 | XMS_ITS ---
Author Organization [facility] Address [address] [place] [address] Care Team Providers Care Career Services Manager Name Role Phone Red Jha MDneth Primary Care Provider Juanito Tafoya Unavailable [phone] Allergies Allergen (clinical drug ingredient) Drug/Non Drug Allergy documented on EMR Reaction Allergy Type Onset Date Status acetaminophen Tylenol Unknown Drug Allergy Act iram Latex Latex (uncoded) Unknown Allergy Acti ve Medications Medication SIG (Take, Route, Frequency, Duration) Notes Start Date End Date Status Glimepiride 2 MG Oral for 90 A ctive lamoTRIgine 25 MG Oral for 30 Active Tradjenta 5 MG Oral for 90 Not -Taking Ibuprofen 600 MG TK 1 T PO Oral prn Active Citalopram Hydrobromide 20 MG TAKE 1 TABLET BY MOUTH DAILY Oral for 30 Active Omeprazole 20 MG TAKE ONE CAPSULE BY MOUTH EVERY DAY Oral Not-Taking Losartan Potassium 100 MG TAKE 1 TABLET EVERY DAY Oral for 90 Active Mounjaro 2.5 MG/0.5ML INJECT 2.5 MG SUBCUTANEOUSLY WEEKLY Subcutaneous for 28 Active hydrALAZINE HCl 10 MG Oral for 30 Active Atorvastatin Calcium 80 MG TAKE 1 TABLET AT BEDTIME Oral for 90 Not-Taking busPIRone HCl 5 MG Oral for 90 Active Tresiba FlexTouch 100 UNIT/ML Subcutaneous for 75 Active Rosuvastatin Calcium 20 MG TAKE 1 TABLET ORALLY DAILY FOR 90 DAYS Oral for 90 Active traMADol HCl 50 MG Oral for 7 Active Meclizine HCl 25 MG Oral for 10 Active Vital Signs Blood pressure systolic 000 mm Hg 04/14/20 24 Blood pressure diastolic 00 mm Hg 024 Height 61 in 04/14/2024 Weight 143 lbs 04/14/2024 BMI 27.02 kg/m2 04/14/2024 Encounters Encounter Location Date Provider Diagnosis [facility] [address] [place] [address] 04/14/2024 Juanito Viramontes Elevated liver enzym es R74.8 ; Fatty liver K76.0 ; History of adenomatous polyp of colon Z86.010 ; Colon cancer screening Z12.11 and Autoimmune hepatitis K75.4 Assessments Encounter Date Diagnosis (ICD Code) Assessment Notes Treatment Notes Treatment Clinical Notes Section Notes 04/14/2024 Elevated liver enzymes (ICD-10 - R74.8) Overall, Cara appears quite well. Her continued normal LFTs are reassuring and at this point, given the clinical scenario, her previously elevated LFTs were most likely in relation to her other statin medication rather than a pure autoimmune hepatitis. We did review this and at this point I don't think she needs any specific treatment for the previous issue with her liver. I did recommend that she continue to have periodic LFTs, particularly while on her current statin medication. I shall check abdominal ultrasound, alpha-fetoprote in level, a liver fibrosis panel and repeat liver profile as well. If things remain stable I will plan to see her in one year for a followup visit. We did review that she'll be due for a followup colonoscopy for screening in 2027 as well. I did advise her to call me prior to the next office visit if she has any problems or questions I can be of assistance with. Cara was comfortable with this plan. Thank you again for allowing me to participate in Cara's care. I shall continue to keep you advised of her progress. 04/14/2024 Fatty liver (ICD-10 - K76.0) Overall, Cara appears quite well. Her continued normal LFTs are reassuring and at this point, given the clinical scenario, her previously elevated LFTs were most likely in relation to her other statin medication rather than a pure autoimmune hepatitis. We did review this and at this point I don't think she needs any specific treatment for the previous issue with her liver. I did recommend that she continue to have periodic LFTs, particularly while on her current statin medication. I shall check abdominal ultrasound, alpha-fetoprote in level, a liver fibrosis panel and repeat liver profile as well. If things remain stable I will plan to see her in one year for a followup visit. We did review that she'll be due for a followup colonoscopy for screening in 2027 as well. I did advise her to call me prior to the next office visit if she has any problems or questions I can be of assistance with. Cara was comfortable with this plan. Thank you again for allowing me to participate in Cara's care. I shall continue to keep you advised of her progress. 04/14/2024 History of adenomatous polyp of colon (ICD-10 - Z86.010) Overall, Cara appears quite well. Her continued normal LFTs are reassuring and at this point, given the clinical scenario, her previously elevated LFTs were most likely in relation to her other statin medication rather than a pure autoimmune hepatitis. We did review this and at this point I don't think she needs any specific treatment for the previous issue with her liver. I did recommend that she continue to have periodic LFTs, particularly while on her current statin medication. I shall check abdominal ultrasound, alpha-fetoprote in level, a liver fibrosis panel and repeat liver profile as well. If things remain stable I will plan to see her in one year for a followup visit. We did review that she'll be due for a followup colonoscopy for screening in 2027 as well. I did advise her to call me prior to the next office visit if she has any problems or questions I can be of assistance with. Cara was comfortable with this plan. Thank you again for allowing me to participate in Cara's care. I shall continue to keep you advised of her progress. 04/14/2024 Colon cancer screening (ICD-10 - Z12.11) Repeat colonoscopy in 2027 Overall, Cara appears quite well. Her continued normal LFTs are reassuring and at this point, given the clinical scenario, her previously elevated LFTs were most likely in relation to her other statin medication rather than a pure autoimmune hepatitis. We did review this and at this point I don't think she needs any specific treatment for the previous issue with her liver. I did recommend that she continue to have periodic LFTs, particularly while on her current statin medication. I shall check abdominal ultrasound, alpha-fetoprote in level, a liver fibrosis panel and repeat liver profile as well. If things remain stable I will plan to see her in one year for a followup visit. We did review that she'll be due for a followup colonoscopy for screening in 2027 as well. I did advise her to call me prior to the next office visit if she has any problems or questions I can be of assistance with. Cara was comfortable with this plan. Thank you again for allowing me to participate in Cara's care. I shall continue to keep you advised of her progress. 04/14/2024 Autoimmune hepatitis (ICD-10 - K75.4) Overall, Cara appears quite well. Her continued normal LFTs are reassuring and at this point, given the clinical scenario, her previously elevated LFTs were most likely in relation to her other statin medication rather than a pure autoimmune hepatitis. We did review this and at this point I don't think she needs any specific treatment for the previous issue with her liver. I did recommend that she continue to have periodic LFTs, particularly while on her current statin medication. I shall check abdominal ultrasound, alpha-fetoprote in level, a liver fibrosis panel and repeat liver profile as well. If things remain stable I will plan to see her in one year for a followup visit. We did review that she'll be due for a followup colonoscopy for screening in 2027 as well. I did advise her to call me prior to the next office visit if she has any problems or questions I can be of assistance with. Cara was comfortable with this plan. Thank you again for allowing me to participate in Cara's care. I shall continue to keep you advised of her progress. Plan Of Treatment Treatment Notes Assessment Notes Colon cancer screening Repeat colonoscop y in 2027 Pending Test Test Name Order Date LIVER PROFILE 04/14/2024 ALPHA-FETOPROTEIN,TUMOR MARKER 4 Liver Fibrosis Pnl 04/14/2024 US abdomen comp w elastography 4 Next Appt Details Follow Up: 1 Year, Reason: Provider Name:Juanito Viramontes , 04/15/2025 01:00:00 PM, [address], [address], [place], [address], Progress Notes * CARA SWEETDOB:[birth year] (68 yo F)Acc No.[id number]:04/14/2024 Progress Notes Patient:?CARA SWEET Provider:?Juanito Viramontes MD :1955???Age:68 Y???Sex:Female D ate:04/14/2024 Address:[address] [place] [address] [address] [facility] , [id number] Pcp:George Jha MD Subjective: * Chief Complaints: * ??? * HPI: ???incontinence:? I saw Cara in followup today in regard to her previously elevated LFTs with a diagnosis of autoimmune hepatitis versus drug-induced hepatitis from a previous statin medication. ?I last saw Cara in October of 2023. At that time she was feeling well and laboratories revealed a completely normal liver profile. At that time she was on a new statin, rosuvastatin, and appeared to be tolerating that without any recurrent elevation of her liver enzymes. Since I saw her in October she has continued to feel well. She enjoys a good appetite, without any heartburn or dysphagia. Her bowel movements have been regular and without any signs of bleeding. She denies abdominal pain, signs of jaundice, increasing abdominal girth, edema, pruritus, fatigue, nor unintentional weight loss. ?Laboratories from the middle of March revealed a normal CBC with platelet count, normal chemistries and renal function, and normal LFTs.. * ROS:?General/Constitutional:?Change in appetite?denies.?Chills?denies.?Fatigue?denies.?Ophthalmologic:?Comments?all negative.?ENT:?Comments?all negative.?Respiratory:?hemoptysis?denies.?Cough?denies.?Cardiovascular:?Chest pain?denies.?Orthopnea?denies.?Gastrointestinal:?Comments?See HPI for details.?Genitourinary:?Hematuria?denies.?Dysuria?denies.?Musculoskeletal:?Painful joints?denies.?Weakness?denies.?Skin:?Itching?denies.?Rash?denies.?Neurologic:?Headache?denies.?Seizures?denies.?Psychiatric:?Comments?all negative.? * Medical History:? * Surgical History:?Cholecyste ctomy Tubal ligation Bladder suspension,rectal/vaginal surgery at the same time as well-rectocele Appy Cataract surgery * Hospitalization/Major Diagno stic Procedure:?No Hospitalization History. * Family History:?Father: dece ased.?Mother: , diagnosed with HTN (hypertension), Diabetes.?Siblings: alive.? No colorectal cancer in 1st degree relatives. * Social History:?Tobacco Use:?Tobacco Use/Smoking?Are you a: nonsmoker.?Drugs/Alcohol:?Alcohol Screen?Points: 1, Interpretation: Negative.?Miscellaneous:?Marital status: . Occupation: unemployed. ???Nonsmoker; no significant alcohol use. * Medications:?TakingLosartan Potassium 100 MG Tablet TAKE 1 TABLET EVERY DAY Oral Citalopram Hydrobromide 20 MG Tablet TAKE 1 TABLET BY MOUTH DAILY Oral Ibuprofen 600 MG Tablet TK 1 T PO Oral prnlamoTRIgine 25 MG Tablet Oral Glimepiride 2 MG Tablet Oral Meclizine HCl 25 MG Tablet Oral traMADol HCl 50 MG Tablet Oral Rosuvastatin Calcium 20 MG Tablet TAKE 1 TABLET ORALLY DAILY FOR 90 DAYS Oral hydrALAZINE HCl 10 MG Tablet Oral Mounjaro 2.5 MG/0.5ML Solution Pen-injector INJECT 2.5 MG SUBCUTANEOUSLY WEEKLY Subcutaneous Tresiba FlexTouch 100 UNIT/ML Solution Pen-injector Subcutaneous busPIRone HCl 5 MG Tablet Oral Taking Losartan Potassium 100 MG Tablet TAKE 1 TABLET EVERY DAY Oral Taking Citalopram Hydrobromide 20 MG Tablet TAKE 1 TABLET BY MOUTH DAILY Oral Taking Ibuprofen 600 MG Tablet TK 1 T PO Oral prnTaking lamoTRIgine 25 MG Tablet Oral Taking Glimepiride 2 MG Tablet Oral Taking Meclizine HCl 25 MG Tablet Oral Taking traMADol HCl 50 MG Tablet Oral Taking Rosuvastatin Calcium 20 MG Tablet TAKE 1 TABLET ORALLY DAILY FOR 90 DAYS Oral Taking hydrALAZINE HCl 10 MG Tablet Oral Taking Mounjaro 2.5 MG/0.5ML Solution Pen- injector INJECT 2.5 MG SUBCUTANEOUSLY WEEKLY Subcutaneous Taking Tresiba FlexTouch 100 UNIT/ML Solution Pen-injector Subcutaneous Taking busPIRone HCl 5 MG Tablet Oral Not-Taking/PRNTradjenta 5 MG Tablet Oral Atorvastatin Calcium 80 MG Tablet TAKE 1 TABLET AT BEDTIME Oral Omeprazole 20 MG Capsule Delayed Release TAKE ONE CAPSULE BY MOUTH EVERY DAY Oral Not-Taking/PRN Tradjenta 5 MG Tablet Oral Not-Taking/PRN Atorvastatin Calcium 80 MG Tablet TAKE 1 TABLET AT BEDTIME Oral Not-Taking/PRN Omeprazole 20 MG Capsule Delayed Release TAKE ONE CAPSULE BY MOUTH EVERY DAY Oral DiscontinuedLantus SoloStar 100 UNIT/ML Solution Pen-injector Subcutaneous Jardiance 10 MG Tablet Oral Propranolol HCl 10 MG Tablet Oral Medication List reviewed and reconciled with the patientDiscontinued Lantus SoloStar 100 UNIT/ML Solution Pen-injector Subcutaneous Discontinued Jardiance 10 MG Tablet Oral Discontinued Propranolol HCl 10 MG Tablet Oral Medication List reviewed and reconciled with the patient * Allergies:?TylenolLatexyes[A llergies Verified] Objective: * Vitals:?Wt:143 lbs, Ht: 61 i n, BMI:27.02 Index, BP:000/00 mm Hg. * Examination: ???General Examination: ?GENERAL APPEARANCE:?pleasant, well nourished, well developed, in no acute distress.?EYES:?sclera non-icteric.?ORAL CAVITY:?mucosa moist.?NECK/THYROID:?no cervical lymphadenopathy, neck supple.?SKIN:?nonjaundiced, no spider angiomata.?HEART:?S1, S2 normal.?LUNGS:?clear to auscultation bilaterally.?ABDOMEN:?normal bowel sounds, no guarding or rigidity, no guarding or rigidity, no masses palpable, soft, nontender, nondistended.?EXTREMITIES:?no edema.?NEUROLOGIC:?alert and oriented.? Assessment: * Assessment: 1.?Elevated liver enzymes - R74.8 (Primary)?2.?Fatty liver - K76.0?3.?History of adenomatous polyp of colon - Z86.010?4.?Colon cancer screening - Z12.11?5.?Autoimmune hepatitis - K75.4? Overall, Cara appears quite well. Her continued normal LFTs are reassuring and at this point, given the clinical scenario, her previously elevated LFTs were most likely in relation to her other statin medication rather than a pure autoimmune hepatitis. We did review this and at this point I don't think she needs any specific treatment for the previous issue with her liver. I did recommend that she continue to have periodic LFTs, particularly while on her current statin medication. I shall check abdominal ultrasound, alpha-fetoprotein level, a liver fibrosis panel and repeat liver profile as well. If things remain stable I will plan to see her in one year for a followup visit. We did review that she'll be due for a followup colonoscopy for screening in 2027 as well. I did advise her to call me prior to the next office visit if she has any problems or questions I can be of assistance with. Cara was comfortable with this plan. Thank you again for allowing me to participate in Cara's care. I shall continue to keep you advised of her progress. Plan: * Treatment: * 2.?Fatty liver?LAB: LIVER PROFILE ?LAB: ALPHA-FETOPROTEIN,TUMOR MARKER ?LAB: Liver Fibrosis Pnl ?Imaging: US abdomen comp w elastography* sched for 04/23/24 at 9:00 am [facility] [place] [place] 2nd floor fasting 8 hrs prior * 3.?Colon cancer screening? Notes: Repeat colonoscopy in 2027??4.?Autoimmune hepatitis?LAB: LIVER PROFILE ?LAB: ALPHA-FETOPROTEIN,TUMOR MARKER ?LAB: Liver Fibrosis Pnl ?Imaging: US abdomen comp w elastography* sched for 04/23/24 at 9:00 am [facility] [place] [place] 2nd floor fasting 8 hrs prior * * Procedure Codes:?3017F COLOR ECTAL CA SCREEN DOC [id number] TOBACCO [id number] BP SCR NOT PRFRM REC REASON NOS * Preventive Medicine:? ??Counseling:?Care goal follow-up plan:?Above Normal BMI Follow-up?Giving encouragement to exercise,?BMI management provided?Yes.? ??Urinary Incontinence:?Urinary Incontinence?Assessment:?Present,?Plan of care documented:?Yes,?Type of plan of care:?Lifestyle interventions.? * Follow Up:?1 Year * * Sign off status: Completed true * Provider:?Juanito Viramontes MD Date:? 024 Generated for Fritzi moi/Andie/Rudi on:?01/24/2025 05:53 PM EDT History and Physical Notes * HPI (History of Present Illness) Category Sub-Category Detail Notes Category Not es incontinence I saw Cara in followup today in regard to her previously elevated LFTs with a diagnosis of autoimmune hepatitis versus drug-induced hepatitis from a previous statin medication. I last saw Cara in October of 2023. At that time she was feeling well and laboratories revealed a completely normal liver profile. At that time she was on a new statin, rosuvastatin, and appeared to be tolerating that without any recurrent elevation of her liver enzymes. Since I saw her in October she has continued to feel well. She enjoys a good appetite, without any heartburn or dysphagia. Her bowel movements have been regular and without any signs of bleeding. She denies abdominal pain, signs of jaundice, increasing abdominal girth, edema, pruritus, fatigue, nor unintentional weight loss. Laboratories from the middle of March revealed a normal CBC with platelet count, normal chemistries and renal function, and normal LFTs.. Examination Category Sub-Category Detail Notes Category Not es General Examination GENERAL APPEARANCE: pleasant , well nourished, well developed, in no acute distress HEAD: EYES: sclera non-icteric EARS: NOSE: THROAT: NECK/THYROID: no cervical lymphade nopathy, neck supple HEART: S1, S2 normal CHEST: LUNGS: clear to auscultatio n bilaterally ABDOMEN: normal bowel sounds, no guarding or rigidity, no guarding or rigidity, no masses palpable, soft, nontender, nondistended NEUROLOGIC: alert and oriented SKIN: nonjaundiced, no spi jung angiomata EXTREMITIES: no edema PERIPHERAL PULSES: BACK: BREASTS: MUSCULOSKELETAL: MALE GENITOURINARY: LYMPH NODES: RECTAL EXAM: FEMALE GENITOURINARY: ORAL CAVITY: mucosa moist
--- OUTSIDE RECORDS SUMMARY | 2025-01-24 17:53 | XMS_ITS | Data Portability ---
Author Organization [employer] [place] [employer] Address [address] [place] [id number] Care Team Providers Care Pocketbook Maker Name Role Phone [facility] Referring Provider Assessment No assessment recorded. Plan of Treatment Reminders Order Date Submit Date Provider Last Modified By Organization Details Last Modified Time Details Appointments None record ed. Lab None record ed. Referral None record ed. Procedures None record ed. Surgeries None record ed. Imaging None record ed. Medication Orders None record ed. Patient TargetsNo targets recorded. Patient InstructionsNo instructions recorded. Reason for Referral None Reported. Medical Equipment None Reported. Medications Name Sig Start Date Stop Date Status Note LastModified by Organization Details LastModified Time atorvastatin 80 mg tablet TAKE 1 TABLET ORALLY AT BEDTIME active Not Available Not Available No t Available citalopram 40 mg tablet TAKE 1 TABLET BY MOUTH EVERY DAY active Not Available Not Available No t Available acetazolamid e 125 mg tablet TAKE 1 TABLET BY MOUTH TWICE A DAY NEEDED FOR VERTIGO FOR 10 DAYS active Not Available Not Available No t Available citalopram 10 mg tablet TAKE 1 TABLET BY MOUTH EVERY DAY active Not Available Not Available No t Available glimepiride 2 mg tablet TAKE 1 TABLET BY MOUTH EVERY MORNING WITH BREAKFAST active Not Available Not Available No t Available lamotrigine 25 mg tablet TAKE 2 TABLETS BY MOUTH TWICE A DAY FOR 90 DAYS active Not Available Not Available No t Available meclizine 25 mg tablet TAKE 1 TABLET BY MOUTH THREE TIMES A DAY NEEDED DIZZINESS active Not Available Not Available No t Available cephalexin 500 mg capsule TAKE 1 CAPSULE BY MOUTH THREE TIMES A DAY FOR 7 DAYS active Not Available Not Available N ot Available mirtazapine 15 mg tablet TAKE 1/2 TABLET BY MOUTH EVERY DAY AT BEDTIME active Not Available Not Available No t Available ibuprofen 600 mg tablet TAKE 1 TABLET BY MOUTH EVERY 6 HOURS NEEDED FOR PAIN active Not Available Not Available No t Available losartan 100 mg tablet TAKE 1 TABLET BY MOUTH EVERY DAY active Not Available Not Available No t Available fluticasone propionate 50 mcg/actuatio n nasal spray,suspen layo SPRAY 2 SPRAYS INTO EACH NOSTRIL EVERY DAY active Not Available Not Available No t Available Laxative (bisacodyl) 5 mg tablet,delay ed release TAKE 2 TABLETS BY MOUTH TWICE A DAY AT 3PM AND 7PM FOR 1 DAY. active Not Available Not Available N ot Available cyclobenzapr ine 5 mg tablet TAKE 1 TABLET BY MOUTH TWICE A DAY NEEDED FOR MUSCLE SPASM active Not Available Not Available No t Available duloxetine 20 mg capsule,jamari yed release TAKE 1 CAPSULE BY MOUTH EVERYDAY AT BEDTIME active Not Available Not Available No t Available BD Ultra-Fine Mini Pen Needle 31 gauge x 3/16 DIRECTED DAILY INJECT 4 X A DAY active Not Available Not Available No t Available FreeStyle Lite Strips USE TO TEST 3 TIMES DAILY active Not Available Not Available No t Available Lantus Solostar U-100 Insulin 100 unit/mL (3 mL) subcutaneous pen INJECT 20 UNITS EVERY EVENING active Not Available Not Available No t Available Gavilax 17 gram/dose oral powder MIX 238 GRAM BOTTLE WITH GATORADE OR CRYSTAL LIGHT,DINK BY MOUTH BEGIN AT 5PM DAY BEFORE PROCEDURE active Not Available Not Available No t Available Tradjenta 5 mg tablet TAKE 1 TABLET BY MOUTH EVERY DAY active Not Available Not Available No t Available Jardiance 10 mg tablet TAKE 1 TABLET BY MOUTH DAILY active Not Available Not Available Not Available Tresiba FlexTouch U-100 insulin 100 unit/mL (3 mL) subcutaneous pen INJECT 20 UNIT (0.2 ML) SUBCUTANEOU SLY BEDTIME active Not Available Not Available Not Available Vitals Date Recorded Body height Body temperature Heart rate Oxygen saturation Oxygen saturation in Arterial blood by Pulse oximetry Body weight Respiratory rate Systolic blood pressure Diastolic blood pressure Provider Name and Address Organization Details Last Updated DateTime 2 157.48 cm 97.8 [degF] 68 /min 100 % 100 % 93246.2 88 g 18 /min 149 mm[Hg] 88 mm[Hg] Not Available [employer] - production 2 19:32:11 Social History None recorded. Functional Status None recorded. Mental Status None recorded. Family History Nothing Reported. Medical History No medical history recorded. Gynecological HistoryNo gynecological history recorded. Obstetrics History GPAL:G 0 P 0 0 0 0 Past Encounters Encounter ID Performer Location Encounter Start Date Encounter Closed Date Diagnosis/Indication Diagnosis SNOMED-CT Code Diagnosis ICD10 Code Diagnosis Note [id number] Azar Sweeney MD Main - [address] [phone] 07/17/2022 19:32:01 07/29/2022 13:06:51 Chest pain 78680596 R07.[address]-T wave changes. Chest pain related to anxiety in past. Non-exerti onal. DIscussed red flag symptoms to indicate calling 911. Health Concerns Section Related Observation LastModified by Organization Detai ls LastModified Time None Recorded Concern Status LastModified by Organization Details LastModified Time None Recorded Advance Directives Directive None Recorded Payers Encounter Date Sequence Insurance Name Policy Number Policy Hernandez Covered Member ID Hernandez Member ID Guarantor Name 07/17/2022 1 [facility] [place] - DOS PRIOR TO 2023 - DUAL ELIGIBLE (MEDICARE REPLACEMENT/ADV ANTAGE - HMO) Cara Husain [id number] Cara Husain Notes Date Note Type Note Provider Name and Address Organization Details Recorded Time 07/17/2022 text/html [facility] Nursing Assessment: Reason For Request: Patient 1 hour ago was experiencing high blood pressure. Patient's son described a crisis attack where patient was having chest pain and trouble breathing alongside the high blood pressure. Chief Complaints: Shortness of Breath/Dyspnea, Chest Pain, Hypertension, Anxiety PMH: Diabetes, Hypertension Allergies: Unknown Comments: Call to son, no answer VM left. Call to member, she answered, she is very teary and anxious. She does not want to go to the ED. She took her BP about 30 min ago and it was 186/106, per member takes losartan in the morning. She did have chest pain, none during phone call, she also experienced some dizziness but has subsided at this time, denies vision changes. Member would like to be evaluated. .................. .................. .................. .................. .................. .................. .................. ............... Cultural Centre Manager Note: Sent to a call for a pt complaining of hypertension, cp, and dizziness. [facility] arrives on scene, pt is found lying on couch. Pt is alert and oriented. Airway is patent. Pt complains of hypertension, cp, and vertigo. Pt states she has been under a lot of stress lately. Pt states she has a history of anxiety, and was diagnosed with vertigo, and started meclizine recently. Pt states all these factors trigger panic attacks, and today caused her to hyperventilate, become hypertensive, and triggered left side chest pain. Pt is currently calm, and in no respiratory distress. Pt took 1/2 losartan tablet after noting hypertension at 186/106. Pt states cp decreased from 08/12 to 01/10. Pt denies any headache, dizziness(other than vertigo), sob, n/v/d, abd pain, fever, or loc. Chest pain is not reproducible and nothing makes it better or worse. BP:149/88, P:68, RR:18, SpO2:100% RA, T:97.8, B; Lung sounds: clear bilaterally; Abdomen: soft, non-tender, no distention; Skin: pink, warm, dry; Pt has been waiting for an appt with PCP regarding anxiety. 12 lead ECG: Sinus rhythm; Red flags discussed. Pt has no further questions. .................. .................. .................. .................. .................. .................. .................. ............... Disposition: Fulfilled note: EKG reviewed, hx per above Azar Sweeney MD [address] [facility],[address], [place], [address], [place] [employer] 07/17/2022 19:33:44 OBGyn Episode No OBEpisode recorded.
--- OUTSIDE RECORDS SUMMARY | 2025-01-24 17:53 | XMS_ITS | Continuity of Care Document ---
Author Organization [facility] [address] [place] [address] Phone [phone] Care Team Providers Care Bowling Ball Assembler Name Role Phone Abhijeet George Care Team Information Lead Auditor [phone] Problems Active Problems Provider Date Type 2 [...] Indications Order ing Provider Date Freestyle Gerardo 2/[place]/Flash Glucose Monitoring Fiqhgj9Vetgqe Device use as directed with sensors DX e11.9 1carlo Blanca M.D. 2024 Freestyle Gerardo 2/Sensor/Flash Glucose Monitoring Tbxqbw6Jvtskh Misc 1 sensor to skin every fourteen days DX E11.9 6unalyssa Blanca M.D. 2024 Epkqzpbe8hq/0.5ML Solution Pen-Inject Inject 5 MG Subcutaneously Once Weekly. dxE11.9 2ml E11.9 Odilia Blanca M.D. 02/25/2024 E66.3 Z68.27 Meclizine QWN90pr Tablets Take 1 Tablet By Mouth Three Times A Day as Needed For Dizziness Abhijeet, George 0 Tramadol GVW99gp Tablets Take 1 Tablet B y Mouth Three Times A Day as Needed For Pain Abhijeet, George Rosuvastatin Psurjym13dj Tablets Take 1 Tablet Orally Daily For 90 Days Abhijeet, George Gogwiatgydu3ig Tablets Take 1 Tablet By Mouth Every Day In The Morning Odilia Blanca M.D. Tresiba Afpojfolz575Hbyd/ML Solution Pen-Inject Inject 20 Unit (0.2 ML) Subcutaneously Bedtime Abhijeet, George 000 Freestyle Lite TestStrips Use To Test 3 Times Daily Abhijeet, Kenne Pekbmmdtd631os Tablets Take 1 Tablet By Mouth Every 6 Hours as Needed For Pain Unknown Qrvfeozuust85ww Tablets Take 2 Tablets B y Mouth Twice A Day For 90 Days Jil Lorenzo MD Divalproex Sodium MG627vc Tablets ER 24HR Jil Lorenzo MD History Medications Mounjaro2.5mg/0.5ML Solution Pen-Inject inject 2.5 mg subcutaneously once weekly. 2ml Odilia Blanca M.D. 03/18/2024 - 08/30/2024 Freestyle Gerardo 3/Sensor/Glucose Monitoring Zjhmva7Ptovdc [facility] as directed 3christianits Odilia Blanca M.D. 03/11/2024 - 2024 Vital Signs Date Vital Result Comment 10/15/2024 2:52pm BP Systolic 128 mmHg BP Diastolic 70 mmHg Heart Rate 78 /min Height 61 inches 5'1 Weight 142.50 lb BMI (Body Mass Index) 26.9 kg/m2 Results Test Acquired Date Facility Test Result H/L Range N ote Glucose Fingerstick 10/15/2024 Inhouse Glucose Fingerstick 230 Hemoglobin A1c 10/15/2024 Inhouse Hemoglobin A1c 7.7% Glucose Fingerstick 07/16/2024 Inhouse Glucose Fingerstick 164 Hemoglobin A1c 07/16/2024 Inhouse Hemoglobin A1c 7.6% Glucose Fingerstick 04/15/2024 Inhouse Glucose Fingerstick 311 Hemoglobin A1c 04/15/2024 Inhouse Hemoglobin A1c 8.0% Glucose Fingerstick 02/25/2024 Inhouse Glucose Fingerstick 206 Glucose Fingerstick 01/14/2024 Inhouse Glucose Fingerstick 213 Hemoglobin A1c 01/14/2024 Inhouse Hemoglobin A1c 8.7% Glucose Fingerstick 10/22/2023 Inhouse Glucose Fingerstick 235 Medical Devices Description No Information Available Encounters Type Date Location Provider Dx Diagnosis Office Visit 10/15/2024 2:45p Main Office LIA Berg E11.9 Type 2 diabet es mellitus without complications Z79.4 intermediate (current) use of insulin Assessments Date Code Description Provider 10/15/2024 E11.9 Type 2 diabetes mellitus wit hout complications LIA Berg 10/15/2024 Z79.4 intermediate (current) use of i nsulin LIA Berg Plan of Treatment Future Appointment(s):* 03/07/2025 2:30 pm - LIA Berg at Main Office 10/15/2024 - LIA Berg* E11.9 Type 2 diabetes mellitus without complications * Z79.4 intermediate (current) use of insulin Functional Status Description No Information Available Mental Status Description No Information Available Referrals Refer to Reason for Referral Status Appt Dorian e Dietitian Patient Declined
--- OUTSIDE RECORDS SUMMARY | 2025-01-24 17:53 | XMS_ITS ---
Author Organization [facility] Address [address] [place] [address] Care Team Providers Care Loc[facility] Name Role Phone Abhijeet VILLA George Primary Care Provider Juanito Tafoya Unavailable [phone] Allergies Allergen (clinical drug ingredient) Drug/Non Drug Allergy documented on EMR Reaction Allergy Type Onset Date Status acetaminophen Tylenol Unknown Drug Allergy Act iram Latex Latex (uncoded) Unknown Allergy Acti ve REASON FOR VISIT Patient presents today for an autoimmune hepatitis Medications Medication SIG (Take, Route, Frequency, Duration) Notes Start Date End Date Status lamoTRIgine 25 MG Oral for 30 Active Jardiance 10 MG Oral for 90 Ac tive Lantus SoloStar 100 UNIT/ML Subcutaneous for 75 Active Tradjenta 5 MG Oral for 90 Act iram Ibuprofen 600 MG TK 1 T PO Oral prn Active Citalopram Hydrobromide 20 MG TAKE 1 TABLET BY MOUTH DAILY Oral for 30 Active Omeprazole 20 MG TAKE ONE CAPSULE BY MOUTH EVERY DAY Oral Not-Taking Losartan Potassium 100 MG TAKE 1 TABLET EVERY DAY Oral for 90 Active Atorvastatin Calcium 80 MG TAKE 1 TABLET AT BEDTIME Oral for 90 Not-Taking Rosuvastatin Calcium 20 MG TAKE 1 TABLET ORALLY DAILY FOR 90 DAYS Oral for 90 Active Glimepiride 2 MG Oral for 90 A ctive traMADol HCl 50 MG Oral for 7 Active Meclizine HCl 25 MG Oral for 10 Active Immunizations Vaccine Route Administration Date Status Comme nts Influenza Unknown 10/15/2023 Refused Vital Signs Temperature 97.5 degrees Fahrenheit 10/15/20 23 Blood pressure systolic 000 mm Hg 10/15/20 23 Blood pressure diastolic 00 mm Hg 023 Height 61 in 10/15/2023 Weight 143 lb 8 oz lbs 10/15/2023 BMI 27.11 kg/m2 10/15/2023 Encounters Encounter Location Date Provider Diagnosis [facility] [address] [place] [address] 10/15/2023 Juanito Viramontes Elevated liver enzym es R74.8 ; Fatty liver K76.0 ; Autoimmune hepatitis K75.4 and History of adenomatous polyp of colon Z86.010 Assessments Encounter Date Diagnosis (ICD Code) Assessment Notes Treatment Notes Treatment Clinical Notes Section Notes 10/15/2023 Elevated liver enzymes (ICD-10 - R74.8) Speak with Dr. Jha about the elevated Calcium and the pain in your legs Overall, Cara appears well. We did review that her LFTs have continued to remain normal ever since she stopped atorvastatin. She is now on the rosuvastatin but the LFTs continue to remain normal while on that. The previous problem with her LFTs may have been a drug-induced issue from the atorvastatin. Another possibility is the autoimmune hepatitis but with spontaneous remission. At this point, given her normal LFTs and otherwise good clinical appearance, I don't think she needs any specific treatment for her liver at this time. We did review that it will be important to continue to follow things and I will plan to check another liver profile in 6 months just prior to her next office visit with me. I advised her to certainly call me prior to that if she has any problem such as jaundice, pruritus, or increasing abdominal girth. I did advise her to speak with you about the elevated calcium level. We also discussed that her muscle aches and pains in the lower extremities and back could possibly be related to her new statin medication and I advised her to speak with you about that. We did review that she will be due for a followup colonoscopy in 2027 as well. I advised her to contact me prior to her next office visit in 6 months if she has any problems or questions I can be of assistance with. Cara was comfortable with this plan. Thank you again for allowing me to participate in Cara's care. I shall continue to keep you advised of her progress. 10/15/2023 Fatty liver (ICD-10 - K76.0) Overall, Cara appears well. We did review that her LFTs have continued to remain normal ever since she stopped atorvastatin. She is now on the rosuvastatin but the LFTs continue to remain normal while on that. The previous problem with her LFTs may have been a drug-induced issue from the atorvastatin. Another possibility is the autoimmune hepatitis but with spontaneous remission. At this point, given her normal LFTs and otherwise good clinical appearance, I don't think she needs any specific treatment for her liver at this time. We did review that it will be important to continue to follow things and I will plan to check another liver profile in 6 months just prior to her next office visit with me. I advised her to certainly call me prior to that if she has any problem such as jaundice, pruritus, or increasing abdominal girth. I did advise her to speak with you about the elevated calcium level. We also discussed that her muscle aches and pains in the lower extremities and back could possibly be related to her new statin medication and I advised her to speak with you about that. We did review that she will be due for a followup colonoscopy in 2027 as well. I advised her to contact me prior to her next office visit in 6 months if she has any problems or questions I can be of assistance with. Cara was comfortable with this plan. Thank you again for allowing me to participate in Cara's care. I shall continue to keep you advised of her progress. 10/15/2023 Autoimmune hepatitis (ICD-10 - K75.4) Overall, Cara appears well. We did review that her LFTs have continued to remain normal ever since she stopped atorvastatin. She is now on the rosuvastatin but the LFTs continue to remain normal while on that. The previous problem with her LFTs may have been a drug-induced issue from the atorvastatin. Another possibility is the autoimmune hepatitis but with spontaneous remission. At this point, given her normal LFTs and otherwise good clinical appearance, I don't think she needs any specific treatment for her liver at this time. We did review that it will be important to continue to follow things and I will plan to check another liver profile in 6 months just prior to her next office visit with me. I advised her to certainly call me prior to that if she has any problem such as jaundice, pruritus, or increasing abdominal girth. I did advise her to speak with you about the elevated calcium level. We also discussed that her muscle aches and pains in the lower extremities and back could possibly be related to her new statin medication and I advised her to speak with you about that. We did review that she will be due for a followup colonoscopy in 2027 as well. I advised her to contact me prior to her next office visit in 6 months if she has any problems or questions I can be of assistance with. Cara was comfortable with this plan. Thank you again for allowing me to participate in Cara's care. I shall continue to keep you advised of her progress. 10/15/2023 History of adenomatous polyp of colon (ICD-10 - Z86.010) Overall, Cara appears well. We did review that her LFTs have continued to remain normal ever since she stopped atorvastatin. She is now on the rosuvastatin but the LFTs continue to remain normal while on that. The previous problem with her LFTs may have been a drug-induced issue from the atorvastatin. Another possibility is the autoimmune hepatitis but with spontaneous remission. At this point, given her normal LFTs and otherwise good clinical appearance, I don't think she needs any specific treatment for her liver at this time. We did review that it will be important to continue to follow things and I will plan to check another liver profile in 6 months just prior to her next office visit with me. I advised her to certainly call me prior to that if she has any problem such as jaundice, pruritus, or increasing abdominal girth. I did advise her to speak with you about the elevated calcium level. We also discussed that her muscle aches and pains in the lower extremities and back could possibly be related to her new statin medication and I advised her to speak with you about that. We did review that she will be due for a followup colonoscopy in 2027 as well. I advised her to contact me prior to her next office visit in 6 months if she has any problems or questions I can be of assistance with. Cara was comfortable with this plan. Thank you again for allowing me to participate in Cara's care. I shall continue to keep you advised of her progress. Plan Of Treatment Treatment Notes Assessment Notes Elevated liver enzymes Speak with Dr. Jose Alberto wagner about the elevated Calcium and the pain in your legs Pending Test Test Name Order Date LIVER PROFILE 10/15/2023 Next Appt Details Follow Up: 6 Months, Reason: Provider Name:Juanito Viramontes , 04/15/2025 01:00:00 PM, [address] [place] [address], [address], [place], [address], Progress Notes * CARA SWEETDOB:[birth year] (68 yo F)Acc No.[id number]:10/15/2023 Progress Notes Patient:CARA MUNGUIA Provider:?Juanito Viramontes MD :[id number]???Age:68 Y???Sex:Female D ate:10/15/2023 Address:[address] [place], [place] [id number] Pcp:George Jha MD Subjective: * Chief Complaints: * ???Patient presents today fo r an autoimmune hepatitis * HPI: ???incontinence:? I saw Cara in followup today in regard to her previouly elevated LFTs and possible autoimmune hepatitis vs. a drug-induced hepatitis. ?Since I last saw Cara in April she reports that she has been feeling well other than some musculoskeletal aches and pains in her lower extremities and back. Her liver profile was completely normal in April after she had stopped the atorvastatin prior to that. Prior to that I was going to treat her for an autoimmune hepatitis based on her liver biopsy and lab work, but the normalization of the LFTs off of the atorvastatin put any treatment of possible autoimmune hepatitis on hold. She has remained off of the atorvastatin but was started on rosuvastatin. A liver profile done just last week has remained completely normal, as was a liver profile in August when she was seen in the ER. She went to the ER that day for evaluation of some aches and pains involving her lower extremities and back. Other lab work that day in August showed a calcium of 11.0 and albumin of 4.5. ?She enjoys a good appetite and denies any significant heartburn or dysphagia. Her bowel movements remain regular without any signs of bleeding. She denies abdominal pain, jaundice, pruritus, fatigue, increasing abdominal girth, nor edema. Her laboratories in July also revealed a normal liver profile and calcium of 10.4. * ROS:?General/Constitutional:?Change in appetite?denies.?Chills?denies.?Fatigue?denies.?Ophthalmologic:?Comments?all negative.?ENT:?Comments?all negative.?Respiratory:?hemoptysis?denies.?Cough?denies.?Cardiovascular:?Chest pain?denies.?Orthopnea?denies.?Gastrointestinal:?Comments?See HPI for details.?Genitourinary:?Hematuria?denies.?Dysuria?denies.?Musculoskeletal:?Painful joints?denies.?Weakness?denies.?Skin:?Itching?denies.?Rash?denies.?Neurologic:?Headache?denies.?Seizures?denies.?Psychiatric:?Comments?all negative.? * Medical History:? * Surgical History:?Cholecyste ctomy Tubal ligation Bladder suspension,rectal/vaginal surgery at the same time as well-rectocele Appy cataract surgery * Hospitalization/Major Diagno stic Procedure:?No Hospitalization [...] MG Tablet TK 1 T PO Oral prnTradjenta 5 MG Tablet Oral Lantus SoloStar 100 UNIT/ML Solution Pen-injector Subcutaneous Jardiance 10 MG Tablet Oral lamoTRIgine 25 MG Tablet Oral Glimepiride 2 MG Tablet Oral Meclizine HCl 25 MG Tablet Oral traMADol HCl 50 MG Tablet Oral Rosuvastatin Calcium 20 MG Tablet TAKE 1 TABLET ORALLY DAILY FOR 90 DAYS Oral Taking Losartan Potassium 100 MG Tablet TAKE 1 TABLET EVERY DAY Oral Taking Citalopram Hydrobromide 20 MG Tablet TAKE 1 TABLET BY MOUTH DAILY Oral Taking Ibuprofen 600 MG Tablet TK 1 T PO Oral prnTaking Tradjenta 5 MG Tablet Oral Taking Lantus SoloStar 100 UNIT/ML Solution Pen-injector Subcutaneous Taking Jardiance 10 MG Tablet Oral Taking lamoTRIgine 25 MG Tablet Oral Taking Glimepiride 2 MG Tablet Oral Taking Meclizine HCl 25 MG Tablet Oral Taking traMADol HCl 50 MG Tablet Oral Taking Rosuvastatin Calcium 20 MG Tablet TAKE 1 TABLET ORALLY DAILY FOR 90 DAYS Oral Not-Taking/PRNAtorvastatin Calcium 80 MG Tablet TAKE 1 TABLET AT BEDTIME Oral Omeprazole 20 MG Capsule Delayed Release TAKE ONE CAPSULE BY MOUTH EVERY DAY Oral Medication List reviewed and reconciled with the patientNot-Taking/PRN Atorvastatin Calcium 80 MG Tablet TAKE 1 TABLET AT BEDTIME Oral Not-Taking/PRN Omeprazole 20 MG Capsule Delayed Release TAKE ONE CAPSULE BY MOUTH EVERY DAY Oral Medication List reviewed and reconciled with the patient * Allergies:?TylenolLatexyes[A llergies Verified] Objective: * Vitals:?Wt: 143 lb 8 oz, Ht: 61 in, BMI:27.11 Index, BP: 000/00 mm Hg, Temp: 97.5. * Examination: ???General Examination: ?GENERAL APPEARANCE:?pleasant, well nourished, well developed, in no acute distress.?EYES:?sclera non-icteric.?ORAL CAVITY:?mucosa moist.?NECK/THYROID:?no cervical lymphadenopathy, neck supple.?SKIN:?nonjaundiced, no spider angiomata.?HEART:?S1, S2 normal.?LUNGS:?clear to auscultation bilaterally.?ABDOMEN:?normal bowel sounds, no guarding or rigidity, no guarding or rigidity, no masses palpable, soft, nontender, nondistended.?EXTREMITIES:?no edema.?NEUROLOGIC:?alert and oriented.? Assessment: * Assessment: 1.?Elevated liver enzymes - R74.8 (Primary)?2.?Fatty liver - K76.0?3.?Autoimmune hepatitis - K75.4?4.?History of adenomatous polyp of colon - Z86.010? Overall, Cara appears well. We did review that her LFTs have continued to remain normal ever since she stopped atorvastatin. She is now on the rosuvastatin but the LFTs continue to remain normal while on that. The previous problem with her LFTs may have been a drug-induced issue from the atorvastatin. Another possibility is the autoimmune hepatitis but with spontaneous remission. At this point, given her normal LFTs and otherwise good clinical appearance, I don't think she needs any specific treatment for her liver at this time. We did review that it will be important to continue to follow things and I will plan to check another liver profile in 6 months just prior to her next office visit with me. I advised her to certainly call me prior to that if she has any problem such as jaundice, pruritus, or increasing abdominal girth. I did advise her to speak with you about the elevated calcium level. We also discussed that her muscle aches and pains in the lower extremities and back could possibly be related to her new statin medication and I advised her to speak with you about that. We did review that she will be due for a followup colonoscopy in 2027 as well. I advised her to contact me prior to her next office visit in 6 months if she has any problems or questions I can be of assistance with. Cara was comfortable with this plan. Thank you again for allowing me to participate in Cara's care. I shall continue to keep you advised of her progress. Plan: * Treatment: Notes: Speak with Dr. Jha about the elevated Calcium and the pain in your legs.??2.?Fatty liver?LAB: LIVER PROFILE* Do 1 week before the office visit with me in 2023 3.?Autoimmune hepatitis?LAB: LIVER PROFILE* Do 1 week before the office visit with me in 2023 * Immunizations:? Influenza (Not administered - Refused: Patient decision) * Procedure Codes:?3017F COLOR ECTAL CA SCREEN DOC [id number] TOBACCO [id number] BP SCR NOT PRFRM REC REASON NOS * Preventive Medicine:? ??Counseling:?Care goal follow-up plan:?Above Normal BMI Follow-up?Giving encouragement to exercise,?BMI management provided?Yes.? ??Urinary Incontinence:?Urinary Incontinence?Assessment:?Present,?Plan of care documented:?Yes,?Type of plan of care:?Lifestyle interventions.? * Follow Up:?6 Months * * Sign off status: Completed true * Provider:?Juanito Viramontes MD Date:? 023 Generated for Aureliano prater/Andie/Rudi on:?01/24/2025 05:53 PM EDT History and Physical Notes * HPI (History of Present Illness) Category Sub-Category Detail Notes Category Not es incontinence I saw Cara in followup today in regard to her previouly elevated LFTs and possible autoimmune hepatitis vs. a drug-induced hepatitis. Since I last saw Cara in April she reports that she has been feeling well other than some musculoskeletal aches and pains in her lower extremities and back. Her liver profile was completely normal in April after she had stopped the atorvastatin prior to that. Prior to that I was going to treat her for an autoimmune hepatitis based on her liver biopsy and lab work, but the normalization of the LFTs off of the atorvastatin put any treatment of possible autoimmune hepatitis on hold. She has remained off of the atorvastatin but was started on rosuvastatin. A liver profile done just last week has remained completely normal, as was a liver profile in August when she was seen in the ER. She went to the ER that day for evaluation of some aches and pains involving her lower extremities and back. Other lab work that day in August showed a calcium of 11.0 and albumin of 4.5. She enjoys a good appetite and denies any significant heartburn or dysphagia. Her bowel movements remain regular without any signs of bleeding. She denies abdominal pain, jaundice, pruritus, fatigue, increasing abdominal girth, nor edema. Her laboratories in July also revealed a normal liver profile and calcium of 10.4. Examination Category Sub-Category Detail Notes Category Not [...]
--- OUTSIDE RECORDS SUMMARY | 2025-01-24 17:53 | XMS_ITS | Patient Health Record ---
Author Organization [facility] Address [address] [place] [address] Care Team Providers Care Rug Frame Mounter Name Role Phone Abhijeet VILLA, George Primary Care Provider Juanito Tafoya Unavailable [phone] Allergies Allergen (clinical drug ingredient) Drug/Non Drug Allergy documented on EMR Reaction Allergy Type Onset Date Status acetaminophen Tylenol Unknown Drug Allergy Act iram Latex Latex (uncoded) Unknown Allergy Acti ve Results Component Value Reference Range Notes Complete Blood Count Auto Di ff Reviewed date:04/09/2024 12:01:29 AM Interpretation: Performing Lab:[facility], [address] [place] [phone] Notes/Report: White Blood Count 7.1 4.8-10.8 X10*3/uL Red Blood Count 4.57 4.20-5.50 X10*6/uL Hemoglobin 13.8 12.0-16.0 g/dl Hematocrit 38.8 37.0-47.0 % Mean Corpuscular Volume 84.9 80.0-98.0 fL Mean Corpuscular Hemoglobin 30.2 27.0-33.0 pg Mean Corpuscular HGB Conc 35.6 31.0-35.0 g/dl Red Cell Distribution Width 12.4 11.0-16.0 % Platelet Count 183 160-400 X10*3/uL Mean Platelet Volume 9.1 9.4-12.3 fL Neutrophils Percent Auto 52.0 45-73 % Imm Gran Pct Auto 0.7 0.0-0.4 % Lymphocytes Percent Auto 35.6 20-40 % Monocytes Percent Auto 8.6 2-11 % Eosinophils Percent Auto 2.8 0-4 % Basophils Percent Auto 0.3 0-2 % NRBC Pct Auto 0.0 0.0-0.2 /100WBC Neutrophils Absolute Auto 3.7 2.0-8.3 x10*3/uL Imm Gran Abs Auto 0.05 0.00-0.03 X10*3/uL Lymphocytes Absolute Auto 2.5 1.2-4.9 X10*3/uL Monocytes Absolute Auto 0.6 0.1-1.2 X10*3/uL Eosinophils Absolute Auto 0.2 0.0-0.4 X10*3/uL Basophils Absolute Auto 0.0 0.0-0.2 X10*3/uL NRBC Abs Auto 0.000 0.0-0.012 X10*3/uL Comprehensive [place]. Panel Fa st Reviewed date:04/09/2024 12:05:15 AM Interpretation: Performing Lab:[facility], [address] [place] [phone] Notes/Report: Sodium 143 135-145 mmol/L Potassium 4.7 3.3-5.1 mmol/L Chloride 108 96-108 mmol/L Carbon Dioxide 29 22-29 mmol/L Anion Gap 11 12-20 Blood Urea Nitrogen 12 9-16 mg/dL Creatinine 0.86 0.5-1.4 mg/dL Estimated Glomerular Filt Rate > 60 NOTE: For -[place] individuals, multiply the result by 1.210. Chronic Kidney Disease: Estimated GFR < 60 mL/min/1.73m2 Severe Kidney Disease: Estimated GFR < 15 mL/min/1.73m2 Glucose Fasting 218 60-99 mg/dL A fasting glucose of 126 mg/dl or greater on more than one occasion is considered diagnostic of diabetes. Calcium 10.6 8.4-10.2 mg/dL Bilirubin Total 0.3 0.0-1.0 mg/dL Aspartate Amino Transferase 14 5-31 U/L Alanine Aminotransferase 13 0-31 U/L Total Protein 7.5 6.5-8.0 g/dL Albumin Level 4.4 3.5-5.0 g/dL Alkaline Phosphatase 59 39-117 U/L Liver Panel Reviewed date:04/09/2024 12:05:02 AM Interpretation: Performing Lab:[facility], [address] [place] [phone] Notes/Report: Bilirubin Total 0.3 0.0-1.0 mg/dL Bilirubin Direct 0.1 0.0-0.5 mg/dL Aspartate Amino Transferase 12 5-31 U/L Alanine Aminotransferase 12 0-31 U/L Total Protein 7.4 6.5-8.0 g/dL Albumin Level 4.4 3.5-5.0 g/dL Alkaline Phosphatase 60 39-117 U/L Lipid Panel Reviewed date:04/09/2024 12:05:31 AM Interpretation: Performing Lab:[facility], [address] [place] [phone] Notes/Report: Triglycerides 179 <150 mg/dL Desirable Triglyceride: less than 150 mg/dL Borderline High Triglyceride 150-199 mg/dL High Triglyceride: 200-499 mg/dL Very High Triglyceride: greater than or equal to 5OO mg/dL Cholesterol 120 <200 mg/dL Desirable Cholesterol: less than 200 mg/dL Borderline High Cholesterol: 200-239 mg/dL High Cholesterol: greater than 239 mg/dL LDL Cholesterol Calculated 50 <100 mg/dL Desirable LDL: less than 100 mg/dL Near Optimal/Above Optimal LDL: 110-129 mg/dL Borderline High LDL: 130-159 mg/dL High LDL: 160-189 mg/dL Very High LDL: greater than or equal to 190 mg/dL HDL Cholesterol 35 >40 mg/dL Desirable HDL: greater than 40 mg/dL Note: This HDL assay may give artificially low results in patients with liver disease. Vitamin B12 and Folate Reviewed date:04/09/2024 12:06:04 AM Interpretation: Performing Lab:[facility], [address] [place] [phone] Notes/Report: Vitamin B12 489 200-900 pg/mL NORMAL 200-900 PG/ML INDETERMINATE 160-199 PG/ML DEFICIENT < 160 PG/ML Folate 10.1 > or = 4.0 ng/mL Reference Values: > or = 4.0 ng/mL < 4.0 ng/mL suggests folate deficiency Methotrexate, aminopterin and folinic acid (leucovorin) are chemotherapeutic agents whose molecular structures are similar to folate; therefore, the Freight Elevator Operator folate assay cannot be used for patients using these drugs. Vitamin D 25-OH Total Reviewed date:04/09/2024 12:05:38 AM Interpretation: Performing Lab:[facility], [address] [place] [phone] Notes/Report: Vitamin D 25-OH Total 19.7 >30 ng/mL Health Based Reference Values* < 20 ng/mL Deficient 20-30 ng/mL Insufficient > 30 ng/mL Sufficient *Francisca HELM. N Engl J Med. 2007;357:266-280 Care must be taken in interpreting Vitamin D results from different laboratories and methodologies. Published data demonstrated that results from patients undergoing hemodialysis may show a negative bias when tested with various automated 25-OH vitamin D assays when compared to LC-MS/MS. When testing samples from patients whose predominant form of Vitamin D is Vitamin D2, such as patients receiving Vitamin D2 supplementation, results that are subtherapeutic should be confirmed with another method such as LC-MS/MS. TSH reflex Free T4 Reviewed date:04/09/2024 12:05:47 AM Interpretation: Performing Lab:[facility], [address] [place] [phone] Notes/Report: TSH reflex Free T4 1.42 0.32-4.0 uIU/mL Microalbumin, Random Reviewed date:04/09/2024 12:02:45 AM Interpretation: Performing Lab:[facility], [address] [place] [phone] Notes/Report: Creatinine Urine 62.41 Microalbumin Urine 5.0 Microalbum/Creatinine Ratio Ur 8.0 <30 ug/mg cr Albumin/Creatinine Ratio Reference Ranges: Normal: < 30 ug/mg creatinine Microalbuminuria: 30 - 300 ug/mg creatinine Clinical Albuminuria: > 300 ug/mg creatinine UA CC w/rflx Micro + Cult Reviewed date:04/09/2024 12:02:36 AM Interpretation: Performing Lab:[facility], [address] [place] [phone] Notes/Report: Urine, Clean Catch Color Urine Yellow Appearance Urine Clear PH 5.5 5.0-9.0 Glucose Urine UA Negative Negative mg/dL Urine Blood Negative Negative Specific [place] - Urine 1.010 1.005-1.025 Urine Protein Negative Neg-Trace mg/dL Urine Ketones Negative Negative mg/dL Nitrite Urine Negative Negative Leukocyte Esterase Urine Negative Negative Hemoglobin A1c Reviewed date:04/09/2024 12:01:53 AM Interpretation: Performing Lab:[facility], [address] [place] [phone] Notes/Report: Hemoglobin A1c % 7.8 <6.0 % Hemoglobin A1C Reference Range Adults: 4.8 - 6.0 % Non diabetic: < 6.0 % Goal: < 7.0 % Additional Action Suggested: > 8.0 % Note: Hemoglobin A1c results are invalid for patients with abnormal amounts of HbF. Blood transfusions may impact the HbA1c concentration in the patient sample. Estimated Average Glucose 177 eAG = Estimated average glucose which is %A1C expressed as average glucose, using the formula of the [id number]-[id number] Average Glucose study (ADAG), Diabetes Care, Vol.31,#8, 2007 US abdomen comp w elastograp hy (Not yet reviewed by provider) Interpretation: Performing Lab: Notes/Report: [address] [address] Ultrasound Report Signed Patient: Cara Sweet MR#: [id number] : 1955 Acct:[id number] Age/Sex: 68 / F ADM Date: 04/23/24 Loc: HO.US Attending Dr: Juanito Viramontes MD Ordering Physician: Juanito Viramontes MD Date of Service: 04/23/24 Procedure(s): US abdomen comp w elastography Accession Number(s): [id number] cc: George Jha MD; Juanito Viramontes MD EXAMINATION: US COMPLETE ABDOMEN WITH LIVER ELASTOGRAPHY CLINICAL INFORMATION: Hepatitis and fatty liver. COMPARISON: None available. TECHNIQUE: Real-time imaging of the abdominal viscera. Noninvasive ultrasound liver fibrosis assessment is performed using Aaliyah ElastPQ point quantification shear wave elastography (2D-SWE) with a C5-2 MHz transducer. Multiple elastography samples are obtained. FINDINGS: PANCREAS: Normal. The visualized pancreatic head and body are normal in appearance. The remainder of the pancreas is obscured from visualization by the overlying bowel gas. ABDOMINAL AORTA: The proximal segment is normal in caliber. The mid and distal segments are poorly visualized due to overlying bowel gas. INFERIOR VENA CAVA: Visualized portions are normal. LIVER: The liver demonstrates normal size, contour and increased echogenicity. No focal lesion or intrahepatic biliary duct dilatation. The right lobe measures 14.7 cm in length. The left lobe measures 12.1 cm in length. Portal flow is towards the liver (hepatopetal). Shear wave liver elastography median stiffness is 1.5 m/s (reference: normal median stiffness is 1.3 m/s or less). IQR/median stiffness to assess sampling precision is 0.07 (reference: good quality data set is IQR/median stiffness of 0.15 or less). GALLBLADDER: Normal. The gallbladder is physiologically distended without evidence of stones, sludge, polyps, wall thickening or pericholecystic fluid. COMMON BILE DUCT: Normal in caliber measuring 0.4 cm in diameter. RIGHT KIDNEY: Normal. No hydronephrosis. No renal calculi or focal parenchymal lesions. The kidney measures 10.6 cm in maximum dimension. LEFT KIDNEY: Normal. No hydronephrosis. No renal calculi or focal parenchymal lesions. The kidney measures 10.0 cm in maximum dimension. SPLEEN: Normal. The spleen measures 9.1 cm in maximum dimension. FREE FLUID: None. US/US abdomen comp w elastography IMPRESSION: 1. There is generalized increase in hepatic echotexture, consistent with fatty infiltration or hepatocellular disease. Please correlate clinically. No focal hepatic mass or intrahepatic biliary dilatation is seen. 2. Liver elastography: In the absence of other known clinical signs, measurements rule out compensated advanced chronic liver disease. If there are known clinical signs, further testing may be needed for confirmation. 3. Technically limited ultrasound examination of the pancreas and abdominal great vessels. REFERENCE: Society of Radiologists in Ultrasound Liver Stiffness Thresholds (2020): LIVER STIFFNESS THRESHOLDS: *Liver Stiffness equal or less than 1.3 m/s: High probability of being normal. *Liver Stiffness less than 1.7 m/s: In the absence of other known clinical signs, rules out compensated advanced chronic liver disease. *Liver Stiffness 1.7-2.1 m/s: Suggestive of compensated advanced chronic liver disease but need further test for confirmation. *Liver Stiffness over 2.1 m/s: Rules in compensated advanced chronic liver disease. *Liver Stiffness over 2.4 m/s: Suggestive of clinically significant portal hypertension. QUALITY OF DATA SET: *IQR/Median value equal or less than 0.15 implies a quality data set. *IQR/Median value over 0.15 implies a poor quality data set. SIGNIFICANT CHANGE FROM PRIOR EXAM: Significant change if liver stiffness measurement is 10% or greater from prior exam. OTHER CONSIDERATIONS: The stage of liver fibrosis may be overestimated in the setting of acute hepatitis, liver inflammation, elevated liver function tests, hepatic vascular congestion, obstructive cholestasis, non-fasting state, and infiltrative diseases such as amyloidosis and lymphoma. In some patients with NAFLD, the liver stiffness thresholds for compensated advanced chronic liver disease may be lower. In causes other than viral hepatitis and NAFLD, liver stiffness thresholds are not well established. Dictated By: Suhas Livingston MD Signed By: <Electronically signed by Suhas Livingston MD in OV> 05/25/242199 DD/ 4 TD/TT: [employer]: [id number] Ultrasound Report Signed Patient: Cara Sweet MR#: [id number] : 1955 Acct:[id number] Age/Sex: 68 / F ADM Date: 04/23/24 Loc: HO.US Attending Dr: Juanito Viramontes MD Ordering Physician: Juanito Viramontes MD Date of Service: 04/23/24 Procedure(s): US abdomen comp w elastography Accession Number(s): [id number] cc: George Jha MD; Juanito Viramontes MD EXAMINATION: US COMPLETE ABDOMEN WITH LIVER ELASTOGRAPHY CLINICAL INFORMATION: Hepatitis and fatty liver. COMPARISON: None available. TECHNIQUE: Real-time imaging of the abdominal viscera. Noninvasive ultrasound liver fibrosis assessment is performed using Aaliyah ElastPQ point quantification shear wave elastography (2D-SWE) with a C5-2 MHz transducer. Multiple elastography samples are obtained. FINDINGS: PANCREAS: Normal. Th e visualized pancreatic head and body are normal in appearance. The remainder of the pancreas is obscured from visualization by the overlying bowel gas. ABDOMINAL AORTA: The proximal segment is normal in caliber. The mid and distal segments are poorly visualized due to overlying bowel gas. INFERIOR VENA CAVA: Visualized portions are normal. LIVER: The liver demonstrates normal size, contour and increased echogenicity. No foc al lesion or intrahepatic biliary duct dilatation. The right lobe measures 14.7 cm in length. The left lobe measures 12.1 cm in length. Portal flow is towar ds the liver (hepatopetal). Shear wave liver elastography median stiffness is 1.5 m/s (reference: normal median stiffness is 1.3 m/s or less). IQR/median stiffness to assess sampling precision is 0.07 (reference: good quality data se t is IQR/median stiffness of 0.15 or less). GALLBLADDER: Normal. The gallbladder is physiologically distended without evidence of stones, sludge, polyps, wall thickening or pericholecystic fluid. COMMON BILE DUCT: Normal in caliber measuring 0.4 cm in diameter. RIGHT KIDNEY: Normal . No hydronephrosis. No renal calculi or focal parenchymal lesions. The kidney measures 10.6 cm in maximum dimension. LEFT KIDNEY: Normal. No hydronephrosis. No renal calculi or focal parenchymal lesions. The kidney measures 10.0 cm in maximum dimension. SPLEEN: Normal. The spleen measures 9.1 cm in maximum dimension. FREE FLUID: None. US/US abdomen comp w elastography IMPRESSION: 1. There is generalized increase in hepatic echotexture, consistent with fatty infiltration or hepatocellular disease. Please correlate clinically. No focal hepatic mass or intrahepatic biliary dilatation is seen. 2. Liver elastograph y: In the absence of other known clinical signs, measurements rule ou t compensated advanced chronic liver disease. If there are known clinical signs, further testing may be needed for confirmation. 3. Technically limit ed ultrasound examination of the pancreas and abdominal great vessels. REFERENCE: Society of Radiologists in Ultrasound Liver Stiffness Thresholds (2020): LIVER STIFFNESS THRESHOLDS: *Liver Stiffness equ al or less than 1.3 m/s: High probability of being normal. *Liver Stiffness les s than 1.7 m/s: In the absence of other known clinical signs, rule s out compensated advanced chronic liver disease. *Liver Stiffness 1.7-2.1 m/s: Suggestive of compensated advanced chronic liver diseas e but need further test for confirmation. *Liver Stiffness ove r 2.1 m/s: Rules in compensated advanced chronic liver disease. *Liver Stiffness ove r 2.4 m/s: Suggestive of clinically significant portal hypertension. QUALITY OF DATA SET: *IQR/Median value equal or less than 0.15 implies a quality data set. *IQR/Median value ov er 0.15 implies a poor quality data set. SIGNIFICANT CHANGE FROM PRIOR EXAM: Significant change i f liver stiffness measurement is 10% or greater from prior exam. OTHER CONSIDERATIONS: The stage of liver fibrosis may be overestimated in the setting of acute hepatitis, arthur er inflammation, elevated liver function tests, hepatic vascular congestion, obstructive cholestasis, non-fasting state, and infiltrative diseases such as amyloidosis and lymphoma. In some patients with NAFLD, the liver stiffness thresholds for compensated advanced chronic liver disease may be lower. In causes other than viral hepatitis and NAFLD, liver stiffness thresholds are not well established. Dictated By: Suhas Livingston MD Signed By: <Electronically signed by Suhas Livingston MD in OV> 05/25/242199 DD/ 4 TD/TT: [employer]: [id number] Reason For Referral No Information Medications Medication SIG (Take, Route, Frequency, Duration) Notes Start Date End Date Status Mounjaro 2.5 MG/0.5ML INJECT 2.5 MG SUBCUTANEOUSLY WEEKLY Subcutaneous for 28 Active hydrALAZINE HCl 10 MG Oral for 30 Active Rosuvastatin Calcium 20 MG TAKE 1 TABLET ORALLY DAILY FOR 90 DAYS Oral for 90 Active traMADol HCl 50 MG Oral for 7 Active Meclizine HCl 25 MG Oral for 10 Active Glimepiride 2 MG Oral for 90 A ctive lamoTRIgine 25 MG Oral for 30 Active Tradjenta 5 MG Oral for 90 Not -Taking Omeprazole 20 MG TAKE ONE CAPSULE BY MOUTH EVERY DAY Oral Not-Taking Ibuprofen 600 MG TK 1 T PO Oral prn Active Atorvastatin Calcium 80 MG TAKE 1 TABLET AT BEDTIME Oral for 90 Not-Taking Citalopram Hydrobromide 20 MG TAKE 1 TABLET BY MOUTH DAILY Oral for 30 Active busPIRone HCl 5 MG Oral for 90 Active Tresiba FlexTouch 100 UNIT/ML Subcutaneous for 75 Active Losartan Potassium 100 MG TAKE 1 TABLET EVERY DAY Oral for 90 Active Immunizations Vaccine Route Administration Date Status Comme nts Influenza Unknown 06/27/2022 Refused Influenza Unknown 10/15/2023 Refused Problems Problem Type SNOMED Code ICD Code Onset Dates Problem Status W/U Status Risk Notes Problem Colon cancer screening (644684517) Colon cancer screening (Z12.11) Active confirmed Problem History of adenomatous polyp of colon (884639733) History of adenomatous polyp of colon (Z86.010) Active confirmed Problem 929300209 Autoimmune hepatitis (K75.4) Active confirmed Problem 127982381 Elevated liver function tests (R79.89) Active confirmed Problem Elevated liver enzymes level (929876616) Elevated liver enzymes (R74.8) Active confirmed Problem Fatty liver (982097753) Fatty liver (K76.0) Active confirmed Vital Signs Blood pressure diastolic 00 mm Hg 04/14/2024 Height 61 in 04/14/2024 Blood pressure systolic 000 mm Hg 04/14/2024 Weight 143 lbs 04/14/2024 BMI 27.02 kg/m2 04/14/2024 Encounters Encounter Location Date Provider Diagnosis [facility] [address] [place] [address] 04/14/2024 Juanito Viramontes Elevated liver enzym es [...] advised of her progress. Plan Of Treatment Pending Test Test Name Order Date LIVER PROFILE 04/10/2023 LIVER PROFILE 10/15/2023 LIVER PROFILE 01/26/2023 LIVER PROFILE 06/27/2022 LIVER PROFILE 04/14/2024 IRON + IBC (FE) 06/27/2022 CBC w DIFF 06/27/2022 HEPATITIS B, C PROFILE 06/27/2022 ALPHA-FETOPROTEIN,TUMOR MARKER 4 FLUOR. ANTINUCLEAR AB SCREEN (JAIME) 06/04 US ABDOMEN COMP WITH ELASTOGRAPHY 2021 Prothrombin Time INR 06/27/2022 Liver Panel 01/16/2023 Ferritin 06/27/2022 Alpha 1 Anti-trypsin 06/27/2022 Liver Fibrosis Pnl 06/27/2022 Liver Fibrosis Pnl 04/14/2024 Mitochondrial Antibody 06/27/2022 Smooth Muscle Antibody 06/27/2022 US abdomen comp w elastography 4 US abdomen comp w elastography 4 Future Test Test Name Order Date COLONOSCOPY 09/20/2014 COLONOSCOPY 06/27/2022 Next Appt Details Provider Name:Juanito Viramontes , 04/15/2025 01:00:00 PM, [address], [address], [place], [address], Insurance Providers Payer Name Payer Address Payer Phone Subscriber Number Group Number Insured Name Patient Relationship to Insured Coverage Start Date Coverage End Date [facility] [address] Attn Claims LIA Fry [address] [id number] CARA SWEET Self - patient is the insured MEDICAID OF [employer] [address] [place] [phone] [id number] BERNARDA GARCIACARA CENTENO Self - patient is the insured Medical (General) History Medical History History ICD Code Colonoscopy 05/22/2011-large , approximately 2 cm tubular adenoma with high grade dysplasia removed form sigmoid colon; also noted to have diverticulosis GERD--EGD in 05/2011--mild gastritis-neg. H.pylori, small HH--no esophagitis HTN Back pain Anxiety/depression Asthma Denies NH,CVA,renal disease IDDM Hyperlipidemia Negative screening colonoscopy in 11/2014 Autoimmune hepatitis versus a drug-induced hepatitis--Elevated LFT's 2021--her workup, including a liver biopsy in February 2023, was most consistent with autoimmune hepatitis. However, her LFTs completely normalized in April of 2023 after she stopped her atorvastatin. Colonoscopy November 2022 rev ealed only an inflammatory polyp and hyperplastic polyp Vertigo Seizures Migraines Surgical History Surgery Date(Month/Year) Cholecystectomy Tubal ligation Bladder suspension,rectal/va ginal surgery at the same time as well-rectocele Appy Cataract surgery
--- OUTSIDE RECORDS SUMMARY | 2025-01-24 17:53 | XMS_ITS | Clinical Summary ---
Author Organization [facility] Address [address] [place] [address] Phone Care Team Providers Care Impregnator Helper Name Role Phone Unavailable Primary Care Provider Unavailabl e Social History Tobacco Use Types Packs/Day Years Used Date Smoking Tobacco: Never Assessed Comments Unknown Sex and Gender Information Value Date Recorded Sex Assigned at Not on file Legal Sex Female 8:27 PM EST Gender Identity Not on file Sexual Orientation Not on file Plan of Treatment Upcoming Encounters Date Type Department Care Team ([facility] Contact Info) Description 03/15/2025 3:00 PM EDT Office Visit Orthopedic Surgery - [place] [address] [phone] Homer Langley, DPM [address] [address] Health Maintenance Due Date Last Done Comments Breast Cancer Screening 1955 DTaP,Tdap,and Td Vaccines (1 - Tdap) 1973 Pneumococcal Vaccine: 50+ Ye ars (1 of 1 - PCV) 2004 Zoster Vaccines (1 of 2) 2004 Colorectal Cancer Screening: Colonoscopy 11/28/2023 Depression Screening 11/28/2023 Falls Risk Assessment 11/28/2023 Hepatitis C Screening 11/28/2023 Osteoporosis Screening (Bone Density Screening) 11/28/2023 Social Influencers of Health Screening 11/28/2023 COVID-19 Vaccine ( - 2023-2 5 season) 2024 Influenza Vaccine (#1) 2024 RSV Immunization Patients 60 + Years Old (1 - 1-dose 75+ series) 2029 HIB Vaccines Aged Out No longer eligi ble based on patient's age to complete this topic HPV Vaccines Aged Out No longer eligi ble based on patient's age to complete this topic Hepatitis A Vaccines Aged Out No long er eligible based on patient's age to complete this topic Hepatitis B Vaccines Aged Out No long er eligible based on patient's age to complete this topic IPV Vaccines Aged Out No longer eligi ble based on patient's age to complete this topic MMR Vaccines Aged Out No longer eligi ble based on patient's age to complete this topic Meningococcal ACWY Vaccine Aged Out N o longer eligible based on patient's age to complete this topic Meningococcal B Vacine Aged Out No lo nger eligible based on patient's age to complete this topic RSV Immunization Patients Un jung 20 months Aged Out No longer eligible b ased on patient's age to complete this topic Varicella Vaccines Aged Out No longer eligible based on patient's age to complete this topic Insurance [facility] Member Subscriber Plan / Payer (Ef fective 2019-Present) Name:Cara Menchaca Relation to Subscriber:Spouse Name:CARA MENCHACA Date of :1955 (Home) Address: [address] [place] [phone] Payer ID:[id number] Group ID:[id number] Type:Not on file Address: [place] [address] [place] [id number]
== END 2025-01-24 14:57 | disposition home or self-care (01) ==
LOC: HO.MAMMO 14:56
PROVIDERS: PCP Internal Medicine; Visit Provider Internal Medicine
DX: Z12.31 Encounter for screening mammogram for malignant neoplasm of breast (principal)
CPT/HCPCS: 77063; 77067

== ENCOUNTER → 2025-01-24 15:00 | Outpatient (BNV) | payer OTHER, SELFPAY | PROVIDERS: PCP Internal Medicine; Visit Provider Internal Medicine | DX: Z12.31 Encounter for screening mammogram for malignant neoplasm of breast (principal) | CPT/HCPCS: 77063; 77067 ==

== ENCOUNTER 2025-01-31 10:17 | Outpatient (REF) | payer OTHER, SELFPAY ==
--- NOTE | ~2025-01-31 | MR_ITS ---
EXAMINATION: MR BRAIN WITHOUT CONTRAST CLINICAL INFORMATION: Complex partial seizures. COMPARISON: October 05, 2024. TECHNIQUE: MRI of the brain was obtained using routine sequences without contrast. FINDINGS: There is a 3 x 5 x 9 cm extra-axial nonseptated CSF equivalent signal abnormality within the posterior cranial fossa with mild to moderate mass effect upon the posterior aspect of the cerebellum. The cerebellar tonsils are in normal position. The vermis cerebellum ostomy is intact. The midline structures are intact. No restricted diffusion. No acute intracranial hemorrhage, midline shift, hydrocephalus or herniation. Jean-white matter differentiation is normal. Bilateral multifocal patchy and punctate deep periventricular white matter and subcortical white matter hyperintense T2 FLAIR signal involving centrum semiovale and dhillon radiata, the most conspicuous in the ostial right frontal. Old lacunar infarcts, basal ganglia and dhillon radiata white matter. Sellar/suprasellar region demonstrated no gross masses or signal abnormality. The craniocervical junction is intact and normal. Flow-void signal within the main cerebral vessels is normal. 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 White matter disease likely related to small vessel occlusive disease. Electronically signed by: Wilfredo Alcaraz MD 02/01/2025 08:55 AM EDT
--- NOTE | ~2025-01-31 | MR_ITS ---
EXAMINATION: MR LUMBAR SPINE WITHOUT CONTRAST CLINICAL INFORMATION: Spondylosis without myelopathy or radiculopathy, lumbar region. COMPARISON: August 28, 2008 reported as: a right paracentral disc bulging L4-5. Correlated to x-ray lumbar spine dated August 20, 2024. TECHNIQUE: MRI of the lumbar spine was obtained using routine sequences without contrast. FINDINGS: Last rib-bearing vertebra labeled T12. There is an intrinsic hyperintense T1 bone lesion at T11, likely intraosseous hemangioma. There is bone marrow STIR signal in the inferior endplate of L3 and superior endplate of L4. There is a Schmorl node in the superior endplate of L5. There is multilevel marginal osteophyte formation and disc desiccation, L2-L5. There is a grade 1 retrolisthesis L3-4, L3 and to a lesser extent L4-5. There is a reverse curvature apex at L1-2. The conus medullaris ends at the intervertebral disc T12-L1 with normal signal. T11-12: No disc herniation. No neuroforamina stenosis. T12-L1: No disc herniation. No neuroforamina stenosis. L1-2: No disc herniation. No neuroforamina stenosis. L2-3: Broad-based disc bulging. Facet joint and ligamentum flavum hypertrophy. Reduced AP diameter of the thecal sac and the neural left neural foramina. L3-4: Broad-based disc bulging. Facet joint and ligamentum flavum hypertrophy. Reduced AP diameter of the thecal sac encroaching likely compressing the neural elements of the thecal sac and bilateral neuroforamina stenosis encroaching and or compressing the exiting nerve roots of L3. There is hyperintense STIR signal in the ligamentous of the posterior spinous processes. L4-5: Broad-based disc bulging. Facet joint and ligamentum flavum hypertrophy. Reduced AP diameter of the thecal sac and the neural foramina, right greater than the left side encroaching the neural elements. There is hyperintense STIR signal in the interim posterior spinous processes ligamentous. L5-S1: Broad-based disc bulging. Facet joint hypertrophy. Bilateral neuroforamina narrowing, right greater than left encroaching the exiting nerve root. No gross central spinal canal stenosis. No prevertebral compartment hematoma, mass or fluid collection. Multiple hyperintense T2 cystic lesions in the kidneys. MR/MR lumbar spine wo con IMPRESSION: Multilevel spondylosis, L2-3 to L5-S1 resulting in central spinal canal and bilateral, right greater than left neuroforamina stenosis at L3-4, L4-5 levels Probable pseudoarthrosis, posterior spinous processes L3-4 and L4-5. 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 Electronically signed by: Wilfredo Alcaraz MD 02/01/2025 09:19 AM EDT
--- OUTSIDE RECORDS SUMMARY | 2025-01-31 11:31 | XMS_ITS | Data Portability ---
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-T wave changes. [...] Hernandez Member ID Guarantor Name 07/17/2022 1 [facility] - DOS PRIOR TO 2023 - DUAL ELIGIBLE (MEDICARE REPLACEMENT/ADV ANTAGE - HMO) Cara Husain [id number] Cara Husain Notes Date Note Type Note [...] .................. .................. .................. .................. .................. .................. ............... Vice Chair Note: Sent to a call for a [...] hx per above Azar Sweeney MD [address] [facility],[address], [place], [address], [place] [employer] 07/17/2022 19:33:44 OBGyn Episode No OBEpisode recorded.
--- OUTSIDE RECORDS SUMMARY | 2025-01-31 11:31 | XMS_ITS ---
Author Organization [facility] Address [address] [place] [address] Care Team Providers Care Diesel Mechanic Helper Name Role Phone Red Jha MDneth Primary Care Provider Juanito Tafoya Unavailable [phone] Allergies Allergen (clinical drug ingredient) Drug/Non Drug [...] 04/14/2024 Encounters Encounter Location Date Provider Diagnosis [facility] [address] [place] [address] 04/14/2024 Juanito Viramontes Elevated liver enzym es [...] Name:Juanito Viramontes , 04/15/2025 01:00:00 PM, [address], [address], [place], [address], Progress Notes * CARA SWEETDOB:[birth year] (68 yo F)Acc No.[id number]:04/14/2024 Progress Notes Patient:?CARA SWEET Provider:?Juanito Viramontes MD :1955???Age:68 Y???Sex:Female D ate:04/14/2024 Address:[address] [place] [address] [address] [id number] Pcp:George Jha MD Subjective: * Chief Complaints: [...] elastography* sched for 04/23/24 at 9:00 am [facility] Ultrasound dept 2nd floor fasting 8 hrs prior * 3.?Colon cancer screening? Notes: Repeat colonoscopy in 2027??4.?Autoimmune hepatitis?LAB: LIVER PROFILE ?LAB: ALPHA-FETOPROTEIN,TUMOR MARKER ?LAB: Liver Fibrosis Pnl ?Imaging: US abdomen comp w elastography* sched for 04/23/24 at 9:00 am [facility] Ultrasound dept 2nd floor fasting 8 hrs prior * * Procedure Codes:?3017F COLOR ECTAL CA SCREEN DOC MTH2952P TOBACCO NON-KHZZF5830 BP SCR NOT PRFRM REC REASON NOS * Preventive Medicine:? ??Counseling:?Care goal follow-up plan:?Above Normal BMI Follow-up?Giving encouragement to exercise,?BMI management provided?Yes.? ??Urinary Incontinence:?Urinary Incontinence?Assessment:?Present,?Plan of care documented:?Yes,?Type of plan of care:?Lifestyle interventions.? * Follow Up:?1 Year * * Sign off status: Completed true * Provider:?Juanito Viramontes MD Date:? 024 Generated for Fritzi moi/Andie/Christellesmitting on:?01/31/2025 11:31 AM EDT History and Physical Notes * HPI [...]
--- OUTSIDE RECORDS SUMMARY | 2025-01-31 11:31 | XMS_ITS | Clinical Summary ---
Author Organization [address] [facility] Address [address] [place] [address] Phone Care Team Providers Care Cod Clerk Name Role Phone Unavailable Primary Care Provider Unavailabl e Social History Tobacco Use Types Packs/Day Years Used Date Smoking Tobacco: Never Assessed Comments Unknown Sex and Gender Information Value Date Recorded Sex Assigned at Not on file Legal Sex Female 8:27 PM EST Gender Identity Not on file Sexual Orientation Not on file Plan of Treatment Upcoming Encounters Date Type Department Care Team ([facility] Contact Info) Description 03/15/2025 3:00 PM EDT Office Visit Orthopedic Surgery - [place] [address] [phone] Homer Langley, DPM [address] [address] Health Maintenance Due Date Last Done Comments [...] patient's age to complete this topic Insurance [facility] Member Subscriber Plan / Payer (Ef fective 2019-Present) Name:Cara Menchaca Relation to Subscriber:Spouse Name:CARA MENCHACA Date of :1955 (Home) Address: [address] [place] [address] Payer ID:[id number] Group ID:[id number] Type:Not on file Address: [place] [address] [place] [address]
--- OUTSIDE RECORDS SUMMARY | 2025-01-31 11:31 | XMS_ITS | Continuity of Care Document ---
Author Organization [facility] [address] [place] [address] Phone [phone] Care Team Providers Care White Mixing Operator Name Role Phone Abhijeet George Care Team Information Clerical Stock Inspector [phone] Problems Active Problems Provider Date Type 2 [...] Indications Order ing Provider Date Freestyle Gerardo 2/[place]/Flash Glucose Monitoring Awajim6Uhnlkd Device use as directed with sensors DX e11.9 1carlo Blanca M.D. 2024 Freestyle Gerardo 2/Sensor/Flash Glucose Monitoring Qfektu0Bvgvel Misc 1 sensor to skin every fourteen days DX E11.9 6unalyssa Blanca M.D. 2024 Ohpauozy8zj/0.5ML Solution Pen-Inject Inject 5 MG Subcutaneously Once Weekly. dxE11.9 2ml E11.9 Odilia Blanca M.D. 02/25/2024 E66.3 Z68.27 Meclizine LZZ26hl Tablets Take 1 Tablet By Mouth Three Times A Day as Needed For Dizziness Abhijeet, George 0 Tramadol ZXU99in Tablets Take 1 Tablet B y Mouth Three Times A Day as Needed For Pain Abhijeet, George Rosuvastatin Oduevvn74hl Tablets Take 1 Tablet Orally Daily For 90 Days Abhijeet, George Rllizwgbrzt8xp Tablets Take 1 Tablet By Mouth Every Day In The Morning Odilia Blanca M.D. Tresiba Orhvqbawq896Wwgq/ML Solution Pen-Inject Inject 20 Unit (0.2 ML) Subcutaneously Bedtime Abhijeet, George 000 Freestyle Lite TestStrips Use To Test 3 Times Daily Abhijeet, Kenne Mhqcmmxuv853nu Tablets Take 1 Tablet By Mouth Every 6 Hours as Needed For Pain Unknown Nludocerkio30gt Tablets Take 2 Tablets B y Mouth Twice A Day For 90 Days Jil Lorenzo MD Divalproex Sodium MT840uo Tablets ER 24HR Jil Lorenzo MD History Medications Mounjaro2.5mg/0.5ML Solution Pen-Inject inject 2.5 mg subcutaneously once weekly. 2ml Odilia Blanca M.D. 03/18/2024 - 08/30/2024 Freestyle Gerardo 3/Sensor/Glucose Monitoring Szryzy1Uvrxjk [facility] as directed [...] 2 diabet es mellitus without complications Z79.4 care home (current) use of insulin Assessments Date Code Description Provider 10/15/2024 E11.9 Type 2 diabetes mellitus wit hout complications LIA Berg 10/15/2024 Z79.4 care home (current) use of i nsulin LIA Berg Plan of Treatment Future Appointment(s):* 03/07/2025 2:30 pm - LIA Berg at Main Office 10/15/2024 - LIA Berg* E11.9 Type 2 diabetes mellitus without complications * Z79.4 care home (current) use of insulin Functional Status Description No Information Available Mental Status Description No Information Available Referrals Refer to Reason for Referral Status Appt Dorian e Dietitian Patient Declined
--- OUTSIDE RECORDS SUMMARY | 2025-01-31 11:31 | XMS_ITS ---
Author Organization [facility] Address [address] [place] [address] Care Team Providers Care All Source Intelligence Analyst Name Role Phone Abhijeet VILLA George Primary Care Provider Juanito Tafoya Unavailable [phone] Allergies Allergen (clinical drug ingredient) Drug/Non Drug [...] 10/15/2023 Encounters Encounter Location Date Provider Diagnosis [facility] [address] [place] [address] 10/15/2023 Juanito Viramontes Elevated liver enzym es [...] Provider Name:Juanito Viramontes , 04/15/2025 01:00:00 PM, [address] [place] [address], [address], [place], [address], Progress Notes * CARA SWEETDOB:[birth year] (68 yo F)Acc No.[id number]:10/15/2023 Progress Notes Patient:CARA MUNGUIA Provider:?Juanito Viramontes MD :1955???Age:68 Y???Sex:Female D ate:10/15/2023 Address:[address] [place], [place] [id number] Pcp:George Jha MD Subjective: * Chief Complaints: [...] Procedure Codes:?3017F COLOR ECTAL CA SCREEN DOC KAU8183C TOBACCO NON-EGLCD3411 BP SCR NOT PRFRM REC REASON NOS * Preventive Medicine:? ??Counseling:?Care goal follow-up plan:?Above Normal BMI Follow-up?Giving encouragement to exercise,?BMI management provided?Yes.? ??Urinary Incontinence:?Urinary Incontinence?Assessment:?Present,?Plan of care documented:?Yes,?Type of plan of care:?Lifestyle interventions.? * Follow Up:?6 Months * * Sign off status: Completed true * Provider:?Juanito Viramontes MD Date:? 023 Generated for Aureliano prater/Andie/Rudi on:?01/31/2025 11:30 AM EDT History and Physical Notes * [...]
== END 2025-01-31 10:18 | disposition home or self-care (01) ==
LOC: HO.MRI 10:17
PROVIDERS: PCP Internal Medicine; Visit Provider Registered Nurse
DX: M47.816 Spondylosis without myelopathy or radiculopathy, lumbar region (principal); M54.16 Radiculopathy, lumbar region; G40.209 Localization-related (focal) (partial) symptomatic epilepsy and epileptic syndromes with complex partial seizures, not intractable, without status epilepticus
CPT/HCPCS: 70551; 72148

== ENCOUNTER → 2025-01-31 10:30 | Outpatient (BNV) | payer OTHER, SELFPAY | PROVIDERS: PCP Internal Medicine; Visit Provider Radiology Diagnostic Radiology | DX: M47.816 Spondylosis without myelopathy or radiculopathy, lumbar region (principal); G40.209 Localization-related (focal) (partial) symptomatic epilepsy and epileptic syndromes with complex partial seizures, not intractable, without status epilepticus | CPT/HCPCS: 70551; 72148 ==

== ENCOUNTER 2025-02-22 11:07 | Outpatient (REF) | payer OTHER, SELFPAY ==
[2025-02-22 11:22] LABS: MANUAL DIFF FLAG NO
[2025-02-22 11:39] LABS: Basophils Percent Auto 0.4 % (0-2); Eosinophils Absolute Auto 0.2 X10*3/uL (0.0-0.4); Eosinophils Percent Auto 3.2 % (0-4); Hematocrit 39.3 % (37.0-47.0); Hemoglobin 13.7 g/dl (12.0-16.0); Imm Gran Abs Auto 0.07 X10*3/uL (0.00-0.03); Imm Gran Pct Auto 0.9 % (0.0-0.4); Lymphocytes Absolute Auto 2.9 X10*3/uL (1.2-4.9); Mean Corpuscular HGB Conc 34.9 g/dl (31.0-35.0); Mean Corpuscular Hemoglobin 29.6 pg (27.0-33.0); Mean Corpuscular Volume 84.9 fL (80.0-98.0); Mean Platelet Volume 8.8 fL (9.4-12.3); Monocytes Absolute Auto 0.5 X10*3/uL (0.1-1.2); Monocytes Percent Auto 6.6 % (2-11); Neutrophils Absolute Auto 3.8 x10*3/uL (2.0-8.3); Neutrophils Percent Auto 49.9 % (45-73); Platelet Count 163 X10*3/uL (160-400); Red Blood Count 4.63 X10*6/uL (4.20-5.50); Red Cell Distribution Width 12.8 % (11.0-16.0); White Blood Count 7.5 X10*3/uL (4.8-10.8)
[2025-02-22 11:43] LABS: Estimated Average Glucose 194 mg/dL; Hemoglobin A1C 242.8143 umol/L; Hemoglobin A1c % 8.4 % (<6.0); Total Hemoglobin (HGBA1C) 3550.3617 umol/L
[2025-02-22 11:46] LABS: Appearance Urine Clear; Color Urine Yellow; Glucose Urine UA Negative (Negative); Leukocyte Esterase Urine Negative (Negative); Nitrite Urine Negative (Negative); PH 5.5 (5.0-9.0); Urine Blood Negative (Negative); Urine Ketones Negative (Negative); Urine Protein Negative (Neg-Trace)
[2025-02-22 12:28] LABS: Alanine Aminotransferase 23 U/L (0-31); Albumin Level 4.3 g/dL (3.5-5.0); Alkaline Phosphatase 51 U/L (39-117); Anion Gap 10 (12-20); Aspartate Amino Transferase 20 U/L (5-31); Bilirubin Total 0.3 mg/dL (0.0-1.0); Blood Urea Nitrogen 12 mg/dL (9-16); Calcium 9.8 mg/dL (8.4-10.2); Carbon Dioxide 29 mmol/L (22-29); Chloride 109 mmol/L (96-108); Cholesterol 127 mg/dL (<200); Estimated Glomerular Filt Rate > 60; Glucose Fasting 152 mg/dL (60-99); HDL Cholesterol 39 mg/dL (>40); LDL Cholesterol Calculated 60 mg/dL (<100); Potassium 4.2 mmol/L (3.3-5.1); Sodium 144 mmol/L (135-145); Total Protein 7.1 g/dL (6.5-8.0); Triglycerides 140 mg/dL (<150)
[2025-02-22 12:40] LABS: Creatinine Urine 72.68 mg/dL; Microalbumin Urine < 5.0 mg/L
--- OUTSIDE RECORDS SUMMARY | 2025-02-22 13:21 | XMS_ITS ---
Author Organization [facility] Address [address] [place] [address] Care Team Providers Care Biofuels Plant Operations Engineer Name Role Phone Abhijeet VILLA George Primary Care Provider Juanito Tafoya Unavailable [phone] Allergies Allergen (clinical drug ingredient) Drug/Non Drug [...] 10/15/2023 Encounters Encounter Location Date Provider Diagnosis [facility] [address] [place] [address] 10/15/2023 Juanito Viramontes Elevated liver enzym es [...] Name:Juanito Viramontes , 04/15/2025 01:00:00 PM, [address] [place] [address], [address], [place], [address], Progress Notes * CARA SWEETDOB:[birth year] (68 yo F)Acc No.[id number]:10/15/2023 Progress Notes Patient:CARA MUNGUAI Provider:?Juanito Viramontes MD :1955???Age:68 Y???Sex:Female D ate:10/15/2023 Address:[address] [place], [place] [phone] Pcp:George Jha MD Subjective: * Chief Complaints: [...] Procedure Codes:?3017F COLOR ECTAL CA SCREEN DOC [id number] TOBACCO NON-HZDSF4018 BP SCR NOT PRFRM REC REASON NOS * Preventive Medicine:? ??Counseling:?Care goal follow-up plan:?Above Normal BMI Follow-up?Giving encouragement to exercise,?BMI management provided?Yes.? ??Urinary Incontinence:?Urinary Incontinence?Assessment:?Present,?Plan of care documented:?Yes,?Type of plan of care:?Lifestyle interventions.? * Follow Up:?6 Months * * Sign off status: Completed true * Provider:?Juanito Viramontes MD Date:? 023 Generated for Aureliano prater/Andie/Rudi on:?02/22/2025 01:21 PM EDT History and Physical Notes * [...]
--- OUTSIDE RECORDS SUMMARY | 2025-02-22 13:21 | XMS_ITS | Data Portability ---
Author Organization [employer] [facility] Address [address] [place] [address] Care Team Providers Care [employer] Hazmat Tanker Driver Name Role Phone [facility] Referring Provider [phone] Assessment No assessment recorded. Plan of Treatment [...] [degF] 68 /min 100 % 100 % 29362.2 88 g 18 /min 149 mm[Hg] 88 mm[Hg] Not Available [employer] - production 2 19:32:11 Social History None [...] Note 3981 Azar Sweeney MD Main - [address] [address] 07/17/2022 19:32:01 07/29/2022 13:06:51 Chest pain 04480856 R07.[address]-T wave changes. [...] Member ID Guarantor Name 07/17/2022 1 [facility] - DOS PRIOR TO 2023 - DUAL ELIGIBLE (MEDICARE REPLACEMENT/ADV ANTAGE - HMO) Cara Husain [id number] Cara Husain Notes Date Note Type Note [...] .................. .................. .................. .................. .................. .................. ............... Column Precaster Note: Sent to a call for a [...] hx per above Azar Sweeney MD [address] [facility],[address], [place], [address], [place] [employer] 07/17/2022 19:33:44 OBGyn Episode No OBEpisode recorded.
--- OUTSIDE RECORDS SUMMARY | 2025-02-22 13:21 | XMS_ITS | Patient Health Record ---
Author Organization [facility] Address [address] [place] [address] Care Team Providers Care Brick Carrier Name Role Phone Abhijeet VILLA, George Primary Care Provider Juanito Tafoya Unavailable [phone] Allergies Allergen (clinical drug ingredient) Drug/Non Drug Allergy documented on EMR Reaction Allergy Type Onset Date Status acetaminophen Tylenol Unknown Drug Allergy Act iram Latex Latex (uncoded) Unknown Allergy Acti ve Results Component Value Reference Range Notes Complete Blood Count Auto Di ff Reviewed date:04/09/2024 12:01:29 AM Interpretation: Performing Lab:[facility], [address] [place] [phone] Notes/Report: White Blood Count 7.1 4.8-10.8 X10*3/uL [...] NRBC Abs Auto 0.000 0.0-0.012 X10*3/uL Comprehensive [place]. Panel Fa st Reviewed date:04/09/2024 12:05:15 AM Interpretation: Performing Lab:[facility], [address] [place] [phone] Notes/Report: Sodium 143 135-145 mmol/L Potassium 4.7 3.3-5.1 mmol/L Chloride 108 96-108 mmol/L Carbon Dioxide 29 22-29 mmol/L Anion Gap 11 12-20 Blood Urea Nitrogen 12 9-16 mg/dL Creatinine 0.86 0.5-1.4 mg/dL Estimated Glomerular Filt Rate > 60 NOTE: For -Omani individuals, multiply the result by 1.210. Chronic [...] Panel Reviewed date:04/09/2024 12:05:02 AM Interpretation: Performing Lab:[facility], [address] [place] [phone] Notes/Report: Bilirubin Total 0.3 0.0-1.0 mg/dL Bilirubin Direct 0.1 0.0-0.5 mg/dL Aspartate Amino Transferase 12 5-31 U/L Alanine Aminotransferase 12 0-31 U/L Total Protein 7.4 6.5-8.0 g/dL Albumin Level 4.4 3.5-5.0 g/dL Alkaline Phosphatase 60 39-117 U/L Lipid Panel Reviewed date:04/09/2024 12:05:31 AM Interpretation: Performing Lab:[facility], [address] [place] [phone] Notes/Report: Triglycerides 179 <150 mg/dL Desirable Triglyceride: [...] Folate Reviewed date:04/09/2024 12:06:04 AM Interpretation: Performing Lab:[facility], [address] [place] [phone] Notes/Report: Vitamin B12 489 200-900 pg/mL NORMAL 200-900 PG/ML INDETERMINATE 160-199 PG/ML DEFICIENT < 160 PG/ML Folate 10.1 > or = 4.0 ng/mL Reference Values: > or = 4.0 ng/mL < 4.0 ng/mL suggests folate deficiency Methotrexate, aminopterin and folinic acid (leucovorin) are chemotherapeutic agents whose molecular structures are similar to folate; therefore, the Steel Rule Die Maker folate assay cannot be used for patients using these drugs. Vitamin D 25-OH Total Reviewed date:04/09/2024 12:05:38 AM Interpretation: Performing Lab:[facility], [address] [place] [phone] Notes/Report: Vitamin D 25-OH Total 19.7 >30 [...] T4 Reviewed date:04/09/2024 12:05:47 AM Interpretation: Performing Lab:[facility], [address] [place] [phone] Notes/Report: TSH reflex Free T4 1.42 0.32-4.0 uIU/mL Microalbumin, Random Reviewed date:04/09/2024 12:02:45 AM Interpretation: Performing Lab:[facility], [address] [place] [phone] Notes/Report: Creatinine Urine 62.41 Microalbumin Urine 5.0 Microalbum/Creatinine Ratio Ur 8.0 <30 ug/mg cr Albumin/Creatinine Ratio Reference Ranges: Normal: < 30 ug/mg creatinine Microalbuminuria: 30 - 300 ug/mg creatinine Clinical Albuminuria: > 300 ug/mg creatinine UA CC w/rflx Micro + Cult Reviewed date:04/09/2024 12:02:36 AM Interpretation: Performing Lab:[facility], [address] [place] [phone] Notes/Report: Urine, Clean Catch Color Urine Yellow Appearance Urine Clear PH 5.5 5.0-9.0 Glucose Urine UA Negative Negative mg/dL Urine Blood Negative Negative Specific Addison - Urine 1.010 1.005-1.025 Urine Protein Negative Neg-Trace mg/dL Urine Ketones Negative Negative mg/dL Nitrite Urine Negative Negative Leukocyte Esterase Urine Negative Negative Hemoglobin A1c Reviewed date:04/09/2024 12:01:53 AM Interpretation: Performing Lab:[facility], [address] [place] [phone] Notes/Report: Hemoglobin A1c % 7.8 <6.0 % [...] average glucose, using the formula of the J9A-Ujyochp Average Glucose study (ADAG), Diabetes Care, Vol.31,#8, 2007 US abdomen comp w elastograp hy (Not yet reviewed by provider) Interpretation: Performing Lab: Notes/Report: [address] [address] Ultrasound Report Signed Patient: Cara Sweet MR#: [id number] : 1955 Acct:[id number] Age/Sex: 68 / F ADM Date: 04/23/24 Loc: HO.US Attending Dr: Juanito Viramontes MD Ordering Physician: Juanito Viramontes MD Date of Service: 04/23/24 Procedure(s): US abdomen comp w elastography Accession Number(s): [id number] cc: George Jha MD; Juanito Viramontes MD [...] MD in OV> 05/25/242199 DD/ 4 TD/TT: Cutter Out: [address] [address] Ultrasound Report Signed Patient: Cara Sweet MR#: [id number] : 1955 Acct:[id number] Age/Sex: 68 / F ADM Date: 04/23/24 Loc: HO.US Attending Dr: Juanito Viramontes MD Ordering Physician: Juanito Viramontes MD Date of Service: 04/23/24 Procedure(s): US abdomen comp w elastography Accession Number(s): [id number] cc: George Jha MD; Juanito Viramontes MD [...] MD in OV> 05/25/242199 DD/ 4 TD/TT: Cutter Out: ADRI Reason For Referral No Information Medications [...] Status Risk Notes Problem Colon cancer screening (095635356) Colon cancer screening (Z12.11) Active confirmed Problem History of adenomatous polyp of colon (642008431) History of adenomatous polyp of colon (Z86.010) Active confirmed Problem 706644115 Autoimmune hepatitis (K75.4) Active confirmed Problem 477802732 Elevated liver function tests (R79.89) Active confirmed Problem Elevated liver enzymes level (013725688) Elevated liver enzymes (R74.8) Active confirmed Problem Fatty liver (097960057) Fatty liver (K76.0) Active confirmed Vital Signs Blood pressure diastolic 00 mm Hg 04/14/2024 Height 61 in 04/14/2024 Blood pressure systolic 000 mm Hg 04/14/2024 Weight 143 lbs 04/14/2024 BMI 27.02 kg/m2 04/14/2024 Encounters Encounter Location Date Provider Diagnosis [facility] [address] [place] [address] 04/14/2024 Juanito Viramontes Elevated liver enzym es [...] Alpha 1 Anti-trypsin 06/27/2022 Liver Fibrosis Pnl 04/14/2024 Liver Fibrosis Pnl 06/27/2022 Mitochondrial Antibody 06/27/2022 Smooth Muscle Antibody 06/27/2022 US abdomen comp w elastography 4 US abdomen comp w elastography 4 Future Test Test Name Order Date COLONOSCOPY 09/20/2014 COLONOSCOPY 06/27/2022 Next Appt Details Provider Name:Juanito Viramontes , 04/15/2025 01:00:00 PM, [address], [address], [place], [address], Insurance Providers Payer Name Payer Address Payer Phone Subscriber Number Group Number Insured Name Patient Relationship to Insured Coverage Start Date Coverage End Date [facility] [address] Attn Claims L[place] [address] [id number] CARA SWEET Self - patient is the insured MEDICA[place] OF [employer] [address] [place] [id number] CARA SWEET Self - patient is the insured Medical (General) History Medical History History ICD Code Colonoscopy 05/22/2011-large , approximately 2 cm tubular adenoma with high grade dysplasia removed form sigmoid colon; also noted to have diverticulosis GERD--EGD in 05/2011--mild gastritis-neg. H.pylori, small HH--no esophagitis HTN Back pain Anxiety/depression Asthma Denies [place],CVA,renal disease IDDM Hyperlipidemia Negative screening colonoscopy in [...]
--- OUTSIDE RECORDS SUMMARY | 2025-02-22 13:22 | XMS_ITS ---
Author Organization [facility] Address [address] [place] [address] Care Team Providers Care Sales Representative Raw [employer]ers Name Role Phone Red Jha MDneth Primary Care Provider Juanito Tafoya Unavailable [phone] Allergies Allergen (clinical drug ingredient) Drug/Non Drug [...] 04/14/2024 Encounters Encounter Location Date Provider Diagnosis [facility] [address] [place] [address] 04/14/2024 Juanito Viramontes Elevated liver enzym es [...] Name:Juanito Viramontes , 04/15/2025 01:00:00 PM, [address], [address], [place], [address], Progress Notes * CARA SWEETDOB:[birth year] (68 yo F)Acc No.[id number]:04/14/2024 Progress Notes Patient:?CARA SWEET Provider:?Juanito Viramontes MD :1955???Age:68 Y???Sex:Female D ate:04/14/2024 Address:[address] [place] [address] [address] [id number] Pcp:George Jha MD Subjective: * Chief Complaints: [...] elastography* sched for 04/23/24 at 9:00 am [facility] [place] [place] Ultrasound dept 2nd floor fasting 8 hrs prior * 3.?Colon cancer screening? Notes: Repeat colonoscopy in 2027??4.?Autoimmune hepatitis?LAB: LIVER PROFILE ?LAB: ALPHA-FETOPROTEIN,TUMOR MARKER ?LAB: Liver Fibrosis Pnl ?Imaging: US abdomen comp w elastography* sched for 04/23/24 at 9:00 am [facility] [place] [place] Ultrasound dept 2nd floor fasting 8 hrs prior * * Procedure Codes:?3017F COLOR ECTAL CA SCREEN DOC [id number] TOBACCO NON-GQCKC2511 BP SCR NOT PRFRM REC REASON NOS * Preventive Medicine:? ??Counseling:?Care goal follow-up plan:?Above Normal BMI Follow-up?Giving encouragement to exercise,?BMI management provided?Yes.? ??Urinary Incontinence:?Urinary Incontinence?Assessment:?Present,?Plan of care documented:?Yes,?Type of plan of care:?Lifestyle interventions.? * Follow Up:?1 Year * * Sign off status: Completed true * Provider:?Juanito Viramontes MD Date:? 024 Generated for Fritzi moi/Andie/Rudi on:?02/22/2025 01:21 PM EDT History and Physical [...]
--- OUTSIDE RECORDS SUMMARY | 2025-02-22 13:22 | XMS_ITS | Clinical Summary ---
Author Organization [address] [facility] Address [address] [place] [address] Phone Care Team Providers Care City Distribution Clerk Name Role Phone George Jha MD Primary Care Provider Social History Tobacco Use Types Packs/Day Years Used Date Smoking Tobacco: Never Assessed Comments Unknown Sex and Gender Information Value Date Recorded Sex Assigned at Not on file Legal Sex Female 8:27 PM EST Gender Identity Not on file Sexual Orientation Not on file Plan of Treatment Upcoming Encounters Date Type Department Care Team ([facility] Contact Info) Description 03/03/2025 11:30 AM EDT Consult Neurosurgery [place] [facility] [address] [phone] Beatriz Elaine PA [address] [address] 03/15/2025 3:00 PM EDT Office Visit Orthopedic Surgery [facility] [address] [phone] Homer Langley DPM [address] [address] Health Maintenance Due Date Last Done Comments [...] - 2023-2 5 season) 2024 Influenza Vaccine (Season Ended) 2025 RSV Immunization Adult Patie nts (1 - 1-dose 75+ series) 2029 HIB [...] age to complete this topic Meningococcal B Vaccine Aged Out No l onger eligible based on patient's age to complete this topic RSV Immunization Patients Un jung 20 months Aged Out No longer eligible b ased on patient's age to complete this topic Varicella Vaccines Aged Out No longer eligible based on patient's age to complete this topic Insurance [facility] Member Subscriber Plan / Payer (Ef fective 2019-Present) Name:Joey Husainia Relation to Subscriber:Spouse Name:JOEY HUSAINIA Date of :1955 (Home) Address: [address] [place] [id number] Payer ID:[id number] Group ID:[id number] Type:Not on file Address: [place] [address] [place] [phone] MEDICAID - [place] Care Teams City Distribution Clerk Relationship Specialty Start Date End Date George Jha MD [address] [place] [address] [address] [place], [place] PCP - General Internal Medicine 02/17/25
--- OUTSIDE RECORDS SUMMARY | 2025-02-22 13:22 | XMS_ITS | Continuity of Care Document ---
Author Organization [facility] [address] [place] [address] Phone [phone] Care Team Providers Care Musical Instrument Maker Or Repairer Name Role Phone Abhijeet George Care Team Information Field Property Loss Specialist [phone] Problems Active Problems Provider Date Type 2 [...] Indications Order ing Provider Date Freestyle Gerardo 2/Anderson/Flash Glucose Monitoring Odjrkq4Bfjerw Device use as directed with sensors DX e11.9 1carlo Blanca M.D. 2024 Freestyle Gerardo 2/Sensor/Flash Glucose Monitoring Xbjmxg5Nitcyz Misc 1 sensor to skin every fourteen days DX E11.9 6unalyssa Blanca M.D. 2024 Wsnvkgik8yu/0.5ML Solution Pen-Inject Inject 5 MG Subcutaneously Once Weekly. dxE11.9 2ml E11.9 Odilia Blanca M.D. 02/25/2024 E66.3 Z68.27 Meclizine VCY39va Tablets Take 1 Tablet By Mouth Three Times A Day as Needed For Dizziness Abhijeet, George 0 Tramadol UPS64ae Tablets Take 1 Tablet B y Mouth Three Times A Day as Needed For Pain Abhijeet, George Rosuvastatin Kitlgsq74ka Tablets Take 1 Tablet Orally Daily For 90 Days Abhijeet, George Wgnuapmferk0tw Tablets Take 1 Tablet By Mouth Every Day In The Morning Odilia Blanca M.D. Tresiba Cqfapofsw833Iekd/ML Solution Pen-Inject Inject 20 Unit (0.2 ML) Subcutaneously Bedtime Abhijeet, George 000 Freestyle Lite TestStrips Use To Test 3 Times Daily Abhijeet, Kenne Wmpbciwcc028vo Tablets Take 1 Tablet By Mouth Every 6 Hours as Needed For Pain Unknown Viyjwqlijho65ac Tablets Take 2 Tablets B y Mouth Twice A Day For 90 Days Jil Lorenzo MD Divalproex Sodium IQ690ip Tablets ER 24HR Jil Lorenzo MD History Medications Mounjaro2.5mg/0.5ML Solution Pen-Inject inject 2.5 mg subcutaneously once weekly. 2ml Odilia Blanca M.D. 03/18/2024 - 08/30/2024 Freestyle Gerardo 3/Sensor/Glucose Monitoring Bybogr1Etcvpj [facility] as directed 3christianits Odilia Blanca M.D. 03/11/2024 [...] 2 diabet es mellitus without complications Z79.4 prison (current) use of insulin Assessments Date Code Description Provider 10/15/2024 E11.9 Type 2 diabetes mellitus wit hout complications LIA Berg 10/15/2024 Z79.4 prison (current) use of i nsulin LIA Berg Plan of Treatment Future Appointment(s):* 03/07/2025 2:30 pm - LIA Berg at Main Office 10/15/2024 - LIA Berg* E11.9 Type 2 diabetes mellitus without complications * Z79.4 prison (current) use of insulin Functional Status Description No Information Available Mental Status Description No Information Available Referrals Refer to Reason for Referral Status Appt Dorian e Dietitian Patient Declined
== END 2025-02-22 11:08 | disposition home or self-care (01) ==
LOC: HO.LAB 11:07
PROVIDERS: PCP Internal Medicine; Visit Provider Internal Medicine
DX: D64.9 Anemia, unspecified (principal); R30.0 Dysuria; E78.00 Pure hypercholesterolemia, unspecified; E11.9 Type 2 diabetes mellitus without complications
CPT/HCPCS: 36415; 80053; 80061; 81003; 82043; 82570; 83036; 85025

== ENCOUNTER 2025-03-01 14:52 | Outpatient (AMB) | payer OTHER, SELFPAY ==
[2025-03-01 14:54] VITALS: BP 122/80; PULSE 82; O2SAT 97; BMI 26.2
--- NOTE | 2025-03-01 14:54 | A.OFFPC_ITS ---
Vital Signs 03/01/25 14:54 Height 5 ft 2 in Weight 143 lb BMI 26.2 BP 122/80 Blood Pressure Location Lt brachial Position Sitting Pulse 82 Pulse Source Pulse Oximeter Pulse Oximetry (%) 97 Oxygen Delivery Method Room Air Intake Visit Reasons: follow up Home Housekeeper Required: No Accompanied by: Self / Same As Patient Allergies propranolol Allergy (Intermediate, Verified 03/01/25 16:01) Anxiety amoxicillin Allergy (Unknown, Verified 03/01/25 16:01) Rash glipizide Allergy (Unknown, Verified 03/01/25 16:01) unknown latex [LATEX] Allergy (Unknown, Verified 03/01/25 16:01) UNKNOWN levofloxacin Allergy (Unknown, Verified 03/01/25 16:01) Unknown liraglutide [From VICTOZA] Allergy (Unknown, Verified 03/01/25 16:01) UNKNOWN, itching metformin [METFORMIN] Allergy (Unknown, Verified 03/01/25 16:01) DIARRHEA morphine [MORPHINE] Allergy (Unknown, Verified 03/01/25 16:01) ITCHING, rash atorvastatin Adverse Reaction (Intermediate, Verified 03/01/25 16:01) elevated LFTs Medication List - Last Reconciled 03/01/25 by George Jha MD blood sugar diagnostic (FreeStyle Lite Strips) 1 strip miscellaneous TID blood-glucose meter (FreeStyle Lite Meter kit) As directed buspirone 10 mg PO BID 30 days cholecalciferol (vitamin D3) 50 mcg PO DAILY 90 days cyclobenzaprine 5 mg PO BID PRN fluticasone propionate 50 mcg/actuation 2 sprays intranasal DAILY glimepiride 2 mg PO QAM hydralazine 10 mg PO BID 30 days ibuprofen 800 mg PO Q8H PRN [incontinence liners 4 times per day] [incontinence wipes As directed] insulin degludec (Tresiba FlexTouch U-100 insulin) 22 units (0.22 mL) subcut BEDTIME lamotrigine 100 mg PO BID lancets (FreeStyle Lancets) As directed-to test sugars Three times a day lidocaine 5% (Lidoderm) 1 patch topical DAILY losartan 100 mg PO DAILY meclizine 25 mg PO TID PRN pen needle, diabetic As directed pen needle, diabetic As directed daily inject 4 x a day rosuvastatin 20 mg PO DAILY 90 days tirzepatide (Mounjaro) 5 mg subcut QWEEK tramadol 50 mg PO TID PRN Tobacco use date assessed: 08/19/24 Fall risk assessment: No Falls in past year Last assessed Fall Risk: 03/01/25 Dental Screening Dental Screen Date: 03/01/25 Did you have a dental visit in the last 12 months?: Yes Did you have a dental problem in the last 6 months where you did not have access to dental care?: No Was dental information given to patient?: Patient has dentist HPI follow up HPI Details Patient comes in today for her follow up visit States that she is still experiencing increased pain over her lower back She has been taking a lot of OTC Aleve lately with some relief and she is concerned as to whether it is okay for her to continue taking this much Aleve for her low back pain She was seen supposedly by Dr. Lorenzo recently for neurology evaluation and was sent for MRI of the brain and lower back for further evaluation She had her MRI done last month on 01/31/2025, after which she was then referred to see neurosurgery for further recommendations She is now scheduled to be seen by neurosurgery at the [facility] in a couple of days on 03/03/2025 Patient denies any increased headaches lately but still has on and off dizziness Denies any chest pains, no increased SOB No nausea/vomiting, no abdominal pain No change in bowel habits noted She had her follow up labs done last week - to discuss her results [facility] Medical History Dizziness Overweight (BMI 25.0-29.9) Vitamin D deficiency Ear pain Ear drainage Right shoulder pain Functional urinary incontinence COVID-19 Encounter to discuss test results Memory loss Urinary incontinence Chest pain Colon cancer screening Annual physical exam Diabetes Type 2 diabetes mellitus with hyperglycemia Epigastric pain Vertigo Upper abdominal pain Screening for tuberculosis Low back pain Preoperative examination Right hip pain Right low back pain Primary osteoarthritis of shoulder Memory loss or impairment Bursitis of right shoulder Bursitis of left shoulder Primary osteoarthritis, right shoulder Anxiety Varicose veins of both lower extremities Allergic rhinitis Elevated LFTs Primary osteoarthritis of left shoulder Lumbar degenerative disc disease Benign essential hypertension Type 2 diabetes mellitus without complications Mixed hyperlipidemia Surgical History History of appendectomy History of cholecystectomy History of cystoscopy History of tubal ligation Family History Father Cancer Mother Diabetes Maternal Uncle Cancer Maternal Grandfather Cancer Social History Housing: Apartment Alcohol intake: former Patient Tobacco Use Status: Never used Tobacco e-Cigarette/Vaping Use: Never Used Second Hand Smoke Exposure: Yes service: No Current occupational status: unemployed Cognitive needs: No Hearing needs: No Vision needs: No Questionnaire PHQ-9 Over the last 2 weeks, how often have you been bothered by any of the following problems? 1. Little interest or pleasure in doing things: nearly every day 2. Feeling down, depressed, or hopeless: nearly every day 3. Trouble falling or staying asleep, or sleeping too much: nearly every day 4. Feeling tired or having little energy: nearly every day 5. Poor appetite or overeating: nearly every day 6. Feeling bad about yourself - or that you are a failure or have let yourself or your family down: more than half the days 7. Trouble concentrating on things, such as reading the newspaper or watching television: more than half the days 8. Moving or speaking so slowly that other people could have noticed. Or the opposite - being so fidgety or restless that you have been moving around a lot more than usual: more than half the days 9. Thoughts that you would be better off or of hurting yourself in some way: not at all Total score: 21 Depression Screening Interpretation: Positive Depression Screening Follow-up: Existing condition and In treatment Depression Screening Done: Yes 20430 - PHQ-9 Billing: Yes Source: Developed by Drs. Juanito Moscoso, Shea Michel, Russell Ott and colleagues, with an educational peace from [employer]. Thrive Questionnaire Date Thrive assessed: 03/01/25 I am a: Patient What is your living situation today?: I have a steady place to live Within the past 12 months, did the food you bought not last and you didn't have the money to get more?: Never true Within the past 12 months, did you worry whether your food would run out before you got money to buy more?: Never true Do you have trouble paying for medicines?: No Do you have trouble getting transportation to medical appointments?: No Do you have trouble paying your heating and electricity bill?: No Do you have trouble taking care of your child, family member or friend?: No Do you have trouble with day-to-day activities such as bathing, preparing meals, shopping, managing finances, etc.?: No Are you currently unemployed and looking for a job?: No Are you interested in more education?: No Please select the resources that you would like help with: None Currently or been in a relationship where the following occur: No concerns reported THRIVE Score: 0 AUDIT C Alcohol Use Questionnaire (AUDIT-C) 1. How often do you have a drink containing alcohol?: Never 3. How often do you have six or more drinks on one occasion?: Never Total Score: 0 Score Reviewed/Action Taken: Yes NIEVES-7 AMB Questionnaire NIEVES-7 Date NIEVES - 7 assessed: 08/19/24 Source: Developed by Drs. Juanito Moscoso, Shea Michel, Russell Ott and colleagues, with an educational peace from [employer]. Review of Systems Const Denies chills, Reports fatigue, Denies fever(s) and Denies headache(s) ENT Denies dysphagia, Reports dizziness (on and off), Denies otalgia, Denies headac he(s), Denies neck pain, Denies odynophagia and Denies sore throat Card Denies chest pain, Denies palpitations and Denies dyspnea Resp Denies chest congestion, Denies cough and Denies dyspnea GI Denies abdominal pain, Denies constipation, Denies dysphagia, Denies heartburn, Denies diarrhea, Denies nausea, Denies odynophagia and Denies vomiting Denies difficulty voiding, Denies nocturia, Denies dysuria, Reports urinary incontinence and Denies urinary urgency Musc Reports back pain (increased, especially over the right lower back), Denies neck pain and Reports radiating pain into limb (into the right hip and right thigh) Skin/Breast Denies rash Neuro Reports dizziness (on and off), Denies headache(s) and Reports memory loss (has tendency to do things lately and not remember them) Psych Reports anxiety, Reports depression and Reports memory loss (has tendency to do things lately and not remember them) Endo Reports fatigue and Denies palpitations Physical exam (Primary Care) Vital Signs: Last Vital Signs Pulse 82 03/01/25 14:54 BP 122/80 03/01/25 14:54 Pulse Ox 97 03/01/25 14:54 Oxygen Delivery Method Room Air 03/01/25 14:54 BMI result Body Mass Index 26.2 Tobacco/Smoking Status: Tobacco use Status Tobacco use date assessed 08/19/24 03/01/25 14:56 Patient Tobacco Use Status Never used Tobacco 03/01/25 14:56 e-Cigarette/Vaping Use Never Used 03/01/25 14:56 PHQ-9: PHQ-9 Score PHQ-9: Total score 21 03/01/25 15:53 Depression Screening Interpretation: Positive Depression Screening Follow-up: Existing condition and In treatment Thrive Assessment: Date of Thrive Assessment Date Thrive assessed 03/01/25 03/01/25 15:09 Currently or been in a relationship where the following occur: No concerns reported Const General: no acute distress and alert HENMT Ears: TM's normal bilaterally and EAC's normal Throat: Yes posterior oropharynx normal and Yes tonsils normal (no TP congestion) Neck Neck: Yes supple and No lymphadenopathy Thyroid: Thyroid normal Resp Auscultation: clear to auscultation bilaterally, no rales and no wheezes Cardio Rate: regular rate Rhythm: regular rhythm Heart sounds: no murmurs GI Palpation (GI): Soft to palpation and nontender Auscultation: normal bowel sounds General: Yes no CVA tenderness Back/Spine/Pelvis Back: no CVA tenderness Thoracic/Lumbar Spine: paraspinal muscle tenderness on the right in the mid lumbar and in the lower lumbar and lumbar spinal tenderness Sacroiliac joints: on the right tender to palpation Skin Rashes: no rashes Extrem General: Yes no clubbing, cyanosis or edema Right lower extremity: hip/thigh Details: tenderness Location: of the hip Location: anterolaterally Results Reviewed Results Reviewed: Laboratory Tests 02/22/25 02/22/25 11:18 11:21 WBC 7.5 Hgb 13.7 Hct 39.3 Plt Count 163 Sodium 144 Potassium 4.2 Creatinine 0.91 Estimated GFR > 60 Fasting Glucose 152 H Hemoglobin A1c % 8.4 H Calcium 9.8 AST 20 ALT 23 Triglycerides 140 Cholesterol 127 LDL Cholesterol, Calc 60 HDL Cholesterol 39 L Ur Specific [place] 1.010 Urine Protein Negative Urine Glucose (UA) Negative Urine Blood Negative Urine Nitrite Negative Ur Leukocyte Esterase Negative Microalb/Creat Ratio TNP Coding Level of Care Code Est Pt Level 4 (73129) Complex EM visit Add On G2211 Diagnoses Type 2 diabetes mellitus without complication, without long-term current use of insulin E11.9 Diabetes mellitus mcc insulin use: without intermodal truck driver use Mixed hyperlipidemia E78.2 Benign essential hypertension I10 Dizziness R42 Elevated LFTs R79.89 Vitamin D deficiency E55.9 Degeneration of intervertebral disc of lumbar region with discogenic back pain and lower extremity pain M51.362 Disc-related pain type: discogenic back pain and lower extremity pain Primary osteoarthritis of right hip M16.11 Osteoarthritis type: primary Anxiety F41.9 Overweight (BMI 25.0-29.9) E66.3 Additional Codes PHQ-9 - 72163 - PHQ-9 Billing: Yes ([id number]) Assessment & Plan Assessment & Plan (1) Type 2 diabetes mellitus without complications: Code(s): E11.9 - Type 2 diabetes mellitus without complications Category: Medical Qualifiers: Diabetes mellitus mcc insulin use: without intermodal truck driver use Qualified Code(s): E11.9 - Type 2 diabetes mellitus without complications Plan: Her HgbA1c went up to 8.4% on her labs done last week (was previously at 7.3% a few months ago) - goal is <7.0% Reinforced diabetic diet Continue Glimepiride 2 mg QD, Mounjaro 5 mg SQ once a week and Tresiba 22 units Q HS for now Follow up with [facility] as scheduled (2) Mixed hyperlipidemia: Code(s): E78.2 - Mixed hyperlipidemia Category: Medical Plan: Results of her labs done last week reviewed and discussed with patient Reinforced low cholesterol diet Continue Rosuvastatin 20 mg QD (she had elevated LFTs while on Atorvastatin in the past) Will recheck her labs and fasting lipids in 3 months for follow up (3) Benign essential hypertension: Code(s): I10 - Essential (primary) hypertension Category: Medical Plan: Reinforced low sodium diet - goal is systolic BP of at least 130 mm or less Continue Losartan 100 mg QD and Hydralazine 10 mg BID Patient is reminded to continue monitoring her blood pressure regularly (4) Dizziness: Code(s): R42 - Dizziness and giddiness Category: Medical Plan: Unclear etiology She was seen by neurology for this and for her recent memory impairment, as well as by ENT She had MRI of the brain done in late January 2025 - MRI reports (+) 3 x 5 x 9 cm simple arachnoid cyst, posterior cranial fossa resulting in mild to moderate mass effect upon cerebellum as well as white matter disease 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 Viramontes) as scheduled (6) Vitamin D deficiency: Code(s): E55.9 - Vitamin D deficiency, unspecified Category: Medical Plan: Continue Vitamin D3 2000 units QD (7) Lumbar degenerative disc disease: Code(s): M51.36 - Other intervertebral disc degeneration, lumbar region Category: Medical Qualifiers: Disc-related pain type: discogenic back pain and lower extremity pain Qualified Code(s): M51.362 - Other intervertebral disc degeneration, lumbar region with discogenic back pain and lower extremity pain Plan: Lumbar spine x-rays done back in June 2023 revealed (+) diffuse mild to moderate lumbar disc and lower lumbar facet degenerative change with mild right lateral listhesis L3 over L4, mild retrolisthesis L3 over L4 with mild curvature of the lumbar spine convex to the right Right SI joint x-rays done back in October 2023 revealed (+) sclerosis along the left greater than right sacroiliac joints with some loss of the left sacroiliac joint space suggesting osteoarthritis or sacroiliitis MRI of the lumbar spine done about a month ago revealed (+) multilevel spondylosis, L2-3 to L5-S1 resulting in central spinal canal and bilateral, right greater than left neuroforamina stenosis at L3-4, L4-5 levels, as well as 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, posterior spinous processes L3-4 and L4-5, 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 She is scheduled to see neurosurgery in a couple of days for consultation She was previously referred to pain management but it did not look like she went for her appt a few months ago Continue Tramadol 50 mg TID PRN for pain for now (Rx refilled) and if this is not really helping much anymore, will pursue pain management referral again (8) Osteoarthritis of right hip: Code(s): M16.11 - Unilateral primary osteoarthritis, right hip Category: Medical Qualifiers: Osteoarthritis type: primary Qualified Code(s): M16.11 - Unilateral primary osteoarthritis, right hip Plan: Right hip x-rays done back in October 2023 revealed (+) mild osteoarthritis of the pubic symphysis with borderline loss of joint space and sclerosis along the left greater than right sacroiliac joints with some loss of the left sacroiliac joint space suggesting osteoarthritis or sacroiliitis Have recommended to patient that she should see orthopedics or try physical therapy or both to help address her hip and lower back issues (9) Anxiety: Code(s): F41.9 - Anxiety disorder, unspecified Category: Medical Plan: She was on Citalopram 40 mg QD and Hydroxyzine 10 mg TID PRN for anxiety previously but she is no longer taking these - unclear as to why but they could have been discontinued by psychiatry Continue Lamictal 25 mg BID and Buspirone 10 mg BID Follow up with psychiatry as scheduled (10) Overweight (BMI 25.0-29.9): Code(s): E66.3 - Overweight Category: Medical Plan: Reinforced diet/exercise as tolerated/lose weight Plan Follow up in 3 months Orders: Orders Complete Blood Count Auto Diff 3 Months D64.9 - Anemia, unspecified Comprehensive [place]. Panel Fast 3 Months E78.00 - Pure hypercholesterolemia, unspecified Hemoglobin A1c 3 Months E11.9 - Type 2 diabetes mellitus without complications Lipid Panel 3 Months E78.00 - Pure hypercholesterolemia, unspecified Microalbumin, Random (w Creat) 3 Months E11.9 - Type 2 diabetes mellitus without complications TSH reflex Free T4 3 Months E78.00 - Pure hypercholesterolemia, unspecified UA CC w/rflx Micro + Cult 3 Months R30.0 - Dysuria Vitamin D 25-OH Total 3 Months E55.9 - Vitamin D deficiency, unspecified Vitamin B12 and Folate 3 Months E53.8 - Deficiency of other specified B group vitamins Medications: New tramadol 50 mg PO TID PRN 30 tabs 0RF low back pain
--- OUTSIDE RECORDS SUMMARY | 2025-03-01 18:07 | XMS_ITS | Continuity of Care Document ---
Author Organization [facility] [address] [place] [address] Phone [phone] Care Team Providers Care Rn Birthing Name Role Phone Abhijeet George Care Team Information Motor Runner [phone] Problems Active Problems Provider Date Type 2 [...] Indications Order ing Provider Date Freestyle Gerardo 2/[place]/Flash Glucose Monitoring Uknyvm7Dcioiy Device use as directed with sensors DX e11.9 1carlo Blanca M.D. 2024 Freestyle Gerardo 2/Sensor/Flash Glucose Monitoring Mitatb7Qaoftt Misc 1 sensor to skin every fourteen days DX E11.9 6unalyssa Blanca M.D. 2024 Laljobie0dz/0.5ML Solution Pen-Inject Inject 5 MG Subcutaneously Once Weekly. dxE11.9 2ml E11.9 Odilia Blanca M.D. 02/25/2024 E66.3 Z68.27 Meclizine WZB89yx Tablets Take 1 Tablet By Mouth Three Times A Day as Needed For Dizziness Abhijeet, George 0 Tramadol NGE12yr Tablets Take 1 Tablet B y Mouth Three Times A Day as Needed For Pain Abhijeet, George Rosuvastatin Udvccyi04iz Tablets Take 1 Tablet Orally Daily For 90 Days Abhijeet, George Oegbzbngtnz4ml Tablets Take 1 Tablet By Mouth Every Day In The Morning Odilia Blanca M.D. Tresiba Dtxkxxdsw583Zphe/ML Solution Pen-Inject Inject 20 Unit (0.2 ML) Subcutaneously Bedtime Abhijeet, George 000 Freestyle Lite TestStrips Use To Test 3 Times Daily Abhijeet, Kenne Bnwjzpzfc271ht Tablets Take 1 Tablet By Mouth Every 6 Hours as Needed For Pain Unknown Ilheaoczzgb51vm Tablets Take 2 Tablets B y Mouth Twice A Day For 90 Days Jil Lorenzo MD Divalproex Sodium SP088uk Tablets ER 24HR Jil Lorenzo MD History Medications Mounjaro2.5mg/0.5ML Solution Pen-Inject inject 2.5 mg subcutaneously once weekly. 2ml Odilia Blanca M.D. 03/18/2024 - 08/30/2024 Freestyle Gerardo 3/Sensor/Glucose Monitoring [facility] as directed 3christianits Odilia Blanca M.D. 03/11/2024 [...]
--- OUTSIDE RECORDS SUMMARY | 2025-03-01 18:07 | XMS_ITS | Clinical Summary ---
Author Organization [address] [facility] Address [address] [place] [address] Phone Care Team Providers Care Product Developer Name Role Phone George Jha MD Primary Care Provider Social History Tobacco Use Types Packs/Day Years Used Date Smoking Tobacco: Never Assessed Comments Unknown Sex and Gender Information Value Date Recorded Sex Assigned at Not on file Legal Sex Female 8:27 PM EST Gender Identity Not on file Sexual Orientation Not on file Plan of Treatment Upcoming Encounters Date Type Department Care Team ([facility] Contact Info) Description 03/03/2025 11:30 AM EDT Consult Neurosurgery [place] [facility] [address] [phone] Beatriz Elaine PA [address] [address] 05/24/2025 3:00 PM EDT Office Visit Orthopedic Surgery [facility] [address] [phone] Homer Langley DPM [address] [address] Health Maintenance Due Date Last Done Comments [...] patient's age to complete this topic Insurance [facility] Member Subscriber Plan / Payer (Ef fective 2019-Present) Name:Joey Husainia Relation to Subscriber:Spouse Name:JOEY HUSAINIA Date of :1954 (Home) Address: [address] [place] [id number] Payer ID:[id number] Group ID:[id number] Type:Not on file Address: [place] [address] [place] [id number] MEDICAID - [place] Member Subscriber Plan / Payer (Ef fective 2025-Present) Name:Cara Husain Relation to Subscriber:Self Name:Cara Husain Payer ID:[id number] Group ID:Not on file Type:Not on file Address: [facility] [employer] [place] ATTN:CLAIMS [address] [place] [address] Care Teams Product Developer Relationship Specialty Start Date End Date George Jha MD [address] [place] [address] [address] [place], [place] PCP - General Internal Medicine 02/17/25
--- OUTSIDE RECORDS SUMMARY | 2025-03-01 18:07 | XMS_ITS | Data Portability ---
Author Organization [employer] Address [address] [place] [phone] Care Team Providers Care Herbologist Name Role Phone [facility] Referring Provider [phone] Assessment No assessment recorded. Plan of Treatment [...] [degF] 68 /min 100 % 100 % 49926.2 88 g 18 /min 149 mm[Hg] 88 mm[Hg] Not Available [place] - production 2 19:32:11 Social History None [...] Note [id number] Azar Sweeney MD Main - [address] [phone] 07/17/2022 19:32:01 07/29/2022 13:06:51 Chest pain [id number] R07.[address]-T wave changes. [...] Hernandez Member ID Guarantor Name 07/17/2022 1 [facility] - DOS PRIOR TO 2023 - DUAL ELIGIBLE (MEDICARE REPLACEMENT/ADV ANTAGE - HMO) Cara Husain [id number] Cara Husain Notes Date Note Type Note [...] .................. .................. .................. .................. .................. .................. ............... Air Control Electronics Operator Note: Sent to a call for a [...] Fulfilled note: EKG reviewed, hx per above zAar Sweeney MD [address] [facility], [place], [address], [place] [employer] 07/17/2022 19:33:44 OBGyn Episode No OBEpisode recorded.
== END 2025-03-01 16:09 | disposition home or self-care (01) ==
LOC: HO.HMCH 14:52
PROVIDERS: PCP Internal Medicine; Visit Provider Internal Medicine
DX: E11.9 Type 2 diabetes mellitus without complications (principal); E78.2 Mixed hyperlipidemia; I10 Essential (primary) hypertension; R42 Dizziness and giddiness; R79.89 Other specified abnormal findings of blood chemistry; E55.9 Vitamin D deficiency, unspecified; M51.362 Other intervertebral disc degeneration, lumbar region with discogenic back pain and lower extremity pain; M16.11 Unilateral primary osteoarthritis, right hip; F41.9 Anxiety disorder, unspecified; E66.3 Overweight

== ENCOUNTER → 2025-03-01 14:52 | Outpatient (BNVA) | payer OTHER, SELFPAY | PROVIDERS: PCP Internal Medicine; Visit Provider Internal Medicine | DX: E11.9 Type 2 diabetes mellitus without complications (principal); E78.2 Mixed hyperlipidemia; I10 Essential (primary) hypertension; R42 Dizziness and giddiness; R79.89 Other specified abnormal findings of blood chemistry; E55.9 Vitamin D deficiency, unspecified; M51.362 Other intervertebral disc degeneration, lumbar region with discogenic back pain and lower extremity pain; M16.11 Unilateral primary osteoarthritis, right hip; F41.9 Anxiety disorder, unspecified; E66.3 Overweight; Z68.26 Body mass index [BMI] 26.0-26.9, adult; Z79.4 Long term (current) use of insulin; Z79.84 Long term (current) use of oral hypoglycemic drugs; Z79.899 Other long term (current) drug therapy | CPT/HCPCS: 96127; 99212 ==

== ENCOUNTER 2025-05-11 15:28 | Outpatient (AMB) | payer OTHER, SELFPAY ==
--- OUTSIDE RECORDS SUMMARY | 2025-04-15 09:00 | XMS_ITS ---
Author Organization [facility] Address [address] [place] [address] Care Team Providers Care Coin Machine Supervisor Name Role Phone Abhijeet VILLA [place] Primary Care Provider Juanito Tafoya Unavailable [phone] REASON FOR VISIT fatty liver, autoimmune hepatitis [...] -Taking Encounters Encounter Location Date Provider Diagnosis [facility] [address] [place] [address] 04/15/2025 Juanito Viramontes Plan Of Treatment Next Appt Details Provider Name:Juanito Viramontes , 07/06/2025 03:20:00 PM, [address], [address], [place], [address], Progress Notes * ETHAN SWEETDOB:[birth year] (69 yo F)Acc No.[id number]:04/15/2025 Progress Notes Patient: ETHAN DESHPANDE Provider: Ronald Viramontes MD :1955 A ge:69 Y S ex:Female Date:04/15/2025 Address:[address] [place], [place] [id number] Pcp:George Jha MD Subjective: * Chief Complaints: [...] 0 04/15/2025 Generated for Aureliano prater/Andie/Abbeyitting on: 05/11/2025 03:36 PM EDT
[2025-05-11 15:32] VITALS: BP 118/80; PULSE 86; O2SAT 98; BMI 26.2
--- NOTE | 2025-05-11 15:32 | A.OFFPC_ITS ---
Vital Signs 05/11/25 15:32 Height 5 ft 2 in Weight 143 lb 6 oz BMI 26.2 BP 118/80 Blood Pressure Location Lt brachial Position Sitting Pulse 86 Pulse Source Pulse Oximeter Pulse Oximetry (%) 98 Oxygen Delivery Method Room Air Intake Visit Reasons: Dizziness Assisted Living Coordinator Required: No Accompanied by: Self / Same As Patient Allergies propranolol Allergy (Intermediate, Verified 05/11/25 16:08) Anxiety amoxicillin Allergy (Unknown, Verified 05/11/25 16:08) Rash glipizide Allergy (Unknown, Verified 05/11/25 16:08) unknown latex (LATEX) Allergy (Unknown, Verified 05/11/25 16:08) UNKNOWN levofloxacin Allergy (Unknown, Verified 05/11/25 16:08) Unknown liraglutide (From VICTOZA) Allergy (Unknown, Verified 05/11/25 16:08) UNKNOWN, itching metformin (METFORMIN) Allergy (Unknown, Verified 05/11/25 16:08) DIARRHEA morphine (MORPHINE) Allergy (Unknown, Verified 05/11/25 16:08) ITCHING, rash acetaminophen Allergy (Verified 05/11/25 16:08) Unknown gabapentin Allergy (Verified 05/11/25 16:08) Unknown atorvastatin Adverse Reaction (Intermediate, Verified 05/11/25 16:08) elevated LFTs Medication List - Last Reconciled 05/11/25 by George Jha MD blood sugar diagnostic (FreeStyle Lite Strips) 1 strip miscellaneous TID blood-glucose meter (FreeStyle Lite Meter kit) As directed cholecalciferol (vitamin D3) 50 mcg PO DAILY 90 days fluticasone propionate 50 mcg/actuation 2 sprays intranasal DAILY glimepiride 2 mg PO QAM ibuprofen 800 mg PO Q8H PRN [incontinence liners 4 times per day] [incontinence wipes As directed] insulin degludec (Tresiba FlexTouch U-100 insulin) 40 units subcut BEDTIME lancets (FreeStyle Lancets) As directed-to test sugars Three times a day losartan 100 mg PO DAILY pen needle, diabetic As directed pen needle, diabetic As directed daily inject 4 x a day rosuvastatin 20 mg PO DAILY 90 days Tobacco use date assessed: 05/11/25 Last assessed Fall Risk: 05/11/25 Dental Screening Dental Screen Date: 05/11/25 Did you have a dental visit in the last 12 months?: Yes Did you have a dental problem in the last 6 months where you did not have access to dental care?: No Was dental information given to patient?: Patient has dentist HPI Dizziness HPI Details Patient comes in today for her follow-up visit States that she continues to experience on and off dizziness but denies any headaches She denies any chest pains, no increased shortness of breath No nausea/vomiting, no abdominal pain No change in bowel habits noted Patient was seen by Neurosurgery a couple of months ago for further evaluation of her symptoms and because of a subarachnoid cyst that was seen incidentally on brain imaging studies by Neurology She was advised that the subarachnoid cyst is likely a chronic and benign finding and has no bearing on her current symptoms, which Dr. Mathew felt was multifactorial, including due to mood disorder and menopause Patient admits to experiencing increased anxiety and depression lately She used to take Citalopram for her mood disorder but she self-discontinued this sometime last year She would also like to have her Losartan dose changed/simplified from having to take 2 individual 50 mg tablets at the same time to just 1 whole 100 mg tablet a day She has no follow-up labs done recently - she does have labs ordered for her regular follow-up appointment next month [facility] Medical History Panic disorder Painful diabetic neuropathy Arachnoid cyst Migraine without aura TLE (temporal lobe epilepsy) Complex partial seizure disorder Encephalopathy MCI (mild cognitive impairment) Depression with anxiety Insomnia Multifactorial dementia Dizziness Overweight (BMI 25.0-29.9) Vitamin D deficiency Ear pain Ear drainage Right shoulder pain Functional urinary incontinence COVID-19 Encounter to discuss test results Memory loss Urinary incontinence Chest pain Colon cancer screening Annual physical exam Diabetes Type 2 diabetes mellitus with hyperglycemia Epigastric pain Vertigo Upper abdominal pain Screening for tuberculosis Low back pain Preoperative examination Right hip pain Right low back pain Primary osteoarthritis of shoulder Memory loss or impairment Bursitis of right shoulder Bursitis of left shoulder Primary osteoarthritis, right shoulder Anxiety Varicose veins of both lower extremities Allergic rhinitis Elevated LFTs Primary osteoarthritis of left shoulder Lumbar degenerative disc disease Benign essential hypertension Type 2 diabetes mellitus without complications Mixed hyperlipidemia Surgical History History of appendectomy History of cholecystectomy History of cystoscopy History of tubal ligation Family History Father Cancer Mother Diabetes Maternal Uncle Cancer Maternal Grandfather Cancer Social History Housing: Apartment Alcohol intake: former Patient Tobacco Use Status: Never used Tobacco e-Cigarette/Vaping Use: Never Used Second Hand Smoke Exposure: Yes service: No Current occupational status: unemployed Current occupational exposures/hazards: No Cognitive needs: No Hearing needs: No Vision needs: No Questionnaire PHQ-9 Over the last 2 weeks, how often have you been bothered by any of the following problems? 1. Little interest or pleasure in doing things: nearly every day 2. Feeling down, depressed, or hopeless: nearly every day 3. Trouble falling or staying asleep, or sleeping too much: nearly every day 4. Feeling tired or having little energy: nearly every day 5. Poor appetite or overeating: nearly every day 6. Feeling bad about yourself - or that you are a failure or have let yourself or your family down: more than half the days 7. Trouble concentrating on things, such as reading the newspaper or watching television: more than half the days 8. Moving or speaking so slowly that other people could have noticed. Or the opposite - being so fidgety or restless that you have been moving around a lot more than usual: more than half the days 9. Thoughts that you would be better off or of hurting yourself in some way: not at all Total score: 21 Depression Screening Interpretation: Positive Depression Screening Follow-up: Existing condition and In treatment Depression Screening Done: Yes 90348 - PHQ-9 Billing: Yes Source: Developed by Drs. Juanito Moscoso, Shea Michel, Russell Ott and colleagues, with an educational peace from [employer]. Thrive Questionnaire Date Thrive assessed: 05/11/25 I am a: Patient What is your living situation today?: I have a steady place to live Within the past 12 months, did the food you bought not last and you didn't have the money to get more?: Never true Within the past 12 months, did you worry whether your food would run out before you got money to buy more?: Never true Do you have trouble paying for medicines?: No Do you have trouble getting transportation to medical appointments?: No Do you have trouble paying your heating and electricity bill?: No Do you have trouble taking care of your child, family member or friend?: No Do you have trouble with day-to-day activities such as bathing, preparing meals, shopping, managing finances, etc.?: No Are you currently unemployed and looking for a job?: No Are you interested in more education?: No Please select the resources that you would like help with: None Currently or been in a relationship where the following occur: No concerns reported THRIVE Score: 0 AUDIT C Alcohol Use Questionnaire (AUDIT-C) 1. How often do you have a drink containing alcohol?: Never 3. How often do you have six or more drinks on one occasion?: Never Total Score: 0 Score Reviewed/Action Taken: Yes NIEVES-7 AMB Questionnaire NIEVES-7 Date NIEVES - 7 assessed: 05/11/25 Feeling nervous, anxious, or on edge: 0 = Not at all Not being able to stop or control worryin = Not at all Worrying too much about different things: 0 = Not at all Trouble relaxin = Not at all Being so restless that it is hard to sit still: 0 = Not at all Becoming easily annoyed or irritable: 0 = Not at all Feeling afraid as if something awful might happen: 0 = Not at all Total NIEVES-7 score (0-4 normal; 5-9 mild; 10-14 moderate; 15-21 severe): 0 Source: Developed by Drs. Juanito Moscoso, Shea Michel, Russell Ott and colleagues, with an educational peace from [employer]. Review of Systems Const Denies chills, Reports difficulty sleeping, Reports fatigue, Denies fever(s) and Denies headache(s) ENT Denies dysphagia, Reports dizziness (on and off), Denies otalgia, Denies headache(s), Denies neck pain, Denies odynophagia and Denies sore throat Card Denies chest pain, Denies palpitations and Denies dyspnea Resp Denies chest congestion, Denies cough and Denies dyspnea GI Denies abdominal pain, Denies constipation, Denies dysphagia, Denies heartburn, Denies diarrhea, Denies nausea, Denies odynophagia and Denies vomiting Denies difficulty voiding, Denies nocturia, Denies dysuria, Reports urinary incontinence and Denies urinary urgency Musc Reports back pain (increased, especially over the right lower back), Denies neck pain and Reports radiating pain into limb (into the right hip and right thigh) Skin/Breast Denies rash Neuro Reports dizziness (on and off), Denies headache(s) and Reports memory loss (has tendency to do things lately and not remember them) Psych Reports anxiety, Reports depression and Reports memory loss (has tendency to do things lately and not remember them) Endo Reports fatigue and Denies palpitations Physical exam (Primary Care) Vital Signs: Last Vital Signs Pulse 86 05/11/25 15:32 BP 118/80 05/11/25 15:32 Pulse Ox 98 05/11/25 15:32 Oxygen Delivery Method Room Air 05/11/25 15:32 BMI result Body Mass Index 26.2 Tobacco/Smoking Status: Tobacco use Status Tobacco use date assessed 05/11/25 05/11/25 15:40 Patient Tobacco Use Status Never used Tobacco 05/11/25 15:40 e-Cigarette/Vaping Use Never Used 05/11/25 15:40 PHQ-9: PHQ-9 Score PHQ-9: Total score 21 05/11/25 16:07 Depression Screening Interpretation: Positive Depression Screening Follow-up: Existing condition and In treatment Thrive Assessment: Date of Thrive Assessment Date Thrive assessed 05/11/25 05/11/25 15:40 Currently or been in a relationship where the following occur: No concerns reported Const General: no acute distress and alert HENMT Ears: TM's normal bilaterally and EAC's normal Throat: Yes posterior oropharynx normal and Yes tonsils normal (no TP congestion) Neck Neck: Yes supple and No lymphadenopathy Thyroid: Thyroid normal Resp Auscultation: clear to auscultation bilaterally, no rales and no wheezes Cardio Rate: regular rate Rhythm: regular rhythm Heart sounds: no murmurs GI Palpation (GI): Soft to palpation and nontender Auscultation: normal bowel sounds General: Yes no CVA tenderness Back/Spine/Pelvis Back: no CVA tenderness Thoracic/Lumbar Spine: paraspinal muscle tenderness on the right in the mid lumbar and in the lower lumbar and lumbar spinal tenderness Sacroiliac joints: on the right tender to palpation Skin Rashes: no rashes Extrem General: Yes no clubbing, cyanosis or edema Right lower extremity: hip/thigh Details: tenderness Location: of the hip Location: anterolaterally Coding Level of Care Code Est Pt Level 4 (00607) Diagnoses Type 2 diabetes mellitus without complication, without long-term current use of insulin E11.9 Diabetes mellitus residential insulin use: without residential use Mixed hyperlipidemia E78.2 Benign essential hypertension I10 Dizziness R42 Elevated LFTs R79.89 Vitamin D deficiency E55.9 Degeneration of intervertebral disc of lumbar region with discogenic back pain and lower extremity pain M51.362 Disc-related pain type: discogenic back pain and lower extremity pain Primary osteoarthritis of right hip M16.11 Osteoarthritis type: primary Anxiety F41.9 Overweight (BMI 25.0-29.9) E66.3 Additional Codes PHQ-9 - 57439 - PHQ-9 Billing: Yes ([id number]) Assessment & Plan Assessment & Plan (1) Type 2 diabetes mellitus without complications: Code(s): E11.9 - Type 2 diabetes mellitus without complications Category: Medical Qualifiers: Diabetes mellitus residential insulin use: without residential use Qualified Code(s): E11.9 - Type 2 diabetes mellitus without complications Plan: Her HgbA1c went up to 8.4% on her labs done a few months ago (was previously at 7.3%) - goal is <7.0% Reinforced diabetic diet Continue Glimepiride 2 mg QD and Tresiba 40 units Q HS Patient adds that was started on Mounjaro by endocrinology a few months ago and is now at 5 mg once a week dose Will increase her Mounjaro now to 10 mg SQ once a week Follow up with [facility] Endocrinology as scheduled (2) Mixed hyperlipidemia: Code(s): E78.2 - Mixed hyperlipidemia Category: Medical Plan: Reinforced low cholesterol diet Continue Rosuvastatin 20 mg QD (she had elevated LFTs while on Atorvastatin in the past) Will recheck her labs and fasting lipids as scheduled next month for follow up (3) Benign essential hypertension: Code(s): I10 - Essential (primary) hypertension Category: Medical Plan: Reinforced low sodium diet - goal is systolic BP of at least 130 mm or less Continue Losartan 100 mg QD and Hydralazine 10 mg BID Patient is reminded to continue monitoring her blood pressure regularly (4) Dizziness: Code(s): R42 - Dizziness and giddiness Category: Medical Plan: Unclear etiology She was seen by neurology for this and for her recent memory impairment, as well as by ENT She had MRI of the brain done in late January 2025 - MRI reports (+) 3 x 5 x 9 cm simple arachnoid cyst, posterior cranial fossa resulting in mild to moderate mass effect upon cerebellum as well as white matter disease likely related to small vessel occlusive disease She was referred to neurosurgery at [facility] and was seen a couple of months ago - Dr. Hagen reportedly did not think that the subarachnoid cyst has any bearing on her recent symptoms and she was reassured that this is a chronic but benign condition and needs no further follow up or intervention Continue Meclizine 25 mg TID PRN (5) Elevated LFTs: Code(s): R79.89 - Other specified abnormal findings of blood chemistry Category: Medical Plan: Abdominal ultrasound with liver elastography done last year came back mostly unremarkable except for mild hepatic steatosis Her LFTs have remained NORMAL on her recent labs - will continue to monitor her LFTs regularly Follow up with GI (Dr. Viramontes) as scheduled (6) Vitamin D deficiency: Code(s): E55.9 - Vitamin D deficiency, unspecified Category: Medical Plan: Continue Vitamin D3 2000 units QD (7) Lumbar degenerative disc disease: Code(s): M51.36 - Other intervertebral disc degeneration, lumbar region Category: Medical Qualifiers: Disc-related pain type: discogenic back pain and lower extremity pain Qualified Code(s): M51.362 - Other intervertebral disc degeneration, lumbar region with discogenic back pain and lower extremity pain Plan: Lumbar spine x-rays done back in June 2023 revealed (+) diffuse mild to moderate lumbar disc and lower lumbar facet degenerative change with mild right lateral listhesis L3 over L4, mild retrolisthesis L3 over L4 with mild curvature of the lumbar spine convex to the right Right SI joint x-rays done back in October 2023 revealed (+) sclerosis along the left greater than right sacroiliac joints with some loss of the left sacroiliac joint space suggesting osteoarthritis or sacroiliitis MRI of the lumbar spine done about a month ago revealed (+) multilevel spondylosis, L2-3 to L5-S1 resulting in central spinal canal and bilateral, right greater than left neuroforamina stenosis at L3-4, L4-5 levels, as well as 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, posterior spinous processes L3-4 and L4-5, 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 She was previously referred to pain management but it did not look like she went for her appt a few months ago Continue Tramadol 50 mg TID PRN for pain for now and if this is no longer helping much anymore, will pursue pain management referral again (8) Osteoarthritis of right hip: Code(s): M16.11 - Unilateral primary osteoarthritis, right hip Category: Medical Qualifiers: Osteoarthritis type: primary Qualified Code(s): M16.11 - Unilateral primary osteoarthritis, right hip Plan: Right hip x-rays done back in October 2023 revealed (+) mild osteoarthritis of the pubic symphysis with borderline loss of joint space and sclerosis along the left greater than right sacroiliac joints with some loss of the left sacroiliac joint space suggesting osteoarthritis or sacroiliitis Have recommended to patient that she should see orthopedics or try physical therapy or both to help address her hip and lower back issues (9) Anxiety: Code(s): F41.9 - Anxiety disorder, unspecified Category: Medical Plan: She was on Citalopram 40 mg QD and Hydroxyzine 10 mg TID PRN for anxiety previously but she is no longer taking these - unclear as to why they were discontinued Continue Lamictal 25 mg BID and Buspirone 10 mg BID Will try starting her back on Citalopram 10 mg QD for her mood disorder, which is likely a significant contributor to her recent symptoms including her recurrent dizziness Follow up with psychiatry as scheduled (10) Overweight (BMI 25.0-29.9): Code(s): E66.3 - Overweight Category: Medical Plan: Reinforced diet/exercise as tolerated/lose weight Plan To return as scheduled next month for follow up Medications: New citalopram 10 mg PO DAILY 30 tabs 3RF 30 days tirzepatide (Mounjaro) 10 mg (0.5 mL) subcut QWEEK 2 mL 0RF Changed From insulin degludec (Tresiba FlexTouch U-100 insulin) 22 units (0.22 mL) subcut BEDTIME 15 mL 2RF To insulin degludec (Tresiba FlexTouch U-100 insulin) 40 units subcut BEDTIME From losartan 100 mg PO DAILY 90 tabs 3RF To losartan 50 mg (1/2 x 100 mg) PO DAILY 90 tabs 3RF
--- OUTSIDE RECORDS SUMMARY | 2025-05-11 15:35 | XMS_ITS | Clinical Summary ---
Author Organization 175 [facility] Address [address] [place] [address] Phone Care Team Providers Care Stacker Attendant Name Role Phone George Jha MD Primary Care Provider + [phone] Allergies Active Allergy Reactions Criticality Noted Date Comments Acetaminophen 03/03/2025 Amoxicillin 03/03/2025 Gabapentin 03/03/2025 Glipizide 03/03/2025 Latex 03/03/2025 Levofloxacin 03/03/2025 Liraglutide 03/03/2025 Metformin 03/03/2025 Morphine 03/03/2025 Medications Mounjaro 5 mg/0.5 mL injection Inject 0.5 mL (5 mg total) under the skin. 02/28/2025 Active losartan (COZAAR) 100 mg tablet Take 1 tablet (100 mg total) by mouth 1 (one) time each day. Active Tradjenta 5 mg tablet Take 1 tablet (5 mg total) by mouth 1 (one) time each day. Active lamoTRIgine (LaMICtal) 25 mg tablet TAKE 2 TABLETS BY MOUTH TWICE A DAY FOR 90 DAYS Active propranoloL (INDERAL) 10 mg tablet 10/22/2024 Active busPIRone (BUSPAR) 10 mg tablet take 1 tablet orally 2 times a day for 30 days 09/20/2024 Active baclofen (LIORESAL) 10 mg tablet Take by mouth. at bedtime 02/02/2025 Active blood sugar diagnostic (FreeStyle Lite Strips) test strip as directed 08/22/2024 Active cholecalciferol (VITAMIN D-3) 50 mcg (2,000 unit) capsule Take 1 capsule (2,000 Units total) by mouth 1 (one) time each day. 01/24/2025 Active divalproex (DEPAKOTE ER) 250 mg 24 hr tablet Take 1 tablet (250 mg total) by mouth at bedtime. 01/08/2025 Active hydrALAZINE (APRESOLINE) 10 mg tablet Take 1 tablet (10 mg total) by mouth 2 (two) times a day. 01/27/2025 Active neomycin-polymy hernán-dexamethaso ne (MAXITROL) 3.5mg/mL-10,000 unit/mL-0.1 % ophthalmic suspension instill 1 drop into both eyes 4 times a day 08/02/2024 Active rosuvastatin (CRESTOR) 20 mg tablet Take 1 tablet (20 mg total) by mouth 1 (one) time each day. for 90 days 12/28/2024 Active traMADoL (ULTRAM) 50 mg tablet 03/01/2025 Active glimepiride (AMARYL) 2 mg tablet Take 1 tablet (2 mg total) by mouth 1 (one) time each day before breakfast. Active Active Problems Problem Noted Date Diagnosed Date Arachnoid cyst 03/03/2025 Assessment & Plan (03/03/2025 4:43 PM EDT): Patient describes 2 to 3 years of significant symptoms that have made her daily life difficult, including new diagnosis of complex partial seizure disorder, significant dizziness and imbalance, feeling drowsy, like she drank alcohol , she will get a heat and pressure sensation in her head, in general would call her headaches mild. She states she had a lot of headaches as a child. A year ago she recalls when she would be eating she would have a watery liquid dripping out of her nose, that seem to have improved. She saw an eye doctor, was having nystagmus, that improved after stopping lamotrigine. She states when she is lying down she feels okay, but with sitting and activity symptoms worsen. She also has some issues with memory, anxiety and panic attacks. She describes feeling restless legs, prickly sensations in the distal legs and feet. Part of her workup she had brain MRI that showed posterior cranial fossa arachnoid cyst and was referred to the office. Patient had brain MRI 01/31/2025 that shows 3 x 5 x 9 cm extra-axial arachnoid cyst in the posterior cranial fossa, no hemorrhage noted within the cyst, appears to be simple arachnoid cyst, smooth border of the cerebellar hemisphere, Dr. Hagen reviewed images and feels this has been there since /chronic. There are no prior images for comparison. Ms. Husain was noted to have incidental posterior fossa arachnoid cyst, appears chronic, no hemorrhage noted in the cyst. Dr. Hagen does not feel this requires any surgical intervention, is not likely causing her current symptoms. Patient has follow-up with neurology. I asked her to call with any change in symptoms. Some of the symptoms she describes like dizziness, arthralgias/shoulder pain, memory issues, distal leg symptoms, anxiety, could partially be related to low estrogen/multifactorial (she had menopause approximately 52-55 years old per patient's daughter), I asked her to go to [email or web address] and find a local menopause specialist that she could discuss her symptoms, see if they feel it is related. If she has any change in symptoms, I can order a follow-up brain MRI, however Dr. Hagen does not feel we need a follow-up image as part of serial imaging otherwise. All questions answered. Encounters Date Type Department Care Team Description 03/03/2025 11:30 AM EDT Consult Neurosurgery [place] - [address] [place] [address] Beatriz Elaine PA Arachnoid cyst (Primary Dx); Complex partial seizure disorder ([facility] V24, [facility] V28) from Last 3 Months Surgical History Surgery Date Site/Laterality Comments CATARACT EXTRACTION 08/2023 GALLBLADDER SURGERY TUBAL LIGATION Medical History Medical History Date Comments DM (diabetes mellitus) (CMS/HCC V24, CMS/HCC V28 ) Migraine without aura TLE (temporal lobe epilepsy) (CMS/HCC V24, CMS/H CC V28) Depression with anxiety Multifactorial dementia (CMS/HCC V24, CMS/HCC V2 8) Arachnoid cyst Encephalopathy Memory loss Panic attacks Anxiety High cholesterol Social History Tobacco Use Types Packs/Day Years Used Date Smoking Tobacco: Never Smokeless Tobacco: Never Comments Unknown Sex and Gender Information Value Date Recorded Sex Assigned at Not on file Legal Sex Female 8:27 PM EST Gender Identity Not on file Sexual Orientation Not on file Obstetrics History Last Filed Vital Signs Vital Sign Reading Time Taken Comments Blood Pressure - - Pulse - - Temperature - - Respiratory Rate - - Oxygen Saturation - - Inhaled Oxygen Concentration - - Weight 64.4 kg (142 lb) 03/03/2025 11:17 AM EDT Height 157.5 cm (5' 2 ) 03/03/2025 11:17 AM EDT Body Mass Index 25.97 03/03/2025 11:17 AM EDT Plan of Treatment Upcoming Encounters Date Type Department Care Team (Late st Contact Info) Description 05/24/2025 3:00 PM EDT Office Visit Orthopedic Surgery - [place] [address] [phone] Homer Langley, COTY [address] [address] Health Maintenance Due Date Last Done Comments Breast Cancer Screening 1954 DTaP,Tdap,and Td Vaccines (1 - Tdap) 1973 Pneumococcal Vaccine: 50+ Years (1 of 1 - PCV) 2004 Zoster Vaccines (1 of 2) 2004 Colorectal Cancer Screening: Colonoscopy 11/28/2023 Depression Screening 11/28/2023 Falls Risk Assessment 11/28/2023 Hepatitis C Screening 11/28/2023 Osteoporosis Screening (Bone Density Screening) 11/28/2023 Social Influencers of Health Screening 11/28/2023 COVID-19 Vaccine (4 - 2023-2 5 season) 2024 09/04/2023, 02/08/2021, 01/11/2021 Influenza Vaccine (#1) 2025 RSV Immunization Adult Patients (1 - 1-dose 75+ series) 2029 HIB [...] to complete this topic RSV Immunization Patients Under 20 months Aged Out No longer eligible b ased on patient's age to complete this topic Varicella Vaccines Aged Out No longer eligible based on patient's age to complete this topic Insurance SARAHI GONZALEZ [id number] [facility] Member Subscriber Plan / Payer (Ef fective 2019-Present) Name:Cara Husain Relation to Subscriber:Self Name:Cara Husain Payer ID:[id number] Group ID:[id number] Type:Not on file Address: [place] [address] [place] [address] Care Teams Stacker Attendant Relationship Specialty Start Date End Date George Jha MD [address] [place] [address] [address] [place], [place] PCP - General Internal Medicine 02/17/25
--- OUTSIDE RECORDS SUMMARY | 2025-05-11 15:35 | XMS_ITS | Continuity of Care Document ---
Author Organization [facility] [address] [place] [address] Phone [phone] Care Team Providers Care Roll Out Manager Name Role Phone Abhijeet George Care Team Information Metallurgical Analyst [phone] Problems Active Problems Provider Date Type 2 diabetes mellitus LIA Berg Onse t: 10/22/2023 Anxiety LIA Berg Onset: 2022 Benign essential hypertension LIA Berg Onset: 10/22/2023 Mixed hyperlipidemia LIA Berg Onset: 1 12/23/2022 Social History Type Date Description Comments Sex Female Sex Unknown Marital Status Has been 1 [...] SIG Qnty Indications Order ing Provider Date Mounjaro7.5mg/0.5ML Solution Auto-Inject Inject 7.5 MG Subcutaneously Once Weekly. dxE11.9 2ml E11.9 Odilia Blanca M.D. 03/07/2025 E66.3 Z68.27 Freestyle Gerardo 2/[facility]/Flash Glucose Monitoring Jiwjyg2Nsmdgc Device use as directed with sensors DX e11.9 1units Odilia Blanca M.D. 2024 Freestyle Gerardo 2/Sensor/Flash Glucose Monitoring Vsjguf2Pyaspr Misc 1 sensor to skin every fourteen days DX E11.9 6unalyssa Odilia Blanca M.D. 2024 Meclizine PSK62ax Tablets Take 1 Tablet By Mouth Three Times A Day as Needed For Dizziness Abhijeet, [place] 0 Tramadol ESP90uc Tablets Take 1 Tablet By Mouth Three Times A Day as Needed For Pain Abhijeet, George Rosuvastatin Itygayc48gj Tablets Take 1 Tablet Orally Daily For 90 Days Abhijeet, [place] Zawisajinhq4np Tablets Take 1 Tablet By Mouth Every Day In The Morning Odilia Blanca M.D. Tresiba Uuitkzjxv100Unfu/ML Solution Pen-Inject Inject 20 Unit (0.2 ML) Subcutaneously Bedtime Abhijeet, George Freestyle Lite TestStrips Use To Test 3 Times Daily Abhijeet, George Jlgyuexdn638uy Tablets Take 1 Tablet By Mouth Every 6 Hours as Needed For Pain Unknown Jkvbglbpzlf25qh Tablets Take 2 Tablets By Mouth Twice A Day For 90 Days Jil Lorenzo MD Divalproex Sodium HW650mp Tablets ER 24HR Jil Lorenzo MD 000 Vital Signs Date Vital Result Comment 03/07/2025 2:41pm BP Systolic 128 mmHg BP Diastolic 70 mmHg Heart Rate 86 /min Height 61 inches 5'1 Weight 147.00 lb BMI (Body Mass Index) 27.8 kg/m2 Results Test Acquired Date Facility Test Result H/L Range N ote Glucose Fingerstick 03/07/2025 Inhouse Glucose Fingerstick 241 Glucose Fingerstick 10/15/2024 Inhouse Glucose Fingerstick 230 [...] Date Location Provider Dx Diagnosis Office Visit 03/07/2025 2:30p Main Office LIA Berg E11.9 Type 2 diabet es mellitus without complications 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) use of insulin Assessments Date Code Description Provider 03/07/2025 E11.9 Type 2 diabetes mellitus wit hout complications LIA Berg 03/07/2025 Z79.4 alf (current) use of i nsulin LIA Berg Plan of Treatment Future Appointment(s):* 06/07/2025 2:30 pm - Claudia Daley CNP at Main Office 03/07/2025 - LIA Berg* E11.9 Type 2 diabetes mellitus without complications * Z79.4 alf (current) use of insulin* New Medication:* Mounjaro 7.5 mg/0.5ML Functional Status Description No Information Available Mental Status Description No Information Available Referrals Refer to Reason for Referral Status Appt Dorian e Dietitian Patient Declined
--- OUTSIDE RECORDS SUMMARY | 2025-05-11 15:36 | XMS_ITS | Data Portability ---
Author Organization [facility], [facility] Address [address] [place] [address] Care Team Providers Care Type Casting Machine Operator Name Role Phone [facility] Referring Provider [phone] Assessment No assessment recorded. Plan of Treatment [...] Pulse oximetry Body weight Respiratory rate Systolic And Diastolic Provider Name and Address Organization Details Last Updated DateTime 2 157.48 cm 97.8 [degF] 68 /min 100 % 100 % 98993.2 88 g 18 /min 149/88 mm[Hg] Not Available [employer] - production 2 19:32:11 Social History None [...] Note [id number] Azar Sweeney MD Main - [address] [phone] 07/17/2022 19:32:01 07/29/2022 13:06:51 Chest pain 60416724 R07.[address]-T wave changes. Chest pain related to anxiety in past. Non-exerti onal. DIscussed red flag symptoms to indicate calling 911. Health Concerns Section Related Observation LastModified by Organization Detai ls LastModified Time None Recorded Concern Status LastModified by Organization Details LastModified Time None Recorded Advance Directives Directive None Recorded Payers Insurance Date Sequence Insurance Name Policy Number Policy Hernandez Covered Member ID Hernandez Member ID Guarantor Name 07/17/2022 1 [facility] - DOS PRIOR TO 2023 - DUAL ELIGIBLE (MEDICARE REPLACEMENT/ADV ANTAGE - HMO) Cara Rodrigue [id number] Cara Rodrigue Notes Date Note Type Note Provider Name [...] .................. .................. .................. .................. .................. .................. ............... Director Of Accounting Note: Sent to a call for a [...] hx per above Azar Sweeney MD [address] [facility],[address], [place], [address], [facility] [place] 07/17/2022 19:33:44 OBGyn Episode No OBEpisode recorded.
== END 2025-05-11 16:21 | disposition home or self-care (01) ==
LOC: HO.HMCH 15:28
PROVIDERS: PCP Internal Medicine; Visit Provider Internal Medicine
DX: E11.9 Type 2 diabetes mellitus without complications (principal); E78.2 Mixed hyperlipidemia; I10 Essential (primary) hypertension; R42 Dizziness and giddiness; R79.89 Other specified abnormal findings of blood chemistry; E55.9 Vitamin D deficiency, unspecified; M51.362 Other intervertebral disc degeneration, lumbar region with discogenic back pain and lower extremity pain; M16.11 Unilateral primary osteoarthritis, right hip; F41.9 Anxiety disorder, unspecified; E66.3 Overweight

== ENCOUNTER → 2025-05-11 15:28 | Outpatient (BNVA) | payer OTHER, SELFPAY | PROVIDERS: PCP Internal Medicine; Visit Provider Internal Medicine | DX: E11.9 Type 2 diabetes mellitus without complications (principal); E78.2 Mixed hyperlipidemia; I10 Essential (primary) hypertension; R42 Dizziness and giddiness; R79.89 Other specified abnormal findings of blood chemistry; E55.9 Vitamin D deficiency, unspecified; M51.362 Other intervertebral disc degeneration, lumbar region with discogenic back pain and lower extremity pain; M16.11 Unilateral primary osteoarthritis, right hip; F41.9 Anxiety disorder, unspecified; E66.3 Overweight; Z68.26 Body mass index [BMI] 26.0-26.9, adult; Z79.4 Long term (current) use of insulin; Z79.891 Long term (current) use of opiate analgesic; Z79.899 Other long term (current) drug therapy; Z13.31 Encounter for screening for depression; Z13.30 Encounter for screening examination for mental health and behavioral disorders, unspecified | CPT/HCPCS: 96127; 99212 ==

== ENCOUNTER 2025-06-20 09:32 | Outpatient (REF) | payer OTHER, SELFPAY ==
[2025-06-20 09:45] LABS: MANUAL DIFF FLAG NO
--- OUTSIDE RECORDS SUMMARY | 2025-06-20 10:07 | XMS_ITS | Clinical Summary ---
Author Organization 175 [facility] Address [address] [place] [address] Phone Care Team Providers Care Alarm Security Or Surveillance Monitor Name Role Phone George Jha MD Primary Care Provider + [phone] Allergies Active Allergy Reactions Criticality Noted Date Comments Acetaminophen 03/03/2025 Amoxicillin 03/03/2025 Gabapentin 03/03/2025 Glipizide 03/03/2025 Latex 03/03/2025 Levofloxacin 03/03/2025 Liraglutide 03/03/2025 Metformin 03/03/2025 Morphine 03/03/2025 Medications Mounjaro 5 mg/0.5 mL injection Inject 0.5 mL (5 mg total) under the skin. 5 Active losartan (COZAAR) 100 mg tablet Take 1 tablet (100 mg total) by mouth 1 (one) time each day. Active Tradjenta 5 mg tablet Take 1 tablet (5 mg total) by mouth 1 (one) time each day. Active lamoTRIgine (LaMICtal) 25 mg tablet TAKE 2 TABLETS BY MOUTH TWICE A DAY FOR 90 DAYS Active propranoloL (INDERAL) 10 mg tablet 4 Active busPIRone (BUSPAR) 10 mg tablet take 1 tablet orally 2 times a day for 30 days 4 Active baclofen (LIORESAL) 10 mg tablet Take by mouth. at bedtime 5 Active blood sugar diagnostic (FreeStyle Lite Strips) test strip as directed 4 Active cholecalciferol (VITAMIN D-3) 50 mcg (2,000 unit) capsule Take 1 capsule (2,000 Units total) by mouth 1 (one) time each day. 5 Active divalproex (DEPAKOTE ER) 250 mg 24 hr tablet Take 1 tablet (250 mg total) by mouth at bedtime. 5 Active hydrALAZINE (APRESOLINE) 10 mg tablet Take 1 tablet (10 mg total) by mouth 2 (two) times a day. 5 Active neomycin-polymyxin -dexamethasone (MAXITROL) 3.5mg/mL-10,000 unit/mL-0.1 % ophthalmic suspension instill 1 drop into both eyes 4 times a day 4 Active rosuvastatin (CRESTOR) 20 mg tablet Take 1 tablet (20 mg total) by mouth 1 (one) time each day. for 90 days 5 Active traMADoL (ULTRAM) 50 mg tablet 5 Active glimepiride (AMARYL) 2 mg tablet Take 1 tablet (2 mg total) by mouth 1 (one) time each day before breakfast. Active diclofenac (Voltaren Arthritis Pain) 1 % topical gel Apply 4 g topically 2 (two) times a day. 240 g 1 5 07/26/20 25 Active lidocaine (LIDODERM) 5 % patch Apply 1 patch topically 1 (one) time each day. Remove & discard patch within 12 hours or as directed by . 30 each 2 5 08/25/20 25 Active lidocaine (XYLOCAINE) 4 % external solutionIndication s:Diabetic mononeuropathy simplex (CMS/HCC V24, CMS/HCC V28) Apply topically at bedtime as needed for mild pain. 50 mL 2 5 Active Active Problems Problem Noted Date Diagnosed [...] Encounters Date Type Department Care Team Description 06/16/2025 3:30 PM EDT Office Visit Orthopedic Surgery [facility] [address] [phone] Homer Langley DPM Diabetic mononeuropathy simplex (CMS/HCC V24, CMS/HCC V28) (Primary Dx); Dermatophytosis of nail 05/27/2025 Telephone Orthopedic Surgery [facility] [address] [phone] Homer Langley DPM 05/24/2025 3:00 PM EDT Office Visit Orthopedic Surgery [place] [address] [phone] Homer Langley DPM Diabetic mononeuropathy simplex ([facility] V24, [facility] V28) (Primary Dx); Dermatophytosis of nail; Pain in toe of right foot; Pain in toe of left foot from Last 3 Months Surgical History Surgery Date Site/Laterality Comments CATARACT EXTRACTION 08/2023 GALLBLADDER SURGERY TUBAL LIGATION Medical History Medical History Date Comments DM (diabetes mellitus) ([facility] V24, [facility] V28 ) Migraine without aura TLE (temporal lobe epilepsy) ([facility] V24, [facility] V28) Depression with anxiety Multifactorial dementia ([facility] V24, [facility] V2 8) Arachnoid cyst Encephalopathy Memory loss [...] Oxygen Concentration - - Weight 64.4 kg (141 lb 15.6 oz) 06/16/2025 4:07 PM EDT Height 157.5 cm (5' 2.01 ) 06/16/2025 4:07 PM ED T Body Mass Index 25.96 06/16/2025 4:07 PM EDT Plan of Treatment Upcoming Encounters Date Type Department Care Team (Late st Contact Info) Description 09/20/2025 1:45 PM EST Office Visit Orthopedic Surgery [place] [address] [phone] Homer Langley DPM [address] [address] Health Maintenance Due Date Last Done Comments Breast Cancer Screening 1955 Diabetes: Annual GFR (Glomerular Filtration Rate) 1954 Diabetes: Annual Foot Exam 1964 Diabetes: Annual Retina Eye Exam 1964 DTaP,Tdap,and Td Vaccines (1 - Tdap) 1973 Pneumococcal Vaccine: 50+ Years (1 of 2 - PCV) 1973 Zoster Vaccines (1 of 2) 2004 RSV Immunization Adult Patients (1 - Risk 60-74 years 1-dose series) 2014 Cholesterol Screening (Lipid Panel) 11/28/2023 Colorectal Cancer Screening: Colonoscopy 11/28/2023 Falls Risk Assessment 11/28/2023 Hepatitis C Screening 11/28/2023 Osteoporosis Screening (Bone Density Screening) 11/28/2023 Social Influencers of Health Screening 11/28/2023 COVID-19 Vaccine (4 - 2023-2 5 season) 2024 09/04/2023, 02/08/2021, 01/11/2021 Depression Screening 11/03/2024 Diabetes: Annual Urine Albumin-Creatinine Ratio (uACR) 05/24/2025 Diabetes: Blood Sugar Contro l Test (HGBA1C) 05/24/2025 Hypertension/CHF/CAD Annual BMP Blood Test 06/17/2025 Influenza Vaccine (#1) 2025 HIB Vaccines Aged Out No longer eligi [...] patient's age to complete this topic Insurance [facility] Member Subscriber Plan / Payer (Ef fective 2019-Present) Name:Cara Husain Relation to Subscriber:Self Name:Cara Husain Payer ID:[id number] Group ID:[id number] Type:Not on file Address: [place] [address] [place] [address] Care Teams Alarm Security Or Surveillance Monitor Relationship Specialty Start Date End Date George Jha MD [address] [place] [address] [address] SARAHI White PCP - General Internal Medicine 02/17/25
--- OUTSIDE RECORDS SUMMARY | 2025-06-20 10:07 | XMS_ITS | Patient Health Record ---
Author Organization [facility] Address [address] [place] [address] Care Team Providers Care Commodity Buyer Name Role Phone Abhijeet VILLA, George Primary Care Provider Juanito Tafoya Unavailable [phone] Allergies Allergen (clinical drug ingredient) Drug/Non Drug Allergy documented on EMR Reaction Allergy Type Onset Date Status acetaminophen Tylenol Unknown Drug Allergy Act iram Latex Latex (uncoded) Unknown Allergy Acti ve Reason For Referral No Information Medications Medication SIG (Take, Route, Frequency, Duration) Notes Start Date End Date Status Glimepiride 2 MG Oral for 90 A ctive lamoTRIgine 25 MG Oral for 30 Active hydrALAZINE HCl 10 MG Oral for [...] TABLET EVERY DAY Oral for 90 Active Tresiba FlexTouch 100 UNIT/ML Subcutaneous for 75 Active Mounjaro 2.5 MG/0.5ML INJECT 2.5 MG SUBCUTANEOUSLY WEEKLY Subcutaneous for 28 Active Tradjenta 5 MG Oral for 90 Not -Taking Omeprazole 20 MG TAKE ONE CAPSULE BY MOUTH EVERY DAY Oral Not-Taking Immunizations Vaccine Route Administration Date Status Comme nts Influenza Unknown 06/27/2022 Refused Influenza Unknown 10/15/2023 Refused Problems Problem Type SNOMED Code ICD Code Onset Dates Problem Status W/U Status Risk Notes Problem Colon cancer screening (737658897) Colon cancer screening (Z12.11) Active confirmed Problem History of adenomatous polyp of colon (292276573) History of adenomatous polyp of colon (Z86.010) Active confirmed Problem 432006676 Autoimmune hepatitis (K75.4) Active confirmed Problem 230848235 Elevated liver function tests (R79.89) Active confirmed Problem Elevated liver enzymes level (418877083) Elevated liver enzymes (R74.8) Active confirmed Problem Fatty liver (499824309) Fatty liver (K76.0) Active confirmed Plan Of Treatment Pending Test Test Name Order Date LIVER PROFILE 10/15/2023 LIVER PROFILE 01/26/2023 LIVER PROFILE 06/27/2022 LIVER PROFILE 04/14/2024 LIVER PROFILE 04/10/2023 IRON + IBC (FE) 06/27/2022 CBC w [...] Name:Juanito Viramontes , 07/06/2025 03:20:00 PM, [address], [address], [place], [address], Insurance Providers Payer Name Payer Address Payer Phone Subscriber Number Group Number Insured Name Patient Relationship to Insured Coverage Start Date Coverage End Date [facility] [address] Attn Claims [place] [id number] ETHAN SWEET Self - patient is the insured MEDICAID OF [employer] [address] SARAHI BARGER [id number] ETHAN SWEET Self - patient is the insured Medical (General) History Medical History History ICD Code Colonoscopy 05/22/2011-large , approximately 2 cm tubular adenoma with high grade dysplasia removed form sigmoid colon; also noted to have diverticulosis GERD--EGD in 05/2011--mild gastritis-neg. H.pylori, small HH--no esophagitis HTN Back pain Anxiety/depression Asthma Denies [place],CVA,renal disease IDDM Hyperlipidemia Negative screening colonoscopy in [...]
[2025-06-20 10:10] LABS: Hematocrit 37.5 % (37.0-47.0); Hemoglobin 13.5 g/dl (12.0-16.0); Imm Gran Abs Auto 0.06 X10*3/uL (0.00-0.03); Imm Gran Pct Auto 0.8 % (0.0-0.4); Lymphocytes Absolute Auto 2.4 X10*3/uL (1.2-4.9); Mean Corpuscular HGB Conc 36.0 g/dl (31.0-35.0); Mean Corpuscular Hemoglobin 29.7 pg (27.0-33.0); Mean Corpuscular Volume 82.4 fL (80.0-98.0); NRBC Abs Auto 0.000 X10*3/uL (0.0-0.012); NRBC Pct Auto 0.0 /100WBC (0.0-0.2); Platelet Count 179 X10*3/uL (160-400); Red Blood Count 4.55 X10*6/uL (4.20-5.50); White Blood Count 7.6 X10*3/uL (4.8-10.8)
[2025-06-20 10:19] LABS: Hemoglobin A1C 224.4327 umol/L; Total Hemoglobin (HGBA1C) 3502.2640 umol/L
[2025-06-20 11:03] LABS: Appearance Urine Clear; Glucose Urine UA Negative (Negative); PH 6.0 (5.0-9.0); Specific Gravity - Urine 1.015 (1.005-1.025); UMIC TRIGGER UACC YES
[2025-06-20 11:18] LABS: Alanine Aminotransferase 23 U/L (0-31); Albumin Level 4.7 g/dL (3.5-5.0); Alkaline Phosphatase 55 U/L (39-117); Anion Gap 13 (12-20); Aspartate Amino Transferase 26 U/L (5-31); Blood Urea Nitrogen 12 mg/dL (9-16); Calcium 9.8 mg/dL (8.4-10.2); Carbon Dioxide 28 mmol/L (22-29); Chloride 106 mmol/L (96-108); Cholesterol 137 mg/dL (<200); Estimated Glomerular Filt Rate > 60; HDL Cholesterol 33 mg/dL (>40); Potassium 3.8 mmol/L (3.3-5.1); Sodium 143 mmol/L (135-145); Total Protein 7.4 g/dL (6.5-8.0); Triglycerides 214 mg/dL (<150)
[2025-06-20 11:33] LABS: Folate 11.8 ng/mL (> or = 4.0); Vitamin B12 458 pg/mL (200-900)
[2025-06-20 12:07] LABS: Microalbum/Creatinine Ratio Ur 13.5 ug/mg cr (<30)
== END 2025-06-20 09:33 | disposition home or self-care (01) ==
LOC: HO.LAB 09:32
PROVIDERS: PCP Internal Medicine; Visit Provider Internal Medicine
DX: E11.9 Type 2 diabetes mellitus without complications (principal); E78.00 Pure hypercholesterolemia, unspecified; D64.9 Anemia, unspecified; E55.9 Vitamin D deficiency, unspecified; E53.8 Deficiency of other specified B group vitamins
CPT/HCPCS: 36415; 80053; 80061; 81001; 81003; 82043; 82306; 82570; 82607; 82746; 83036; 84443; 85025

== ENCOUNTER 2025-06-27 09:57 | Outpatient (AMB) | payer OTHER, SELFPAY ==
--- OUTSIDE RECORDS SUMMARY | 2025-04-15 09:00 | XMS_ITS ---
Author Organization [facility] Address [address] [place] [address] Care Team Providers Care Green Building Energy Engineer Name Role Phone Abhijeet VILLA [place] Primary Care Provider Juanito Tafoya Unavailable [phone] REASON FOR VISIT fatty liver, autoimmune hepatitis Medications Medication SIG (Take, Route, Frequency, Duration) Notes Start Date End Date Status Atorvastatin Calcium 80 MG TAKE 1 TABLET AT BEDTIME Oral for 90 Not-Taking Citalopram Hydrobromide 20 MG TAKE 1 TABLET BY MOUTH DAILY Oral for 30 Active busPIRone HCl 5 MG Oral for 90 Active Losartan Potassium 100 MG TAKE 1 TABLET EVERY DAY Oral for 90 Active Omeprazole 20 MG TAKE ONE CAPSULE BY MOUTH EVERY DAY Oral Not-Taking hydrALAZINE HCl 10 MG Oral for 30 Active Rosuvastatin Calcium 20 MG TAKE 1 TABLET ORALLY DAILY FOR 90 DAYS Oral for 90 Active traMADol HCl 50 MG Oral for 7 Active Tresiba FlexTouch 100 UNIT/ML Subcutaneous for 75 Active Mounjaro 2.5 MG/0.5ML INJECT 2.5 MG SUBCUTANEOUSLY WEEKLY Subcutaneous for 28 Active Glimepiride 2 MG Oral for 90 A ctive lamoTRIgine 25 MG Oral for 30 Active Meclizine HCl 25 MG Oral for 10 Active Ibuprofen 600 MG TK 1 T PO Oral prn Active Tradjenta 5 MG Oral for 90 Not -Taking Encounters Encounter Location Date Provider Diagnosis [facility] [address] [place] [address] 04/15/2025 Juanito Viramontes Plan Of Treatment Next Appt Details Provider Name:Juanito Viramontes , 07/06/2025 03:20:00 PM, [address], [address], [place], [address], Progress Notes * ETHAN SWEETDOB:[birth year] (69 yo F)Acc No.[id number]:04/15/2025 Progress Notes Patient: ETHAN DESHPANDE Provider: Ronald Viramontes MD :1955 A ge:69 Y S ex:Female Date:04/15/2025 Address:[address] [place], [place] [id number] Pcp:George Jha MD Subjective: * Chief Complaints: [...] 0 04/15/2025 Generated for Aureliano prater/Andie/Abbeyitting on: 0 06/27/2025 10:55 AM EDT
[2025-06-27 10:11] VITALS: BP 116/80; PULSE 95; O2SAT 97; BMI 26.2
--- NOTE | 2025-06-27 10:11 | MHC.PC.OV ---
Vital Signs 06/27/25 10:11 Height 5 ft 2 in Weight 143 lb 6 oz BMI 26.2 BP 116/80 Blood Pressure Location Lt brachial Position Sitting Pulse 95 Pulse Source Pulse Oximeter Pulse Oximetry (%) 97 Oxygen Delivery Method Room Air Intake Visit Reasons: DM, HTN, hyperlipidemia Director [employer] Required: No Accompanied by: Self / Same As Patient Allergies propranolol Allergy (Intermediate, Verified 06/27/25 10:40) Anxiety amoxicillin Allergy (Unknown, Verified 06/27/25 10:40) Rash glipizide Allergy (Unknown, Verified 06/27/25 10:40) unknown latex (LATEX) Allergy (Unknown, Verified 06/27/25 10:40) UNKNOWN levofloxacin Allergy (Unknown, Verified 06/27/25 10:40) Unknown liraglutide (From VICTOZA) Allergy (Unknown, Verified 06/27/25 10:40) UNKNOWN, itching metformin (METFORMIN) Allergy (Unknown, Verified 06/27/25 10:40) DIARRHEA morphine (MORPHINE) Allergy (Unknown, Verified 06/27/25 10:40) ITCHING, rash acetaminophen Allergy (Verified 06/27/25 10:40) Unknown gabapentin Allergy (Verified 06/27/25 10:40) Unknown atorvastatin Adverse Reaction (Intermediate, Verified 06/27/25 10:40) elevated LFTs Medication List - Last Reconciled 06/27/25 by George Jha MD blood sugar diagnostic (FreeStyle Lite Strips) 1 strip miscellaneous TID blood-glucose meter (FreeStyle Lite Meter kit) As directed cholecalciferol (vitamin D3) 50 mcg PO DAILY 90 days citalopram 10 mg PO DAILY 30 days fluticasone propionate 50 mcg/actuation 2 sprays intranasal DAILY glimepiride 2 mg PO QAM [Grab bars As directed] ibuprofen 800 mg PO Q8H PRN [incontinence liners 4 times per day] [incontinence wipes As directed] insulin degludec (Tresiba FlexTouch U-100 insulin) 40 units subcut BEDTIME lancets (FreeStyle Lancets) As directed-to test sugars Three times a day losartan 50 mg (1/2 x 100 mg) PO DAILY pen needle, diabetic As directed pen needle, diabetic As directed daily inject 4 x a day rosuvastatin 20 mg PO DAILY 90 days tirzepatide (Mounjaro) 10 mg (0.5 mL) subcut QWEEK Tobacco use date assessed: 06/27/25 Last assessed Fall Risk: 06/27/25 Dental Screening Dental Screen Date: 06/27/25 HPI DM, HTN, hyperlipidemia HPI Details Patient comes in today for her follow-up visit States that she continues to experience on and off dizziness; denies any headaches She denies any exertional chest pains, no increased shortness of breath No nausea/vomiting, no abdominal pain No change in bowel habits noted She continues to c/o increased anxiety and depression, which she feels have gotten a lot worse over the past year She used to take Citalopram and Buspirone for her mood disorder but she self-discontinued these sometime last year She was recently tried back on a lower dose of Citalopram but she claims she felt even worse when she tried taking it and stopped it after 1 dose Have advised her that she used to take this for years so it is surprising that she used to be able to tolerate it until now - patient states that she feels that this is more due to something wrong with her mind - possible increased depression/anxiety from the Rx She has also not been taking her Lamictal, which she was supposed to be on for her seizures She does have a follow up appointment with neurology (Dr. Lorenzo) tomorrow She had her follow up labs done last week - to discuss her results FOR[facility] Medical History Panic disorder Painful diabetic neuropathy Arachnoid cyst Migraine without aura TLE (temporal lobe epilepsy) Complex partial seizure disorder Encephalopathy MCI (mild cognitive impairment) Depression with anxiety Insomnia Multifactorial dementia Dizziness Overweight (BMI 25.0-29.9) Vitamin D deficiency Ear pain Ear drainage Right shoulder pain Functional urinary incontinence COVID-19 Encounter to discuss test results Memory loss Urinary incontinence Chest pain Colon cancer screening Annual physical exam Diabetes Type 2 diabetes mellitus with hyperglycemia Epigastric pain Vertigo Upper abdominal pain Screening for tuberculosis Low back pain Preoperative examination Right hip pain Right low back pain Primary osteoarthritis of shoulder Memory loss or impairment Bursitis of right shoulder Bursitis of left shoulder Primary osteoarthritis, right shoulder Anxiety Varicose veins of both lower extremities Allergic rhinitis Elevated LFTs Primary osteoarthritis of left shoulder Lumbar degenerative disc disease Benign essential hypertension Type 2 diabetes mellitus without complications Mixed hyperlipidemia Surgical History History of appendectomy History of cholecystectomy History of cystoscopy History of tubal ligation Family History Father Cancer Mother Diabetes Maternal Uncle Cancer Maternal Grandfather Cancer Social History Housing: Apartment Alcohol intake: former Patient Tobacco Use Status: Never used Tobacco e-Cigarette/Vaping Use: Never Used Second Hand Smoke Exposure: Yes service: No Current occupational status: unemployed Current occupational exposures/hazards: No Cognitive needs: No Hearing needs: No Vision needs: No Questionnaire PHQ-9 Over the last 2 weeks, how often have you been bothered by any of the following problems? 1. Little interest or pleasure in doing things: several days 2. Feeling down, depressed, or hopeless: several days 3. Trouble falling or staying asleep, or sleeping too much: several days 4. Feeling tired or having little energy: several days 5. Poor appetite or overeating: not at all 6. Feeling bad about yourself - or that you are a failure or have let yourself or your family down: not at all 7. Trouble concentrating on things, such as reading the newspaper or watching television: not at all 8. Moving or speaking so slowly that other people could have noticed. Or the opposite - being so fidgety or restless that you have been moving around a lot more than usual: not at all 9. Thoughts that you would be better off or of hurting yourself in some way: not at all Total score: 4 Depression Screening Interpretation: Positive Depression Screening Follow-up: Existing condition and In treatment Depression Screening Done: Yes 39175 - PHQ-9 Billing: Yes Source: Developed by Drs. Juanito Moscoso, Shea Michel, Russell Ott and colleagues, with an educational peace from [employer]. Thrive Questionnaire Date Thrive assessed: 06/27/25 I am a: Patient What is your living situation today?: I have a steady place to live Within the past 12 months, did the food you bought not last and you didn't have the money to get more?: Never true Within the past 12 months, did you worry whether your food would run out before you got money to buy more?: Never true Do you have trouble paying for medicines?: No Do you have trouble getting transportation to medical appointments?: No Do you have trouble paying your heating and electricity bill?: No Do you have trouble taking care of your child, family member or friend?: No Do you have trouble with day-to-day activities such as bathing, preparing meals, shopping, managing finances, etc.?: No Are you currently unemployed and looking for a job?: Yes Are you interested in more education?: No Please select the resources that you would like help with: None Currently or been in a relationship where the following occur: No concerns reported THRIVE Score: 0 AUDIT C Alcohol Use Questionnaire (AUDIT-C) 1. How often do you have a drink containing alcohol?: Never 3. How often do you have six or more drinks on one occasion?: Never Total Score: 0 Score Reviewed/Action Taken: Yes NIEVES-7 AMB Questionnaire NIEVES-7 Date NIEVES - 7 assessed: 06/27/25 Feeling nervous, anxious, or on edge: 1 = Several days Not being able to stop or control worryin = Several days Worrying too much about different things: 1 = Several days Trouble relaxin = Several days Being so restless that it is hard to sit still: 1 = Several days Becoming easily annoyed or irritable: 0 = Not at all Feeling afraid as if something awful might happen: 0 = Not at all Total NIEVES-7 score (0-4 normal; 5-9 mild; 10-14 moderate; 15-21 severe): 5 Source: Developed by Drs. Juanito Moscoso, Shea Michel, Russell Ott and colleagues, with an educational peace from [employer]. Review of Systems Const Denies chills, Reports difficulty sleeping, Reports fatigue, Denies fever(s) and Denies headache(s) ENT Denies dysphagia, Reports dizziness (on and off), Denies otalgia, Denies headache(s), Denies neck pain, Denies odynophagia and Denies sore throat Card Denies chest pain, Denies palpitations and Denies dyspnea Resp Denies chest congestion, Denies cough and Denies dyspnea GI Denies abdominal pain, Denies constipation, Denies dysphagia, Denies heartburn, Denies diarrhea, Denies nausea, Denies odynophagia and Denies vomiting Denies difficulty voiding, Denies nocturia, Denies dysuria, Reports urinary incontinence and Denies urinary urgency Musc Reports back pain (increased, especially over the right lower back), Denies neck pain and Reports radiating pain into limb (into the right hip and right thigh) Skin/Breast Denies rash Neuro Reports dizziness (on and off), Denies headache(s) and Reports memory loss (has tendency to do things lately and not remember them) Psych Reports anxiety (increased), Reports depression (increased) and Reports memory loss (has tendency to do things lately and not remember them) Endo Reports fatigue and Denies palpitations Physical exam (Primary Care) Vital Signs: Last Vital Signs Pulse 95 06/27/25 10:11 BP 116/80 06/27/25 10:11 Pulse Ox 97 06/27/25 10:11 Oxygen Delivery Method Room Air 06/27/25 10:11 BMI result Body Mass Index 26.2 Tobacco/Smoking Status: Tobacco use Status Tobacco use date assessed 06/27/25 06/27/25 10:25 Patient Tobacco Use Status Never used Tobacco 06/27/25 10:25 e-Cigarette/Vaping Use Never Used 06/27/25 10:25 PHQ-9: PHQ-9 Score PHQ-9: Total score 4 06/27/25 10:43 Depression Screening Interpretation: Positive Depression Screening Follow-up: Existing condition and In treatment Thrive Assessment: Date of Thrive Assessment Date Thrive assessed 06/27/25 06/27/25 10:25 Currently or been in a relationship where the following occur: No concerns reported Const General: no acute distress and alert HENMT Ears: TM's normal bilaterally and EAC's normal Throat: Yes posterior oropharynx normal and Yes tonsils normal (no TP congestion) Neck Neck: Yes supple and No lymphadenopathy Thyroid: Thyroid normal Resp Auscultation: clear to auscultation bilaterally, no rales and no wheezes Cardio Rate: regular rate Rhythm: regular rhythm Heart sounds: no murmurs GI Palpation (GI): Soft to palpation and nontender Auscultation: normal bowel sounds General: Yes no CVA tenderness Back/Spine/Pelvis Back: no CVA tenderness Thoracic/Lumbar Spine: paraspinal muscle tenderness on the right in the mid lumbar and in the lower lumbar and lumbar spinal tenderness Sacroiliac joints: on the right tender to palpation Skin Rashes: no rashes Extrem General: Yes no clubbing, cyanosis or edema Right lower extremity: hip/thigh Details: tenderness Location: of the hip Location: anterolaterally Results Reviewed Results Reviewed: Laboratory Tests 06/20/25 06/20/25 09:39 09:44 WBC 7.6 Hgb 13.5 Hct 37.5 Plt Count 179 Sodium 143 Potassium 3.8 Creatinine 0.88 Estimated GFR > 60 Fasting Glucose 174 H Hemoglobin A1c % 8.0 H Calcium 9.8 AST 26 ALT 23 Triglycerides 214 H Cholesterol 137 LDL Cholesterol, Calc 62 HDL Cholesterol 33 L Vitamin B12 458 25-OH Vitamin D Total 42.0 TSH 1.62 Ur Specific [place] 1.015 Urine Protein Negative Urine Glucose (UA) Negative Urine Blood Negative Urine Nitrite Negative Ur Leukocyte Esterase Trace H Microalb/Creat Ratio 13.5 Coding Level of Care Code Est Pt Level 4 (87328) Diagnoses Type 2 diabetes mellitus without complication, without long-term current use of insulin E11.9 Diabetes mellitus long term care phlebotomist insulin use: without detention use Mixed hyperlipidemia E78.2 Benign essential hypertension I10 Dizziness R42 Elevated LFTs R79.89 Vitamin D deficiency E55.9 Degeneration of intervertebral disc of lumbar region with discogenic back pain and lower extremity pain M51.362 Disc-related pain type: discogenic back pain and lower extremity pain Primary osteoarthritis of right hip M16.11 Osteoarthritis type: primary Anxiety F41.9 Overweight (BMI 25.0-29.9) E66.3 Additional Codes PHQ-9 - 24488 - PHQ-9 Billing: Yes ([id number]) Assessment & Plan Assessment & Plan (1) Type 2 diabetes mellitus without complications: Code(s): E11.9 - Type 2 diabetes mellitus without complications Category: Medical Qualifiers: Diabetes mellitus detention insulin use: without long term care phlebotomist use Qualified Code(s): E11.9 - Type 2 diabetes mellitus without complications Plan: Her HgbA1c was at 8.0% on her labs done last week (was previously at 8.4% a few months ago) - goal is <7.0% Reinforced diabetic diet Continue Glimepiride 2 mg QD, Tresiba 40 units Q HS and Mounjaro 10 mg SQ once a week Follow up with [facility] Endocrinology as scheduled (2) Mixed hyperlipidemia: Code(s): E78.2 - Mixed hyperlipidemia Category: Medical Plan: Results of her labs done last week reviewed and discussed with patient Reinforced low cholesterol diet Continue Rosuvastatin 20 mg QD (she had elevated LFTs while on Atorvastatin in the past) Will recheck her labs and fasting lipids in 4 months for follow up (3) Benign essential hypertension: Code(s): I10 - Essential (primary) hypertension Category: Medical Plan: Reinforced low sodium diet - goal is systolic BP of at least 130 mm or less Continue Losartan 50 mg QD Patient is reminded to continue monitoring her blood pressure regularly (4) Dizziness: Code(s): R42 - Dizziness and giddiness Category: Medical Plan: Unclear etiology She was seen by neurology for this and for her recent memory impairment, as well as by ENT She had MRI of the brain done in late January 2025 - MRI reports (+) 3 x 5 x 9 cm simple arachnoid cyst, posterior cranial fossa resulting in mild to moderate mass effect upon cerebellum as well as white matter disease likely related to small vessel occlusive disease She was referred to neurosurgery at [place] and was seen a few months ago by Dr. Hagen. who reportedly did not think that the subarachnoid cyst has any bearing on her recent symptoms and she was reassured that this is a chronic but benign condition and needs no further follow up or intervention Continue Meclizine 25 mg TID PRN (5) Elevated LFTs: Code(s): R79.89 - Other specified abnormal findings of blood chemistry Category: Medical Plan: Abdominal ultrasound with liver elastography done last year came back mostly unremarkable except for mild hepatic steatosis Her LFTs have remained NORMAL on her recent labs - will continue to monitor her LFTs regularly Follow up with GI (Dr. Viramontes) as scheduled (6) Vitamin D deficiency: Code(s): E55.9 - Vitamin D deficiency, unspecified Category: Medical Plan: Continue Vitamin D3 2000 units QD (7) Lumbar degenerative disc disease: Code(s): M51.36 - Other intervertebral disc degeneration, lumbar region Category: Medical Qualifiers: Disc-related pain type: discogenic back pain and lower extremity pain Qualified Code(s): M51.362 - Other intervertebral disc degeneration, lumbar region with discogenic back pain and lower extremity pain Plan: Lumbar spine x-rays done back in June 2023 revealed (+) diffuse mild to moderate lumbar disc and lower lumbar facet degenerative change with mild right lateral listhesis L3 over L4, mild retrolisthesis L3 over L4 with mild curvature of the lumbar spine convex to the right Right SI joint x-rays done back in October 2023 revealed (+) sclerosis along the left greater than right sacroiliac joints with some loss of the left sacroiliac joint space suggesting osteoarthritis or sacroiliitis MRI of the lumbar spine done about a month ago revealed (+) multilevel spondylosis, L2-3 to L5-S1 resulting in central spinal canal and bilateral, right greater than left neuroforamina stenosis at L3-4, L4-5 levels, as well as 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, posterior spinous processes L3-4 and L4-5, 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 She was previously referred to pain management but it did not look like she went for her appt a few months ago Continue Tramadol 50 mg TID PRN for pain for now and if this is no longer helping much anymore, will pursue pain management referral again (8) Osteoarthritis of right hip: Code(s): M16.11 - Unilateral primary osteoarthritis, right hip Category: Medical Qualifiers: Osteoarthritis type: primary Qualified Code(s): M16.11 - Unilateral primary osteoarthritis, right hip Plan: Right hip x-rays done back in October 2023 revealed (+) mild osteoarthritis of the pubic symphysis with borderline loss of joint space and sclerosis along the left greater than right sacroiliac joints with some loss of the left sacroiliac joint space suggesting osteoarthritis or sacroiliitis Have recommended to patient that she should see orthopedics or try physical therapy or both to help address her hip and lower back issues (9) Anxiety: Code(s): F41.9 - Anxiety disorder, unspecified Category: Medical Plan: She was on Citalopram 40 mg QD and Hydroxyzine 10 mg TID PRN for anxiety previously but she self-discontinued her medications She was also supposed to be on Lamictal 25 mg BID and Buspirone 10 mg BID but she apparently self-discontinued these as well as she felt that the medications were making her feel like a drunk Have advised patient that she has been on these medications for a few years now and was tolerating them in the past so it is somewhat surprising for them to be suddenly affecting her negatively Patient admits that this is mostly all in her mind with regards to medication side effects and at this point, she does not know how to get herself out of this situation and is hoping that neurology (Dr. Lorenzo) may be able to recommend something helpful for her at her follow up appointment with him tomorrow We also tried starting her back on Citalopram at the lower dose of 10 mg QD for her mood disorder at her last visit but she stopped taking it immediately after her first dose as she recalls the medication making her feel dizzy so she is NOT taking any medications at all presently for her mood disorder and anxiety Will try referring her to our outpatient psychiatry clinic [facility] for urgent consultation as she seems to be suddenly resistant to the idea of taking medications for her mood disorder, which makes it quite challenging to be able to help her at this time and she will likely benefit from a more intensive psychiatric evaluation and assessment (10) Overweight (BMI 25.0-29.9): Code(s): E66.3 - Overweight Category: Medical Plan: Reinforced diet/exercise as tolerated/lose weight Plan Follow up in 4 months Orders: Orders Lipid Panel 4 Months E78.00 - Pure hypercholesterolemia, unspecified UA CC w/rflx Micro + Cult 4 Months R30.0 - Dysuria Vitamin B12 and Folate 4 Months E53.8 - Deficiency of other specified B group vitamins Vitamin D 25-OH Total 4 Months E55.9 - Vitamin D deficiency, unspecified Complete Blood Count Auto Diff 4 Months D64.9 - Anemia, unspecified Comprehensive [place]. Panel Fast 4 Months E78.00 - Pure hypercholesterolemia, unspecified Hemoglobin A1c 4 Months E11.9 - Type 2 diabetes mellitus without complications Microalbumin, Random (w Creat) 4 Months E11.9 - Type 2 diabetes mellitus without complications TSH reflex Free T4 4 Months E78.00 - Pure hypercholesterolemia, unspecified Referrals Psychiatry Outpatient Consultation Service F41.9 - Anxiety disorder, unspecified
--- OUTSIDE RECORDS SUMMARY | 2025-06-27 10:55 | XMS_ITS | Clinical Summary ---
Author Organization [facility] Address [address] [place] [address] Phone Care Team Providers Care Multimedia Programmer Name Role Phone George Jha MD Primary Care Provider + [phone] Allergies Active Allergy Reactions Criticality Noted Date [...] 3:30 PM EDT Office Visit Orthopedic Surgery [facility] [address] [phone] Homer Langley DPM Diabetic mononeuropathy simplex (CMS/HCC V24, CMS/HCC V28) (Primary Dx); Dermatophytosis of nail 05/27/2025 Telephone Orthopedic Surgery [facility] [address] [phone] Homer Langley DPM 05/24/2025 3:00 PM EDT Office Visit Orthopedic Surgery [place] [address] [phone] Homer Langley DPM Diabetic mononeuropathy simplex ([facility] V24, [facility] V28) (Primary Dx); Dermatophytosis of nail; Pain in toe of right foot; Pain in toe of left foot from Last 3 Months Surgical History Surgery Date Site/Laterality Comments CATARACT EXTRACTION 08/2023 GALLBLADDER SURGERY TUBAL LIGATION Medical History Medical History Date Comments DM (diabetes mellitus) ([facility] V24, [facility] V28 ) Migraine without aura TLE (temporal lobe epilepsy) ([facility] V24, [facility] V28) Depression with anxiety Multifactorial dementia ([facility] V24, [facility] V2 8) Arachnoid cyst Encephalopathy Memory loss [...] 1:45 PM EST Office Visit Orthopedic Surgery [place] [address] [phone] Homer Langley DPM [address] [phone] Health Maintenance Due Date Last Done Comments [...] patient's age to complete this topic Insurance [facility] Member Subscriber Plan / Payer (Ef fective 2019-Present) Name:Cara Husain Relation to Subscriber:Self Name:Cara Husain Payer ID:[id number] Group ID:[id number] Type:Not on file Address: [place] [address] [place] [address] Care Teams Multimedia Programmer Relationship Specialty Start Date End Date George Jha MD [address] [place] [address] [address] SARAHI White PCP - General Internal Medicine 02/17/25
== END 2025-06-27 11:01 | disposition home or self-care (01) ==
LOC: HO.HMCH 09:58
PROVIDERS: PCP Internal Medicine; Visit Provider Internal Medicine
DX: E11.9 Type 2 diabetes mellitus without complications (principal); E78.2 Mixed hyperlipidemia; I10 Essential (primary) hypertension; R42 Dizziness and giddiness; R79.89 Other specified abnormal findings of blood chemistry; E55.9 Vitamin D deficiency, unspecified; M51.362 Other intervertebral disc degeneration, lumbar region with discogenic back pain and lower extremity pain; M16.11 Unilateral primary osteoarthritis, right hip; F41.9 Anxiety disorder, unspecified; E66.3 Overweight

== ENCOUNTER → 2025-06-27 09:57 | Outpatient (BNVA) | payer OTHER, SELFPAY | PROVIDERS: PCP Internal Medicine; Visit Provider Internal Medicine | DX: E11.9 Type 2 diabetes mellitus without complications (principal); I10 Essential (primary) hypertension; E78.2 Mixed hyperlipidemia; R42 Dizziness and giddiness; R79.89 Other specified abnormal findings of blood chemistry; E55.9 Vitamin D deficiency, unspecified; M51.362 Other intervertebral disc degeneration, lumbar region with discogenic back pain and lower extremity pain; M16.11 Unilateral primary osteoarthritis, right hip; F41.9 Anxiety disorder, unspecified; E66.3 Overweight; Z68.26 Body mass index [BMI] 26.0-26.9, adult | CPT/HCPCS: 96127; 99212 ==

== ENCOUNTER 2025-06-28 12:13 | Outpatient (AMB) | payer OTHER, SELFPAY ==
--- OUTSIDE RECORDS SUMMARY | 2025-04-15 09:00 | XMS_ITS ---
Author Organization [facility] Address [address] [place] [address] Care Team Providers Care Line Maintenance Name Role Phone Abhijeet VILLA [place] Primary Care Provider Juanito Tafoya Unavailable [phone] REASON FOR VISIT fatty liver, autoimmune hepatitis [...] -Taking Encounters Encounter Location Date Provider Diagnosis [facility] [address] [place] [address] 04/15/2025 Juanito Viramontes Plan Of Treatment Next Appt Details Provider Name:Juanito Viramontes , 07/06/2025 03:20:00 PM, [address], [address], [place], [address], Progress Notes * ETHAN SWEETDOB:[birth year] (69 yo F)Acc No.[id number]:04/15/2025 Progress Notes Patient: ETHAN DESHPANDE Provider: Ronald Viramontes MD :1955 A ge:69 Y S ex:Female Date:04/15/2025 Address:[address] [place], [place] [id number] Pcp:George Jha MD Subjective: * Chief Complaints: [...] 0 04/15/2025 Generated for Aureliano prater/Andie/Abbeyitting on: 06/28/2025 01:06 PM EDT
--- NOTE | 2025-06-28 12:15 | A.OFFVIS_ITS ---
Intake Visit Reasons: R/s from 07/07/25 Allergies propranolol Allergy (Intermediate, Verified 06/27/25 10:40) Anxiety amoxicillin Allergy (Unknown, Verified 06/27/25 10:40) Rash glipizide Allergy (Unknown, Verified 06/27/25 10:40) unknown latex (LATEX) Allergy (Unknown, Verified 06/27/25 10:40) UNKNOWN levofloxacin Allergy (Unknown, Verified 06/27/25 10:40) Unknown liraglutide (From VICTOZA) Allergy (Unknown, Verified 06/27/25 10:40) UNKNOWN, itching metformin (METFORMIN) Allergy (Unknown, Verified 06/27/25 10:40) DIARRHEA morphine (MORPHINE) Allergy (Unknown, Verified 06/27/25 10:40) ITCHING, rash acetaminophen Allergy (Verified 06/27/25 10:40) Unknown gabapentin Allergy (Verified 06/27/25 10:40) Unknown atorvastatin Adverse Reaction (Intermediate, Verified 06/27/25 10:40) elevated LFTs HPI Comments Details: 69 yo woman with DM, anxiety/panic disorder, painful diabetic neuropathy, post fossa arachonoid cyst, RLS vs limb movement disorder, and complex partial seizure disorder (unresponsiveness, mouth automatism, chewing motion, fear, odd smell for a few seconds). For one reason or another, she was not taking levetiracetam, divalproex acid, buspirone, or propranalol. She was c/o burning feet at night and dizziness during daytime. She is here for medication management needs. She had previously ceased her anti- seizure medication due to adverse effects on her vision, marked by visual disturbances. Initially, she was asymptomatic; however, she subsequently experienced increased anxiety for which she was prescribed Stethopram. The initiation of this medication was followed by a notable increase in seizure frequency, leading to its discontinuation. Historically, gabapentin provided relief for both seizures and anxiety, but it caused significant drowsiness, especially at higher dosages. She shows a willingness to attempt a reduced dosage of gabapentin, expressing concerns over her heightened sensitivity to stimuli that trigger her anxiety and seizures. [facility] Medical History Panic disorder Painful diabetic neuropathy Arachnoid cyst Migraine without aura TLE (temporal lobe epilepsy) Complex partial seizure disorder Encephalopathy MCI (mild cognitive impairment) Depression with anxiety Insomnia Multifactorial dementia Dizziness Overweight (BMI 25.0-29.9) Vitamin D deficiency Ear pain Ear drainage Right shoulder pain Functional urinary incontinence COVID-19 Encounter to discuss test results Memory loss Urinary incontinence Chest pain Colon cancer screening Annual physical exam Diabetes Type 2 diabetes mellitus with hyperglycemia Epigastric pain Vertigo Upper abdominal pain Screening for tuberculosis Low back pain Preoperative examination Right hip pain Right low back pain Primary osteoarthritis of shoulder Memory loss or impairment Bursitis of right shoulder Bursitis of left shoulder Primary osteoarthritis, right shoulder Anxiety Varicose veins of both lower extremities Allergic rhinitis Elevated LFTs Primary osteoarthritis of left shoulder Lumbar degenerative disc disease Benign essential hypertension Type 2 diabetes mellitus without complications Mixed hyperlipidemia Surgical History History of appendectomy History of cholecystectomy History of cystoscopy History of tubal ligation Family History Father Cancer Mother Diabetes Maternal Uncle Cancer Maternal Grandfather Cancer Social History Housing: Apartment Alcohol intake: former Patient Tobacco Use Status: Never used Tobacco e-Cigarette/Vaping Use: Never Used Second Hand Smoke Exposure: Yes service: No Current occupational status: unemployed Current occupational exposures/hazards: No Cognitive needs: No Hearing needs: No Vision needs: No Review of Systems Const Details: - Neurological: Reports seizures, vision disturbances. Denies additional neurological symptoms. - Psychiatric: Reports anxiety, fear in response to emotional stimuli. - Musculoskeletal: Reports leg cramps. - Other: Recently referred for psychiatric evaluation. Physical Exam Neuro Other: Mental Status: Alert and oriented to person, place, and time. Normal attention. Normal spontaneous speech, fluency, and comprehension. No obvious issues with mood and memory. Affect is appropriate. Cranial Nerves: CN II: Visual grady full to confrontation, visual acuity intact. CN III, IV, : Pupils equal, round, reactive to light and accommodation. Extraocular movements are normal. CN V: Facial sensation is normal. CN VII: Facial movements symmetrical. CN VIII: Hearing intact to bedside conversation is normal. CN IX, X: Palate elevates symmetrically. CN XI: Shoulder shrug and head turn symmetrical. CN XII: Tongue midline without atrophy or fasciculations. Extrapyramidal: Full facial expressions and blinking. No rigidity. Movements are appropriate with no tremor or abnormality. Speech: Normal; no dysarthria or tremor. Assessment & Plan Assessment & Plan (1) Seizure disorder: Comment: Meds tried: Lamotrigine, Keppra, divalproex acid Amb EEG at [facility] in Nov 2023: bitemp sharps, left more than right MRI brain WO at [facility] [place]: 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, mild MVD Amb EEG at [facility] in Jan 2023: Lleft temp sharps, while no EEG abn during symptoms Routine EEG at off in Dec 2022: slow CT brain WO at [facility] [place]: mild MVD, otherwise same CT brain WO at [facility] [place]: post fossa cyst, congenital, otherwise ok Code(s): G40.909 - Epilepsy, unspecified, not intractable, without status epilepticus Category: Medical (2) Migraine: Code(s): G43.909 - Migraine, unspecified, not intractable, without status migrainosus Category: Medical Qualifiers: Migraine type: migraine (< 15 days per month) without aura Status migr ainosus presence: without status migrainosus Intractability: not intractable Qualified Code(s): G43.009 - Migraine without aura, not intractable, without status migrainosus Plan Impression: a: Complex partial seizure disorder b: Depression and anxiety Rec: try 100mg bid of gabapentin Medications: New gabapentin 100 mg PO BID 60 caps 2RF Coding Level of Care Code Est Pt Level 4 (05788) Diagnoses Seizure disorder G40.909 Migraine without aura and without status migrainosus, not intractable G43.009 Migraine type: migraine (< 15 days per month) without aura Status migrainosus presence: without status migrainosus Intractability: not intractable
--- OUTSIDE RECORDS SUMMARY | 2025-06-28 13:06 | XMS_ITS | Continuity of Care Document ---
Author Name [facility], Medical Address [address] [place] [address] Organization Unknown Address [address] [place] [address] Medications No known medications Problems No known problems
--- OUTSIDE RECORDS SUMMARY | 2025-06-28 13:06 | XMS_ITS | Encounter Summary ---
Author Organization [facility] Address [address] [place] [address] Encounters * CPT with Medical [facility] at [facility] [facility] on 2025-06-04 { reasonForRequest : Pt reporting some chest pain>diabetic>epileptic/seizures, eventually stopped medication due to side-effects, states she started back on me dication again last week>pt states her symptoms are present when she goes to sleep and upon waking, *chest pain, headache", patientReports : Dizziness with positional change; Palpitations, feeling dizzy", denies :[ Worst Headache of life , New onset of vision loss ,"Sudden onset -unilateral weakness/gait disturbance , Fall with head strike and altered LOC , New onset of Slurred speech or difficulty finding words , Sudden Mental status changes , Head pain with fever chills and neck pain , Seizure activity&quot ;, Head pain not relieved by medication greater than 8 hours , Head pain greater than 8 hours -unrelated to falls or injury , Head pain with nausea vomiting , Sensitive to light , History of Heart Attack, in the setting of active chest pain , Active Chest pain, radiates to neck jaw and or arm , Diaphoretic/Sweating , Describes as crushing , Sudden onset of nausea/Vomiting and shortness of breath. ,"Shortness of Breath , Unable to speak in full sentences without distress , Chest pain, increased fatigue , CHF history, increased swelling and edema , Weakne ss/tachycardia ], chiefComplaints : Seizures, Chest Pain , pmh :& quot;Hypertension, Epilepsy/Seizure Disorder, Diabetes Mellitus Type 2, Anxiety Disorder ,"allergies : Amoxicillin, Latex , otherAllergies :null, painAssessment : , visitOutcome : , additionalComments : 69 y.o female complains of Seizures\nPatient making self referral\nComplains she is not sleeping becauseshe has been having seizures at night this has been ongoing for 2 weeks. hx of epilepsy hx of anxiety\nShe states she has not been on seizure medication since last August. \nLast seizure was last night She states they have been occurring \tank night only.\nShe unsure how long they last but wakes upwith a head ache and pain in chest once she is awake and up the symptoms subside greatly but today s he has mild head pressure and palpitations in her chest.\nFBS 131\nBP while on the phone 158/105 p 82\nrequesting insted visit.\n\n\nI provided information on the mobile health provider response timeand advised the patient and/or caregiver to monitor reported signs and symptoms. I discussed the warning signs of when to seek emergency care. } Pt is lying in bed, A/O x3. Pt is pink/warm/dry and not In any immediate respiratory distress. Pt states that she saw her neurologist who told her she was having seizures in her sleep and to take her medication, but pt refuses. Pt states it makes her headaches and dizziness worse. Pt is currently c/o chest pain that feels like ???pressure?? . Pt states this has been going on for ???a long time?? . Pt also states she has been experiencing SOB upon ambulation. Pt has hx of seizures and DM. An EKG was performed which showed no signs of ST elevations. A pulse ox was placed on pts finger while pt ambulated around the apartment with no drop in sat. Pt states her throat feels like there is something there and shes having difficulty swallowing. Palpation of throat revealed no obvious deformities, lumps, or visual conner. Pt was negative for any edema in the lower legs and bilateral breathsounds were clear. Vitals as noted. BP noted to be elevated. Pt stated her BP medication dose was cut in half to 50mg by her PCP. Pt states she did not take herBP medication this morning because she waiting for ???us?? . Pt was advised to take her BP medication while on scene and she did. Pt states she takes 30mg of insulin at bedtime and is having trouble sleeping. Pt states she is currently dizzy and feels she walks leaning to her ride side. FAST exam was negative. Pt has no loss of sensation in any extremities. bgl 250 after pt had eaten breakfast. [facility] contacted and pt advised that note will be sent to her PCP and neurologist. Pt was also advisedto make sure she is taking her medications. Pt told that if she experiences increasing CP, SOB, increased headache and/or pain to call 911 immediately. Pt agreed. Call was then cleared. ORAL_MEDICATION, EKG, PHLEBOTOMY, POC_FLU_STREP, URINE_DIPSTICK, COVID_TEST Written by [facility] on 2025-06-04
--- OUTSIDE RECORDS SUMMARY | 2025-06-28 13:06 | XMS_ITS | Patient Health Record ---
Author Organization [facility] Address [address] [place] [address] Care Team Providers Care Project Specialist Name Role Phone Abhijeet VILLA, George Primary Care Provider Juanito Tafoya Unavailable [phone] Allergies Allergen (clinical drug ingredient) Drug/Non Drug [...] Status Risk Notes Problem Colon cancer screening (970446329) Colon cancer screening (Z12.11) Active confirmed Problem History of adenomatous polyp of colon (557162794) History of adenomatous polyp of colon (Z86.010) Active confirmed Problem 411018823 Autoimmune hepatitis (K75.4) Active confirmed Problem 254732694 Elevated liver function tests (R79.89) Active confirmed Problem Elevated liver enzymes level (856129473) Elevated liver enzymes (R74.8) Active confirmed Problem Fatty liver (479010050) Fatty liver (K76.0) Active confirmed Plan Of [...] Name:Juanito Viramontes , 07/06/2025 03:20:00 PM, [address], [address], [place], [address], Insurance Providers Payer Name Payer Address Payer Phone Subscriber Number Group Number Insured Name Patient Relationship to Insured Coverage Start Date Coverage End Date [facility] [address] Attn Claims ILA Fry [id number] ETHAN SWEET Self - patient is the insured MEDICAID OF [employer] [address] SARAHI BARGER [id number] ETHAN SWEET Self - patient is the insured Medical (General) History Medical History History ICD Code Colonoscopy 05/22/2011-large , approximately 2 cm tubular adenoma with high grade dysplasia removed form sigmoid colon; also noted to have diverticulosis GERD--EGD in 05/2011--mild gastritis-neg. H.pylori, small HH--no esophagitis HTN Back pain Anxiety/depression Asthma Denies CO,CVA,renal disease IDDM Hyperlipidemia Negative screening colonoscopy in [...]
--- OUTSIDE RECORDS SUMMARY | 2025-06-28 13:06 | XMS_ITS | Clinical Summary ---
Author Organization [address] [facility] Address [address] [place] [address] Phone Care Team Providers Care Oil Exploration Engineer Name Role Phone George Jha MD Primary Care Provider + [phone] Allergies Active Allergy Reactions Criticality Noted Date [...] 3:30 PM EDT Office Visit Orthopedic Surgery [facility] [address] [phone] Homer Langley DPM Diabetic mononeuropathy simplex (CMS/HCC V24, CMS/HCC V28) (Primary Dx); Dermatophytosis of nail 05/27/2025 Telephone Orthopedic Surgery [facility] [address] [phone] Homer Langley DPM 05/24/2025 3:00 PM EDT Office Visit Orthopedic Surgery [place] [address] [phone] Homer Langley DPM Diabetic mononeuropathy simplex ([facility] V24, [facility] V28) (Primary Dx); Dermatophytosis of nail; Pain in toe of right foot; Pain in toe of left foot from Last 3 Months Surgical History Surgery Date Site/Laterality Comments CATARACT EXTRACTION 08/2023 GALLBLADDER SURGERY TUBAL LIGATION Medical History Medical History Date Comments DM (diabetes mellitus) ([facility] V24, [facility] V28 ) Migraine without aura TLE (temporal lobe epilepsy) ([facility] V24, [facility] V28) Depression with anxiety Multifactorial dementia ([facility] V24, [facility] V2 8) Arachnoid cyst Encephalopathy Memory loss [...] 1:45 PM EST Office Visit Orthopedic Surgery [place] [address] [phone] Homer Langley DPM [address] [place] [address] Health Maintenance Due Date Last Done Comments [...] Influencers of Health Screening 11/28/2023 COVID-19 Vaccine (2023-2 5 season) 2024 09/04/2023, 02/08/2021, 01/11/2021 Depression [...] patient's age to complete this topic Insurance [facility] Member Subscriber Plan / Payer (Ef fective 2019-Present) Name:Cara Husain Relation to Subscriber:Self Name:Cara Husain Payer ID:[id number] Group ID:[id number] Type:Not on file Address: [place] [address] [place] [address] Care Teams Oil Exploration Engineer Relationship Specialty Start Date End Date George Jha MD [address] [place] [address] [address] SARAHI White PCP - General Internal Medicine 02/17/25
== END 2025-06-28 12:25 | disposition home or self-care (01) ==
PROVIDERS: PCP Internal Medicine; Visit Provider Psychiatry & Neurology Neurology
DX: G40.909 Epilepsy, unspecified, not intractable, without status epilepticus (principal); G43.009 Migraine without aura, not intractable, without status migrainosus
CPT/HCPCS: 99214

== ENCOUNTER → 2025-06-28 12:13 | Outpatient (BNVA) | payer OTHER, SELFPAY | PROVIDERS: PCP Internal Medicine; Visit Provider Psychiatry & Neurology Neurology | DX: G40.909 Epilepsy, unspecified, not intractable, without status epilepticus (principal) | CPT/HCPCS: 99212 ==

== ENCOUNTER 2025-08-29 14:02 | Outpatient (AMB) | payer OTHER, SELFPAY ==
--- OUTSIDE RECORDS SUMMARY | 2025-04-15 09:00 | XMS_ITS ---
Author Organization [facility] Address [address] [place] [address] Care Team Providers Care Linux Admin Engineer Name Role Phone Abhijeet VILLA [place] Primary Care Provider Juanito Tafoya Unavailable [phone] REASON FOR VISIT fatty liver, autoimmune hepatitis [...] Not-Taking Encounters Encounter Location Date Provider Diagnosis [facility] [address] [place] [address] 04/15/2025 Juanito Viramontes Plan Of Treatment Next Appt Details Provider Name:Juanito Viramontes , 11/29/2025 01:40:00 PM, [address] [facility], [address], [place], [address], Progress Notes * ETHAN SWEETDOB:[birth year] (70 yo F)Acc No.[id number]:04/15/2025 Progress Notes Patient: ETHAN DESHPANDE Provider: Ronald Viramontes MD :1955 A ge:69 Y S ex:Female Date:04/15/2025 Address:[address] [place], [place] [id number] Pcp:George Jha MD Subjective: * Chief Complaints: [...] 04/15/2025 Generated for Aureliano prater/Andie/Abbeyitting on: 1 05:42 PM EDT
--- OUTSIDE RECORDS SUMMARY | 2025-07-06 11:20 | XMS_ITS ---
Author Organization [facility] Address [address] [place] [address] Care Team Providers Care Vice President Payer Name Role Phone Abhijeet VILLA, George Primary Care Provider Juanito Tafoya [phone] REASON FOR VISIT Patient presents today for a fatty liver Encounters Encounter Location Date Provider Diagnosis [facility] [address] [place] [address] 07/06/2025 Juanito Viramontes Plan Of Treatment Next Appt Details Provider Name:Juanito Viramontes , 11/29/2025 01:40:00 PM, [address], [address], [place], [address], Progress Notes * ETHAN SWEETDOB:[birth year] (70 yo F)Acc No.[id number]:07/06/2025 Progress Notes Patient: ETAHN DESHPANDE Provider: Ronald Viramontes MD :1955 A ge:69 Y S ex:Female Date:07/06/2025 Address:[address] [place], [place] [id number] Pcp:George Jha MD Subjective: * Chief Complaints: [...] 07/06/2025 Generated for Aureliano prater/Andie/Abbeyitting on: 1 05:43 PM EDT
--- NOTE | 2025-08-29 14:12 | A.OFFPSYCH_ITS ---
Intake Intake Visit Reasons: consultation Director Of Human Resources Required: Yes Provided:: Language: (Cape Verdean) Language Interpreted:: [place] and Director Of Human Resources Type:: Employee Allergies propranolol Allergy (Intermediate, Verified 06/27/25 10:40) Anxiety amoxicillin Allergy (Unknown, Verified 06/27/25 10:40) Rash glipizide Allergy (Unknown, Verified 06/27/25 10:40) unknown latex (LATEX) Allergy (Unknown, Verified 06/27/25 10:40) UNKNOWN levofloxacin Allergy (Unknown, Verified 06/27/25 10:40) Unknown liraglutide (From VICTOZA) Allergy (Unknown, Verified 06/27/25 10:40) UNKNOWN, itching metformin (METFORMIN) Allergy (Unknown, Verified 06/27/25 10:40) DIARRHEA morphine (MORPHINE) Allergy (Unknown, Verified 06/27/25 10:40) ITCHING, rash acetaminophen Allergy (Verified 06/27/25 10:40) Unknown gabapentin Allergy (Verified 06/27/25 10:40) Unknown atorvastatin Adverse Reaction (Intermediate, Verified 06/27/25 10:40) elevated LFTs Medication List - Last Reconciled 08/29/25 by Narcisa Carrillo APRN blood sugar diagnostic (FreeStyle Lite Strips) 1 strip miscellaneous TID blood-glucose meter (FreeStyle Lite Meter kit) As directed cholecalciferol (vitamin D3) 50 mcg PO DAILY 90 days citalopram 10 mg PO DAILY 30 days fluticasone propionate 50 mcg/actuation 2 sprays intranasal DAILY gabapentin 100 mg PO BID glimepiride 2 mg PO QAM [Grab bars As directed] ibuprofen 800 mg PO Q8H PRN [incontinence liners 4 times per day] [incontinence wipes As directed] insulin degludec (Tresiba FlexTouch U-100 insulin) 40 units subcut BEDTIME lancets (FreeStyle Lancets) As directed-to test sugars Three times a day losartan 50 mg (1/2 x 100 mg) PO DAILY pen needle, diabetic As directed pen needle, diabetic As directed daily inject 4 x a day rosuvastatin 20 mg PO DAILY 90 days tirzepatide (Mounjaro) 10 mg (0.5 mL) subcut QWEEK HPI- Psychiatric Chief Complaint: consultation HPI Narrative: 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 Pt referred by PCP for evaluation of anxiety and medication optimization. Patient c/o worsening anxiety this past year. Used to take Citalopram and Buspirone and Hydroxyzine and was doing well for a few years but decided recently that the medications were affecting her negatively so she decided to stop taking the meds on her own. Pt explained today that she has epilepsy and she used to take lamictal for it. she thinks and was told by a psychiatrist at [facility] that the lamictal was helping her anxiety so she didn't need anything else. She reports eventually she developed nystagmus from the lamicatl and her neurologist took her off it. She uses low dose gabapentin to control the seizures but its not clear if thats adequate. She reports when she went back on celexa, busar and hydroxyzine without the lamictal she feel like the spells got worse. She describes the spells as a sudden feeling of imbalance, vertigo like. she also reports one episode of falling asleep int the daytime without warning at home while on celxa and buspar. She has since stopped those medications. She describes a number of disappointments in her life and chronic loneliness. She is very sad. she has panic attacks several times a day. Her PHQ9= 22 and GAD7= 13. She has SI but no plan nor intention to hurt or kill herself. She reports she will not hurt herself. Past Psychiatric History: outpt psychiatry and therapy at [facility] Subjective Subjective Subjective Medication Compliance: No Side effects from medications: Yes Review of Systems Medical Review of Systems: unchanged Mental Status Exam Mental Status Exam Patient Appearance: Well Grooomed and Appropriate Patient Orientation: Person, Place, Time and Situation Level of Consciousness: Awake, Appropriate, Restless and Alert Patient Behavior: Appropriate, Cooperative, Anxious, Good Eye Contact and Crying Mood Description: Anxious and Sad Affect Description: Anxious, Sad and Expansive Patient Cognition Impaired: No Ability to Follow Directions: Good Speech Pattern: Perseverating, Coherent and Excessive Memory Description: Intact Hallucinations: None Delusions: Not Present Thought Process: Intact, Goal Oriented and Linear Thought Content: positive for Intact, positive for Preoccupation and positive for Suicidal Ideation (no plan or intent) Judgement: Good Assessment and Plan Assessment & Plan (1) Generalized anxiety disorder: Status: Acute Code(s): F41.1 - Generalized anxiety disorder (2) Panic disorder: Status: Acute Code(s): F41.0 - Panic disorder [episodic paroxysmal anxiety] Plan clonazepam 0.25mg in am and 0.5mg at bedtime for panic and unlikely to woren seizure and in fact may reduce magnesium glycinate 100mg at bedtime for anxiety, sleep and constipation encouraged pt to eat small amount every 3-4 hours to stabilize blood sugar stay hydrated return in 6-8 weeks Medications: New clonazepam (Klonopin) 0.5 mg orally Take 1/2 tablet in am and 1 tablet at bedtime; PLEASE write instructions in Cape Verdean 45 tabs 1RF magnesium glycinate 100 mg PO BEDTIME 30 caps 2RF Discontinued citalopram Discontinued Reason: Doctor's Order 10 mg PO DAILY 30 days 30 tabs 3RF Counseling and coordination of Care Pt. Self Management counseling: Maintenance-social rhythm, Med illness tx adherence, Mod caffeine/ETOH intake, Nutrition education and improvement, Sleep hygiene and General coping skills Medication management counseling: Effectiveness, Side effects, Dosing range, Duration, Drug interaction and Adherence Diagnosis and Prognosis Counseling: Accuracy of diagnosis, Prognosis over time, Impact of diagnosis on life functions, Impact of family relationship, Problematic behaviors secondary to diagnosis and Adequacy of current interventions Details: I spent [] minutes reviewing the record, seeing the patient and documenting in the medical record. Counseling provided to the patient/caregiver as outlined below. Addressed patient/caregiver concerns regarding current medication regime including effective adherence. Addressed patient/caregiver concerns regarding diagnosis and prognosis including accuracy of diagnosis, prognosis over time, impact of diagnosis. Addressed patient/caregiver concerns regarding impact of recent stressors. [facility] Medical History (Updated 08/29/25 @ 17:08 by Narcisa Carrillo APRN) Panic disorder Painful diabetic neuropathy Arachnoid cyst Migraine without aura TLE (temporal lobe epilepsy) Complex partial seizure disorder Encephalopathy MCI (mild cognitive impairment) Depression with anxiety Insomnia Multifactorial dementia Dizziness Overweight (BMI 25.0-29.9) Vitamin D deficiency Ear pain Ear drainage Right shoulder pain Functional urinary incontinence COVID-19 Encounter to discuss test results Memory loss Urinary incontinence Chest pain Colon cancer screening Annual physical exam Diabetes Type 2 diabetes mellitus with hyperglycemia Epigastric pain Vertigo Upper abdominal pain Screening for tuberculosis Low back pain Preoperative examination Right hip pain Right low back pain Primary osteoarthritis of shoulder Memory loss or impairment Bursitis of right shoulder Bursitis of left shoulder Primary osteoarthritis, right shoulder Anxiety Varicose veins of both lower extremities Allergic rhinitis Elevated LFTs Primary osteoarthritis of left shoulder Lumbar degenerative disc disease Benign essential hypertension Type 2 diabetes mellitus without complications Mixed hyperlipidemia Surgical History History of appendectomy History of cholecystectomy History of cystoscopy History of tubal ligation Family History Father Cancer Mother Diabetes Maternal Uncle Cancer Maternal Grandfather Cancer Social History Housing: Apartment Alcohol intake: former Patient Tobacco Use Status: Never used Tobacco e-Cigarette/Vaping Use: Never Used Second Hand Smoke Exposure: Yes service: No Current occupational status: unemployed Current occupational exposures/hazards: No Cognitive needs: No Hearing needs: No Vision needs: No Coding Level of Care Code Psych Diag Eval w/Med (80665) Diagnoses Generalized anxiety disorder F41.1 Panic disorder F41.0
--- OUTSIDE RECORDS SUMMARY | 2025-08-29 17:43 | XMS_ITS | Data Portability ---
Author Organization [place] Address [address] [place] [address] Care Team Providers Care Peoplesoft Taleo Manager Name Role Phone HIM CCA OTHER Assessment Encounter Date Assessment Date Assessment LastModified by Organization Details LastModified Time 06/04/2025 06/04/2025 I provided real -time medical direction via phone for this encounter and was available for additional phone-based assistance as needed. I have reviewed and agree with the Assessment and Plan as documented by the Insurance Follow Up Specialist. Patient given the opportunity to ask questions. Our service contacted for an assessment of: multiple issues and concerns As per above, patient with hx of 1.) Sz d/o - sees neurology and was instructed to take medications as prescribed on last visit several months ago however patient states that the medication makes her too sleepy so she does not take. Having seizures nightly per self-report. 2.) HTN - hypertensive today and states she did not take her medication before medic checked her BP. States she is on valsartan 100 mg daily but was told to take 50 mg. Unclear if she is taking this medication. 3.) DM - seems to take medication regularly. BG checked. 4.) CP/ROSS - CP is intermittent and appears to be associated with anxiety. ECG reassuring. ROSS is dull and also intermittent. Not associated with neuro deficits or N/V. Per urinalysis technician on the scene, Please read the urinalysis technician note for their exam findings. Impression: As above Plan: Advised to take medications as prescribed and follow up with PCP, neurologist as the current regimen seems to either cause SE which leads to non-adherence and/or is ineffective as treatment. Patient appears safe at home. She did take her valsartan for medic this AM. Red falgs discussed. Allergies: Reviewed PCP f/u: please see above We discussed the diagnostic uncertainty of home visits and the risk associated with this. In this case, the patient and I felt this to be an acceptable and reasonable amount of risk given the benefit of avoiding an ED visit. We discussed the need to seek care urgently/emergentl y in the setting of any new or worsening serious symptoms, particularly fever chills lightheadedness altered mental status [email or web address] Not available 06/04/2025 10:25:11 Plan of Treatment Reminders Order Date Submit Date Provider Last Modified By Organization Details Last Modified Time Details Appointments None recorded. Lab glucose, fingerstick , blood [facility] [address] [place] [address], [phone] 13:45:25 Referral None recorded. Procedures None recorded. Surgeries None recorded. Imaging electrocard iogram [address], [address] 10:06:57 Medication Orders None recorded. Patient TargetsNo targets recorded. Patient InstructionsNo instructions recorded. Reason for Referral None Reported. Results Created Date Observation Date Name Description Value Unit Range Abnormal Flag Note LastModifiedBy Organization Detail LastModifiedTime 06/04/2006/04/2025 elect elizabeth diogr am No observ ation record ed. [facility] [address], [address] 06/04/2025 13:44:51 Result Notes None recorded. Medical Equipment None Reported. Allergies Allergen ID Allergen Name Allergen Category Reaction Reaction Severity Criticality Documentation Date Start Date Code Code System Note Provider Name and Address Organization Details Recorded Time 48932 amoxicill in medicatio n Not available Not available Not available 06/04/2025 723 RxNorm Not Available [facility] - production 08:32:16 73538 latex environme nt,medica tion Not available Not available Not available 06/04/2025 48192 91 RxNorm Not Available [facility] 08:32:16 Medications Name Sig Start Date Stop Date [...] Not Available Not Available Vitals Date Recorded Heart rate Oxygen saturation Oxygen saturation in Arterial blood by Pulse oximetry Respiratory rate Body temperature Systolic And Diastolic Provider Name and Address Organization Details Last Updated DateTime 5 84 /min 99 % 99 % 18 /min 98.4 [degF] 185/110 mm[Hg] Not Available [facility] 5 09:49:07 Date Recorded Body height Body temperature Heart rate Oxygen saturation Oxygen saturation in Arterial blood by Pulse oximetry Body weight Respiratory rate Systolic And Diastolic Provider Name and Address Organization Details Last Updated DateTime 2 157.48 cm 97.8 [degF] 68 /min 100 % 100 % 65249.2 88 g 18 /min 149/88 mm[Hg] Not Available [facility] 2 19:32:11 Social History None recorded. Functional Status None recorded. Mental Status None recorded. Family History Nothing Reported. Medical History No medical history recorded. Gynecological HistoryNo gynecological history recorded. Obstetrics History GPAL:G 0 P 0 0 0 0 Past Encounters Encounter ID Performer Location Encounter Start Date Encounter Closed Date Diagnosis/Indication Diagnosis SNOMED-CT Code Diagnosis ICD10 Code Diagnosis IMO Codes Diagnosis Note [id number] Azar Sweeney MD Main - [address] [address] 07/17/2022 19:32:01 07/29/2022 13:06:51 Chest pain 83567559 R07.[address]-T wave changes. Chest pain related to anxiety in past. Non-exerti onal. DIscussed red flag symptoms to indicate calling 913. [id number] Alis Garcia MD [facility] [address] [address] 06/04/2025 09:49:03 06/06/2025 09:18:35 Essential hypertension 09676573 I10 56454 History of diabetes mellitus 584421586 Z86.39 867471 Seizure disorder 4820845 02 G40.909 59289 Health Concerns Section Related Observation LastModified by Organization Detai ls LastModified Time None Recorded Concern Status LastModified by Organization Details LastModified Time None Recorded Advance Directives Directive None Recorded Payers Insurance Date Sequence Insurance Name Policy Number Policy Hernandez Covered Member ID Hernandez Member ID Guarantor Name 06/04/2025 1 [facility] - DOS PRIOR TO 2023 - DUAL ELIGIBLE (MEDICARE REPLACEMENT/ADV ANTAGE - HMO) Cara Husain [id number] Cara Husain 06/04/2025 1 [facility] - DOS ON OR AFTER 2023 - DUAL ELIGIBLE - CARE HOME OPTIONS AND ONE CARE (MEDICARE REPLACEMENT/ADV ANTAGE - HMO) Cara Husain [id number] Cara Husain Notes Date Note Type Note Provider Name and Address Organization Details Recorded Time 07/17/2022 text/html ROS as noted in the HPI CRC Nursing Assessment: Reason For Request: Patient [...] .................. .................. .................. .................. .................. .................. ............... Insurance Follow Up Specialist Note: Sent to a call for a [...] hx per above Azar Sweeney MD [address] [facility],[address], [place], [address], [employer] 07/17/2022 19:33:44 06/04/2025 text/html CRC Nurse Triage Notes (Ingrid Daniel): Reason For Request: Pt reporting some chest pain>diabetic>epil eptic/seizures, eventually stopped medication due to side-effects, states she started back on medication again last week>pt states her symptoms are present when she goes to sleep and upon waking, *chest pain, headache Patient Reports: Dizziness with positional change; Palpitations, feeling dizzy Denies: Worst Headache of life New onset of vision loss Sudden onset -unilateral weakness/gait disturbance Fall with head strike and altered LOC New onset of Slurred speech or difficulty finding words Sudden Mental status changes Head pain with fever chills and neck pain Seizure activity Head pain not relieved by medication greater than 8 hours Head pain greater than 8 hours -unrelated to falls or injury Head pain with nausea vomiting Sensitive to light History of Heart Attack, in the setting of active chest pain Active Chest pain, radiates to neck jaw and or arm Diaphoretic/Sweati ng Describes as c rushing Sudden onset of nausea/Vomiting and shortness of breath. Shortness of Breath Unable to speak in full sentences without distress Chest pain, increased fatigue CHF history, increased swelling and edema Weakness/tachycard ia Chief Complaints: Seizures, Chest Pain PMH: Hypertension, Epilepsy/Seizure Disorder, Diabetes Mellitus Type 2, Anxiety Disorder PMH Reviewed at 06/04/2025: Allergies Reviewed at 06/04/2025:32 Comments: 69 y.o female complains of Seizures Patient making self referral Complains she is not sleeping because she has been having seizures at night this has been ongoing for 2 weeks. hx of epilepsy hx of anxiety She states she has not been on seizure medication since last August. Last seizure was last night She states they have been occurring at night only. She unsure how long they last but wakes up with a head ache and pain in chest once she is awake and up the symptoms subside greatly but today she has mild head pressure and palpitations in her chest. FBS 131 BP while on the phone 158/105 p 82 requesting insted visit. I provided information on the mobile health provider response time and advised the patient and/or caregiver to monitor reported signs and symptoms. I discussed the warning signs of when to seek emergency care. Insurance Follow Up Specialist Organization Information for Veronika Glover [employer] Legal Name: [employer]. Address: [address] [place] [id number], Drum Handler: Karl Finch MD [facility] No.: [id number] Insurance Follow Up Specialist POC Test Results from [facility]en Veronika - [facility] Blood Glucose Measurement (10:02:06) Blood Glucose: 250mg/dL Attachments uploaded as part of this test result can be found under Documents section. .................. .................. .................. .................. .................. .................. .................. ............... Insurance Follow Up Specialist Note From Belen Veronika: Pt is lying in bed, A/O x3. Pt is pink/warm/dry and not In any immediate respiratory distress. Pt states that she saw her neurologist who told her she was having seizures in her sleep and to take her medication, but pt refuses. Pt states it makes her headaches and dizziness worse. Pt is currently c/o chest pain that feels like p ressure . Pt states this has been going on for a long time . Pt also states she has been [...] edema in the lower legs and bilateral breath sounds were clear. Vitals as noted. BP noted to be elevated. Pt stated her BP medication dose was cut in half to 50mg by her PCP. Pt states she did not take her BP medication this morning because she waiting for u s . Pt was advised to take her [...] bgl 250 after pt had eaten breakfast. [facility] [place] and pt advised that note will be sent to her PCP and neurologist. Pt was also advised to make sure she is taking her medications. Pt told that if she experiences increasing CP, SOB, increased headache and/or pain to call 911 immediately. Pt agreed. Call was then cleared. [facility] [place] Orders: electrocardiogram: Performed glucose, fingerstick, blood: Performed .................. .................. .................. .................. .................. .................. .................. ............... [facility] Consulted: Alis Garcia .................. .................. .................. .................. .................. .................. .................. ............... Disposition: Fulfilled Alis Garcia MD [address] [facility], [place], [address], [facility] 06/04/2025 15:40:42 OBGyn Episode No OBEpisode recorded.
--- OUTSIDE RECORDS SUMMARY | 2025-08-29 17:43 | XMS_ITS | Patient Health Record ---
Author Organization [facility] Address [address] [place] [address] Care Team Providers Care Cocktail Lounge Manager Name Role Phone George Jha MD Primary Care Provider Juanito Tafoya Unavailable [phone] Allergies Allergen (clinical drug ingredient) Drug/Non Drug Allergy documented on EMR Reaction Allergy Type Onset Date Status acetaminophen Tylenol Unknown Drug Allergy Act iram Latex Latex (uncoded) Unknown Allergy Acti ve Reason For Referral No Information Medications Medication SIG (Take, Route, Frequency, Duration) Notes Start Date End Date Status Glimepiride 2 MG Oral; Duration: 90 Active lamoTRIgine 25 MG Oral; Duration: 30 Active hydrALAZINE HCl 10 MG Oral; Duration: 30 Active Rosuvastatin Calcium 20 MG TAKE 1 TABLET ORALLY DAILY FOR 90 DAYS Oral; Duration: 90 Active traMADol HCl 50 MG Oral; Duration: 7 Active Meclizine HCl 25 MG Oral; Duration: [...] TABLET EVERY DAY Oral; Duration: 90 Active Tresiba FlexTouch 100 UNIT/ML Subcutaneous; Duration: 75 Active Mounjaro 2.5 MG/0.5ML INJECT 2.5 MG SUBCUTANEOUSLY WEEKLY Subcutaneous; Duration: 28 Active Tradjenta 5 MG Oral; Duration: 90 Not-Taking Omeprazole 20 MG TAKE ONE CAPSULE BY MOUTH EVERY DAY Oral Not-Taking Immunizations Vaccine Route Administration Date Status Comme nts Influenza Unknown 06/27/2022 Refused Influenza Unknown 10/15/2023 Refused Problems Problem Type SNOMED Code ICD Code Onset Dates Problem Status W/U Status Risk Notes Problem Colon cancer screening (540491806) Colon cancer screening (Z12.11) Active confirmed Problem History of adenomatous polyp of colon (177096686) History of adenomatous polyp of colon (Z86.010) Active confirmed Problem Autoimmune hepatitis (246974813) Autoimmune hepatitis (K75.4) Active confirmed Problem Elevated liver enzymes level (768246262) Elevated liver function tests (R79.89) Active confirmed Problem Elevated liver enzymes level (422602016) Elevated liver enzymes (R74.8) Active confirmed Problem Fatty liver (255377612) Fatty liver (K76.0) Active confirmed Encounters Encounter Location Date Provider Diagnosis [facility] [address] [place] [address] 07/06/2025 Juanito Wander Plan Of Treatment Pending Test Test Name [...] COLONOSCOPY 06/27/2022 Next Appt Details Provider Name:Juanito Parada Wander , 11/29/2025 01:40:00 PM, [address], [address], [place], [address], Insurance Providers Payer Name Payer Address Payer Phone Subscriber Number Group Number Insured Name Patient Relationship to Insured Coverage Start Date Coverage End Date [facility] [address] Attn Claims LIA Fry [address] [id number] ETHAN SWEET Self - patient is the insured MEDICAID OF [employer] [address] [place] [phone] [id number] ETHAN SWEET Self - patient is the insured Medical (General) History Medical History History ICD Code Colonoscopy 05/22/2011-large , approximately 2 cm tubular adenoma with high grade dysplasia removed form sigmoid colon; also noted to have diverticulosis GERD--EGD in 05/2011--mild gastritis-neg. H.pylori, small HH--no esophagitis HTN Back pain Anxiety/depression Asthma Denies VT,CVA,renal disease IDDM Hyperlipidemia Negative screening colonoscopy in [...]
--- OUTSIDE RECORDS SUMMARY | 2025-08-29 17:43 | XMS_ITS | Clinical Summary ---
Author Organization 175 [facility] Address [address] [place] [address] Phone Care Team Providers Care Api Developer Name Role Phone George Jha MD Primary Care Provider + [phone] Allergies Active Allergy Reactions Criticality Noted Date [...] (one) time each day before breakfast. Active lidocaine (XYLOCAINE) 4 % external solutionIndication s:Diabetic mononeuropathy simplex (CMS/HCC V24, CMS/HCC V28) Apply topically at bedtime as needed for mild pain. 50 mL 2 5 Active lidocaine (LIDODERM) 5 % patch Apply 1 patch topically 1 (one) time each day. Remove & discard patch within 12 hours or as directed by MD. 30 each 2 5 025 Active Problems Problem Noted Date Diagnosed Date [...] 3:30 PM EDT Office Visit Orthopedic Surgery - [address] [address] Homer Langley DPM Diabetic mononeuropathy simplex (CMS/HCC V24, CMS/HCC V28) (Primary Dx); Dermatophytosis of nail from Last 3 Months Surgical History Surgery Date Site/Laterality Comments CATARACT EXTRACTION 08/2023 GALLBLADDER SURGERY TUBAL LIGATION Medical History Medical History Date Comments DM (diabetes mellitus) (CMS/HCC V24, CMS/HCC V28 ) Migraine without aura TLE (temporal lobe epilepsy) (CMS/HCC V24, CMS/ CC V28) Depression with anxiety Multifactorial dementia ([facility] V24, [facility] V2 8) Arachnoid cyst Encephalopathy [...] 1:45 PM EST Office Visit Orthopedic Surgery - [address] [address] Homer Langley, DPM [address] [place] [phone] Health Maintenance Due Date Last Done Comments Breast Cancer Screening 1954 Colorectal Cancer Screening: Colonoscopy 1954 Diabetes: Annual GFR (Glomerular Filtration Rate) 1954 Diabetes: Annual Foot Exam 1964 Diabetes: Annual Retina Eye Exam 1964 DTaP,Tdap,and Td Vaccines (1 - Tdap) 1973 Pneumococcal Vaccine: 50+ Years (1 of 2 - PCV) 1973 RSV Immunization Adult Patients (1 - Risk 50-74 years 1-dose series) 2004 Zoster Vaccines (1 of 2) 2004 Cholesterol Screening (Lipid Panel) 11/28/2023 Falls Risk Assessment 11/28/2023 Hepatitis C Screening 11/28/2023 Osteoporosis Screening (Bone Density Screening) 11/28/2023 Social Influencers of Health Screening 11/28/2023 Depression Screening 11/03/2024 Diabetes: Annual Urine Albumin-Creatinine Ratio (uACR) 05/24/2025 Diabetes: Blood Sugar Contro l Test (HGBA1C) 05/24/2025 Hypertension/CHF/CAD Annual BMP Blood Test 06/17/2025 COVID-19 Vaccine (4 - 2024-2 6 season) 2025 09/04/2023, 02/08/2021, 01/11/2021 Influenza Vaccine (#1) 2025 HIB Vaccines Aged [...] age to complete this topic Insurance SARAHI WHITE [id number] [facility] Member Subscriber Plan / Payer (Ef fective 2019-Present) Name:Cara Husain Relation to Subscriber:Self Name:Cara Husain Payer ID:[id number] Group ID:[id number] Type:Not on file Address: [place] [address] [place] [address] Care Teams Api Developer Relationship Specialty Start Date End Date George Jha MD [address] [place] [address] [address] SARAHI White PCP - General Internal Medicine 02/17/25
== END 2025-08-29 14:58 | disposition home or self-care (01) ==
LOC: HO.HOP 14:02
PROVIDERS: PCP Internal Medicine; Visit Provider Clinical Nurse Specialist Psychiatric/Mental Health
DX: F41.1 Generalized anxiety disorder (principal); F41.0 Panic disorder [episodic paroxysmal anxiety]
CPT/HCPCS: 90792

== ENCOUNTER → 2025-08-29 14:02 | Outpatient (BNVA) | payer OTHER, SELFPAY | PROVIDERS: PCP Internal Medicine; Visit Provider Clinical Nurse Specialist Psychiatric/Mental Health | DX: F41.1 Generalized anxiety disorder (principal); F41.0 Panic disorder [episodic paroxysmal anxiety] | CPT/HCPCS: 90792 ==

== ENCOUNTER 2025-09-14 15:59 | Outpatient (AMB) | payer OTHER, SELFPAY ==
--- OUTSIDE RECORDS SUMMARY | 2025-04-15 08:00 | XMS_ITS ---
Author Organization [facility] Address [address] [place] [address] Care Team Providers Care Ditch Digger Name Role Phone Abhijeet VILLA [place] Primary Care Provider Juanito Tafoya Unavailable [phone] REASON FOR VISIT fatty liver, autoimmune hepatitis Medications Medication SIG (Take, Route, Frequency, Duration) Notes Start Date End Date Status Atorvastatin Calcium 80 MG TAKE 1 TABLET AT BEDTIME Oral; Duration: 90 Not-Taking Citalopram Hydrobromide 20 MG TAKE 1 TABLET BY MOUTH DAILY Oral; Duration: 30 Active busPIRone HCl 5 MG Oral; Duration: 90 Active Losartan Potassium 100 MG TAKE 1 TABLET EVERY DAY Oral; Duration: 90 Active Omeprazole 20 MG TAKE ONE CAPSULE BY MOUTH EVERY DAY Oral Not-Taking hydrALAZINE HCl 10 MG Oral; Duration: 30 Active Rosuvastatin Calcium 20 MG TAKE 1 TABLET ORALLY DAILY FOR 90 DAYS Oral; Duration: 90 Active traMADol HCl 50 MG Oral; Duration: 7 Active Tresiba FlexTouch 100 UNIT/ML Subcutaneous; Duration: 75 Active Mounjaro 2.5 MG/0.5ML INJECT 2.5 MG SUBCUTANEOUSLY WEEKLY Subcutaneous; Duration: 28 Active Glimepiride 2 MG Oral; Duration: 90 Active lamoTRIgine 25 MG Oral; Duration: 30 Active Meclizine HCl 25 MG Oral; Duration: 10 Active Ibuprofen 600 MG TK 1 T PO Oral prn Active Tradjenta 5 MG Oral; Duration: 90 Not-Taking Encounters Encounter Location Date Provider Diagnosis [facility] [address] [place] [address] 04/15/2025 Juanito Viramontes Plan Of Treatment Next Appt Details Provider Name:Juanito Viramontes , 11/29/2025 01:40:00 PM, [address] [facility], [address], [place], [address], Progress Notes * ETHAN SWEETDOB:[birth year] (70 yo F)Acc No.[id number]:04/15/2025 Progress Notes Patient: ETHAN DESHPANDE Provider: Ronald Viramontes MD :1955 A ge:69 Y S ex:Female Date:04/15/2025 Address:[address] [place], [place] [id number] Pcp:George Jha MD Subjective: * Chief Complaints: * 1 . Fatty liver, autoimmune hepatitis. * Medical History: * Medications: T aking Losartan Potassium 100 MG Tablet TAKE 1 TABLET EVERY DAY Oral , Taking Citalopram Hydrobromide 20 MG Tablet TAKE 1 TABLET BY MOUTH DAILY Oral , Taking Ibuprofen 600 MG Tablet TK 1 T PO Oral prn , Taking lamoTRIgine 25 MG Tablet Oral , Taking Glimepiride 2 MG Tablet Oral , Taking Meclizine HCl 25 MG Tablet Oral , Taking traMADol HCl 50 MG Tablet Oral , Taking Rosuvastatin Calcium 20 MG Tablet TAKE 1 TABLET ORALLY DAILY FOR 90 DAYS Oral , Taking hydrALAZINE HCl 10 MG Tablet Oral , Taking Mounjaro 2.5 MG/0.5ML Solution Pen-injector INJECT 2.5 MG SUBCUTANEOUSLY WEEKLY Subcutaneous , Taking Tresiba FlexTouch 100 UNIT/ML Solution Pen-injector Subcutaneous , Taking busPIRone HCl 5 MG Tablet Oral , Not-Taking/PRN Tradjenta 5 MG Tablet Oral , Not-Taking/PRN Atorvastatin Calcium 80 MG Tablet TAKE 1 TABLET AT BEDTIME Oral , Not-Taking/PRN Omeprazole 20 MG Capsule Delayed Release TAKE ONE CAPSULE BY MOUTH EVERY DAY Oral Objective: * Vitals: Assessment: Plan: * Treatment: * * The named appointment provid er may or may not be the originator of this progress note, and it is not deemed complete until electronically signed by the appointment provider. Sign off status: Pending * Provider: Ronald Viramontes MD Date: 0 04/15/2025 Generated for Aureliano prater/Andie/Abbeyitting on: 1 11/14/2024 06:53 PM EST
--- OUTSIDE RECORDS SUMMARY | 2025-07-06 10:20 | XMS_ITS ---
Author Organization [facility] Address [address] [place] [address] Care Team Providers Care Outside Sales Advertising Executive Name Role Phone Abhijeet VILLA, George Primary Care Provider Juanito Tafoya [phone] REASON FOR VISIT Patient presents today for a fatty liver Encounters Encounter Location Date Provider Diagnosis [facility] [address] [place] [address] 07/06/2025 Juanito Viramontes Plan Of Treatment Next Appt Details Provider Name:Juanito Viramontes , 11/29/2025 01:40:00 PM, [address], [address], [place], [address], Progress Notes * ETHAN SWEETDOB:[birth year] (70 yo F)Acc No.[id number]:07/06/2025 Progress Notes Patient: ETHAN DESHPANDE Provider: Ronald Viramontes MD :1955 A ge:69 Y S ex:Female Date:07/06/2025 Address:[address] [place], [place] [phone] Pcp:George Jha MD Subjective: * Chief Complaints: * 1 . Patient presents today for a fatty liver. * Medical History: Objective: * Vitals: Assessment: Plan: * Treatment: * * The named appointment provid er may or may not be the originator of this progress note, and it is not deemed complete until electronically signed by the appointment provider. Sign off status: Pending * Provider: Ronald Viramontes MD Date: 0 07/06/2025 Generated for Aureliano prater/Andie/Abbeyitting on: 1 11/14/2024 06:53 PM EST
[2025-09-14 16:03] VITALS: BP 170/80; PULSE 65; TEMP 36.7; O2SAT 100; BMI 26.3
--- NOTE | 2025-09-14 16:03 | AM.OFFWIN_ITS ---
Intake Vital Signs 09/14/25 16:03 09/14/25 16:11 Height 5 ft 2 in Weight 144 lb BMI 26.3 BP 170/80 H 146/70 H Blood Pressure Location Lt brachial Rt brachial Position Sitting Sitting Pulse 65 Pulse Source Pulse Oximeter Temp 98.1 F Temp Source Oral Pulse Oximetry (%) 100 Oxygen Delivery Method Room Air Comment High BP-pt reports being nervous. pt notified. Intake Visit Reasons: EP Sinus congestion, chest congestion, ears Intake Note: pt presents with chest congestion with coughing, dyspnea, sinus congestion with lots of pressure, loss of smell, occasional complete ear blockage- s/s worse when laying down x3 wks *last similar situation happened in May- visit to [facility]- treated with abx, eye gtts and allergy pill Patient Tobacco Use Status: Never used Tobacco Allergies propranolol Allergy (Intermediate, Verified 09/14/25 16:13) Anxiety amoxicillin Allergy (Unknown, Verified 09/14/25 16:13) Rash glipizide Allergy (Unknown, Verified 09/14/25 16:13) unknown latex (LATEX) Allergy (Unknown, Verified 09/14/25 16:13) UNKNOWN levofloxacin Allergy (Unknown, Verified 09/14/25 16:13) Unknown liraglutide (From VICTOZA) Allergy (Unknown, Verified 09/14/25 16:13) UNKNOWN, itching metformin (METFORMIN) Allergy (Unknown, Verified 09/14/25 16:13) DIARRHEA morphine (MORPHINE) Allergy (Unknown, Verified 09/14/25 16:13) ITCHING, rash acetaminophen Allergy (Verified 09/14/25 16:13) Unknown gabapentin Allergy (Verified 09/14/25 16:13) Unknown atorvastatin Adverse Reaction (Intermediate, Verified 09/14/25 16:13) elevated LFTs Do you need a note to return to daycare/school/sports/work: No HPI HPI Comments History of Present Illness Details Patient is a 70yo F who 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 for sinus complaint She has hx of epilepsy controlled with gabapentin She presents with sinus congestion worsening x 1 month Admits to chronic runny nose but worsening congestion, post nasal drip and symptoms x 1 month Has tried sudafed but causes HTN No other improving factors Worse with laying flat at night + ST due to post nasal drip Slight ache in ears without decreased hearing Slight headache + cough with phlegm without SOB or CP No other complaints PFSH Medical History (Updated 09/14/25 @ 16:37 by Kenya Cuba PA-C) Panic disorder Painful diabetic neuropathy Arachnoid cyst Migraine without aura TLE (temporal lobe epilepsy) Complex partial seizure disorder Encephalopathy MCI (mild cognitive impairment) Depression with anxiety Insomnia Multifactorial dementia Dizziness Overweight (BMI 25.0-29.9) Vitamin D deficiency Ear pain Ear drainage Right shoulder pain Functional urinary incontinence COVID-19 Encounter to discuss test results Memory loss Urinary incontinence Chest pain Colon cancer screening Annual physical exam Diabetes Type 2 diabetes mellitus with hyperglycemia Epigastric pain Vertigo Upper abdominal pain Screening for tuberculosis Low back pain Preoperative examination Right hip pain Right low back pain Primary osteoarthritis of shoulder Memory loss or impairment Bursitis of right shoulder Bursitis of left shoulder Primary osteoarthritis, right shoulder Anxiety Varicose veins of both lower extremities Allergic rhinitis Elevated LFTs Primary osteoarthritis of left shoulder Lumbar degenerative disc disease Benign essential hypertension Type 2 diabetes mellitus without complications Mixed hyperlipidemia Surgical History History of appendectomy History of cholecystectomy History of cystoscopy History of tubal ligation Family History Father Cancer Mother Diabetes Maternal Uncle Cancer Maternal Grandfather Cancer Social History Housing: Apartment Alcohol intake: former Patient Tobacco Use Status: Never used Tobacco e-Cigarette/Vaping Use: Never Used Second Hand Smoke Exposure: Yes service: No Current occupational status: unemployed Current occupational exposures/hazards: No Cognitive needs: No Hearing needs: No Vision needs: No Review of Systems Const Denies chills, Denies fever(s) and Reports headache(s) Eyes Denies blurry vision and Denies change in vision ENT Reports otalgia, Reports headache(s), Reports nasal congestion, Reports nasal discharge, Reports sinus pressure and Reports sore throat Card Denies chest pain, Denies syncope and Denies dyspnea Resp Reports cough and Denies dyspnea Skin/Breast Denies rash Neuro Denies syncope and Reports headache(s) Physical Exam Exam Exam: General: Non-toxic, NAD. Speaking full sentences. Skin: Warm dry throughout Eye: EOMI, PERRL HENT: Airway patent. Uvula midline. No pharyngeal erythema or edema. No HAND FUR CLEANER. Bilateral canals clear. slight fluid behind membranes. TM non-erythematous, non-bulging. No TM perforation or hemotympanum noted. +rhinorrhea and boggy turbinates . Minimal sinus maxillary ttp Respiratory: CTA bilaterally. No wheezes, rales or rhonchi Cardiac: RRR. No murmur MSK: Full ROM extremities. Neurology: Alert. No aphasia or facial droop. Gait without abnormality Psych: Good mood and affect Vital Signs: Last Vital Signs Temp 98.1 F 09/14/25 16:03 Pulse 65 09/14/25 16:03 BP 146/70 H 09/14/25 16:11 Pulse Ox 100 09/14/25 16:03 Oxygen Delivery Method Room Air 09/14/25 16:03 BMI result Body Mass Index 26.3 Assessment & Plan Assessment & Plan (1) Bacterial sinusitis: Code(s): J32.9 - Chronic sinusitis, unspecified; B96.89 - Other specified bacterial agents as the cause of diseases classified elsewhere Plan: Patient seen and evaluated. Non-toxic appearing; lungs CTA Will send antibiotic to pharmacy Discussed nasal spray use as well Discussed PCP follow up Patient gave verbal understanding and had no additional questions or concerns at time of discharge'' ANTIQUE CLOCKS REPAIRER present at discharge as well All questions answered Medications: New azithromycin For 250 mg dose pack: take 500 mg today (day 1), then 250 mg for 4 days (days 2-5) PO 6 tabs 0RF ipratropium bromide administer into each nostril 2 sprays intranasal BID 30 mL 0RF 1 week Coding Level of Care Code Est Pt Level 3 (05642) Diagnoses Bacterial sinusitis J32.9; B96.89
[2025-09-14 16:11] VITALS: BP 146/70
--- OUTSIDE RECORDS SUMMARY | 2025-09-14 18:53 | XMS_ITS | Data Portability ---
Author Organization [facility] Address [address] [place] [address] Care Team Providers Care Resource Specialist Name Role Phone HIM CCA OTHER Assessment Encounter Date Assessment Date Assessment LastModified by Organization Details LastModified Time 06/04/2025 06/04/2025 I provided real -time medical direction via phone for this encounter and was available for additional phone-based assistance as needed. I have reviewed and agree with the Assessment and Plan as documented by the Nib Finisher. Patient given the opportunity to ask questions. [...] associated with neuro deficits or N/V. Per angle shearer on the scene, Please read the angle shearer note for their exam findings. Impression: As [...] Lab glucose, fingerstick , [facility] [address] [place] [address], [id number] 13:45:25 Referral None recorded. Procedures None recorded. Surgeries None recorded. Imaging electrocard iogram [address], [address] 10:06:57 Medication Orders None recorded. Patient TargetsNo targets recorded. Patient InstructionsNo instructions recorded. Reason for Referral None Reported. Results Created Date Observation Date Name Description Value Unit Range Abnormal Flag Note LastModifiedBy Organization Detail LastModifiedTime 06/04/2006/04/2025 elect elizabeth diogr am No observ ation record ed. [facility] [address], [address] 06/04/2025 13:44:51 Result Notes None recorded. Medical Equipment None Reported. Allergies Allergen ID Allergen Name Allergen Category Reaction Reaction Severity Criticality Documentation Date Start Date Code Code System Note Provider Name and Address Organization Details Recorded Time 87067 amoxicill in medicatio n Not available Not available Not available 06/04/2025 723 RxNorm Not Available [facility] - production 08:32:16 12264 latex environme nt,medica tion Not available Not available Not available 06/04/2025 85223 91 RxNorm Not Available [facility] - production [...] /min 98.4 [degF] 185/110 mm[Hg] Not Available [facility] 5 09:49:07 Date Recorded Body height Body temperature Heart rate Oxygen saturation Oxygen saturation in Arterial blood by Pulse oximetry Body weight Respiratory rate Systolic And Diastolic Provider Name and Address Organization Details Last Updated DateTime 2 157.48 cm 97.8 [degF] 68 /min 100 % 100 % 02018.2 88 g 18 /min 149/88 mm[Hg] Not Available [facility] 2 19:32:11 Social History None recorded. Functional [...] Note 3981 Azar Sweeney MD Main - [address] [address] 07/17/2022 19:32:01 07/29/2022 13:06:51 Chest pain 96313817 R07.[address]-T wave changes. Chest pain related to anxiety in past. Non-exerti onal. DIscussed red flag symptoms to indicate calling [phone]. 52484 Alis Garcia MD Main-[facility] [address] [address] 06/04/2025 09:49:03 06/06/2025 09:18:35 Essential hypertension 89053618 I10 58155 History of diabetes mellitus 822217391 Z86.39 374926 Seizure disorder 5329233 02 G40.909 14317 Health Concerns Section Related Observation LastModified by Organization Detai ls LastModified Time None Recorded Concern Status LastModified by Organization Details LastModified Time None Recorded Advance Directives Directive None Recorded Payers Insurance Date Sequence Insurance Name Policy Number Policy Hernandez Covered Member ID Hernandez Member ID Guarantor Name 06/04/2025 1 [facility] - DOS PRIOR TO 2023 - DUAL ELIGIBLE (MEDICARE REPLACEMENT/ADV ANTAGE - HMO) Cara Husain [id number] Cara Husain 06/04/2025 1 [facility] - DOS ON OR AFTER 2023 - DUAL ELIGIBLE - [facility] OPTIONS AND ONE CARE (MEDICARE REPLACEMENT/ADV ANTAGE - HMO) Cara Husain [id number] Cara Husain Notes Date Note Type Note [...] .................. .................. .................. .................. .................. .................. ............... Nib Finisher Note: Sent to a call for a [...] hx per above Azar Sweeney MD [address] [facility],[address], [place], [address], [employer] 07/17/2022 19:33:44 06/04/2025 text/html CRC Nurse Triage [...] signs of when to seek emergency care. Nib Finisher Organization Information for Veronika Glover [employer] Legal Name: [employer]. Address: [address] [place] [address], Industrial Technology Teacher: Karl Finch MD [facility] No.: [id number] Nib Finisher POC Test Results from [facility] - [facility] Blood Glucose Measurement (10:02:06) Blood Glucose: 250mg/dL Attachments uploaded as part of this test result can be found under Documents section. .................. .................. .................. .................. .................. .................. .................. ............... Nib Finisher Note From Belen Veronika: Pt is lying [...] bgl 250 after pt had eaten breakfast. [facility] contacted and pt advised that note will be sent to her PCP and neurologist. Pt was also advised to make sure she is taking her medications. Pt told that if she experiences increasing CP, SOB, increased headache and/or pain to call 911 immediately. Pt agreed. Call was then cleared. [facility] Lab Orders: electrocardiogram: Performed glucose, fingerstick, blood: Performed .................. .................. .................. .................. .................. .................. .................. ............... [facility] Consulted: Alis Garcia .................. .................. .................. .................. .................. .................. .................. ............... Disposition: Fulfilled Alis Garcia MD [address] [facility],[address], [place], [address], [facility] 06/04/2025 15:40:42 OBGyn Episode No OBEpisode recorded.
--- OUTSIDE RECORDS SUMMARY | 2025-09-14 18:53 | XMS_ITS | Clinical Summary ---
Author Organization 175 [facility] Address [address] [place] [address] Phone Care Team Providers Care Batch Unit Treater Name Role Phone George Jha MD Primary Care Provider + [phone] Allergies Active Allergy Reactions Criticality Noted Date [...] PM EDT Office Visit Orthopedic Surgery - [address] [address] Homer Langley DPM Diabetic mononeuropathy [...] CC V28) Depression with anxiety Multifactorial dementia ([facility] V24, [facility] V2 8) Arachnoid cyst Encephalopathy Memory loss [...] PM EST Office Visit Orthopedic Surgery - [place] [address] [address] Homer Langley, DPM [address] [address] Health Maintenance Due Date Last Done Comments [...] Annual BMP Blood Test 06/17/2025 COVID-19 Vaccine (2024-2 6 season) 2025 09/04/2023, 02/08/2021, 01/11/2021 Influenza [...] to complete this topic Insurance SARAHI WHITE [id number] [facility] Member Subscriber Plan / Payer (Ef fective 2019-Present) Name:Cara Husain Relation to Subscriber:Self Name:Cara Hsuain Payer ID:[id number] Group ID:[id number] Type:Not on file Address: [place] [address] [place] [address] Care Teams Batch Unit Treater Relationship Specialty Start Date End Date George Jha MD [address] [place] [address] [address] SARAHI White PCP - General Internal Medicine 02/17/25
--- OUTSIDE RECORDS SUMMARY | 2025-09-14 18:53 | XMS_ITS | Patient Health Record ---
Author Organization [facility] Address [address] [place] [address] Care Team Providers Care Director Outcomes Name Role Phone George Jha MD Primary Care Provider Juanito Tafoya Unavailable [phone] Allergies Allergen (clinical drug ingredient) Drug/Non Drug [...] Status Risk Notes Problem Colon cancer screening (811690829) Colon cancer screening (Z12.11) Active confirmed Problem History of adenomatous polyp of colon (131342580) History of adenomatous polyp of colon (Z86.010) Active confirmed Problem Autoimmune hepatitis (719749474) Autoimmune hepatitis (K75.4) Active confirmed Problem Elevated liver enzymes level (190914664) Elevated liver function tests (R79.89) Active confirmed Problem Elevated liver enzymes level (260744307) Elevated liver enzymes (R74.8) Active confirmed Problem Fatty liver (203121617) Fatty liver (K76.0) Active confirmed Encounters Encounter Location Date Provider Diagnosis [facility] [address] [place] [address] 09/14/2025 Juanito Viramontes [facility] [address] [place] [address] 07/06/2025 Juanito Viramontes Plan Of Treatment Pending Test Test Name [...] 01:40:00 PM, [address], [address], [place], [address], Insurance Providers Payer Name Payer Address Payer Phone Subscriber Number Group Number Insured Name Patient Relationship to Insured Coverage Start Date Coverage End Date [facility] [address] Attn Claims [place] [id number] ETHAN SWEET Self - patient is the insured MEDICAID OF [place] [address] SARAHI BARGER [id number] ETHAN SWEET Self - patient is the insured Medical (General) History Medical History History ICD Code Colonoscopy 05/22/2011-large , approximately 2 cm tubular adenoma with high grade dysplasia removed form sigmoid colon; also noted to have diverticulosis GERD--EGD in 05/2011--mild gastritis-neg. H.pylori, small HH--no esophagitis HTN Back pain Anxiety/depression Asthma Denies [place],CVA,renal disease IDDM Hyperlipidemia Negative screening colonoscopy in [...]
== END 2025-09-14 17:12 | disposition home or self-care (01) ==
PROVIDERS: PCP Internal Medicine; Visit Provider Physician Assistant
DX: J32.9 Chronic sinusitis, unspecified (principal); B96.89 Other specified bacterial agents as the cause of diseases classified elsewhere

== ENCOUNTER → 2025-09-14 15:59 | Outpatient (BNVA) | payer OTHER, SELFPAY | PROVIDERS: PCP Internal Medicine; Visit Provider Physician Assistant | DX: J32.9 Chronic sinusitis, unspecified (principal); B96.89 Other specified bacterial agents as the cause of diseases classified elsewhere | CPT/HCPCS: 99212 ==

== ENCOUNTER 2025-09-27 11:59 | Outpatient (AMB) | payer OTHER, SELFPAY ==
--- OUTSIDE RECORDS SUMMARY | 2025-04-15 08:00 | XMS_ITS ---
Author Organization [facility] Address [address] [place] [address] Care Team Providers Care Pipeline Integrity Engineer Name Role Phone Red Jha MDneth Primary Care Provider Juanito Tafoya Unavailable [phone] REASON FOR VISIT fatty liver, autoimmune hepatitis [...] Not-Taking/PRN Encounters Encounter Location Date Provider Diagnosis [facility] [address] [place] [address], [place] [address] 04/15/2025 Juanito Viramontes Plan Of Treatment Next Appt Details Provider Name:Juanito Parada Wanedr , 11/29/2025 01:40:00 PM, [address], [address], [place], [address], Progress Notes * [facility]:[birth year][facility][birth year] (70 yo F)Acc No.[id number]:04/15/2025 Progress Notes Patient: JOEY DESHPANDEIA Provider: Ronald Viramontes MD :1955 A ge:69 Y S ex:Female Date:04/15/2025 Address:[address] [place] [address] , [id number] Pcp:George Jha MD Subjective: * Chief Complaints: [...] 04/15/2025 Generated for Aureliano prater/Andie/Rudi on: 1 11/27/2024 03:46 PM EST
--- OUTSIDE RECORDS SUMMARY | 2025-07-06 10:20 | XMS_ITS ---
Author Organization [facility] Address [address] [place] [address] Care Team Providers Care Gun Numberer Name Role Phone Abhijeet VILLA, George Primary Care Provider Juanito Tafoya [phone] REASON FOR VISIT Patient presents today for a fatty liver Encounters Encounter Location Date Provider Diagnosis [facility] [address] [place] [address] 07/06/2025 Juanito Viramontes Plan Of Treatment Next Appt Details Provider Name:Juanito Viramontes , 11/29/2025 01:40:00 PM, [address], [address], [place], [address], Progress Notes * ETHAN SWEETDOB:[birth year] (70 yo F)Acc No.[id number]:07/06/2025 Progress Notes Patient: ETHAN DESHPANDE Provider: Ronald Viramontes MD :1955 A ge:69 Y S ex:Female Date:07/06/2025 Address:[address] [place], [place] [phone] Pcp:George Jha MD Subjective: * Chief Complaints: [...] 07/06/2025 Generated for Aureliano prater/Andie/Rudi on: 1 11/27/2024 03:46 PM EST
--- NOTE | 2025-09-27 12:12 | A.OFFVIS_ITS ---
Intake Visit Reasons: 3m CPS Allergies propranolol Allergy (Intermediate, Verified 09/14/25 16:13) Anxiety amoxicillin Allergy (Unknown, Verified 09/14/25 16:13) Rash glipizide Allergy (Unknown, Verified 09/14/25 16:13) unknown latex (LATEX) Allergy (Unknown, Verified 09/14/25 16:13) UNKNOWN levofloxacin Allergy (Unknown, Verified 09/14/25 16:13) Unknown liraglutide (From VICTOZA) Allergy (Unknown, Verified 09/14/25 16:13) UNKNOWN, itching metformin (METFORMIN) Allergy (Unknown, Verified 09/14/25 16:13) DIARRHEA morphine (MORPHINE) Allergy (Unknown, Verified 09/14/25 16:13) ITCHING, rash acetaminophen Allergy (Verified 09/14/25 16:13) Unknown gabapentin Allergy (Verified 09/14/25 16:13) Unknown atorvastatin Adverse Reaction (Intermediate, Verified 09/14/25 16:13) elevated LFTs HPI Comments Details: 70 yo woman with DM, anxiety/panic disorder, painful diabetic neuropathy, post fossa arachonoid cyst, RLS vs limb movement disorder, and complex partial seizure disorder (unresponsiveness, mouth automatism, chewing motion, fear, odd smell for a few seconds). For one reason or another, she was not taking levetiracetam, divalproex acid, buspirone, or propranalol. She was c/o burning feet at night and dizziness during daytime. He is presenting for a follow-up visit for seizure disorder. The patient reports taking gabapentin for abdominal pain, but has adjusted the dosage due to side effects. Instead of the prescribed twice-daily dose, the patient takes one 100 mg pill at nighttime because the original regimen caused excessive drowsiness. The patient also reports seeing a psychiatrist who prescribed magnesium and clonazepam. Clonazepam 0.1 was prescribed to be taken twice a day, but the patient takes only half a pill when needed for difficulty sleeping to avoid excessive sleepiness. With the current medication regimen, the patient sleeps well and feels okay. The patient is also using a glucose sensor on the arm to monitor glucose levels. [facility] Medical History (Updated 09/14/25 @ 16:37 by Kenya Cuba PA-C) Panic disorder Painful diabetic neuropathy Arachnoid cyst Migraine without aura TLE (temporal lobe epilepsy) Complex partial seizure disorder Encephalopathy MCI (mild cognitive impairment) Depression with anxiety Insomnia Multifactorial dementia Dizziness Overweight (BMI 25.0-29.9) Vitamin D deficiency Ear pain Ear drainage Right shoulder pain Functional urinary incontinence COVID-19 Encounter to discuss test results Memory loss Urinary incontinence Chest pain Colon cancer screening Annual physical exam Diabetes Type 2 diabetes mellitus with hyperglycemia Epigastric pain Vertigo Upper abdominal pain Screening for tuberculosis Low back pain Preoperative examination Right hip pain Right low back pain Primary osteoarthritis of shoulder Memory loss or impairment Bursitis of right shoulder Bursitis of left shoulder Primary osteoarthritis, right shoulder Anxiety Varicose veins of both lower extremities Allergic rhinitis Elevated LFTs Primary osteoarthritis of left shoulder Lumbar degenerative disc disease Benign essential hypertension Type 2 diabetes mellitus without complications Mixed hyperlipidemia Surgical History History of appendectomy History of cholecystectomy History of cystoscopy History of tubal ligation Family History Father Cancer Mother Diabetes Maternal Uncle Cancer Maternal Grandfather Cancer Social History Housing: Apartment Alcohol intake: former Patient Tobacco Use Status: Never used Tobacco e-Cigarette/Vaping Use: Never Used Second Hand Smoke Exposure: Yes service: No Current occupational status: unemployed Current occupational exposures/hazards: No Cognitive needs: No Hearing needs: No Vision needs: No Review of Systems Narrative - Neurological: Reports a history of seizures. - Constitutional: Reports drowsiness and excessive sleepiness with medication. - Psychiatric: Reports taking medication for difficulty falling asleep. - Gastrointestinal: Reports abdominal pain. Physical Exam Neuro Other: Mental Status: Alert and oriented to person, place, and time. Normal attention. Normal spontaneous speech, fluency, and comprehension. Cranial Nerves: CN II: Visual grady full to confrontation, visual acuity intact. CN III, IV, : Pupils equal, round, reactive to light and accommodation. Extraocular movements are normal. CN V: Facial sensation is normal. CN VII: Facial movements symmetrical. CN VIII: Hearing intact to bedside conversation is normal. CN IX, X: Palate elevates symmetrically. CN XI: Shoulder shrug and head turn symmetrical. CN XII: Tongue midline without atrophy or fasciculations. Extrapyramidal: Full facial expressions and blinking. No rigidity. Movements are appropriate with no tremor or abnormality. Speech: Normal; no dysarthria or tremor. Assessment & Plan Assessment & Plan (1) Seizure disorder: Comment: Meds tried: Lamotrigine, Keppra, divalproex acid Amb EEG at [facility] in Nov 2023: bitemp sharps, left more than right [place] [facility] [place]: 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, mild MVD Amb EEG at [facility] in Jan 2023: Lleft temp sharps, while no EEG abn during symptoms Routine EEG at off in Dec 2022: [place] [facility] [place]: mild MVD, otherwise same CT [place] [facility]: post fossa cyst, congenital, otherwise ok Code(s): G40.909 - Epilepsy, unspecified, not intractable, without status epilepticus Category: Medical (2) Migraine: Code(s): G43.909 - Migraine, unspecified, not intractable, without status migrainosus Category: Medical Qualifiers: Migraine type: migraine (< 15 days per month) without aura Status migrainosus presence: without status migrainosus Intractability: not intractable Qualified Code(s): G43.009 - Migraine without aura, not intractable, without status migrainosus Plan Impression: a: Complex partial seizure disorder b: Depression and anxiety Rec: a: Continue clonazepam as prescribed by psychiatrist b: She is taking only one Gabapentin 100mg at night and better with it, this dose will continue Coding Level of Care Code Est Pt Level 3 (11008) Diagnoses Seizure disorder G40.909 Migraine without aura and without status migrainosus, not intractable G43.009 Migraine type: migraine (< 15 days per month) without aura Status migrainosus presence: without status migrainosus Intractability: not intractable
--- OUTSIDE RECORDS SUMMARY | 2025-09-27 15:46 | XMS_ITS | Patient Health Record ---
Author Organization [facility] Address [address] [place] [address] Care Team Providers Care Field Training Agent Name Role Phone George Jha MD Primary Care Provider Juanito Tafoya Unavailable [phone] Allergies Allergen (clinical drug ingredient) Drug/Non Drug Allergy documented on EMR Reaction Allergy Type Onset Date Status Latex Latex (uncoded) Unknown Allergy Acti ve acetaminophen Tylenol Unknown Drug Allergy Act iram Reason For Referral No Information Medications Medication SIG (Take, Route, Frequency, Duration) Notes Start Date End Date Status Glimepiride 2 MG Tablet Oral; Duration: 90 Active lamoTRIgine 25 MG Tablet Oral; Duration: 30 Active hydrALAZINE HCl 10 MG Tablet Oral; Duration: 30 Active Rosuvastatin Calcium 20 MG Tablet TAKE 1 TABLET ORALLY DAILY FOR 90 DAYS Oral; Duration: 90 Active traMADol HCl 50 MG Tablet Oral; Duration: 7 Active Meclizine HCl 25 MG Tablet Oral; Duration: 10 Active Ibuprofen 600 MG Tablet TK 1 T PO Oral prn Active Atorvastatin Calcium 80 MG Tablet TAKE 1 TABLET AT BEDTIME Oral; Duration: 90 Not-Taking/PRN Citalopram Hydrobromide 20 MG Tablet TAKE 1 TABLET BY MOUTH DAILY Oral; Duration: 30 Active busPIRone HCl 5 MG Tablet Oral; Duration: 90 Active Losartan Potassium 100 MG Tablet TAKE 1 TABLET EVERY DAY Oral; Duration: 90 Active Tresiba FlexTouch 100 UNIT/ML Solution Pen-injector Subcutaneous; Duration: 75 Active Mounjaro 2.5 MG/0.5ML Solution Pen-injector INJECT 2.5 MG SUBCUTANEOUSLY WEEKLY Subcutaneous; Duration: 28 Active Omeprazole 20 MG Capsule Delayed Release 1 capsule 1/2 to 1 hour before morning meal Orally Once a day every morning; Duration: 30 days 09/25/2025 Active Tradjenta 5 MG Tablet Oral; Duration: 90 Not-Taking/PRN Omeprazole 20 MG Capsule Delayed Release TAKE ONE CAPSULE BY MOUTH EVERY DAY Oral Not-Taking/ PRN Immunizations Vaccine Route Administration Date Status Comme nts Influenza Unknown 06/27/2022 Refused Influenza Unknown 10/15/2023 Refused Social History Social History Additional Details Category Social Info Options Details Miscellaneous: Marital status: Occupation: unemployed Section Notes: Nonsmoker; no significant al cohol use. Nonsmoker; no significant al cohol use. Nonsmoker; no significant al cohol use. Nonsmoker; no significant al cohol use. Nonsmoker; no significant al cohol use. Problems Problem Type SNOMED Code ICD Code Onset Dates Problem Status W/U Status Risk Notes Problem Colon cancer screening (853070089) Colon cancer screening (Z12.11) Active confirmed Problem History of adenomatous polyp of colon (978745450) History of adenomatous polyp of colon (Z86.010) Active confirmed Problem Autoimmune hepatitis (119023810) Autoimmune hepatitis (K75.4) Active confirmed Problem Elevated liver enzymes level (576412250) Elevated liver function tests (R79.89) Active confirmed Problem Elevated liver enzymes level (907106323) Elevated liver enzymes (R74.8) Active confirmed Problem Fatty liver (509795367) Fatty liver (K76.0) Active confirmed Encounters Encounter Location Date Provider Diagnosis [facility] [address] [place] [phone] 07/06/2025 Juanito Viramontes [facility] [address] [place] [phone] 09/14/2025 Juanito Viramontes Plan Of Treatment Pending Test Test Name Order Date LIVER PROFILE 06/27/2022 LIVER PROFILE 04/10/2023 LIVER PROFILE 10/15/2023 LIVER PROFILE 04/14/2024 LIVER PROFILE 01/26/2023 IRON + IBC (FE) 06/27/2022 CBC w DIFF 06/27/2022 HEPATITIS B, C PROFILE 06/27/2022 ALPHA-FETOPROTEIN,TUMOR MARKER 4 FLUOR. ANTINUCLEAR AB SCREEN (JAIME) 06/04 US ABDOMEN COMP WITH ELASTOGRAPHY 2021 Prothrombin Time INR 06/27/2022 Liver Panel 01/16/2023 Ferritin 06/27/2022 Alpha 1 Anti-trypsin 06/27/2022 Liver Fibrosis Pnl 06/27/2022 Liver Fibrosis Pnl 04/14/2024 Mitochondrial Antibody 06/27/2022 Smooth Muscle Antibody 06/27/2022 US abdomen comp w elastography 4 Future Test Test Name Order Date COLONOSCOPY 09/20/2014 COLONOSCOPY 06/27/2022 Next Appt Details Provider Name:Juanito Viramontes , 11/29/2025 01:40:00 PM, [address], [address], [place], [address], Insurance Providers Payer Name Payer Address Payer Phone Subscriber Number Group Number Insured Name Patient Relationship to Insured Coverage Start Date Coverage End Date [facility] [address] Attn Claims [place] [address] [id number] ETHAN SWEET Self - patient is the insured MEDICAID OF [place] [address] [place] [phone] [id number] ETHAN SWEET Self - patient is the insured Medical (General) History Medical History History ICD Code Colonoscopy 05/22/2011-large , approximately 2 cm tubular adenoma with high grade dysplasia removed form sigmoid colon; also noted to have diverticulosis GERD--EGD in 05/2011--mild gastritis-neg. H.pylori, small HH--no esophagitis HTN Back pain Anxiety/depression Asthma Denies ME,CVA,renal disease IDDM Hyperlipidemia Negative screening colonoscopy in [...]
--- OUTSIDE RECORDS SUMMARY | 2025-09-27 15:46 | XMS_ITS | Clinical Summary ---
Author Organization [facility] Address [address] [place] [address] Phone Care Team Providers Care Bootmaker Name Role Phone George Jha MD Primary Care Provider + [phone] Allergies Active Allergy Reactions Criticality Noted Date [...] 4 % external solutionIndication s:Diabetic mononeuropathy simplex (CMS/[facility] V24, CMS/[facility] V28) Apply topically at bedtime as needed [...] Encounters Date Type Department Care Team Description 09/20/2025 2:30 PM EST Office Visit Orthopedic Surgery - [address] [phone] Homer Langley, DPTal Diabetic mononeuropathy simplex ([facility] V24, [facility] V28) (Primary Dx); Dermatophytosis of nail; Pain in toe of right foot; Pain in toe of left foot from Last 3 Months Surgical History Surgery Date Site/Laterality Comments CATARACT EXTRACTION 08/2023 GALLBLADDER SURGERY TUBAL LIGATION Medical History Medical History Date Comments DM (diabetes mellitus) (CMS/[facility] V24, [facility] V28 ) Migraine without aura TLE (temporal lobe epilepsy) (CMS/[facility] V24, [facility]/ [facility] V28) Depression with anxiety Multifactorial dementia ([facility] V24, [facility] V2 8) Arachnoid cyst Encephalopathy [...] Upcoming Encounters Date Type Department Care Team ([facility] st Contact Info) Description 12/21/2025 2:00 PM EST Office Visit Orthopedic Surgery - [facility] [address] [phone] Homer Langley, COTY [address] [address] Health Maintenance Due Date Last [...] of Health Screening 11/28/2023 Depression Screening 11/03/2024 COVID-19 Vaccine (4 - 2024-2 6 season) 2025 09/04/2023, 02/08/2021, 01/11/2021 Influenza Vaccine (#1) 2025 Diabetes: Annual Urine Albumin-Creatinine Ratio (uACR) 09/20/2025 Diabetes: Blood Sugar Contro l Test (HGBA1C) 09/20/2025 HIB Vaccines Aged Out No longer eligi [...] to complete this topic Insurance SARAHI WHITE [id number] [facility] Member Subscriber Plan / Payer (Ef fective 2019-Present) Name:Cara Husain Relation to Subscriber:Self Name:Cara Husain Payer ID:[id number] Group ID:[id number] Type:Not on file Address: [place] [address] [place] [address] Care Teams Bootmaker Relationship Specialty Start Date End Date George Jha MD [address] [place] [address] [address] SARAHI White PCP - General Internal Medicine 02/17/25
== END 2025-09-27 12:18 | disposition home or self-care (01) ==
LOC: HO.HSM 12:00
PROVIDERS: PCP Internal Medicine; Visit Provider Psychiatry & Neurology Neurology
DX: G40.909 Epilepsy, unspecified, not intractable, without status epilepticus (principal); G43.009 Migraine without aura, not intractable, without status migrainosus
CPT/HCPCS: 99213

== ENCOUNTER → 2025-09-27 11:59 | Outpatient (BNVA) | payer OTHER, SELFPAY | PROVIDERS: PCP Internal Medicine; Visit Provider Psychiatry & Neurology Neurology | DX: G43.009 Migraine without aura, not intractable, without status migrainosus (principal); G40.909 Epilepsy, unspecified, not intractable, without status epilepticus | CPT/HCPCS: 99212 ==

== ENCOUNTER 2025-10-10 11:05 | Outpatient (AMB) | payer OTHER, SELFPAY ==
[2025-10-10 11:24] VITALS: BP 184/80; PULSE 84; O2SAT 98; BMI 25.6
--- NOTE | 2025-10-10 11:24 | MHC.OFFWIV ---
Intake Vital Signs 10/10/25 11:24 Height 5 ft 2 in Weight 140 lb BMI 25.6 BP 184/80 H Blood Pressure Location Rt brachial Position Sitting Pulse 84 Pulse Source Pulse Oximeter Pulse Oximetry (%) 98 Oxygen Delivery Method Room Air Intake Visit Reasons: EP-High BP 155 over 101, nervous, blured vision Intake Note: Patient presents c/o elevated BP for the past week, around the 180s, blurry vision. Patient Tobacco Use Status: Never used Tobacco Allergies propranolol Allergy (Intermediate, Verified 10/10/25 11:) Anxiety amoxicillin Allergy (Unknown, Verified 10/10/25 11:) Rash glipizide Allergy (Unknown, Verified 10/10/25 11:) unknown latex (LATEX) Allergy (Unknown, Verified 10/10/25) UNKNOWN levofloxacin Allergy (Unknown, Verified 10/10/25:) Unknown liraglutide (From VICTOZA) Allergy (Unknown, Verified 10/10/25 11:) UNKNOWN, itching metformin (METFORMIN) Allergy (Unknown, Verified 10/10/25:) DIARRHEA morphine (MORPHINE) Allergy (Unknown, Verified 10/10/25 11:) ITCHING, rash acetaminophen Allergy (Verified 10/10/25 11:) Unknown gabapentin Allergy (Verified 10/10/25:) Unknown atorvastatin Adverse Reaction (Intermediate, Verified 10/10/25:) elevated LFTs HPI HPI Comments History of Present Illness Details Patient reports persistently elevated blood pressure readings over the past week, with systolic >180 mmHg and diastolic >100 mmHg. Associated symptoms include dizziness, headaches, chest tightness, and blurry vision. Patient acknowledges increased stress recently. She is currently taking Losartan 100 mg daily for hypertension. Denies palpitations, syncope, nausea, vomiting, or shortness of breath. [facility] Medical History (Updated 09/14/25 @ 16:37 by Kenya Cuba PA-C) Panic disorder Painful diabetic neuropathy Arachnoid cyst Migraine without aura TLE (temporal lobe epilepsy) Complex partial seizure disorder Encephalopathy MCI (mild cognitive impairment) Depression with anxiety Insomnia Multifactorial dementia Dizziness Overweight (BMI 25.0-29.9) Vitamin D deficiency Ear pain Ear drainage Right shoulder pain Functional urinary incontinence COVID-19 Encounter to discuss test results Memory loss Urinary incontinence Chest pain Colon cancer screening Annual physical exam Diabetes Type 2 diabetes mellitus with hyperglycemia Epigastric pain Vertigo Upper abdominal pain Screening for tuberculosis Low back pain Preoperative examination Right hip pain Right low back pain Primary osteoarthritis of shoulder Memory loss or impairment Bursitis of right shoulder Bursitis of left shoulder Primary osteoarthritis, right shoulder Anxiety Varicose veins of both lower extremities Allergic rhinitis Elevated LFTs Primary osteoarthritis of left shoulder Lumbar degenerative disc disease Benign essential hypertension Type 2 diabetes mellitus without complications Mixed hyperlipidemia Surgical History History of appendectomy History of cholecystectomy History of cystoscopy History of tubal ligation Family History Father Cancer Mother Diabetes Maternal Uncle Cancer Maternal Grandfather Cancer Social History Housing: Apartment Alcohol intake: former Patient Tobacco Use Status: Never used Tobacco e-Cigarette/Vaping Use: Never Used Second Hand Smoke Exposure: Yes service: No Current occupational status: unemployed Current occupational exposures/hazards: No Cognitive needs: No Hearing needs: No Vision needs: No Review of Systems Const All systems reviewed & are unremarkable except as noted in HPI and below Physical Exam Vital Signs: Last Vital Signs Pulse 84 10/10/25 11:24 BP 184/80 H 10/10/25 11:24 Pulse Ox 98 10/10/25 11:24 Oxygen Delivery Method Room Air 10/10/25 11:24 BMI result Body Mass Index 25.6 Const General: no acute distress Nutritional Appearance: well nourished Orientation/consciousness: patient oriented x3 Resp Effort & Inspection: normal respiratory effort Cardio Heart sounds: S1 normal heart sound present and S2 normal heart sound present Neuro General: patient oriented x3, gait normal and moves all extremities Assessment & Plan Assessment & Plan (1) Benign essential hypertension: Code(s): I10 - Essential (primary) hypertension Plan: Poorly controlled hypertension on current regimen , Stress-related contribution likely. Will add a second medication. Added HCTZ 25 mg daily. Encourage stress reduction techniques (mindfulness, meditation, light exercise as tolerated). Dietary modifications: low sodium diet, limit caffeine, avoid alcohol excess. Encourage consistent home BP monitoring and record readings. Advised to go to ED if symptoms worse. F/U with PCP as scheduled. Medications: New hydrochlorothiazide 25 mg PO QAM 30 tabs 0RF I10 - Essential (primary) hypertension Coding Level of Care Code Est Pt Level 4 (89410) Diagnoses Benign essential hypertension I10 Time Spent (min) 20
== END 2025-10-10 12:02 | disposition home or self-care (01) ==
PROVIDERS: PCP Internal Medicine; Visit Provider Nurse Practitioner Family
DX: I10 Essential (primary) hypertension (principal)

== ENCOUNTER → 2025-10-10 11:05 | Outpatient (BNVA) | payer OTHER, SELFPAY | PROVIDERS: PCP Internal Medicine; Visit Provider Nurse Practitioner Family | DX: I10 Essential (primary) hypertension (principal); Z79.899 Other long term (current) drug therapy | CPT/HCPCS: 99212 ==

== ENCOUNTER 2025-10-17 14:04 | Outpatient (AMB) | payer OTHER, SELFPAY ==
--- OUTSIDE RECORDS SUMMARY | 2025-04-15 08:00 | XMS_ITS ---
Author Organization [facility] Address [address] [place] [address] Care Team Providers Care Customer Service Teller Name Role Phone Red Jha MDneth Primary Care Provider Juanito Tafoya Unavailable [phone] REASON FOR VISIT fatty liver, autoimmune hepatitis Medications Medication SIG (Take, Route, Frequency, Duration) Notes Start Date End Date Status Atorvastatin Calcium 80 MG Tablet TAKE 1 TABLET AT BEDTIME Oral; Duration: 90 Not-Taking/PRN Citalopram Hydrobromide 20 MG Tablet TAKE 1 TABLET BY MOUTH DAILY Oral; Duration: 30 Active busPIRone HCl 5 MG Tablet Oral; Duration: 90 Active Losartan Potassium 100 MG Tablet TAKE 1 TABLET EVERY DAY Oral; Duration: 90 Active Omeprazole 20 MG Capsule Delayed Release TAKE ONE CAPSULE BY MOUTH EVERY DAY Oral Not-Taking/ PRN hydrALAZINE HCl 10 MG Tablet Oral; Duration: 30 Active Rosuvastatin Calcium 20 MG Tablet TAKE 1 TABLET ORALLY DAILY FOR 90 DAYS Oral; Duration: 90 Active traMADol HCl 50 MG Tablet Oral; Duration: 7 Active Tresiba FlexTouch 100 UNIT/ML Solution Pen-injector Subcutaneous; Duration: 75 Active Mounjaro 2.5 MG/0.5ML Solution Pen-injector INJECT 2.5 MG SUBCUTANEOUSLY WEEKLY Subcutaneous; Duration: 28 Active Glimepiride 2 MG Tablet Oral; Duration: 90 Active lamoTRIgine 25 MG Tablet Oral; Duration: 30 Active Meclizine HCl 25 MG Tablet Oral; Duration: 10 Active Ibuprofen 600 MG Tablet TK 1 T PO Oral prn Active Tradjenta 5 MG Tablet Oral; Duration: 90 Not-Taking/PRN Encounters Encounter Location Date Provider Diagnosis [facility] [address] [place] [address], [place] [address] 04/15/2025 Juanito Viramontes Plan Of Treatment Next Appt Details Provider Name:Juanito Parada Wander , 11/29/2025 01:40:00 PM, [address], [address], [place], [address], Progress Notes * [facility]:07/[birth year] (70 yo F)Acc No.[id number]:04/15/2025 Progress Notes Patient: JOEY DESHPANDEIA Provider: Ronald Viramontes MD :1955 A ge:69 Y S ex:Female Date:04/15/2025 Address:[address] [place] [address] , [id number] Pcp:George Jha MD Subjective: * Chief Complaints: * F atty liver, autoimmune hepatitis * Medications: T akingLosartan Potassium 100 MG Tablet TAKE 1 TABLET EVERY DAY Oral Citalopram Hydrobromide 20 MG Tablet TAKE 1 TABLET BY MOUTH DAILY Oral Ibuprofen 600 MG Tablet TK 1 T PO Oral prn lamoTRIgine 25 MG Tablet Oral Glimepiride 2 [...] MG Tablet TK 1 T PO Oral prn Taking lamoTRIgine 25 MG Tablet Oral Taking Glimepiride 2 MG Tablet Oral Taking Meclizine HCl 25 MG Tablet Oral Taking traMADol HCl 50 MG Tablet Oral Taking Rosuvastatin Calcium 20 MG Tablet TAKE 1 TABLET ORALLY DAILY FOR 90 DAYS Oral Taking hydrALAZINE HCl 10 MG Tablet Oral Taking Mounjaro 2.5 MG/0.5ML Solution Pen-injector INJECT 2.5 MG SUBCUTANEOUSLY WEEKLY Subcutaneous Taking [...] ONE CAPSULE BY MOUTH EVERY DAY Oral Billing Information: * Procedure Codes: * The named appointment provid er may or may not be the originator of this progress note, and it is not deemed complete until electronically signed by the appointment provider. Sign off status: Pending * Provider: Ronald Viramontes MD Date: 0 04/15/2025 Generated for Aureliano prater/Andie/Rudi on: 1 12/18/2024 08:29 PM EST
--- OUTSIDE RECORDS SUMMARY | 2025-07-06 10:20 | XMS_ITS ---
Author Organization [facility] Address [address] [place] [address] Care Team Providers Care Production Supervisor Off Shift Name Role Phone Abhijeet VILLA, George Primary Care Provider Juanito Tafoya [phone] REASON FOR VISIT Patient presents today for a fatty liver Encounters Encounter Location Date Provider Diagnosis [facility] [address] [place] [address] 07/06/2025 Juanito Viramontes Plan Of Treatment Next Appt Details Provider Name:Juanito Viramontes , 11/29/2025 01:40:00 PM, [address], [address], [place], [address], Progress Notes * ETHAN SWEETDOB:[birth year] (70 yo F)Acc No.[id number]:07/06/2025 Progress Notes Patient: ETHAN DESHPANDE Provider: Ronald Viramontes MD :1955 A ge:69 Y S ex:Female Date:07/06/2025 Address:[address] [place], [place] [id number] Pcp:George Jha MD Subjective: * Chief Complaints: * P atient presents today for a fatty liver Billing Information: * Procedure Codes: * The named appointment provid er may or may not be the originator of this progress note, and it is not deemed complete until electronically signed by the appointment provider. Sign off status: Pending * Provider: Ronald Viramontes MD Date: 0 07/06/2025 Generated for Aureliano prater/Andie/Rudi on: 1 12/18/2024 08:29 PM EST
--- NOTE | 2025-10-17 14:05 | A.OFFPSYCH_ITS ---
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: No Allergies propranolol Allergy (Intermediate, Verified 10/10/25 11:) Anxiety amoxicillin Allergy (Unknown, Verified 10/10/25 11:) Rash glipizide Allergy (Unknown, Verified 10/10/25 11:) unknown latex (LATEX) Allergy (Unknown, Verified 10/10/25 11:) UNKNOWN levofloxacin Allergy (Unknown, Verified 10/10/25 11:) Unknown liraglutide (From VICTOZA) Allergy (Unknown, Verified 10/10/25 11:) UNKNOWN, itching metformin (METFORMIN) Allergy (Unknown, Verified 10/10/25 11:) DIARRHEA morphine (MORPHINE) Allergy (Unknown, Verified 10/10/25 11:) ITCHING, rash acetaminophen Allergy (Verified 10/10/25:) Unknown gabapentin Allergy (Verified 10/10/25:) Unknown atorvastatin Adverse Reaction (Intermediate, Verified 10/10/25 11:) elevated LFTs Medication List - Last Reconciled 10/17/25 by Narcisa Carrillo APRN blood sugar diagnostic (FreeStyle Lite Strips) 1 strip miscellaneous TID blood-glucose meter (FreeStyle Lite Meter kit) As directed cholecalciferol (vitamin D3) 50 mcg PO DAILY 90 days clonazepam (Klonopin) 0.5 mg orally Take 1/2 tablet in am and 1 tablet at bedtime; PLEASE write instructions in [place] fluticasone propionate 50 mcg/actuation 2 sprays intranasal DAILY gabapentin 100 mg PO BID glimepiride 2 mg PO QAM [Grab bars As directed] hydrochlorothiazide 25 mg PO QAM ibuprofen 800 mg PO Q8H PRN [incontinence liners 4 times per day] [incontinence wipes As directed] insulin degludec (Tresiba FlexTouch U-100 insulin) 40 units subcut BEDTIME ipratropium bromide 2 sprays intranasal BID 1 week lancets (FreeStyle Lancets) As directed-to test sugars Three times a day losartan 50 mg (1/2 x 100 mg) PO DAILY magnesium glycinate 100 mg PO BEDTIME pen needle, diabetic As directed pen needle, diabetic As directed daily inject 4 x a day rosuvastatin 20 mg PO DAILY 90 days tirzepatide (Mounjaro) 10 mg (0.5 mL) subcut QWEEK HPI- Psychiatric Chief Complaint: f/u consultation HPI Narrative: Pt here for follow up re: anxiety. PHQ9=6 and GAD7=20. She reports the clonazeapm makes her too sleepy to take it in the day time; she reports episodes of anxiety with tingling in her fingertiops, feeling hot and having perceptual changes such as not knowing where she is briefly or hearing people talk slowly or far away. She reports episodes of recent high blood pressure and high blood sugar. She reports passive SI but no plan or intent to harm herslef. Past Psychiatric History: outpt psychiatry and therapy at [facility] Subjective Subjective Medication Compliance: No Side effects from medications: Yes Review of Systems Medical Review of Systems: unchanged Mental Status Exam Mental Status Exam Patient Appearance: Well Grooomed and Appropriate Patient Orientation: Person, Place, Time and Situation Level of Consciousness: Awake, Appropriate, Restless and Alert Patient Behavior: Appropriate, Cooperative, Anxious, Good Eye Contact and Crying Mood Description: Anxious and Sad Affect Description: Anxious, Sad and Expansive Patient Cognition Impaired: No Ability to Follow Directions: Good Speech Pattern: Perseverating, Coherent and Excessive Memory Description: Intact Hallucinations: None Delusions: Not Present Thought Process: Intact, Goal Oriented and Linear Thought Content: positive for Intact, positive for Preoccupation and positive for Suicidal Ideation (no plan or intent) Judgement: Good Assessment and Plan Assessment & Plan (1) Generalized anxiety disorder: Status: Acute Code(s): F41.1 - Generalized anxiety disorder (2) Panic disorder: Status: Acute Code(s): F41.0 - Panic disorder [episodic paroxysmal anxiety] Plan rule out seizures, high blod sugar or htn episodes. asked her to follow up with neurology and pcp continue to take 0.25mg of clonazepam at bedtime prn panic, anxiety trial of paroxetine 5mg daily continue magnesium glycinate 100mg at bedtime for anxiety, sleep and co nstipation encouraged pt to eat small amount every 3-4 hours to stabilize blood sugar stay hydrated return in 7-8 weeks Medications: New paroxetine HCl 5 mg (1/2 x 10 mg) PO DAILY 45 tabs 0RF 90 days Counseling and coordination of Care Pt. Self Management counseling: Maintenance-social rhythm, Med illness tx adherence, Mod caffeine/ETOH intake, Nutrition education and improvement, Sleep hygiene and General coping skills Medication management counseling: Effectiveness, Side effects, Dosing range, Duration, Drug interaction and Adherence Diagnosis and Prognosis Counseling: Accuracy of diagnosis, Prognosis over time, Impact of diagnosis on life functions, Impact of family relationship, Problematic behaviors secondary to diagnosis and Adequacy of current interventions Details: I spent 34 minutes reviewing the record, seeing the patient and documenting in the medical record. Counseling provided to the patient/caregiver as outlined below. Addressed patient/caregiver concerns regarding current medication regime including effective adherence. Addressed patient/caregiver concerns regarding diagnosis and prognosis including accuracy of diagnosis, prognosis over time, impact of diagnosis. Addressed patient/caregiver concerns regarding impact of recent stressors. [facility] Medical History (Updated 09/14/25 @ 16:37 by Kenya Cuba PA-C) Panic disorder Painful diabetic neuropathy Arachnoid cyst Migraine without aura TLE (temporal lobe epilepsy) Complex partial seizure disorder Encephalopathy MCI (mild cognitive impairment) Depression with anxiety Insomnia Multifactorial dementia Dizziness Overweight (BMI 25.0-29.9) Vitamin D deficiency Ear pain Ear drainage Right shoulder pain Functional urinary incontinence COVID-19 Encounter to discuss test results Memory loss Urinary incontinence Chest pain Colon cancer screening Annual physical exam Diabetes Type 2 diabetes mellitus with hyperglycemia Epigastric pain Vertigo Upper abdominal pain Screening for tuberculosis Low back pain Preoperative examination Right hip pain Right low back pain Primary osteoarthritis of shoulder Memory loss or impairment Bursitis of right shoulder Bursitis of left shoulder Primary osteoarthritis, right shoulder Anxiety Varicose veins of both lower extremities Allergic rhinitis Elevated LFTs Primary osteoarthritis of left shoulder Lumbar degenerative disc disease Benign essential hypertension Type 2 diabetes mellitus without complications Mixed hyperlipidemia Surgical History History of appendectomy History of cholecystectomy History of cystoscopy History of tubal ligation Family History Father Cancer Mother Diabetes Maternal Uncle Cancer Maternal Grandfather Cancer Social History Housing: Apartment Alcohol intake: former Patient Tobacco Use Status: Never used Tobacco e-Cigarette/Vaping Use: Never Used Second Hand Smoke Exposure: Yes service: No Current occupational status: unemployed Current occupational exposures/hazards: No Cognitive needs: No Hearing needs: No Vision needs: No Coding Level of Care Code Est Pt Level 4 (47041) Diagnoses Generalized anxiety disorder F41.1 Panic disorder F41.0
--- OUTSIDE RECORDS SUMMARY | 2025-10-17 20:29 | XMS_ITS | Patient Health Record ---
Author Organization [facility] Address [address] [place] [address] Care Team Providers Care Charting Clerk Name Role Phone George Jha MD Primary Care Provider Juanito Tafoya Unavailable [phone] Allergies Allergen (clinical drug ingredient) Drug/Non Drug [...] Status Risk Notes Problem Colon cancer screening (597722096) Colon cancer screening (Z12.11) Active confirmed Problem History of adenomatous polyp of colon (011613147) History of adenomatous polyp of colon (Z86.010) Active confirmed Problem Autoimmune hepatitis (701666497) Autoimmune hepatitis (K75.4) Active confirmed Problem Elevated liver enzymes level (461245860) Elevated liver function tests (R79.89) Active confirmed Problem Elevated liver enzymes level (038929259) Elevated liver enzymes (R74.8) Active confirmed Problem Fatty liver (624765179) Fatty liver (K76.0) Active confirmed Encounters Encounter Location Date Provider Diagnosis [facility] [address] [place] [phone] 07/06/2025 Juanito Viramontes [facility] [address] [place] [phone] 09/14/2025 Juanito Viramontes Plan Of Treatment Pending [...] Name:Juanito Viramontes , 11/29/2025 01:40:00 PM, [address], [address], [place], [address], Insurance Providers Payer Name Payer Address Payer Phone Subscriber Number Group Number Insured Name Patient Relationship to Insured Coverage Start Date Coverage End Date [facility] [address] Attn Claims LIA Fry [address] [id number] ETHAN SWEET Self - patient is the insured MEDICAID OF [employer] [address] [place] [phone] [id number] ETHAN SWEET Self - patient is the insured Medical (General) History Medical History History ICD Code Colonoscopy 05/22/2011-large , approximately 2 cm tubular adenoma with high grade dysplasia removed form sigmoid colon; also noted to have diverticulosis GERD--EGD in 05/2011--mild gastritis-neg. H.pylori, small HH--no esophagitis HTN Back pain Anxiety/depression Asthma Denies [place],CVA,renal disease IDDM Hyperlipidemia Negative screening colonoscopy in [...]
--- OUTSIDE RECORDS SUMMARY | 2025-10-17 20:29 | XMS_ITS | Data Portability ---
Author Organization [employer] [facility] Address [address] [place] [address] Care Team Providers Care Commercial Loan Manager Name Role Phone HIM CCA OTHER Assessment Encounter Date Assessment Date Assessment LastModified by Organization Details LastModified Time 06/04/2025 06/04/2025 I provided real -time medical direction via phone for this encounter and was available for additional phone-based assistance as needed. I have reviewed and agree with the Assessment and Plan as documented by the Marine Railway Operator. Patient given the opportunity to ask questions. [...] associated with neuro deficits or N/V. Per artillery meteorological man on the scene, Please read the artillery meteorological man note for their exam findings. Impression: As [...] Lab glucose, fingerstick , blood 2024 025 [facility], [address] [place] [address], [phone] 13:45:25 Referral None recorded. Procedures None recorded. Surgeries None recorded. Imaging electrocard iogram [address], [address] 10:06:57 Medication Orders None recorded. Patient TargetsNo targets recorded. Patient InstructionsNo instructions recorded. Reason for Referral None Reported. Results Created Date Observation Date Name Description Value Unit Range Abnormal Flag Note LastModifiedBy Organization Detail LastModifiedTime 06/04/2006/04/2025 elect elizabeth diogr am No observ ation record ed. [facility] [address], [address] 06/04/2025 13:44:51 Result Notes None recorded. Medical Equipment None Reported. Allergies Allergen ID Allergen Name Allergen Category Reaction Reaction Severity Criticality Documentation Date Start Date Code Code System Note Provider Name and Address Organization Details Recorded Time 61155 amoxicill in medicatio n Not available Not available Not available 06/04/2025 723 RxNorm Not Available [facility] - production 08:32:16 37794 latex environme nt,medica tion Not available Not available Not available 06/04/2025 46424 91 RxNorm Not Available [employer] - production [...] Vitals Date Recorded Heart rate Oxygen saturation Respiratory rate Body temperature Systolic And Diastolic Provider Name and Address Organization Details Last Updated DateTime 5 84 /min 99 % 18 /min 98.4 [degF] 185/110 mm[Hg] Not Available [facility] 09:49:07 Date Recorded Body height Body temperature Heart rate Oxygen saturation Body weight Respiratory rate Systolic And Diastolic Provider Name and Address Organization Details Last Updated DateTime 2 157.48 cm 97.8 [degF] 68 /min 100 % 23411.2 88 g 18 /min 149/88 mm[Hg] Not Available [facility] 19:32:11 Social History None recorded. Functional [...] Note 3981 Azar Sweeney MD Main - [address] [address] 07/17/2022 19:32:01 07/29/2022 13:06:51 Chest pain 43138411 R07.[address]-T wave changes. Chest pain related to anxiety in past. Non-exerti onal. DIscussed red flag symptoms to indicate calling [phone] Alis Garcia MD Main-[facility] [address] [address] 06/04/2025 09:49:03 06/06/2025 09:18:35 Essential hypertension 00342613 I10 93748 History of diabetes mellitus 925619265 Z86.39 651402 Seizure disorder 0442582 02 G40.909 02530 Health Concerns Section Related Observation LastModified by Organization Detai ls LastModified Time None Recorded Concern Status LastModified by Organization Details LastModified Time None Recorded Advance Directives Directive None Recorded Payers Insurance Date Sequence Insurance Name Policy Number Policy Hernandez Covered Member ID Hernandez Member ID Guarantor Name 06/04/2025 1 [facility] - DOS PRIOR TO 2023 - DUAL ELIGIBLE (MEDICARE REPLACEMENT/ADV ANTAGE - HMO) Cara Husain [id number] Cara Husain 06/04/2025 1 [facility] - DOS ON OR AFTER 2023 - DUAL ELIGIBLE - DETENTION OPTIONS AND ONE CARE (MEDICARE REPLACEMENT/ADV ANTAGE - HMO) Cara Husain [id number] Cara Husain Notes Date Note Type Note [...] .................. .................. .................. .................. .................. .................. ............... Marine Railway Operator Note: Sent to a call for [...] hx per above Azar Sweeney MD [address] [facility],[address], [place], [address], [employer] 07/17/2022 19:33:44 06/04/2025 text/html CRC Nurse Triage [...] Type 2, Anxiety Disorder PMH Reviewed at 06/04/2025:32 Allergies Reviewed at 06/04/2025:32 Comments: 69 y.o [...] signs of when to seek emergency care. Marine Railway Operator Organization Information for Veronika Glover [employer] Legal Name: [employer]. Address: [address] [place] [address], Classics Professor: Karl Finch MD CLIA No.: [id number] Marine Railway Operator POC Test Results from [facility] - [facility] Blood Glucose Measurement (10:02:06) Blood Glucose: 250mg/dL Attachments uploaded as part of this test result can be found under Documents section. .................. .................. .................. .................. .................. .................. .................. ............... Marine Railway Operator Note From Veronika Glover: Pt is lying in bed, A/O x3. [...] bgl 250 after pt had eaten breakfast. [facility] contacted and pt advised that note will be sent to her PCP and neurologist. Pt was also advised to make sure she is taking her medications. Pt told that if she experiences increasing CP, SOB, increased headache and/or pain to call 911 immediately. Pt agreed. Call was then cleared. [facility] Lab Orders: electrocardiogram: Performed glucose, fingerstick, blood: Performed .................. .................. .................. .................. .................. .................. .................. ............... [facility] Consulted: Alis Garcia .................. .................. .................. .................. .................. .................. .................. ............... Disposition: Fulfilled Alis Garcia MD [address] [facility],[address], [place], [address], [employer] 06/04/2025 15:40:42 OBGyn Episode No OBEpisode recorded.
--- OUTSIDE RECORDS SUMMARY | 2025-10-17 20:30 | XMS_ITS | Clinical Summary ---
Author Organization [address] [facility] Address [address] [place] [address] Phone Care Team Providers Care Aquaculture Farmer Name Role Phone George Jha MD Primary Care Provider + [phone] Allergies Active Allergy Reactions Criticality Noted Date [...] external solutionIndication s:Diabetic mononeuropathy simplex (CMS/[facility] V24, CMS/[facility] V28) Apply topically at bedtime [...] PM EST Office Visit Orthopedic Surgery - [address] [address] Homer Langley, DPTal Diabetic mononeuropathy simplex ([facility] V24, [facility] V28) (Primary Dx); Dermatophytosis of nail; Pain in toe of right foot; Pain in toe of left foot from Last 3 Months Surgical History Surgery Date Site/Laterality Comments CATARACT EXTRACTION 08/2023 GALLBLADDER SURGERY TUBAL LIGATION Medical History Medical History Date Comments DM (diabetes mellitus) (CMS/[facility] V24, [facility] V28 ) Migraine without aura TLE (temporal lobe epilepsy) (CMS/[facility] V24, [facility]/ [facility] V28) Depression with anxiety Multifactorial dementia ([facility] V24, [facility] V2 8) Arachnoid cyst Encephalopathy Memory loss Panic attacks Anxiety High cholesterol Social History Tobacco Use Types Packs/Day Years Used Date Smoking Tobacco: Never Smokeless Tobacco: Never Comments Unknown Sex and Gender Information Value Date Recorded Sex Assigned at Not on file Legal Sex Female 8:27 PM EST Gender Identity Not on file Sexual Orientation Not on file Last Filed Vital Signs Vital Sign Reading [...] Care Team (Late st Contact Info) Description 12/21/2025 2:00 PM EST Office Visit Orthopedic Surgery - [place] [address] [address] Homer Langley, DPTal [address] [address] Health Maintenance Due Date Last [...] to complete this topic Insurance SARAHI WHITE [id number] [facility] Member Subscriber Plan / Payer (Ef fective 2019-Present) Name:Cara Husain Relation to Subscriber:Self Name:Cara Husain Payer ID:[id number] Group ID:[id number] Type:Not on file Address: [place] [address] [place] [phone] Care Teams Aquaculture Farmer Relationship Specialty Start Date End Date George Jha MD [address] [place] [address] [address] SARAHI White PCP - General Internal Medicine 02/17/25
== END 2025-10-17 14:44 | disposition home or self-care (01) ==
LOC: HO.HOP 14:04
PROVIDERS: PCP Internal Medicine; Visit Provider Clinical Nurse Specialist Psychiatric/Mental Health
DX: F41.1 Generalized anxiety disorder (principal); F41.0 Panic disorder [episodic paroxysmal anxiety]
CPT/HCPCS: 99214

== ENCOUNTER → 2025-10-17 14:04 | Outpatient (BNVA) | payer OTHER, SELFPAY | PROVIDERS: PCP Internal Medicine; Visit Provider Clinical Nurse Specialist Psychiatric/Mental Health | DX: F41.1 Generalized anxiety disorder (principal); F41.0 Panic disorder [episodic paroxysmal anxiety]; Z79.899 Other long term (current) drug therapy | CPT/HCPCS: 99212 ==

== ENCOUNTER 2025-10-28 11:30 | Outpatient (AMB) | payer OTHER, SELFPAY ==
--- OUTSIDE RECORDS SUMMARY | 2025-04-15 08:00 | XMS_ITS ---
Author Organization [facility] Address [address] [place] [address] Care Team Providers Care Sas Etl Developer Name Role Phone Red Jha MDneth Primary Care Provider Juanito Tafoya Unavailable [phone] REASON FOR VISIT fatty liver, autoimmune hepatitis [...] Not-Taking/PRN Encounters Encounter Location Date Provider Diagnosis [facility] [address] [place] [address], [place] [address] 04/15/2025 Juanito Viramontes Plan Of Treatment Next Appt Details Provider Name:Juanito Parada Wander , 11/29/2025 01:40:00 PM, [address], [address], [place], [address], Progress Notes * [facility]:[birth year] (70 yo F)Acc No.[id number]:04/15/2025 Progress Notes Patient: JOEY DESHPANDEIA Provider: Ronald Viramontes MD :1955 A ge:69 Y S ex:Female Date:04/15/2025 Address:[address] [place] [address] , [id number] Pcp:George Jha MD Subjective: * Chief Complaints: [...] 04/15/2025 Generated for Aureliano prater/Andie/Rudi on: 1 12/29/2024 11:33 AM EST
--- OUTSIDE RECORDS SUMMARY | 2025-07-06 10:20 | XMS_ITS ---
Author Organization [facility] Address [address] [place] [address] Care Team Providers Care Tank Cleaning Supervisor Name Role Phone Abhijeet VILLA, George Primary Care Provider Juanito Tafoya [phone] REASON FOR VISIT Patient presents today for a fatty liver Encounters Encounter Location Date Provider Diagnosis [facility] [address] [place] [address] 07/06/2025 Juanito Viramontes Plan Of Treatment Next Appt Details Provider Name:Juanito Viramontes , 11/29/2025 01:40:00 PM, [address], [address], [place], [address], Progress Notes * ETHAN SWEETDOB:[birth year] (70 yo F)Acc No.[id number]:07/06/2025 Progress Notes Patient: ETHAN DESHPANDE Provider: Ronald Viramontes MD :1955 A ge:69 Y S ex:Female Date:07/06/2025 Address:[address] [place], [place] [id number] Pcp:George Jha MD Subjective: * Chief Complaints: [...] 07/06/2025 Generated for Aureliano prater/Andie/Rudi on: 1 12/29/2024 11:33 AM EST
--- OUTSIDE RECORDS SUMMARY | 2025-10-28 11:33 | XMS_ITS | Patient Health Record ---
Author Organization [facility] Address [address] [place] [address] Care Team Providers Care Consultant Technology Name Role Phone George Jha MD Primary Care Provider Juanito Tafoya Unavailable [phone] Allergies Allergen (clinical drug ingredient) Drug/Non Drug [...] Status Risk Notes Problem Colon cancer screening (138362915) Colon cancer screening (Z12.11) Active confirmed Problem History of adenomatous polyp of colon (585921672) History of adenomatous polyp of colon (Z86.010) Active confirmed Problem Autoimmune hepatitis (381753078) Autoimmune hepatitis (K75.4) Active confirmed Problem Elevated liver enzymes level (450634713) Elevated liver function tests (R79.89) Active confirmed Problem Elevated liver enzymes level (391759416) Elevated liver enzymes (R74.8) Active confirmed Problem Fatty liver (125700128) Fatty liver (K76.0) Active confirmed Encounters Encounter Location Date Provider Diagnosis [facility] [address] [place] [phone] 07/06/2025 Juanito Viramontes [facility] [address] [place] [phone] 09/14/2025 Juanito Viramontes Plan Of Treatment Pending [...] Name:Juanito Viramontes , 11/29/2025 01:40:00 PM, [address], [address], [place], [address], Insurance Providers Payer Name Payer Address Payer Phone Subscriber Number Group Number Insured Name Patient Relationship to Insured Coverage Start Date Coverage End Date [facility] [address] Attn Claims LIA Fry [address] [id number] ETHAN SWEET Self - patient is the insured MEDICAID OF [place] [address] [place] [phone] [id number] ETHAN SWEET Self - patient is the insured Medical (General) History Medical History History ICD Code Colonoscopy 05/22/2011-large , approximately 2 cm tubular adenoma with high grade dysplasia removed form sigmoid colon; also noted to have diverticulosis GERD--EGD in 05/2011--mild gastritis-neg. H.pylori, small HH--no esophagitis HTN Back pain Anxiety/depression Asthma Denies [place],CVA,renal disease IDDM Hyperlipidemia Negative screening colonoscopy in [...]
--- OUTSIDE RECORDS SUMMARY | 2025-10-28 11:33 | XMS_ITS | Data Portability ---
Author Organization [employer], [facility] Address [address] [place] [address] Care Team Providers Care Resident Surgeon Name Role Phone HIM CCA OTHER Assessment Encounter Date Assessment Date Assessment LastModified by Organization Details LastModified Time 06/04/2025 06/04/2025 I provided real -time medical direction via phone for this encounter and was available for additional phone-based assistance as needed. I have reviewed and agree with the Assessment and Plan as documented by the Mechanical Laboratory Technician. Patient given the opportunity to ask questions. [...] associated with neuro deficits or N/V. Per service delivery consultant on the scene, Please read the service delivery consultant note for their exam findings. Impression: As [...] Lab glucose, fingerstick , blood [facility] [address] [place] [address], [id number] 13:45:25 Referral None recorded. Procedures None recorded. Surgeries None recorded. Imaging electrocard iogram [address], [address] 10:06:57 Medication Orders None recorded. Patient TargetsNo targets recorded. Patient InstructionsNo instructions recorded. Reason for Referral None Reported. Results Created Date Observation Date Name Description Value Unit Range Abnormal Flag Note LastModifiedBy Organization Detail LastModifiedTime 06/04/2006/04/2025 elect elizabeth diogr am No observ ation record ed. [facility] [address], [address] 06/04/2025 13:44:51 Result Notes None recorded. Medical Equipment None Reported. Allergies Allergen ID Allergen Name Allergen Category Reaction Reaction Severity Criticality Documentation Date Start Date Code Code System Note Provider Name and Address Organization Details Recorded Time 48610 amoxicill in medicatio n Not available Not available Not available 06/04/2025 723 RxNorm Not Available [facility] - production 08:32:16 46253 latex environme nt,medica tion Not available Not available Not available 06/04/2025 20603 91 RxNorm Not Available [facility] - production [...] /min 98.4 [degF] 185/110 mm[Hg] Not Available [facility] 5 09:49:07 Date Recorded Body height Body temperature Heart rate Oxygen saturation Body weight Respiratory rate Systolic And Diastolic Provider Name and Address Organization Details Last Updated DateTime 2 157.48 cm 97.8 [degF] 68 /min 100 % 46305.2 88 g 18 /min 149/88 mm[Hg] Not Available [facility] 2 19:32:11 Social History None recorded. Functional [...] Note 3981 Azar Sweeney MD Main - [address] [address] 07/17/2022 19:32:01 07/29/2022 13:06:51 Chest pain 68946497 R07.[address]-T wave changes. Chest pain related to anxiety in past. Non-exerti onal. DIscussed red flag symptoms to indicate calling 112. [address]308 Alis Garcia MD Main-[facility] [address] [address] 06/04/2025 09:49:03 06/06/2025 09:18:35 Essential hypertension 01324495 I10 53420 History of diabetes mellitus 672219434 Z86.39 327779 Seizure disorder 6255038 02 G40.909 40381 Health Concerns Section Related Observation LastModified by Organization Detai ls LastModified Time None Recorded Concern Status LastModified by Organization Details LastModified Time None Recorded Advance Directives Directive None Recorded Payers Insurance Date Sequence Insurance Name Policy Number Policy Hernandez Covered Member ID Hernandez Member ID Guarantor Name 06/04/2025 1 [facility] - DOS PRIOR TO 2023 - DUAL ELIGIBLE (MEDICARE REPLACEMENT/ADV ANTAGE - HMO) Cara Husain [id number] Cara Husain 06/04/2025 1 [facility] - DOS ON OR AFTER 2023 - DUAL ELIGIBLE - HALFWAY OPTIONS AND ONE CARE (MEDICARE REPLACEMENT/ADV ANTAGE - HMO) Cara Husain [id number] Cara Husain Notes Date Note Type Note [...] .................. .................. .................. .................. .................. .................. ............... Mechanical Laboratory Technician Note: Sent to a call for a [...] hx per above Azar Sweeney MD [address] [facility], [place], [address], [employer] 07/17/2022 19:33:44 06/04/2025 text/html CRC Nurse Triage [...] signs of when to seek emergency care. Mechanical Laboratory Technician Organization Information for Veronika Glover [employer] Legal Name: [employer]. Address: [address] [place] [address], Electrical Intern: Karl Finch MD CLIA No.: [id number] Mechanical Laboratory Technician POC Test Results from [facility] - [facility] Blood Glucose Measurement (10:02:06) Blood Glucose: 250mg/dL Attachments uploaded as part of this test result can be found under Documents section. .................. .................. .................. .................. .................. .................. .................. ............... Mechanical Laboratory Technician Note From Veronika Glover: Pt is lying [...] bgl 250 after pt had eaten breakfast. [facility] [place] and pt advised that note will be sent to her PCP and neurologist. Pt was also advised to make sure she is taking her medications. Pt told that if she experiences increasing CP, SOB, increased headache and/or pain to call 911 immediately. Pt agreed. Call was then cleared. [facility] [place] Orders: electrocardiogram: Performed glucose, fingerstick, blood: Performed .................. .................. .................. .................. .................. .................. .................. ............... [facility] Consulted: Alis Gracia .................. .................. .................. .................. .................. .................. .................. ............... Disposition: Fulfilled Alis Garcia MD [address] [facility], [place], [address], [employer] 06/04/2025 15:40:42 OBGyn Episode No OBEpisode recorded.
--- OUTSIDE RECORDS SUMMARY | 2025-10-28 11:33 | XMS_ITS | Clinical Summary ---
Author Organization [address] [facility] Address [address] [place] [address] Phone Care Team Providers Care Steel Loader Name Role Phone George Jha MD Primary Care Provider + [phone] Allergies Active Allergy Reactions Criticality Noted Date [...] 4 % external solutionIndication s:Diabetic mononeuropathy simplex ([facility] V24, [facility] V28) Apply topically at bedtime [...] PM EST Office Visit Orthopedic Surgery - [address] [address] Homer Langley, DPTal Diabetic mononeuropathy simplex ([facility] V24, [facility] V28) (Primary Dx); Dermatophytosis of nail; Pain in toe of right foot; Pain in toe of left foot from Last 3 Months Surgical History Surgery Date Site/Laterality Comments CATARACT EXTRACTION 08/2023 GALLBLADDER SURGERY TUBAL LIGATION Medical History Medical History Date Comments DM (diabetes mellitus) (CMS/[facility] V24, [facility] V28 ) Migraine without aura TLE (temporal lobe epilepsy) (CMS/[facility] V24, [facility]/ [facility] V28) Depression with anxiety Multifactorial dementia ([facility] V24, [facility] V2 8) Arachnoid cyst Encephalopathy [...] PM EST Office Visit Orthopedic Surgery - [place] [address] [address] Homer Langley, DPTal [address] [address] Health Maintenance Due Date Last [...] to complete this topic Insurance SARAHI WHITE [id number] [facility] Member Subscriber Plan / Payer (Ef fective 2019-Present) Name:Cara Husain Relation to Subscriber:Self Name:Cara Husain Payer ID:[id number] Group ID:[id number] Type:Not on file Address: [place] [address] [place] [address] Care Teams Steel Loader Relationship Specialty Start Date End Date George Jha MD [address] [place] [address] [address] SARAHI White PCP - General Internal Medicine 02/17/25
--- NOTE | 2025-10-28 11:50 | MHC.PC.OV ---
Vital Signs 10/28/25 11:52 Height 5 ft 2 in Weight 146 lb 6 oz BMI 26.8 BP 178/66 H Blood Pressure Location Lt brachial Position Sitting Respiration 18 Pulse 70 Pulse Source Pulse Oximeter Temp Source Temporal Artery Scan Pulse Oximetry (%) 100 Oxygen Delivery Method Room Air Intake Visit Reasons: Follow up- repeat A1C Instructional Services Specialist Required: No Accompanied by: Self / Same As Patient Allergies propranolol Allergy (Intermediate, Verified 10/28/25 13:12) Anxiety amoxicillin Allergy (Unknown, Verified 10/28/25 13:12) Rash glipizide Allergy (Unknown, Verified 10/28/25 13:12) unknown latex (LATEX) Allergy (Unknown, Verified 10/28/25 13:12) UNKNOWN levofloxacin Allergy (Unknown, Verified 10/28/25 13:12) Unknown liraglutide (From VICTOZA) Allergy (Unknown, Verified 10/28/25 13:12) UNKNOWN, itching metformin (METFORMIN) Allergy (Unknown, Verified 10/28/25 13:12) DIARRHEA morphine (MORPHINE) Allergy (Unknown, Verified 10/28/25 13:12) ITCHING, rash acetaminophen Allergy (Verified 10/28/25 13:12) Unknown gabapentin Allergy (Verified 10/28/25 13:12) Unknown atorvastatin Adverse Reaction (Intermediate, Verified 10/28/25 13:12) elevated LFTs Medication List - Last Reconciled 10/28/25 by RAULITO Major blood sugar diagnostic (FreeStyle Lite Strips) 1 strip miscellaneous TID blood-glucose meter (FreeStyle Lite Meter kit) As directed cholecalciferol (vitamin D3) 50 mcg PO DAILY 90 days clonazepam (Klonopin) 0.5 mg orally Take 1/2 tablet in am and 1 tablet at bedtime; PLEASE write instructions in Nepali fluticasone propionate 50 mcg/actuation 2 sprays intranasal DAILY gabapentin 100 mg PO BID glimepiride 2 mg PO QAM [Grab bars As directed] hydrochlorothiazide 25 mg PO QAM ibuprofen 800 mg PO Q8H PRN [incontinence liners 4 times per day] [incontinence wipes As directed] insulin degludec (Tresiba FlexTouch U-100 insulin) 40 units subcut BEDTIME ipratropium bromide 2 sprays intranasal BID 1 week lancets (FreeStyle Lancets) As directed-to test sugars Three times a day losartan 75 mg (1.5 x 50 mg) PO DAILY 30 days magnesium glycinate 100 mg PO BEDTIME omeprazole 20 mg PO DAILY paroxetine HCl 5 mg (1/2 x 10 mg) PO DAILY 90 days pen needle, diabetic As directed pen needle, diabetic As directed daily inject 4 x a day rosuvastatin 20 mg PO DAILY 90 days tirzepatide (Mounjaro) 10 mg (0.5 mL) subcut QWEEK Tobacco use date assessed: 10/28/25 Fall risk assessment: 1 Fall in past year Dental Screening Dental Screen Date: 10/28/25 Did you have a dental visit in the last 12 months?: No Did you have a dental problem in the last 6 months where you did not have access to dental care?: No Was dental information given to patient?: No HPI HPI Comments History of Present Illness Details The patient is a 70 year old female presenting for management of multiple chronic conditions. Regarding her hypertension, the patient reports elevated blood pressure readings at home, particularly three weeks ago when she was measuring it on her arm with a glucose monitor, which she later learned could give inaccurate readings. She was advised to go to the emergency room but went to an urgent care instead, where her blood pressure was confirmed to be high even on the other arm, though she notes she was very nervous. She was prescribed hydrochlorothiazide, but stopped taking it after experiencing symptoms of feeling faint and internal heat. She continues to take losartan, and states her blood pressure is high today, which she attributes to nervousness and depression. She also reports that her blood pressure has dropped as low as 103/67 mmHg while on medication. The patient has a history of type 2 diabetes and monitors her glucose with a continuous glucose monitor. She reports her HbA1c is currently 8.6%, which is an increase from 8.0% in June, but a decrease from a prior 9.1%. She has been experiencing low morning blood glucose levels, with readings of 77-80 mg/dL, after changing her eating habits to stop eating by 5-6 PM. She takes 40 units of insulin but did not take it last night. She previously tried Mounjaro but stopped due to side effects including stomach problems, a weird feeling in her heart, and eye issues, and has not started a prescription for Trulicity due to her low morning glucose. The patient has a history of a seizure disorder, diagnosed as early-onset epilepsy after a neurology consultation. She takes gabapentin, which controls her seizures well. She reports that taking medications for relaxation or depression, such as clonazepam or Paxil, and even chamomile tea, precipitates an increase in nocturnal seizures described as jumping. She also describes episodes of nancy vu and disorientation, which a psychiatrist has told her are seizures. She reports long-standing issues with drowsiness, dizziness (which she specifies is not vertigo), and a feeling of numbness in her head. She had a sinus infection in September treated with antibiotics and a nasal spray, but continues to experience significant post-nasal drip, especially when lying down, which causes difficulty swallowing. Associated symptoms include a runny nose, nasal stuffiness, a feeling of pressure near her ears, anosmia for several years, and tinnitus. Neurology noted a benign cyst but felt it was not causing her issues. Additionally, the patient reports heartburn for which she started taking omeprazole 20 mg daily. Health Maintenance - Hemoglobin A1c was recently 8.6%, an increase from 8.0% in June. - The patient reports morning hypoglycemia with blood glucose readings as low as 77 mg/dL. - Discussed dietary modifications, including consuming a snack with protein, such as tuna or peanut butter, later in the evening to prevent morning hypoglycemia. - Discussed increasing fluid intake to 6-8 bottles of water per day. - Lab work previously ordered by Dr. Jha to be completed as soon as possible. - New labs will be ordered for her next follow-up appointment. - Patient declines physical therapy for vertigo, stating she does not have vertigo. Social History - Nutrition: The patient reports ending her meals for the day around 5 or 6 p.m. and sometimes has low-sugar cookies or milk as a snack. - Hydration: She drinks approximately 3-4 bottles of water during the day and takes sips at night for dry mouth. - Functional Status: She is unable to drive due to her dizziness issues and relies on others for transportation. - Stressors: The patient reports feeling depressed and nervous, mentioning family problems and stress around [place]. Results - Labs: Recent Hemoglobin A1c is 8.6%. - Home Monitoring: Self-monitored morning blood glucose levels have been as low as 77 mg/dL. [facility] Medical History Panic disorder Painful diabetic neuropathy Arachnoid cyst Migraine without aura TLE (temporal lobe epilepsy) Complex partial seizure disorder Encephalopathy MCI (mild cognitive impairment) Depression with anxiety Insomnia Multifactorial dementia Dizziness Overweight (BMI 25.0-29.9) Vitamin D deficiency Ear pain Ear drainage Right shoulder pain Functional urinary incontinence COVID-19 Encounter to discuss test results Memory loss Urinary incontinence Chest pain Colon cancer screening Annual physical exam Diabetes Type 2 diabetes mellitus with hyperglycemia Epigastric pain Vertigo Upper abdominal pain Screening for tuberculosis Low back pain Preoperative examination Right hip pain Right low back pain Primary osteoarthritis of shoulder Memory loss or impairment Bursitis of right shoulder Bursitis of left shoulder Primary osteoarthritis, right shoulder Anxiety Varicose veins of both lower extremities Allergic rhinitis Elevated LFTs Primary osteoarthritis of left shoulder Lumbar degenerative disc disease Benign essential hypertension Type 2 diabetes mellitus without complications Mixed hyperlipidemia Surgical History History of appendectomy History of cholecystectomy History of cystoscopy History of tubal ligation Family History Father Cancer Mother Diabetes Maternal Uncle Cancer Maternal Grandfather Cancer Social History Housing: Apartment Alcohol intake: former Patient Tobacco Use Status: Never used Tobacco e-Cigarette/Vaping Use: Never Used Second Hand Smoke Exposure: Yes service: No Current occupational status: unemployed Current occupational exposures/hazards: No Cognitive needs: No Hearing needs: No Vision needs: No Questionnaire Thrive Questionnaire Date Thrive assessed: 06/27/25 I am a: Patient What is your living situation today?: I have a steady place to live Within the past 12 months, did the food you bought not last and you didn't have the money to get more?: Never true Within the past 12 months, did you worry whether your food would run out before you got money to buy more?: Never true Do you have trouble paying for medicines?: No Do you have trouble getting transportation to medical appointments?: No Do you have trouble paying your heating and electricity bill?: No Do you have trouble taking care of your child, family member or friend?: No Do you have trouble with day-to-day activities such as bathing, preparing meals, shopping, managing finances, etc.?: No Are you currently unemployed and looking for a job?: Yes Are you interested in more education?: No Currently or been in a relationship where the following occur: No concerns reported THRIVE Score: 0 NIEVES-7 AMB Questionnaire NIEVES-7 Date NIEVES - 7 assessed: 06/27/25 Source: Developed by Drs. Juanito Moscoso, Shea Michel, Russell Ott and colleagues, with an educational peace from [employer]. Review of Systems Narrative Review of Systems - General: Reports feeling tired, depressed, and nervous. - Neurological: Reports a history of seizures, drowsiness, and chronic dizziness which she states is not vertigo. - HEENT: Reports heavy-feeling eyes, post-nasal drip when supine causing difficulty swallowing, nasal congestion, runny nose, and anosmia for several years. - Ears: Reports experiencing ringing in the ears and momentary sensations of hearing loss. - Gastrointestinal: Reports heartburn managed with medication. - Respiratory: Denies cough. Const Denies headache(s) and Reports lethargy Eyes Denies loss of vision and Reports other (Heavy feeling in the eyes) ENT Reports dysphagia (Associated with PND), Denies vertigo, Reports dizziness (On and off), Denies headache(s), Reports nasal congestion, Reports post nasal drip, Reports tinnitus and Reports sore throat (Mild discomfort) Card Denies chest pain, Denies leg edema and Denies lightheadedness Resp Reports cough (On and off), Denies hemoptysis and Denies wheezing GI Denies abdominal pain, Denies melena, Denies constipation, Reports dysphagia (Associated with PND), Reports heartburn, Denies diarrhea and Denies vomiting Denies urinary frequency, Denies dysuria and Denies urinary urgency Musc Denies arthralgias, Denies joint swelling, Denies numbness and Denies tingling Neuro Denies Abnormal speech present, Denies behavioral changes, Denies vertigo, Reports dizziness (On and off), Denies headache(s), Denies loss of vision, Denies memory loss, Denies numbness and Denies tingling Psych Denies anxiety, Denies behavioral changes, Denies depression, Denies memory loss and Denies panic attacks Antwon/Lymph Denies easy bleeding and Denies easy bruising Aller/Immun Denies wheezing Physical exam (Primary Care) Vital Signs: Last Vital Signs Pulse 70 10/28/25 11:52 Resp 18 10/28/25 11:52 BP 178/66 H 10/28/25 11:52 Pulse Ox 100 10/28/25 11:52 Oxygen Delivery Method Room Air 10/28/25 11:52 BMI result Body Mass Index 26.8 Tobacco/Smoking Status: Tobacco use Status Tobacco use date assessed 10/28/25 10/28/25 11:58 Patient Tobacco Use Status Never used Tobacco 10/28/25 11:51 e-Cigarette/Vaping Use Never Used 10/28/25 11:51 Thrive Assessment: Date of Thrive Assessment Date Thrive assessed 06/27/25 10/28/25 11:51 Currently or been in a relationship where the following occur: No concerns reported Narrative Physical Exam - Vitals: Blood pressure was elevated on re-check. - HEENT: Nasal examination reveals significant swelling of the nasal mucosa. - Lungs: Clear to auscultation bilaterally. Const General: healthy appearing, no acute distress, alert and awake Nutritional Appearance: well nourished Orientation/consciousness: oriented to person, oriented to place and oriented to time HENMT Ears: TM's normal bilaterally General nose exam: Abnormal mucous membranes and turbinates present boggy bilateral and erythematous bilateral and Nasal discharge present clear bilateral Face and sinus: No sinus tenderness Throat: Yes posterior oropharynx normal Eyes Conjunctivae: conjunctivae normal Sclerae: sclerae normal Pupils: Equal, round and reactive pupils present Neck Neck: Yes no lymphadenopathy and Yes no JVD Thyroid: Thyroid normal Carotids: no bruits Resp Effort & Inspection: normal respiratory effort and not tachypneic Auscultation: no crackles, no rales, no rhonchi and no wheezes Cardio Rate: regular rate Rhythm: regular rhythm Heart sounds: no murmurs and normal S1 and S2 GI Palpation (GI): Soft to palpation, nontender, no hepatomegaly and no splenomegaly Auscultation: normal bowel sounds General: Yes no CVA tenderness Back/Spine/Pelvis Back: no CVA tenderness Skin General skin exam: no rashes or lesions noted and dry skin Neuro General: oriented to person, oriented to place and oriented to time Cranial nerves: Yes Equal, round and reactive pupils present Speech: No Abnormal speech present Gait exam (Neuro): Normal gait present Motor exam (neuro): no tremor noted Extrem Right upper extremity: full ROM Left upper extremity: full ROM Right lower extremity: full ROM; no edema Left lower extremity: full ROM; no edema Psych Mental Status: mental status grossly normal Speech and movement: Normal speech and movement present Affect: normal affect Attitude: cooperative Thought process: Normal thought process present Coding Level of Care Code Est Pt Level 4 (68815) Diagnoses Generalized anxiety disorder F41.1 Panic disorder F41.0 Benign essential hypertension I10 Varicose veins of both lower extremities, unspecified whether complicated I83.93 Varicose vein complication: unspecified Mixed hyperlipidemia E78.2 Type 2 diabetes mellitus without complications E11.9 Overweight (BMI 25.0-29.9) E66.3 Vitamin D deficiency E55.9 Allergic rhinitis, unspecified seasonality, unspecified trigger J30.9 Allergic rhinitis trigger: unspecified Allergic rhinitis seasonality: unspecified Recurrent vertigo R42 Elevated LFTs R79.89 Seizure disorder G40.909 Memory loss or impairment R41.3 Degeneration of intervertebral disc of lumbar region with discogenic back pain and lower extremity pain M51.362 Disc-related pain type: discogenic back pain and lower extremity pain Dizziness R42 Time Spent (min) 35 Assessment & Plan Assessment & Plan (1) Generalized anxiety disorder: Code(s): F41.1 - Generalized anxiety disorder Category: Medical (2) Panic disorder: Code(s): F41.0 - Panic disorder [episodic paroxysmal anxiety] Category: Medical (3) Benign essential hypertension: Code(s): I10 - Essential (primary) hypertension Category: Medical (4) Varicose veins of both lower extremities: Code(s): I83.93 - Asymptomatic varicose veins of bilateral lower extremities Category: Medical Qualifiers: Varicose vein complication: unspecified Qualified Code(s): I83.93 - Asymptomatic varicose veins of bilateral lower extremities (5) Mixed hyperlipidemia: Code(s): E78.2 - Mixed hyperlipidemia Category: Medical (6) Type 2 diabetes mellitus without complications: Code(s): E11.9 - Type 2 diabetes mellitus without complications Category: Medical (7) Overweight (BMI 25.0-29.9): Code(s): E66.3 - Overweight Category: Medical (8) Vitamin D deficiency: Code(s): E55.9 - Vitamin D deficiency, unspecified Category: Medical (9) Allergic rhinitis: Code(s): J30.9 - Allergic rhinitis, unspecified Category: Medical Qualifiers: Allergic rhinitis trigger: unspecified Allergic rhinitis seasonality: unspecified Qualified Code(s): J30.9 - Allergic rhinitis, unspecified (10) Recurrent vertigo: Code(s): R42 - Dizziness and giddiness Category: Medical (11) Elevated LFTs: Code(s): R79.89 - Other specified abnormal findings of blood chemistry Category: Medical (12) Seizure disorder: Comment: Meds tried: Lamotrigine, Keppra, divalproex acid Amb EEG at [facility] in Nov 2023: bitemp sharps, left more than right MRI brain WO at [facility] in Jan 2025: 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, mild MVD Amb EEG at [facility] in Jan 2023: Lleft temp sharps, while no EEG abn during symptoms Routine EEG at off in Dec 2022: slow CT brain WO at [facility] in 2021: mild MVD, otherwise same CT brain WO at [facility] in 2019: post fossa cyst, congenital, otherwise ok Code(s): G40.909 - Epilepsy, unspecified, not intractable, without status epilepticus Category: Medical (13) Memory loss or impairment: Code(s): R41.3 - Other amnesia Category: Medical (14) Lumbar degenerative disc disease: Code(s): M51.36 - Other intervertebral disc degeneration, lumbar region Category: Medical Qualifiers: Disc-related pain type: discogenic back pain and lower extremity pain Qualified Code(s): M51.362 - Other intervertebral disc degeneration, lumbar region with discogenic back pain and lower extremity pain (15) Dizziness: Code(s): R42 - Dizziness and giddiness Category: Medical Plan Plan Patient was informed and verbally consented to the use of an ambient scribe for clinic note documentation during this visit. 1. Essential Hypertension The patient's blood pressure remains elevated in the clinic. She has been taking 50 mg of losartan daily. The plan is to increase her losartan dose to 75 mg daily. She will return for a nurse visit in two weeks for a blood pressure check. 2. Type 2 Diabetes Mellitus The patient's HbA1c has increased to 8.6% from 8.0% in June. She has been experiencing morning hypoglycemia, with readings as low as 77 mg/dL, which is likely due to her practice of ceasing food intake early in the evening. Due to recent holiday dietary changes, no adjustments will be made to her diabetes medications at this time. The patient was advised to have a snack containing protein and fat, such as peanut butter or tuna, later in the evening to prevent hypoglycemia. She will proceed with getting labs done that were previously ordered. 3. Allergic Rhinitis And Chronic Sinusitis The patient has chronic symptoms of post-nasal drip, congestion, and anosmia. Physical exam revealed significant nasal swelling, consistent with inflammation from allergies. A referral will be placed to ENT for further evaluation. An audiology exam will also be ordered to assess her hearing, which may expedite the ENT consultation. The patient is advised to use her at-home nasal sprays (Flonase and a previously prescribed one) and Claritin to help with the inflammation. 4. Seizure Disorder And Dizziness The patient's seizure disorder is reportedly exacerbated by medications used for relaxation or depression. She remains stable on gabapentin. Her chronic dizziness, which is not vertigo, remains an ongoing issue. The planned ENT referral will also serve to evaluate potential causes of her dizziness. Reinforced low-cholesterol diet and activity as tolerated to aid in losing weight. Continue rosuvastatin 20 mg daily. Continue gabapentin 100 mg b.i.d. continue monitoring for seizure activity, follow up with Neurology as scheduled. Reinforced dietary restrictions, continue omeprazole 20 mg daily. Encouraged CBT, continue Paxil 5 mg daily, follow up with Psychiatry as scheduled. Encouraged the patient to complete preordered labs to further evaluate health status. Encouraged the patient to avoid triggers, continue magnesium 100 mg at bedtime. Continue cholecalciferol 50 mcg daily. Encouraged the patient to increase fluids intake. Discussion Notes I discussed with the patient her elevated blood pressure and my recommendation to increase her losartan to 75 mg daily, with a follow-up blood pressure check in two weeks. Regarding her diabetes management, I explained that while her A1c has risen to 8.6%, her morning hypoglycemia is a more immediate concern, likely caused by her early dinner time. I advised her to add a protein-rich snack later in the evening and decided against altering her diabetes medications for now, considering the recent holidays. We discussed her chronic sinus symptoms, and I noted the significant swelling on exam, which I explained is likely inflammation from allergies. I informed her of the plan to refer her to an ENT specialist and for an audiology exam, and recommended she use her existing nasal sprays and Claritin. I recommended she increase her water intake to 6 to 8 bottles a day. She has labs pending from a previous order and will need new labs before her next follow-up appointment in four months. Patient Instructions - Increase your losartan dose to 75 mg each day as discussed. - Come back to the clinic in 2 weeks for a blood pressure check with the nurse. - To help prevent your blood sugar from dropping too low in the morning, have a snack with protein, like tuna or peanut butter, later in the evening. - Drink more water throughout the day, aiming for 6 to 8 bottles. - Use your nasal sprays (Flonase and the one from your previous prescription) and Claritin to help with your stuffy nose and sinus issues. - Please get the lab work done that was previously ordered for you. - We are referring you to an Ear, Nose, and Throat (ENT) doctor and for a hearing test. - Please schedule a follow-up appointment in four months. Orders: Orders UA CC w/rflx Micro + Cult 4 Months B96.89 - Other specified bacterial agents as the cause of diseases classified elsewhere, E11.9 - Type 2 diabetes mellitus without complications, E55.9 - Vitamin D deficiency, unspecified, F41.0 - Panic disorder [episodic paroxysmal anxiety], F41.1 - Generalized anxiety disorder, F41.9 - Anxiety disorder, unspecified, I10 - Essential (primary) hypertension, I83.93 - Asymptomatic varicose veins of bilateral lower extremities, J32.9 - Chronic sinusitis, unspecified, R42 - Dizziness and giddiness Vitamin D 25-OH Total 4 Months B96.89 - Other specified bacterial agents as the cause of diseases classified elsewhere, E11.9 - Type 2 diabetes mellitus without complications, E55.9 - Vitamin D deficiency, unspecified, F41.0 - Panic disorder [episodic paroxysmal anxiety], F41.1 - Generalized anxiety disorder, F41.9 - Anxiety disorder, unspecified, I10 - Essential (primary) hypertension, I83.93 - Asymptomatic varicose veins of bilateral lower extremities, J32.9 - Chronic sinusitis, unspecified, R42 - Dizziness and giddiness AMB Hemoglobin A1c Today Z13.9 - Encounter for screening, unspecified Hemoglobin A1c 4 Months B96.89 - Other specified bacterial agents as the cause of diseases classified elsewhere, E11.9 - Type 2 diabetes mellitus without complications, E55.9 - Vitamin D deficiency, unspecified, F41.0 - Panic disorder [episodic paroxysmal anxiety], F41.1 - Generalized anxiety disorder, F41.9 - Anxiety disorder, unspecified, I10 - Essential (primary) hypertension, I83.93 - Asymptomatic varicose veins of bilateral lower extremities, J32.9 - Chronic sinusitis, unspecified, R42 - Dizziness and giddiness Complete Blood Count Auto Diff 4 Months B96.89 - Other specified bacterial agents as the cause of diseases classified elsewhere, E11.9 - Type 2 diabetes mellitus without complications, E55.9 - Vitamin D deficiency, unspecified, F41.0 - Panic disorder [episodic paroxysmal anxiety], F41.1 - Generalized anxiety disorder, F41.9 - Anxiety disorder, unspecified, I10 - Essential (primary) hypertension, I83.93 - Asymptomatic varicose veins of bilateral lower extremities, J32.9 - Chronic sinusitis, unspecified, R42 - Dizziness and giddiness Comprehensive [place]. Panel Fast 4 Months B96.89 - Other specified bacterial agents as the cause of diseases classified elsewhere, E11.9 - Type 2 diabetes mellitus without complications, E55.9 - Vitamin D deficiency, unspecified, F41.0 - Panic disorder [episodic paroxysmal anxiety], F41.1 - Generalized anxiety disorder, F41.9 - Anxiety disorder, unspecified, I10 - Essential (primary) hypertension, I83.93 - Asymptomatic varicose veins of bilateral lower extremities, J32.9 - Chronic sinusitis, unspecified, R42 - Dizziness and giddiness Lipid Panel 4 Months B96.89 - Other specified bacterial agents as the cause of diseases classified elsewhere, E11.9 - Type 2 diabetes mellitus without complications, E55.9 - Vitamin D deficiency, unspecified, F41.0 - Panic disorder [episodic paroxysmal anxiety], F41.1 - Generalized anxiety disorder, F41.9 - Anxiety disorder, unspecified, I10 - Essential (primary) hypertension, I83.93 - Asymptomatic varicose veins of bilateral lower extremities, J32.9 - Chronic sinusitis, unspecified, R42 - Dizziness and giddiness TSH reflex Free T4 4 Months B96.89 - Other specified bacterial agents as the cause of diseases classified elsewhere, E11.9 - Type 2 diabetes mellitus without complications, E55.9 - Vitamin D deficiency, unspecified, F41.0 - Panic disorder [episodic paroxysmal anxiety], F41.1 - Generalized anxiety disorder, F41.9 - Anxiety disorder, unspecified, I10 - Essential (primary) hypertension, I83.93 - Asymptomatic varicose veins of bilateral lower extremities, J32.9 - Chronic sinusitis, unspecified, R42 - Dizziness and giddiness Referrals Audiology Referral H93.13 - Tinnitus, bilateral Ear/Nose/Throat Referral H93.13 - Tinnitus, bilateral Medications: New losartan 75 mg (1.5 x 50 mg) PO DAILY 45 tabs 3RF 30 days Patient Instructions: Patient to return in 4 months-preordered labs ordered to be completed prior to visit.
[2025-10-28 11:52] VITALS: BP 178/66; PULSE 70; RESP 18; O2SAT 100; BMI 26.8
== END 2025-10-28 12:46 | disposition home or self-care (01) ==
LOC: HO.HMCH 11:31
PROVIDERS: PCP Internal Medicine
DX: F41.1 Generalized anxiety disorder (principal); F41.0 Panic disorder [episodic paroxysmal anxiety]; I10 Essential (primary) hypertension; I83.93 Asymptomatic varicose veins of bilateral lower extremities; E78.2 Mixed hyperlipidemia; E11.9 Type 2 diabetes mellitus without complications; E66.3 Overweight; E55.9 Vitamin D deficiency, unspecified; J30.9 Allergic rhinitis, unspecified; R42 Dizziness and giddiness; R79.89 Other specified abnormal findings of blood chemistry; G40.909 Epilepsy, unspecified, not intractable, without status epilepticus; R41.3 Other amnesia; M51.362 Other intervertebral disc degeneration, lumbar region with discogenic back pain and lower extremity pain

== ENCOUNTER → 2025-10-28 11:30 | Outpatient (BNVA) | payer OTHER, SELFPAY | PROVIDERS: PCP Internal Medicine | DX: F41.1 Generalized anxiety disorder (principal); F41.0 Panic disorder [episodic paroxysmal anxiety]; I10 Essential (primary) hypertension; I83.93 Asymptomatic varicose veins of bilateral lower extremities; E78.2 Mixed hyperlipidemia; E11.9 Type 2 diabetes mellitus without complications; E66.3 Overweight; J30.9 Allergic rhinitis, unspecified; R42 Dizziness and giddiness; R79.89 Other specified abnormal findings of blood chemistry; G40.909 Epilepsy, unspecified, not intractable, without status epilepticus; R41.3 Other amnesia; M51.362 Other intervertebral disc degeneration, lumbar region with discogenic back pain and lower extremity pain | CPT/HCPCS: 99212 ==